=== PATIENT | male | born 1960 | race Hispanic/Latino ===

== ENCOUNTER 2017-05-16 13:14 | Inpatient (IN) | payer MEDICARE ==
[2017-05-16 14:54] LABS: BASO # 0.1 K/uL (0.0-0.2); BASO % 0.6 % (0.0-2.0); EOS % 0.5 % (0.0-4.0); HEMOGLOBIN 13.9 g/dL (12.0-18.0); LYMPH # 1.2 K/uL (1.0-4.3); LYMPH % 15.7 % (20.0-40.0); MEAN CORPUSCULAR HEMOGLOBIN 34.4 pg (27.0-31.0); MEAN CORPUSCULAR HGB CONC 34.7 g/dL (33.0-37.0); MEAN PLATELET VOLUME 6.6 fL (7.2-11.7); MONO % 12.5 % (0.0-10.0); NEUT # 5.6 K/uL (1.8-7.0); NEUT % 70.7 % (50.0-75.0); RBC 4.05 Mil/uL (4.40-5.90); WHITE BLOOD COUNT 7.9 K/uL (4.8-10.8)
[2017-05-16 14:58] LABS: URINE BILIRUBIN NEGATIVE (NEGATIVE); URINE BLOOD NEGATIVE (NEGATIVE); URINE CLARITY Clear (Clear); URINE COLOR Straw (YELLOW); URINE GLUCOSE (UA) NORMAL (Normal); URINE LEUKOCYTE ESTERASE NEG Leu/uL (Negative); URINE PROTEIN NEGATIVE (NEGATIVE); URINE UROBILINOGEN NORMAL mg/dL (0.2-1.0)
[2017-05-16 15:06] LABS: ALB/GLOB RATIO 1.2 (1.0-2.1); ALBUMIN 4.1 g/dL (3.5-5.0); ALT/SGPT 67 U/L (21-72); AST/SGOT 69 U/L (17-59); BLOOD UREA NITROGEN 6 mg/dL (9-20); CALCIUM 8.8 mg/dl (8.6-10.4); GFR AFRICAN-AMERICAN > 60; GFR NON-AFRICAN AMERICAN > 60
[2017-05-16 15:22] LABS: BARBITURATES, UR NEGATIVE (NEGATIVE); BENZODIAZEPINES, UR NEGATIVE (NEGATIVE); OPIATES, UR NEGATIVE (NEGATIVE); PHENCYCLIDINE, UR NEGATIVE (NEGATIVE)
--- NOTE | 2017-05-16 15:47 | C.PDOC ---
History Of Present Illness Pt is here requesting detox from alcohol. Time Seen by Provider: 05/16/17 14:02 Chief Complaint (Nursing): Substance Abuse History Per: Patient Onset/Duration Of Symptoms: Days Current Symptoms Are (Timing): Still Present Suicide/Self Injury Attempted (Context): None Modifying Factor(s): Alcohol Severity: Moderate Associated Symptoms: denies: Suicidal Thoughts, Suicidal Plan Additional History Per: Prior Records Past Medical History Reviewed: Historical Data, Nursing Documentation, Vital Signs Vital Signs: Last Vital Signs Temp 99.0 F 05/16/17 13:55 Pulse 70 05/16/17 15:20 Resp 20 05/16/17 15:20 BP 177/87 H 05/16/17 15:20 Pulse Ox 98 05/16/17 15:20 - Medical History PMH: HIV (As per patient "AIDS") Surgical History: No Surg Hx Family History: States: Unknown Family Hx - Social History Hx Tobacco Use: Yes Hx Alcohol Use: Yes Hx Substance Use: No - Immunization History Hx Tetanus Toxoid Vaccination: No Hx Influenza Vaccination: No Hx Pneumococcal Vaccination: No Review Of Systems Except As Marked, All Systems Reviewed And Found Negative. Constitutional: Negative for: Fever Cardiovascular: Negative for: Chest Pain Respiratory: Negative for: Shortness of Breath Gastrointestinal: Positive for: Nausea, Diarrhea. Negative for: Vomiting, Abdominal Pain, Melena, Hematochezia, Hematemesis Genitourinary: Negative for: Dysuria Musculoskeletal: Negative for: Neck Pain Skin: Negative for: Rash Neurological: Negative for: Weakness, Numbness, Seizures, Altered Mental Status Physical Exam - Physical Exam Appears: Non-toxic, No Acute Distress Skin: Normal Color, Warm, Dry Head: Atraumatic, Normacephalic Eye(s): bilateral: PERRL, EOMI Neck: Normal ROM, Supple Cardiovascular: Rhythm Regular Respiratory: Normal Breath Sounds, No Accessory Muscle Use Gastrointestinal/Abdominal: Soft, No Tenderness, No Distention Back: No CVA Tenderness Extremity: Normal ROM Neurological/Psych: Oriented x3, Normal Motor, Normal Sensation ED Course And Treatment - Laboratory Results Result Diagrams: 05/16/17 14:47 05/16/17 14:47 O2 Sat by Pulse Oximetry: 98 Pulse Ox Interpretation: Normal Progress Note: Pt is medically stable for detox admission. Reassessment Condition: Improved Disposition Counseled Patient/Family Regarding: Studies Performed, Diagnosis, Smoking Cessation - Disposition Disposition: HOSPITALIZED Disposition Time: 15:47 Condition: STABLE - Clinical Impression Clinical Impression: Alcohol dependence Decision To Admit - Pt Status Changed To: Hospital Disposition Of: Inpatient - Admit Certification Admit to Inpatient:: After my assessment, the patient will require hospitalization for at least two midnights. This is because of the severity of symptoms shown, intensity of services needed, and/or the medical risk in this patient being treated as an outpatient. - InPatient: Physician Admission Certification: I certify that this patient requires 2 or more midnights of care for the following reason:: Detox. - . Bed Request Type: Detox Admitting Physician: Rafael Nava Patient Diagnosis: Alcohol dependence
--- NOTE | 2017-05-16 16:35 | PCM.BM ---
<Nabila Rodríguez - Last Filed: 05/16/17 16:33> Treatment Plan Problems - Problems identified on initial assessmt potiential for autonomic instability related to alcohol withdrawal Date Initiated: 05/16/17 Time Initiated: 16:34 Assessment reference: NA Status: Active Treatment assets and liabiliti Patient Assests: ADL independent Patient Liabilities: substance abuse, medical problems - Milieu Protocol Maintain good personal hygiene: daily Encourage regular showers, daily Remind patient to perform daily oral care, daily Assist patient to perform ADL's Maintain personal safety: every shift Educate patient to report safety concerns to staff, every shift Monitor environment for contraband/sharps Medication safety: Monitor for expected outcome, potential side effects: every shift, Assess barriers to learning: every shift, Assess readiness for medication education: every shift <Rafael Nava - Last Filed: 05/21/17 01:20> - Diagnosis (1) Alcohol use disorder, severe, dependence Status: Acute Interventions: 05/21/17 01:20 * Assess 7x/week regarding severity of withdrawal * Educate regarding risks, benefits, side effects and alternatives of medications * Use Motivational Interviewing for abstinence * Use CBT for relapse prevention * Medication management for withdrawal symptoms * Encourage medication assisted treatment
[2017-05-16] MEDS: Multiple Vitamins Tab PO SCH (18:53)
[2017-05-17] MEDS: Multiple Vitamins Tab PO SCH (09:54)
[2017-05-17] MEDS ORDERED: Vitamins A & D Oint UD Foilpak TOP PRN (15:44)
[2017-05-17] MEDS: Tmp-Smz 800 mg-160 mg DS Tab PO SCH (21:32)
[2017-05-17] MEDS: GENVOYA PO SCH (21:32)
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
[2017-05-18] MEDS: GENVOYA PO SCH (11:12)
[2017-05-18] MEDS: Tmp-Smz 800 mg-160 mg DS Tab PO SCH (11:15)
[2017-05-18] MEDS: Multiple Vitamins Tab PO SCH (11:15)
--- NOTE | 2017-05-19 00:45 | PCM.PYCHPN ---
Psychiatric Progress Note - Psychiatric Progress Note Patient seen today, length of contact: 15 Minute Patient Chief Complaint: I am feeling little better. Problems Identified/Issues Discussed: Patient seen, chart reviewed, case discussed with the staff. Issues related to illness and treatment were discussed with the patient. Reported compliant with treatment with no adverse effects. Patient reported feeling little better. Mood reported as okay. Affect appropriate. At the time of evaluation, patient was awake alert oriented 3, had no delusions , no auditory or visual hallucination, no suicidal ideations or homicidal ideations. Medical Problems: HIV Kaposi's sarcoma Diagnostic Results: Reviewed DSM 5 Symptoms Update: Improving with treatment Medication Change: No Medical Record Reviewed: Yes Mental Status Examination - Cognitive Function Orientation: Person, Place, Situation, Time Memory: Intact Attention: WNL Concentration: WNL Association: WNL Fund of Knowledge: WNL - Mood Mood: Anxious (Less than before) - Affect Affect: Other (Appropriate) - Speech Speech: Appropriate - Formal Thought Process Formal Thought Process: No Impairment Psychotic Thoughts and Behaviors: None - Suicidal Ideation Suicidal Ideation: No - Homicidal Ideation Homicidal Ideation: No Goal/Treatment Plan - Goal/Treatment Plan Need for Continued Stay: Remain at risks for inpatient hospitalization, Discharge may exacerbated symptoms, Severe functional impairment Progress Toward Problem(s) and Goals/Treatment Plan: Patient education Supportive therapy CBT for relapse prevention [place] for abstinence Continue treatment as before. Patient wants to go to [facility] after discharge from the hospital for follow-up care. Estimated Date of D/C: 05/20/17 - Smoking Cessation Smoking Cessation Initiated: Yes
[2017-05-19] MEDS: GENVOYA PO SCH (09:49)
[2017-05-19] MEDS: Multiple Vitamins Tab PO SCH (09:49)
--- NOTE | 2017-05-19 11:28 | PCM.PYCHPN ---
Psychiatric Progress Note - Psychiatric Progress Note Patient seen today, length of contact: 15 Minute Patient Chief Complaint: I am feeling much better. Problems Identified/Issues Discussed: Patient seen, chart reviewed, case discussed with the staff. Issues related to illness and treatment were discussed with the patient. Reported compliant with treatment with no adverse effects. Patient reported feeling much better. Mood reported as okay. Affect appropriate. At the time of evaluation, patient was awake alert oriented 3, had no delusions , no auditory or visual hallucination, no suicidal ideations or homicidal ideations. Aftercare discussed with the patient. Patient wants to attend AA meetings. We will decide about [facility]. Medical Problems: HIV Kaposi's sarcoma Diagnostic Results: Reviewed DSM 5 Symptoms Update: Improving with treatment Medication Change: No Medical Record Reviewed: Yes Mental Status Examination - Cognitive Function Orientation: Person, Place, Situation, Time Memory: Intact Attention: WNL Concentration: WNL Association: WN Fund of Knowledge: [facility] Decription of patient's judgement and insights: Fair - Mood Mood: Anxious (Much less than before) - Affect Affect: Other (Appropriate) - Speech Speech: Appropriate - Formal Thought Process Formal Thought Process: No Impairment Psychotic Thoughts and Behaviors: None - Suicidal Ideation Suicidal Ideation: No - Homicidal Ideation Homicidal Ideation: No Goal/Treatment Plan - Goal/Treatment Plan Need for Continued Stay: Remain at risks for inpatient hospitalization, Discharge may exacerbated symptoms, Severe functional impairment Progress Toward Problem(s) and Goals/Treatment Plan: Patient education Supportive therapy CBT for relapse prevention [place] for abstinence Continue treatment as before. Patient wants to go to [facility] after discharge from the hospital for follow-up care. Estimated Date of D/C: 05/20/17 - Smoking Cessation Smoking Cessation Initiated: Yes
--- NOTE | 2017-05-20 07:28 | PCM.PYCHPN ---
Psychiatric Progress Note - Psychiatric Progress Note Patient seen today, length of contact: 15 Minute Patient Chief Complaint: i am feeling little better.' Problems Identified/Issues Discussed: Patient seen and evaluated, chart reviewed and discussed with the nurse. Patient reports some improvement in his mood and withdrawal symptoms. He denies any SI/HI/AVH. He is taking medication and denies any side effects. He needs more time for stabilization. Supportive therapy and psychoeducation were given. Medication Change: No Medical Record Reviewed: Yes Mental Status Examination - Cognitive Function Orientation: Person, Place, Situation, Time Memory: Intact Attention: WNL Concentration: WNL Association: WNL Fund of Knowledge: WN - Mood Mood: Anxious (Much less than before) - Affect Affect: Other (Appropriate) - Speech Speech: Appropriate - Formal Thought Process Formal Thought Process: No Impairment - Suicidal Ideation Suicidal Ideation: No - Homicidal Ideation Homicidal Ideation: No Goal/Treatment Plan - Goal/Treatment Plan Need for Continued Stay: Remain at risks for inpatient hospitalization, Discharge may exacerbated symptoms, Severe functional impairment Progress Toward Problem(s) and Goals/Treatment Plan: Alcohol use disorder severe Patient education Supportive therapy CBT for relapse prevention [place] for abstinence We will start Librium detox protocol for alcohol withdrawal Other as needed medications Estimated Date of D/C: 05/20/17 - Smoking Cessation Smoking Cessation Initiated: No
[2017-05-20] MEDS: Multiple Vitamins Tab PO SCH (10:05)
[2017-05-20] MEDS: GENVOYA PO SCH (10:05)
[2017-05-21 05:36] VITALS: PULSE 88
[2017-05-21] MEDS: Multiple Vitamins Tab PO SCH (09:54)
[2017-05-21] MEDS: GENVOYA PO SCH (09:57)
[2017-05-21 10:11] VITALS: BP 125/76; RESP 20; TEMP 98.4; O2SAT 96
--- NOTE | 2017-05-21 12:41 | PCM.PYCHDC ---
Discharge Summary - Discharge Note Consultations:: List each consultation separately and include: 1. Reason for request. 2. Findings. 3. Follow-up Summary of Hospital Course include:: 1. Description of specific treatment plan utilized for patients during their course of treatmen. 2. Summarize the time- course for resolution of acute symptoms and/or regressed behaviors. 3. Describe issues identified and worked on during hospitalization. 4. Describe medication utilized. 5. Describe medical problems identified and treated. 6. Reassessment of suicide risk Summary of Hospital Course: AA and IOP in [facility] - Final Diagnosis (DSM 5) Condition upon Discharge: STABLE Disposition: HOME/ ROUTINE Prescriptions/Medication Reconciliation: Folic Acid 1 mg PO DAILY #30 tab Gabapentin [Neurontin] 300 mg PO BID #60 cap Thiamine [Vitamin B1 Tab] 100 mg PO DAILY #30 tab traZODone [Desyrel] 50 mg PO HS PRN #30 tab PRN Reason: Insomnia
== END 2017-05-21 12:30 | disposition home or self-care (01) | DRG 895 ==
LOC: C.ER 13:14 → C.7D 15:48
PROC: HZ2ZZZZ Detoxification Services for Substance Abuse Treatment (ICD-10-PCS; principal; 2017-05-16)
PROC: HZ56ZZZ Individual Psychotherapy for Substance Abuse Treatment, Psychoeducation (ICD-10-PCS; 2017-05-16)
PROC: HZ90ZZZ Pharmacotherapy for Substance Abuse Treatment, Nicotine Replacement (ICD-10-PCS; 2017-05-16)
DX: F10.230 Alcohol dependence with withdrawal, uncomplicated (principal); B20 Human immunodeficiency virus [HIV] disease; C46.9 Kaposi's sarcoma, unspecified; F17.210 Nicotine dependence, cigarettes, uncomplicated

== ENCOUNTER 2017-07-31 14:50 | Emergency (ER) | payer MEDICARE ==
[2017-07-31 15:05] VITALS: BP 144/96; PULSE 101; TEMP 98; O2SAT 96
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
[2017-07-31 16:29] VITALS: RESP 18
== END 2017-07-31 16:29 | disposition home or self-care (01) ==
LOC: C.ER 14:50
DX: F10.20 Alcohol dependence, uncomplicated (principal); Y90.9 Presence of alcohol in blood, level not specified

== ENCOUNTER 2017-11-03 16:23 | Emergency (ER) | payer MEDICARE ==
[2017-11-03 16:36] VITALS: BMI 23.0
[2017-11-03] MEDS ORDERED: Permethrin 1% Kit 59 ML BOTTLE TOP ONE ×2 (16:37→17:00)
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
[2017-11-04 00:39] VITALS: BP 125/73
[2017-11-04 06:31] VITALS: PULSE 76; RESP 20; TEMP 97.9; O2SAT 96
== END 2017-11-04 06:29 | disposition home or self-care (01) ==
LOC: C.ER 16:23
DX: F10.129 Alcohol abuse with intoxication, unspecified (principal); Z72.0 Tobacco use; Z21 Asymptomatic human immunodeficiency virus [HIV] infection status

== ENCOUNTER 2017-11-24 01:17 | Emergency (ER) | payer MEDICARE ==
[2017-11-24 01:17] VITALS: BMI 23.0
[2017-11-24 01:38] VITALS: BP 153/97; PULSE 78; RESP 18; O2SAT 100
[2017-11-24 01:48] VITALS: TEMP 96.9
[2017-11-24] MEDS ORDERED: Tetanus/Diphtheria Toxoids 0.5 ml Syringe IM ONE ×2 (02:00→03:01)
--- NOTE | 2017-11-24 02:10 | C.PDOC ---
History Of Present Illness 57 year old male is brought to the ED by EMS for alcohol intoxication. Patient was found sleeping in the street. Patient admits to drinking alcohol tonight, patient is unsure if he had any fall or injury. History is limited due to patient sobriety. Patient denies SI/HI, hallucinations, CP, SOB, other complaints. Time Seen by Provider: 11/24/17 01:32 Chief Complaint (Nursing): Substance Abuse History Per: Patient, EMS History/Exam Limitations: intoxication Onset/Duration Of Symptoms: Hrs Current Symptoms Are (Timing): Still Present Suicide/Self Injury Attempted (Context): None Modifying Factor(s): Alcohol Associated Symptoms: denies: Depression, Suicidal Thoughts, Suicidal Plan Recent travel outside of the [place]: No Additional History Per: Patient, EMS Past Medical History Reviewed: Historical Data, Nursing Documentation, Vital Signs Vital Signs: Last Vital Signs Temp 96.9 F L 11/24/17 01:42 Pulse 78 11/24/17 01:42 Resp 18 11/24/17 01:42 BP 153/97 H 11/24/17 01:42 Pulse Ox 100 11/24/17 01:42 - Medical History PMH: HIV (As per patient "AIDS") Denies: Diabetes, Hepatitis, HTN, Seizures, Sexually Transmitted Disease Surgical History: No Surg Hx - [facility] Procedures DETOXIFICATION SERVICES FOR SUBSTANCE ABUSE TREATMENT (05/16/17) INDIV PSYCHOTHERAPY FOR SUBSTANCE ABUSE, PSYCHOEDUCATION (05/16/17) PHARMACOTHERAPY FOR SUBSTANCE ABUSE, NICOTINE REPLACE (05/16/17) Family History: States: Unknown Family Hx - Social History Hx Tobacco Use: Yes Hx Alcohol Use: Yes Hx Substance Use: Yes - Immunization History Hx Tetanus Toxoid Vaccination: No Hx Influenza Vaccination: No Hx Pneumococcal Vaccination: No Review Of Systems Constitutional: Negative for: Fever, Chills Eyes: Negative for: Vision Change Cardiovascular: Negative for: Chest Pain Respiratory: Negative for: Shortness of Breath Gastrointestinal: Negative for: Nausea, Vomiting Neurological: Negative for: Weakness, Numbness Psych: Negative for: Depression, Suicidal ideation Physical Exam - Physical Exam Appears: Non-toxic, No Acute Distress, Unkempt, Other (malodorous, covered in urine) Skin: Normal Color, Warm, Dry, Other (scattered abrasions to upper and lower extremities) Head: Atraumatic, Normacephalic Eye(s): bilateral: Normal Inspection Neck: Normal ROM, Supple Chest: Symmetrical Cardiovascular: Rhythm Regular Respiratory: Normal Breath Sounds, No Rales, No Rhonchi, No Wheezing Gastrointestinal/Abdominal: Soft, No Tenderness, No Guarding, No Rebound Extremity: Normal ROM, No Tenderness, No Swelling Neurological/Psych: Oriented x3, Normal Speech Gait: Steady ED Course And Treatment O2 Sat by Pulse Oximetry: 100 (ON RA) Pulse Ox Interpretation: Normal - CT Scan/US CT head Other Rad Studies (CT/US): Read By Radiologist, Radiology Report Reviewed CT/US Interpretation: EXAM: CT Head Without IV contrast. CLINICAL HISTORY: Drunk. injury ,r/o bleed. TECHNIQUE: Axial computed tomography images of the head/brain without intravenous contrast. 1241.80 mGy-cm. COMPARISON: None provided. FINDINGS: BRAIN. Chronic periventricular and subcortical microvascular disease is seen. Small hyperdense foci are noted in the region of right internal capsule likely represent small calcifications. 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 Within this area there are several irregular hyperdense foci noted measuring up to 100 HU and may represent calcifications. Nevertheless comparison with any prior studies is recommended. If not available, clinical correlation and short term serial follow up is recommended to exclude a possibility of bleed in 6-12 and 24 hours. VENTRICLES: There is generalized parenchymal atrophy noted as demonstrated by symmetrical dilatation of ventricles and sulci. ORBITS: The orbits are unremarkable. SINUSES AND MASTOIDS: The paranasal sinuses and mastoid air cells are clear. BONES: No fracture. MISCELLANEOUS: Small hyperdense foci are noted in the region of right internal capsule likely represent small calcifications. IMPRESSION: 1. There is generalized parenchymal atrophy noted as demonstrated by symmetrical dilatation of ventricles and sulci. 2. Chronic periventricular and subcortical microvascular disease is seen. 3. Small hyperdense foci are noted in the region of right internal capsule likely represent small calcifications. 4. 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 Within this area there are several irregular hyperdense foci noted measuring up to 100 HU and may represent calcifications. Nevertheless comparison with any prior studies is recommended. If not available, clinical correlation and short term serial follow up is recommended to exclude a possibility of bleed in 6-12 and 24 hours. . Electronically signed on Nov 24, 2017 4:06:20 AM EDT by: Ke Cadena M.D., CHELY Certified By ABR & CBC[facility]. Fellowship Trained MRI and CT Specialist. Progress Note: Plan: - CT head. - tetanus. - Observe until clinically sober Disposition - Disposition Disposition: ELOPEMENT - ER ONLY Disposition Time: 05:35 Forms: [employer] (South African) - Clinical Impression Clinical Impression: Alcohol intoxication - Scribe Statement The provider has reviewed the documentation as recorded by the Scribe Jonel Cuevas All medical record entries made by the Scribe were at my direction and personally dictated by me. I have reviewed the chart and agree that the record accurately reflects my personal performance of the history, physical exam, medical decision making, and the department course for this patient. I have also personally directed, reviewed, and agree with the discharge instructions and disposition.
--- NOTE | 2017-11-24 11:33 | CT ---
Date of service: 11/24/2017 PROCEDURE: CT HEAD WITHOUT CONTRAST. HISTORY: DRUNK, INJURIES, R/O BLEED COMPARISON: None available. TECHNIQUE: Axial computed tomography images were obtained through the head/brain without intravenous contrast. Radiation dose: Total exam DLP = 1241.80 mGy-cm. This CT exam was performed using one or more of the following dose reduction techniques: Automated exposure control, adjustment of the mA and/or kV according to patient size, and/or use of iterative reconstruction technique. FINDINGS: HEMORRHAGE: There is a small elliptical shaped hyperdense focus along the inferior margin of the left basal ganglia which is surrounded by a peripheral of wide margin of low-attenuation that also extends anteriorly along the left inferior frontal pole.. This focus could represent subacute infarct with hemorrhagic conversion. Clinical correlation recommended. In addition, there is a somewhat bilobed appearing more discrete hyperdense focus on slightly more superior and anterior and medial in location just to the left of midline which could represent some microcalcification from prior infarct or hemorrhage. Aneurysm would be less likely.. . There is another somewhat serpiginous hyperdense focus along the posterolateral inferior border of the right basal ganglia within a small adjacent focus of lower attenuation abutting medial margin of. The possibility of the venous angioma should be considered as well. The Follow-up MRI-MRA of the brain may be of some benefit for further evaluation of these findings BRAIN: Mild moderate diffuse/confluent chronic periventricular white matter ischemic changes seen extending peripherally into the deep and subcortical white matter both cerebral hemispheres. There also appear to be a few more discrete chronic bilateral basal nuclei lacunar type infarcts not withstanding the aforementioned findings. No extra-axial masses or collections seen on this noncontrast exam. Moderate to significant generalized volume loss. VENTRICLES: No evidence of obstructive hydrocephalus however note is made of a asymmetry of the lateral ventricles right-sided which is larger than the left felt to represent a normal variant.. CALVARIUM: No acute calvarial fractures PARANASAL SINUSES: Unremarkable as visualized. No significant inflammatory changes. MASTOID AIR CELLS: Unremarkable as visualized. No inflammatory changes. OTHER FINDINGS: None. IMPRESSION: small elliptical shaped hyperdense focus along the inferior margin of the left basal ganglia which is surrounded by a peripheral of wide margin of low-attenuation that also extends anteriorly along the left inferior frontal pole.. This focus could represent subacute infarct with hemorrhagic conversion. Clinical correlation recommended. In addition, there is a somewhat bilobed appearing more discrete hyperdense focus on slightly more superior and anterior and medial in location just to the left of midline which could represent some microcalcification from prior infarct or hemorrhage. Aneurysm would be less likely.. . There is another somewhat serpiginous hyperdense focus along the posterolateral inferior border of the right basal ganglia within a small adjacent focus of lower attenuation abutting medial margin of. The possibility of the venous angioma should be considered as well. The Follow-up MRI-MRA of the brain may be of some benefit for further evaluation of these findings Chronic white matter ischemic changes. Moderate to fairly significant volume loss.
== END 2017-11-24 01:42 | disposition left against medical advice (07) ==
LOC: C.ER 01:17
DX: F10.129 Alcohol abuse with intoxication, unspecified (principal); Y90.9 Presence of alcohol in blood, level not specified; S40.819A Abrasion of unspecified upper arm, initial encounter; S80.819A Abrasion, unspecified lower leg, initial encounter; X58.XXXA Exposure to other specified factors, initial encounter

== ENCOUNTER 2017-11-27 14:59 | Inpatient (IN) | payer MEDICARE ==
[2017-11-27 14:59] VITALS: BMI 23.0
--- NOTE | 2017-11-27 15:49 | C.PDOC ---
- HPI Time Seen by Provider: 11/27/17 15:29 Chief Complaint (Nursing): Trauma Past Medical History Vital Signs: Last Vital Signs Temp 98.4 F 11/27/17 15:02 Pulse 98 H 11/27/17 15:02 Resp 18 11/27/17 15:02 BP 143/78 11/27/17 15:02 Pulse Ox 99 11/27/17 15:02 - Medical History PMH: HIV (As per patient "AIDS") Denies: Diabetes, Hepatitis, HTN, Seizures, Sexually Transmitted Disease - [facility] Procedures DETOXIFICATION SERVICES FOR SUBSTANCE ABUSE TREATMENT (05/16/17) INDIV PSYCHOTHERAPY FOR SUBSTANCE ABUSE, PSYCHOEDUCATION (05/16/17) PHARMACOTHERAPY FOR SUBSTANCE ABUSE, NICOTINE REPLACE (05/16/17) Family History: States: Unknown Family Hx - Social History Hx Tobacco Use: Yes Hx Alcohol Use: Yes Hx Substance Use: Yes - Immunization History Hx Tetanus Toxoid Vaccination: No Hx Influenza Vaccination: No Hx Pneumococcal Vaccination: No ED Course And Treatment O2 Sat by Pulse Oximetry: 99 Disposition - Disposition
--- NOTE | 2017-11-27 15:53 | C.PDOC ---
History Of Present Illness 57 y/o male presents to the ED with complaints of epigastric pain that began today. Also reports difficulty walking for a while and states I think I fell either today or yesterday. Admits to ETOH use today. Patient is a poor hist orian. States he has a history of full blown AIDS, unknown if prior history of AIDS illness. Also (+) history of cancer, I think in the colon? and is s/p chemotherapy a while ago but cannot remember where. Records reviewed, patient seen here on 11/24 for intoxication, s/p elopement. Multiple prior ER visits for intoxication. No documentation of facial trauma. <Amparo Escalona - Last Filed: 11/27/17 18:46> History Per: Patient History/Exam Limitations: intoxication Onset/Duration Of Symptoms: Days Current Symptoms Are (Timing): Still Present Reports Recently: Seen In ED Additional History Per: Prior Records <Amparo Escalona - Last Filed: 11/27/17 18:46> <Norma Ty - Last Filed: 11/27/17 20:45> Time Seen by Provider: 11/27/17 15:29 Chief Complaint (Nursing): Trauma Past Medical History Reviewed: Historical Data, Nursing Documentation, Vital Signs Vital Signs: Last Vital Signs Temp 98.4 F 11/27/17 15:02 Pulse 98 H 11/27/17 15:02 Resp 18 11/27/17 15:02 BP 143/78 11/27/17 15:02 Pulse Ox 99 11/27/17 15:02 - Medical History PMH: HIV (As per patient "AIDS") Denies: Diabetes, Hepatitis, HTN, Seizures, Sexually Transmitted Disease Surgical History: No Surg Hx - [facility] Procedures DETOXIFICATION SERVICES FOR SUBSTANCE ABUSE TREATMENT (05/16/17) INDIV PSYCHOTHERAPY FOR SUBSTANCE ABUSE, PSYCHOEDUCATION (05/16/17) PHARMACOTHERAPY FOR SUBSTANCE ABUSE, NICOTINE REPLACE (05/16/17) Family History: States: Unknown Family Hx - Social History Hx Tobacco Use: Yes Hx Alcohol Use: Yes Hx Substance Use: Yes - Immunization History Hx Tetanus Toxoid Vaccination: No Hx Influenza Vaccination: No Hx Pneumococcal Vaccination: No <Amparo Escalona - Last Filed: 11/27/17 18:46> Vital Signs: Last Vital Signs Temp 98.4 F 11/27/17 15:02 Pulse 80 11/27/17 19:12 Resp 12 11/27/17 19:12 BP 116/80 11/27/17 19:12 Pulse Ox 100 11/27/17 19:12 - [facility] Procedures DETOXIFICATION SERVICES FOR SUBSTANCE ABUSE TREATMENT (05/16/17) INDIV PSYCHOTHERAPY FOR SUBSTANCE ABUSE, PSYCHOEDUCATION (05/16/17) PHARMACOTHERAPY FOR SUBSTANCE ABUSE, NICOTINE REPLACE (05/16/17) <Norma Ty - Last Filed: 11/27/17 20:45> Review Of Systems Review Of Systems: ROS cannot be obtained secondary to pt's inabilty to answer questions. <PolaAmparo - Last Filed: 11/27/17 18:46> Physical Exam - Physical Exam Appears: Non-toxic, In Acute Distress (mild distress) Skin: Normal Color, Warm, Dry Head: Normacephalic, No Tenderness, No Laceration Eye(s): bilateral: PERRL, EOMI, Other (Bilateral periorbital hematoma; Old right subconjunctival hematoma) Nose: Normal, No Deformity, No Septal Hematoma Oral Mucosa: Moist Neck: Supple Chest: Symmetrical, No Deformity, Other (Atraumatic) Cardiovascular: Rhythm Regular Respiratory: No Rales, No Rhonchi, No Wheezing, Other (Clear to auscultation bilaterally) Gastrointestinal/Abdominal: Soft, No Tenderness, No Distention, No Guarding, No Rebound Back: Normal Inspection (Atraumatic), No Vertebral Tenderness, No Paraspinal Tenderness Extremity: Bilateral: Atraumatic, Normal Color And Temperature, Normal ROM (FROM without difficulty) Pulses: Left Dorsalis Pedis: Normal, Right Dorsalis Pedis: Normal Neurological/Psych: Other (AOx2, no focal deficits; Calm, cooperative, no severe intoxication) <Amparo Escalona - Last Filed: 11/27/17 18:46> ED Course And Treatment - Laboratory Results Result Diagrams: 11/27/17 16:04 11/27/17 16:04 ECG: Interpreted By Ak ECG Rhythm: Sinus Rhythm ECG Interpretation: Abnormal Interpretation Of ECG: ST DEPRESSION V2-V4 NO STEMI; NO PRIOR Rate From EC O2 Sat by Pulse Oximetry: 99 (RA) Pulse Ox Interpretation: Normal <Amparo Escalona - Last Filed: 11/27/17 18:46> - Laboratory Results Result Diagrams: 11/27/17 16:04 11/27/17 16:04 Lab Interpretation: Abnormal (K+ 2.3, lactate 2.4, Bili 1.7,) - CT Scan/US CT Head Other Rad Studies (CT/US): Read By Radiologist CT/US Interpretation: Name:JAIME CUMMINS Exam Date:Nov 27, 2017 5:50:52 PM EDT. Modality Type:CT. Description:CT - BRAIN. Gender:M Laterality:Not applicable. :58 Referring Physician:Amparo Escalona MD. EXAM: CT Head Without IV contrast. CLINICAL HISTORY: S/P HEAD INJURY. TECHNIQUE: Axial computed tomography images of the head/brain without intravenous contrast. COMPARISON: None provided. FINDINGS: BRAIN. No acute intraparenchymal hemorrhage. No mass lesion. No CT evidence for acute territorial infarct. No midline shift or extra-axial collections. There is mild brain atrophy and ventricular dilatation. VENTRICLES: No hydrocephalus. ORBITS: The orbits are unremarkable. SINUSES AND MASTOIDS: The paranasal sinuses and mastoid air cells are clear. BONES: No fracture. IMPRESSION: No acute intracranial abnormality. Mild brain atrophy and ventricular dilatation. CT Maxillofacial Other Rad Studies (CT/US): Read By Radiologist CT/US Interpretation: Name:JAIME CUMMINS Exam Date:Nov 27, 2017 5:53:47 PM EDT. Modality Type:CT. Description:CT - FACIAL BONES. Gender:M Laterality:Not applicable. :58 Referring Physician:Amparo Escalona MD. EXAM: CT Maxillofacial Without IV contrast. CLINICAL HISTORY: RT FACIAL AND ORBIT INJURY. S/P FALL. SA. TECHNIQUE: Axial computed tomography images of the face without intravenous contrast. Sagittal and coronal reformatted images were generated. CONTRAST: Without. COMPARISON: None provided. FINDINGS: BONES: No acute fracture or aggressive appearing osseous lesion. The mandible is intact. SOFT TISSUES: Mild soft tissue swelling right frontal region. SINUSES: The sinuses are clear. ORBITS: The orbits are normal. No retrobulbar hematoma or mass. IMPRESSION: No acute osseous had Lady demonstrated. Subcutaneous soft tissue swelling right frontal region. CT Abd/Pelvis Other Rad Studies (CT/US): Read By Radiologist CT/US Interpretation: Accession No. : [id number]. Patient Name / ID : MARIA G Acuna / [id number]. Exam Date : 11/27/2017 17:58:28 ( Approved ). Study Comment : Sex / Age : M / 57Y. Creator : Aiyana Pantoja MD. Dictator : Aiyana Pantoja MD. Patrol Man : Chemical Mixer : Aiyana Pantoja MD. Approver2 : Report Date : 11/27/2017 18:44:30. My Comment : . Date of service: 11/27/2017. PROCEDURE: CT Abdomen and Pelvis with contrast. HISTORY: abd pain HO COLON CA, HIV. COMPARISON: None available. TECHNIQUE: Contrast dose: 100 cc Visipaque 320. Radiation dose: Total exam DLP = 674.63 mGy-cm. This CT exam was performed using one or more of the following dose reduction techniques: Automated exposure control, adjustment of the mA and/or kV according to patient size, and/or use of iterative reconstruction technique. FINDINGS: LOWER THORAX: No visible consolidation, pleural effusion, or pneumothorax. LIVER: Hepatomegaly. Severe diffuse hypoattenuation of the liver consistent with hepatic steatosis. GALLBLADDER AND BILE DUCTS: Unremarkable. PANCREAS: Unremarkable. SPLEEN: Unremarkable. ADRENALS: Unremarkable. KIDNEYS AND URETERS: The kidneys enhance symmetrically. No hydronephrosis or obstructing calculus identified. Too small to characterize renal hypodensities; statistically likely cysts. 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 No aortic aneurysm. BOWEL: Stomach is nondistended. Lack of oral contrast limits evaluation for bowel pathology. Bowel loops appear within normal limits of caliber without evidence of obstruction. APPENDIX: The appendix appears within normal limits of caliber. No secondary signs of acute appendicitis. PERITONEUM: No significant free fluid. No definite free air. LYMPH NODES: No bulky adenopathy identified. BLADDER: Under distention of the urinary bladder limits evaluation. REPRODUCTIVE: Unremarkable. BONES: Multilevel degenerative changes. OTHER FINDINGS: None. IMPRESSION: Hepatomegaly. Severe diffuse hypoattenuation of the liver consistent with hepatic steatosis. Too small to characterize renal hypodensities; statistically likely cysts. 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 - Physician Consult Information Time Consulting Physician Contacted: 20:43 Physician Contacted: Frank Rivera Outcome Of Conversation: He will accept patient on his service for admission for head injury with disorientation. <Norma Ty - Last Filed: 11/27/17 20:45> Progress - Re-Evaluation Re-evaluation Note: 11/27/17 16:30 REPEAT EKG UNCH PRIOR. ASYMPT VSS. 11/27/17 17:46 PERSIST ABD PAIN. VSS CT PENDING - Data Reviewed Data Reviewed: Lab, Diagnostic imaging, EKG, Old records - Critical Care Citical Care: Excluding Proc Time Critical Care Time: 120 minutes <Amparo Escalona - Last Filed: 11/27/17 18:46> Medical Decision Making Medical Decision Making: Initial Impression: 57 y/o M with ETOH intoxication, possible trauma/fall Initial Plan: --EKG --CT Head --CT Maxillofacial --CT Abd/Pelvis --Labs --Chest x-ray --IV fluids --Zofran 4 mg IVP --Pepcid 20 mg IVP --Protonix 40 mg IV --Aspirin 324 mg PO --NTG 0.4 mg SL Blood and urine cultures sent. <Amparo Escalona - Last Filed: 11/27/17 18:46> Disposition Counseled Patient/Family Regarding: Studies Performed - Disposition Disposition Time: 19:00 <Amparo Escalona - Last Filed: 11/27/17 18:46> <Norma Ty - Last Filed: 11/27/17 20:45> - Disposition Condition: STABLE Forms: [employer] (E[place]ian) - Clinical Impression Clinical Impression: Alcohol use disorder, severe, dependence, Periorbital contusion, Subconjunctival hemorrhage, Altered mental status, Abnormal electrocardiogram, Abdominal pain - Scribe Statement The provider has reviewed the documentation as recorded by the Scribe Sade Keshav Provider Attestation: All medical record entries made by the Rick were at my direction and per sonally dictated by me. I have reviewed the chart and agree that the record accurately reflects my personal performance of the history, physical exam, medical decision making, and the department course for this patient. I have also personally directed, reviewed, and agree with the discharge instructions and disposition. <Amparo Escalona - Last Filed: 11/27/17 18:46> Physician Patient Turnover Patient Signed Over To: Norma Ty Handoff Comments: FU CT, DISPO <Amparo Escalona - Last Filed: 11/27/17 18:46> Addendum Addendum: 11/27/17 1900 Patient endorsed to me at this time, pending imaging and final disposition Awaiting CT scan reading from radiology. 11/27/17 20:01 CT head and maxillofacial negative. <Norma Ty - Last Filed: 11/27/17 20:45>
[2017-11-27] MEDS ORDERED: Sodium Chloride 0.9% 1,000 ML IV ONE (15:54)
[2017-11-27 16:08] LABS: LYMPH # 0.4 K/uL (1.0-4.3); LYMPH % 10.3 % (20.0-40.0); MONO # 0.4 K/uL (0.0-0.8); NEUT # 3.3 K/uL (1.8-7.0)
[2017-11-27] MEDS ORDERED: Sodium Chloride 0.9% 1,000 ML ONE (16:11)
[2017-11-27 16:12] LABS: BASO % 0.3 % (0.0-2.0); EOS % 0.1 % (0.0-4.0); HEMOGLOBIN 12.3 g/dL (12.0-18.0); MEAN CELL VOLUME 97.8 fL (80.0-94.0); MEAN CORPUSCULAR HEMOGLOBIN 34.1 pg (27.0-31.0); MEAN CORPUSCULAR HGB CONC 34.9 g/dL (33.0-37.0); MEAN PLATELET VOLUME 7.9 fL (7.2-11.7); MONO % 9.7 % (0.0-10.0); NEUT % 79.6 % (50.0-75.0); NRBC % 0.2 % (0.0-2.0); RBC 3.61 Mil/uL (4.40-5.90); RED CELL DISTRIBUTION WIDTH 16.7 % (11.5-14.5); WHITE BLOOD COUNT 4.1 K/uL (4.8-10.8)
[2017-11-27 16:16] LABS: INR 1.1; PROTHROMBIN TIME 11.8 SECONDS (9.7-12.2)
--- NOTE | 2017-11-27 16:19 | RAD ---
HISTORY: EPIG PAIN COMPARISON: No prior. TECHNIQUE: Chest, one view. FINDINGS: LUNGS: No focal consolidation. Please note that chest x-ray has limited sensitivity for the detection of pulmonary masses. PLEURA: No significant pleural effusion identified. No definite pneumothorax . CARDIOVASCULAR: The cardiomediastinal silhouette appears within normal limits of size. OSSEOUS STRUCTURES: No acute osseous abnormality identified. VISUALIZED UPPER ABDOMEN: Mild elevation of the right hemidiaphragm. OTHER FINDINGS: None. IMPRESSION: No focal consolidation, significant pleural effusion, or definite pneumothorax identified.
[2017-11-27 16:26] LABS: ALB/GLOB RATIO 1.3 (1.0-2.1); ALBUMIN 3.5 g/dL (3.5-5.0); ALT/SGPT 44 U/L (21-72); AST/SGOT 67 U/L (17-59); BLOOD UREA NITROGEN 8 mg/dL (9-20); CALCIUM 9.1 mg/dl (8.6-10.4); GFR NON-AFRICAN AMERICAN > 60; LIPASE 225 U/L (23-300)
[2017-11-27 16:27] LABS: VENOUS BLOOD GAS BASE EXCESS 11.4 mmol/L (0.0-2.0); VENOUS BLOOD GAS PCO2 41 mmHg (40-60); VENOUS BLOOD GAS PO2 22 mm/Hg (30-55); VENOUS BLOOD PH 7.54 (7.32-7.43)
[2017-11-27] MEDS ORDERED: Potassium Chloride 20 mEq/15 ml LIQ UD PO STA (16:42)
[2017-11-27] MEDS ORDERED: Potassium Chloride 20 mEq 100 ML ONE (16:58)
[2017-11-27] MEDS ORDERED: Potassium Chloride 20 mEq/15 ml LIQ UD ONE (16:58)
[2017-11-27 17:25] LABS: SQUAMOUS EPITHIAL < 1 /hpf (0-5); URINE BILIRUBIN 1+ (NEGATIVE); URINE BLOOD 1+ (NEGATIVE); URINE CLARITY Clear (Clear); URINE COLOR Amber (YELLOW); URINE GLUCOSE (UA) NORMAL (Normal); URINE LEUKOCYTE ESTERASE NEG Leu/uL (Negative); URINE PROTEIN 2+ mg/dL (NEGATIVE)
[2017-11-27] MEDS ORDERED: Iodixanol 320 MG/ML 100 ML BOTTLE IV ONE (17:35)
[2017-11-27 17:40] LABS: BARBITURATES, UR NEGATIVE (NEGATIVE); BENZODIAZEPINES, UR NEGATIVE (NEGATIVE); OPIATES, UR NEGATIVE (NEGATIVE); PHENCYCLIDINE, UR NEGATIVE (NEGATIVE)
--- NOTE | 2017-11-27 18:48 | CT ---
Date of service: 11/27/2017 PROCEDURE: CT Abdomen and Pelvis with contrast HISTORY: abd pain HO COLON CA, HIV COMPARISON: None available. TECHNIQUE: Contrast dose: 100 cc Visipaque 320 Radiation dose: Total exam DLP = 674.63 mGy-cm. This CT exam was performed using one or more of the following dose reduction techniques: Automated exposure control, adjustment of the mA and/or kV according to patient size, and/or use of iterative reconstruction technique. FINDINGS: LOWER THORAX: No visible consolidation, pleural effusion, or pneumothorax. LIVER: Hepatomegaly. Severe diffuse hypoattenuation of the liver consistent with hepatic steatosis. GALLBLADDER AND BILE DUCTS: Unremarkable. PANCREAS: Unremarkable. SPLEEN: Unremarkable. ADRENALS: Unremarkable. KIDNEYS AND URETERS: The kidneys enhance symmetrically. No hydronephrosis or obstructing calculus identified. Too small to characterize renal hypodensities; statistically likely cysts. 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 No aortic aneurysm. BOWEL: Stomach is nondistended. Lack of oral contrast limits evaluation for bowel pathology. Bowel loops appear within normal limits of caliber without evidence of obstruction. APPENDIX: The appendix appears within normal limits of caliber. No secondary signs of acute appendicitis. PERITONEUM: No significant free fluid. No definite free air. LYMPH NODES: No bulky adenopathy identified. BLADDER: Under distention of the urinary bladder limits evaluation. REPRODUCTIVE: Unremarkable. BONES: Multilevel degenerative changes. OTHER FINDINGS: None. IMPRESSION: Hepatomegaly. Severe diffuse hypoattenuation of the liver consistent with hepatic steatosis. Too small to characterize renal hypodensities; statistically likely cysts. 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
[2017-11-27] MEDS: Dextrose 5%/0.45% NS 1,000 ML IV SCH (22:36)
[2017-11-27] MEDS ORDERED: Dextrose 5%/0.45% NS 1,000 ML IV ONE (22:37)
[2017-11-28 00:20] VITALS: RESP 20
[2017-11-28] MEDS ORDERED: Potassium Chloride 20 mEq ER Tab PO ONE ×3 (07:39→18:02)
--- NOTE | 2017-11-28 08:47 | CT ---
Date of service: 11/27/2017 PROCEDURE: CT HEAD WITHOUT CONTRAST. HISTORY: TRAUMA COMPARISON: 11/24/2017 TECHNIQUE: Axial computed tomography images were obtained through the head/brain without intravenous contrast. Radiation dose: Total exam DLP = 1183.33 mGy-cm. This CT exam was performed using one or more of the following dose reduction techniques: Automated exposure control, adjustment of the mA and/or kV according to patient size, and/or use of iterative reconstruction technique. FINDINGS: HEMORRHAGE: Questionable small amount of hemorrhage within a region of low density inferior to the left basal ganglia, grossly unchanged in appearance from the prior examination. Possible hemorrhage within a subacute infarct. No significant interval change in appearance compared to 11/24/2017. There is mass effect upon the left lateral aspect of the 3rd ventricle with mild displacement of the 3rd ventricle towards the right. In comparison to the prior examination, the extent of mass-effect is unchanged. BRAIN: No intracranial mass identified. Mild diffuse atrophy. Mild chronic periventricular white matter ischemic change unchanged from prior. VENTRICLES: Unremarkable. No hydrocephalus. CALVARIUM: Unremarkable. PARANASAL SINUSES: Unremarkable as visualized. No significant inflammatory changes. MASTOID AIR CELLS: Unremarkable as visualized. No inflammatory changes. OTHER FINDINGS: None. IMPRESSION: Possible subacute infarct inferior to left basal ganglia with small amount of high attenuation intermixed suspicious for blood products. No significant change in appearance from examination of 11/24/2017. Mild mass effect upon the left lateral aspect of the 3rd ventricle. Consider further evaluation with magnetic resonance imaging of brain.
[2017-11-28] MEDS ORDERED: Enoxaparin 40 mg Syringe SC SCH (10:00)
--- NOTE | 2017-11-28 10:03 | CP.PCM.CON ---
History of Present Illness - History of Present Illness History of Present Illness: PGY1 Neurology Consult Note for Dr. Phelan: This is a 57-year-old Male referred to us by Dr. Rivera, and with a reported PMH of "AIDS" and gastric cancer (chemotherapy [id number]), who presents to [facility] (Former[facility]) for epigastric pain and was found to have also sustained a fall. Patient states that he fell backwards at a store and hit his head. Patient admits to alcohol use recently, about 1 liter of vodka per day. Of note, patient was previously seen at [facility] for confusion and alcohol intoxication about 1 month ago, and has a history of elopement. Furthermore, patient has multiple other previous visits to the emergency department for intoxication. Patient admits to lightheadedness, and intermittent lower extremity weakness bilaterally that causes him to fall. Patient otherwise denies chest pain, shortness of breath, fatigue, tremors, blurred vision, and/or visual field deficits. Of note, patient is a poor historian. 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 Medications: Folic 1mg PO daily, thiamine 100mg PO daily, Genvoya 1 tab po daily, Bactrim ds 1 tab po daily Imaging: HEAD CT: Possible subacute infarct inferior to left basal ganglia with small amount of high attenuation intermixed suspicious for blood products. No significant change in appearance from examination of 11/24/2017. Mild mass effect upon the left lateral aspect of the 3rd ventricle. Consider further evaluation with magnetic resonance imaging of brain. MRI W/O contrast: Findings highly suspicious for lymphoma or glioblastoma mu ltiforme at the left frontal and temporal lobes as well as basal ganglia and left thalamus. 2. MR examination does not demonstrate signal to suggest intraparenchymal hemorrhage though this still likely based on CT findings. Please see discussion above. 3. Age-related neuro degenerative changes com prised of diffuse cerebral atrophy chronic microangiopathy are identified which appears somewhat advanced for the patient's age may be related to substance abuse. Status: Acute Review of Systems - Review of Systems All systems: reviewed and no additional remarkable complaints except - Constitutional Constitutional: As Per HPI - EENT Eyes: As Per HPI Ears: As Per HPI Nose/Mouth/Throat: As Per HPI - Cardiovascular Cardiovascular: As Per HPI - Respiratory Respiratory: As Per HPI - Gastrointestinal Gastrointestinal: As Per HPI - Musculoskeletal Musculoskeletal: As Per HPI, Muscle Weakness (intermittent bilateral lower extremity weakness ). absent: Joint Swelling, Limited Range of Motion, Myalgias - Integumentary Integumentary: As Per HPI - Neurological Neurological: As Per HPI, Dizziness (admits to feeling lightheaded). absent: N umbness, Headaches - Endocrine Endocrine: As Per HPI - Hematologic/Lymphatic Hematologic: As Per HPI Past Patient History - Infectious Disease Hx of Infectious Diseases: None - Past Medical History & Family History Past Medical History?: Yes - Past Social History Smoking Status: Heavy Smoker > 10 Cigarettes Daily - CARDIAC Hx Hypertension: No - PULMONARY Hx Tuberculosis: No - NEUROLOGICAL Hx Seizures: No - HEMATOLOGICAL/ONCOLOGICAL Hx AIDS: Yes Hx Human Immunodeficiency Virus (HIV): Yes (As per patient "AIDS") - MUSCULOSKELETAL/RHEUMATOLOGICAL Hx Falls: Yes - GENITOURINARY/GYNECOLOGICAL Hx Sexually Transmitted Disorders: No - PSYCHIATRIC Hx Substance Use: No - SURGICAL HISTORY Hx Surgeries: No - ANESTHESIA Hx Anesthesia: Yes Hx Anesthesia Reactions: No Hx Malignant Hyperthermia: No Has any member of the family had a problem w/ anesthesia?: No Meds Allergies/Adverse Reactions: Allergies Allergy/AdvReac Type Severity Reaction Status Date / Time No Known Allergies Allergy Verified 11/27/17 15:09 - Medications Medications: Current Medications Enoxaparin Sodium (Lovenox) 40 mg SC DAILY [facility] Dextrose/Sodium Chloride (Dextrose 5%/0.45% Ns 1000 Ml) 1,000 mls @ 100 mls/hr IV .Q10H [facility] Last Admin: 11/27/17 22:36 Dose: 100 mls/hr Influenza Virus Vaccine (Fluzone Quad [id number]) 60 mcg IM .ONCE ONE Stop: 11/30/17 10:01 Lactulose (Enulose) 20 gm PO TID [facility] Nitroglycerin (Nitrostat Sl Tab) 0.4 mg SL Q5M PRN PRN Reason: CHEST PAIN Pneumococcal Polyvalent Vaccine (Pneumovax 23 Vaccine) 0.5 ml IM .ONCE ONE Stop: 11/30/17 10:01 Physical Exam - Constitutional Appears: No Acute Distress, Unkempt, Chronically Ill - Head Exam Head Exam: ATRAUMATIC, NORMOCEPHALIC - Eye Exam Eye Exam: Conjunctival injection (Racoon eyes; ecchymosis bilaterally, yellow discharge from inner corner of eye. Bloody right eye), EOMI, PERRL. absent: Normal appearance (black brusin appreciated around eyes bilaterally that extend up to eyebrows bilaterally. ), Periorbital swelling, Periorbital tenderness, Scleral icterus Pupil Exam: NORMAL ACCOMODATION - Neck Exam Neck exam: Positive for: Normal Inspection - Neurological Exam Neurological exam: Alert, CN II-XII Intact, Oriented x3 Additional comments: muscle strength 5/5 in upper and lower extremities bilaterally No pronator drift appreciated DTRS in tact bilaterally Gross sensation intact - Expanded Neurological Exam Expanded Patient oriented to: person, place, time Speech: Fluid Speech Cranial nerves: EOM's Intact: Normal, Facial Palsey w/Forehead Movement: Normal, Facial Palsey w/o Forehead Movement: Normal, Facial Sensation: Normal, Gag Reflex: Normal, Nystagmus: Normal, Tongue Deviation: Normal Cerebellar Function: Finger to Nose: Abnormal Right, Heel to Capellan: Normal, Romberg: Normal Upper motor neuron: Babinski Sign: Normal, [place]air Neglect: Normal, Pronator Drift: Normal, Sensory Extinction: Normal Sensory exam: Lower Extremity 2 Point Discrimination: Normal, Lower Extremity Light Touch: Normal, Lower Extremity Pin Prick: Normal, Lower Extremity Temperature: Normal, Upper Extremity 2 Point Discrimination: Normal, Upper Extremity Light Touch: Normal, Upper Extremity Pin Prick: Normal, Upper Extremity Temperature: Normal Neuro motor strength exam: Left Upper Extremity: 5, Right Upper Extremity: 5, Left Lower Extremity: 5, Right Lower Extremity: 5 DTR: Brachioradialis Left: 0, Brachioradialis Right: 0, Patellar Left: 0, Patellar Right: 0 - Psychiatric Exam Psychiatric exam: Normal Affect, Normal Mood - Skin Skin Exam: Warm Results - Vital Signs Recent Vital Signs: Last Vital Signs Temp 98.1 F 11/28/17 08:41 Pulse 74 11/28/17 08:41 Resp 20 11/28/17 08:41 BP 131/77 11/28/17 08:41 Pulse Ox 99 11/28/17 08:41 - Labs Result Diagrams: 11/28/17 11:15 11/28/17 11:15 Labs: Laboratory Results - last 24 hr 11/27/17 11/27/17 11/27/17 15:44 16:04 16:04 WBC 4.1 L RBC 3.61 L Hgb 12.3 Hct 35.3 MCV 97.8 H MCH 34.1 H MCHC 34.9 RDW 16.7 H Plt Count 111 L D MPV 7.9 Neut % (Auto) 79.6 H Lymph % (Auto) 10.3 L [place] % (Auto) 9.7 Eos % (Auto) 0.1 Baso % (Auto) 0.3 Neut # (Auto) 3.3 Lymph # (Auto) 0.4 L [place] # (Auto) 0.4 Eos # (Auto) 0.0 Baso # (Auto) 0.0 Differential Comment PT 11.8 INR 1.1 APTT 32 pO2 VBG pH VBG pCO2 VBG HCO3 VBG Total CO2 VBG O2 Sat (Calc) VBG Base Excess VBG Potassium Glucose Lactate Crit Value Called To Crit Value Called By Crit Value Read Back Blood Gas Notified Time Sodium Potassium Chloride Carbon Dioxide Anion Gap BUN Creatinine Est GFR ( Amer) Est GFR (Non-Af Amer) POC Glucose (mg/dL) 160 H Random Glucose Lactic Acid Calcium Total Bilirubin AST ALT Alkaline Phosphatase Ammonia Troponin I Total Protein Albumin Globulin Albumin/Globulin Ratio Lipase Venous Blood Potassium Urine Color Urine Clarity Urine pH Ur Specific Gate Urine Protein Urine Glucose (UA) Urine Ketones Urine Blood Urine Nitrate Urine Bilirubin Urine Urobilinogen Ur Leukocyte Esterase Urine WBC (Auto) Urine RBC (Auto) Ur Squamous Epith Cells Hyaline Casts Urine Opiates Screen Urine Methadone Screen Ur Barbiturates Screen Ur Phencyclidine Scrn Ur Amphetamines Screen U Benzodiazepines Scrn U Oth Cocaine Metabols U Cannabinoids Screen Alcohol, Quantitative 11/27/17 11/27/17 11/27/17 16:04 16:04 16:23 WBC RBC Hgb Hct MCV MCH MCHC RDW Plt Count MPV Neut % (Auto) Lymph % (Auto) Highlands % (Auto) Eos % (Auto) Baso % (Auto) Neut # (Auto) Lymph # (Auto) [place] # (Auto) Eos # (Auto) Baso # (Auto) Differential Comment PT INR APTT pO2 22 L VBG pH 7.54 H VBG pCO2 41 VBG HCO3 32.5 VBG Total CO2 36.4 H VBG O2 Sat (Calc) 41.2 VBG Base Excess 11.4 H VBG Potassium 1.9 L* Glucose 156 H Lactate 2.4 H Crit Value Called To Dr layne Crit Value Called By Trae sanders Crit Value Read Back Y Blood Gas Notified Time 1627 Sodium 132 133.0 Potassium 2.3 L* D Chloride 85 L 92.0 L Carbon Dioxide 30 Anion Gap 19 BUN 8 L Creatinine 0.6 L Est GFR ( Amer) > 60 Est GFR (Non-Af Amer) > 60 POC Glucose (mg/dL) Random Glucose 164 H Lactic Acid Calcium 9.1 Total Bilirubin 1.7 H AST 67 H ALT 44 Alkaline Phosphatase 125 Ammonia Troponin I 0.0130 Total Protein 6.3 Albumin 3.5 Globulin 2.7 Albumin/Globulin Ratio 1.3 Lipase 225 Venous Blood Potassium 1.9 L* Urine Color Urine Clarity Urine pH Ur Specific Gate Urine Protein Urine Glucose (UA) Urine Ketones Urine Blood Urine Nitrate Urine Bilirubin Urine Urobilinogen Ur Leukocyte Esterase Urine WBC (Auto) Urine RBC (Auto) Ur Squamous Epith Cells Hyaline Casts Urine Opiates Screen Urine Methadone Screen Ur Barbiturates Screen Ur Phencyclidine Scrn Ur Amphetamines Screen U Benzodiazepines Scrn U Oth Cocaine Metabols U Cannabinoids Screen Alcohol, Quantitative < 10 11/27/17 11/27/17 11/27/17 17:13 17:13 19:22 WBC RBC Hgb Hct MCV MCH MCHC RDW Plt Count MPV Neut % (Auto) Lymph % (Auto) High[place] % (Auto) Eos % (Auto) Baso % (Auto) Neut # (Auto) Lymph # (Auto) [place] # (Auto) Eos # (Auto) Baso # (Auto) Differential Comment PT INR APTT pO2 VBG pH VBG pCO2 VBG HCO3 VBG Total CO2 VBG O2 Sat (Calc) VBG Base Excess VBG Potassium Glucose Lactate Crit Value Called To Crit Value Called By Crit Value Read Back Blood Gas Notified Time Sodium Potassium Chloride Carbon Dioxide Anion Gap BUN Creatinine Est GFR ( Amer) Est GFR (Non-Af Amer) POC Glucose (mg/dL) Random Glucose Lactic Acid 1.3 Calcium Total Bilirubin AST ALT Alkaline Phosphatase Ammonia Troponin I Total Protein Albumin Globulin Albumin/Globulin Ratio Lipase Venous Blood Potassium Urine Color Francesca Urine Clarity Clear Urine pH 6.0 Ur Specific Gate 1.019 Urine Protein 2+ H Urine Glucose (UA) Normal Urine Ketones 2+ H Urine Blood 1+ H Urine Nitrate Negative Urine Bilirubin 1+ H Urine Urobilinogen 4.0 Ur Leukocyte Esterase Neg Urine WBC (Auto) 2 Urine RBC (Auto) 17 H Ur Squamous Epith Cells < 1 Hyaline Casts 11-20 H Urine Opiates Screen Negative Urine Methadone Screen Negative Ur Barbiturates Screen Negative Ur Phencyclidine Scrn Negative Ur Amphetamines Screen Negative U Benzodiazepines Scrn Negative U Oth Cocaine Metabols Negative U Cannabinoids Screen Negative Alcohol, Quantitative 11/27/17 20:47 WBC RBC Hgb Hct MCV MCH MCHC RDW Plt Count MPV Neut % (Auto) Lymph % (Auto) [place]lands % (Auto) Eos % (Auto) Baso % (Auto) Neut # (Auto) Lymph # (Auto) [place] # (Auto) Eos # (Auto) Baso # (Auto) Differential Comment PT INR APTT pO2 VBG pH VBG pCO2 VBG HCO3 VBG Total CO2 VBG O2 Sat (Calc) VBG Base Excess VBG Potassium Glucose Lactate Crit Value Called To Crit Value Called By Crit Value Read Back Blood Gas Notified Time Sodium Potassium Chloride Carbon Dioxide Anion Gap BUN Creatinine Est GFR ( Amer) Est GFR (Non-Af Amer) POC Glucose (mg/dL) Random Glucose Lactic Acid Calcium Total Bilirubin AST ALT Alkaline Phosphatase Ammonia 53 H Troponin I Total Protein Albumin Globulin Albumin/Globulin Ratio Lipase Venous Blood Potassium Urine Color Urine Clarity Urine pH Ur Specific Gate Urine Protein Urine Glucose (UA) Urine Ketones Urine Blood Urine Nitrate Urine Bilirubin Urine Urobilinogen Ur Leukocyte Esterase Urine WBC (Auto) Urine RBC (Auto) Ur Squamous Epith Cells Hyaline Casts Urine Opiates Screen Urine Methadone Screen Ur Barbiturates Screen Ur Phencyclidine Scrn Ur Amphetamines Screen U Benzodiazepines Scrn U Oth Cocaine Metabols U Cannabinoids Screen Alcohol, Quantitative Assessment & Plan - Assessment and Plan (Free Text) Assessment: 57 year old with PMH of HIV/aids and gastric cancer (chemotherapy [id number]) Status post fall with findings suspicious for lymphoma or glioblastoma multiforme - Neurosurgery, Judy Contreras, will follow up on recommendations - Elevation of head at 30 degree - Follow-up with repeat MRI in 1 week - EEG ordered, will follow-up on results Imaging: HEAD CT: Possible subacute infarct inferior to left basal ganglia with small amount of high attenuation intermixed suspicious for blood products. No significant change in appearance from examination of 11/24/2017. Mild mass effect upon the left lateral aspect of the 3rd ventricle. Consider further evaluation with magnetic resonance imaging of brain. MRI W/O contrast: Findings highly suspicious for lymphoma or glioblastoma multiforme at the left frontal and temporal lobes as well as basal ganglia and left thalamus. 2. MR examination does not demonstrate signal to suggest intraparenchymal hemorrhage though this still likely based on CT findings. Please see discussion above. 3. Age-related neuro degenerative changes comprised of diffuse cerebral atrophy chronic microangiopathy are identified which appears somewhat advanced for the patient's age may be related to substance abuse. Periorbital contusion - CT MAXILLOFACIAL BONES WITHOUT CONTRAST: No fracture apparent throughout the facial bones including the maxilla bilaterally. Prominent preorbital soft tissue cellulitis is seen presumably on a posttraumatic basis with limited hematoma associated extending into the right frontal scalp and pre maxilla soft tissues as well. No retained radiodense foreign body evident or emphysema soft tissue change. No postseptal changes right orbit. Advanced dental disease as discussed above in various maxillary and mandibular teeth. Dental follow-up recommended. - Infectious disease consult, Dr. olea - Augmentin (875-125MG) 1tab PO Q12H History of HIV or AIDS - F/u CD4/CD8 count and HIV RNA, HIV 1/2 antibodies, - Bactrim DS 1 tab PO daily - Genvoya 1 tab PO daily; patient's partner will pickle maker medication and inpatient verification - ID consulted Alcohol use disorder, severe, dependence - Psychiatry, Dr. Mcintyre - Management as per recommendation - Thiamine 100mg PO daily - Folic acid 1 tab po daily Patient seen and case discussed in detail with Dr. Zhane Schmidt PGY1
[2017-11-28 11:24] LABS: BASO % 0.6 % (0.0-2.0); EOS % 0.4 % (0.0-4.0); HEMOGLOBIN 10.6 g/dL (12.0-18.0); LYMPH % 26.6 % (20.0-40.0); MEAN CELL VOLUME 98.3 fL (80.0-94.0); MEAN CORPUSCULAR HEMOGLOBIN 34.2 pg (27.0-31.0); MEAN CORPUSCULAR HGB CONC 34.7 g/dL (33.0-37.0); MONO # 0.4 K/uL (0.0-0.8); MONO % 12.1 % (0.0-10.0); NEUT # 2.2 K/uL (1.8-7.0); NEUT % 60.3 % (50.0-75.0); NRBC % 0.6 % (0.0-2.0); RBC 3.1 Mil/uL (4.40-5.90); RED CELL DISTRIBUTION WIDTH 17.2 % (11.5-14.5); WHITE BLOOD COUNT 3.6 K/uL (4.8-10.8)
--- NOTE | 2017-11-28 11:26 | MRI ---
Date of service: 11/28/2017 PROCEDURE: MRI BRAIN WITHOUT CONTRAST HISTORY: HEAD INJURY COMPARISON: None available. TECHNIQUE: Multiplanar, multisequence MR images of the brain were obtained without intravenous contrast enhancement. FINDINGS: HEMORRHAGE: None DWI: No evidence of an acute or early subacute infarction. BRAIN PARENCHYMA: Of note is that there is no signal dephasing on the gradient echo axial series or the diffusion-weighted sequence at the area of questioned intracranial hemorrhage at the left basal ganglia/thalamus, left frontal lobe or anywhere else throughout the brain. Further, differences in the density of the left sided presumed intraparenchymal hemorrhage have not significantly changed between 11/24/2017 and 11/27/[address]. Prior right basal ganglia hyperdensity has disappeared though. This is the only interval finding that supports possible hemorrhage. Further, edema with limited local mass effect is identified at the left frontal and temporal lobes with thin cortex and subcortical white matter extending inferiorly from an epicenter at the base of the left frontal lobe posteriorly as well as the anterior left thalamus and inferomedial basal ganglia. This edema crosses through the anterior commissure minimally but extends also into the anterior corpus callosum. Differential diagnosis is lymphoma, high-grade primary brain tumor including glioblastoma and demyelination. Given the advanced age of the patient, demyelination is highly unlikely in this particularly true given the CT appearance with hyperdensity included. Glioblastoma by definition has hemorrhage and this is a possibility though it is still unusual to not see signal gradient echo axial series days after hemorrhage is occurred in the brain parenchyma. Posttraumatic inflammation related to intraparenchymal hemorrhage is last and neuro surgical consultation is recommended. Some hemorrhage may have occurred on a posttraumatic fashion however tumor remains a high suspicion. Expanded ventricular sulcal sternal spaces are identified compatible diffuse cerebral atrophy and periventricular and additional white matter signal abnormalities are reflective of chronic microangiopathy in a somewhat advanced pattern compared to the patient's age. VENTRICLES: Unremarkable. No hydrocephalus. CRANIUM: Unremarkable. ORBITS: Grossly unremarkable. PARANASAL SINUSES/MASTOIDS: Limited right mastoid effusions identified. VASCULAR SYSTEM: Skull base flow voids intact. OTHER FINDINGS: None. IMPRESSION: 1. Findings highly suspicious for lymphoma or glioblastoma multiforme at the left frontal and temporal lobes as well as basal ganglia and left thalamus. 2. MR examination does not demonstrate signal to suggest intraparenchymal hemorrhage though this still likely based on CT findings. Please see discussion above. 3. Age-related neuro degenerative changes comprised of diffuse cerebral atrophy chronic microangiopathy are identified which appears somewhat advanced for the patient's age may be related to substance abuse. Findings discussed with Dr. Rivera with written down and read back verification 11/28/2017, 7:10 a.m..
[2017-11-28 11:41] LABS: ALB/GLOB RATIO 1.1 (1.0-2.1); ALBUMIN 2.9 g/dL (3.5-5.0); ALT/SGPT 34 U/L (21-72); AST/SGOT 37 U/L (17-59); BLOOD UREA NITROGEN 7 mg/dL (9-20); CALCIUM 9.1 mg/dl (8.6-10.4); GFR NON-AFRICAN AMERICAN > 60
--- NOTE | 2017-11-28 11:50 | CP.PCM.PN ---
Subjective - Date & Time of Evaluation Date of Evaluation: 11/28/17 Time of Evaluation: 08:35 - Subjective Subjective: CC: S/p fall HPI: Patient is a poor historian, some of the HPI obtained from long-time partner Patient is a 57 year old with past medical history of HIV/aids and gastric cancer (chemotherapy [id number]), who presents to the ED with complaint of epigastric pain that started yesterday, however, during the encounter, patient states that he came to the hospital because he had a witnessed fall. Patient states that he fell backwards at a store and hit his head on a stone and people around him called for ambulance. Patient states that he was not trying to come to the hospital but was forced to by witnesses. As per partner, patient his heavily depressed and drinks and uses tobacco heavily with use of methamphetamine upon till last year. Approximately, patient was seen in the ED on Sunday after he was found on the street intoxicated, however, patient eloped. Upon review of system, patient denies chest pain, nausea, vomiting, bl urry vision, headache but admits to dizziness and unsteady gait. Infectious disease: Dr. Cyndy Carrasquillo PMHx: HIV/aids and gastric cancer (chemotherapy [id number]) PSHx: Denies FHx: Denies Medications: [facility] (Folic 1mg PO daily, thiamine 100mg PO daily, Genvoya 1 tab po daily, Bactrim ds 1 tab po daily) Allergies: NKDA Social Hx: Lives alone, admits to cigarettes use>32 years (1PPD), heavy daily drinking (as per partner), methamphetamine (for almost 30 years, Last use as per partner last year) and denies cocaine and heroin Objective - Vital Signs/Intake and Output Vital Signs (last 24 hours): Temp Pulse Resp BP Pulse Ox 98.1 F 74 20 131/77 99 11/28/17 08:41 11/28/17 08:41 11/28/17 08:41 11/28/17 08:41 11/28/17 08:41 Intake and Output: 11/28/17 11/28/17 06:59 18:59 Intake Total 940 Balance 940 - Medications Medications: Current Medications Enoxaparin Sodium (Lovenox) 40 mg SC DAILY [facility] Last Admin: 11/28/17 11:31 Dose: 40 mg Dextrose/Sodium Chloride (Dextrose 5%/0.45% Ns 1000 Ml) 1,000 mls @ 100 mls/hr IV .Q10H [facility] Last Admin: 11/27/17 22:36 Dose: 100 mls/hr Influenza Virus Vaccine (Fluzone Quad [id number]) 60 mcg IM .ONCE ONE Stop: 11/30/17 10:01 Lactulose (Enulose) 20 gm PO TID [facility] Last Admin: 11/28/17 11:31 Dose: 20 gm Nitroglycerin (Nitrostat Sl Tab) 0.4 mg SL Q5M PRN PRN Reason: CHEST PAIN Pneumococcal Polyvalent Vaccine (Pneumovax 23 Vaccine) 0.5 ml IM .ONCE ONE Stop: 11/30/17 10:01 - Labs Labs: 11/28/17 11:15 11/28/17 11:15 PT 11.8 SECONDS (9.7-12.2) 11/27/17 16:04 INR 1.1 11/27/17 16:04 APTT 32 SECONDS (21-34) 11/27/17 16:04 - Constitutional Appears: Well, No Acute Distress - Eye Exam Eye Exam: EOMI. absent: Periorbital tenderness Pupil Exam: PERRL Additional comments: [place] eyes; ecchymosis bilaterally, Yellowish-greenish discharge in the inner corner of the right eye Bloody left eye - ENT Exam ENT Exam: Mucous Membranes Dry - Respiratory Exam Respiratory Exam: Clear to Ausculation Bilateral, NORMAL BREATHING PATTERN. absent: Rhonchi, Wheezes - Cardiovascular Exam Cardiovascular Exam: REGULAR RHYTHM, +S1, +S2 - GI/Abdominal Exam GI & Abdominal Exam: Soft, Normal Bowel Sounds - Extremities Exam Extremities Exam: Normal Inspection. absent: Calf Tenderness, Pedal Edema - Neurological Exam Neurological Exam: Alert, Awake, Oriented x3 - Psychiatric Exam Psychiatric exam: Normal Affect - Skin Skin Exam: Normal Color Assessment and Plan (1) Status post fall Assessment & Plan: Neurosurgery, Judy Contreras, * Management as per neurosurgery Neurology, Dr. Phelan * Management as per neurology Elevation of head at 30 degree Imaging: HEAD CT: Possible subacute infarct inferior to left basal ganglia with small amount of high attenuation intermixed suspicious for blood products. No significant change in appearance from examination of 11/24/2017. Mild mass effect upon the left lateral aspect of the 3rd ventricle. Consider further evaluation with magnetic resonance imaging of brain. MRI W/O contrast: Findings highly suspicious for lymphoma or glioblastoma multiforme at the left frontal and temporal lobes as well as basal ganglia and left thalamus. 2. MR examination does not demonstrate signal to suggest intraparenchymal hemorrhage though this still likely based on CT findings. Please see discussion above. 3. Age-related neuro degenerative changes comprised of diffuse cerebral atrophy chronic microangiopathy are identified which appears somewhat advanced for the patient's age may be related to substance abuse. Status: Acute (2) Periorbital contusion Assessment & Plan: CT MAXILLOFACIAL BONES WITHOUT CONTRAST: No fracture apparent throughout the facial bones including the maxilla bilaterally. Prominent preorbital soft tissue cellulitis is seen presumably on a posttraumatic basis with limited hematoma associated extending into the right frontal scalp and pre maxilla soft tissues as well. No retained radiodense foreign body evident or emphysema soft tissue change. No postseptal changes right orbit. Advanced dental disease as discussed above in various maxillary and mandibular teeth. Dental follow-up recommended. Infectious disease consult, Dr. schultz * Augmentin (875-125MG) 1tab PO Q12H Status: Acute (3) History of HIV or AIDS Assessment & Plan: F/u CD4 count and HIV RNA - ID consult, Dr. Schultz - Bactrim DS 1 tab PO daily - Genvoya 1 tab PO daily; patient's partner will picking tech medication and inpatient verification Status: Acute (4) Alcohol use disorder, severe, dependence Assessment & Plan: Psychiatry, Dr. Mcintyre * Management as per recommendation * Thiamine 100mg PO daily * Folic acid 1 tab po daily Status: Acute (5) Depression Assessment & Plan: Psychiatry, Dr. Mcintyre * Management as per recommendation Status: Acute (6) Hyperammonemia Assessment & Plan: Ammonia: 53 * Lactulose 20mg PO TID Status: Acute (7) Prophylactic measure Assessment & Plan: GI: Protonix 40mg PO daily DVT: anticoagulation contraindicated due to intracranial hemorrhage All plans and manageemnt discussed with Dr. Rivera Status: Acute
--- NOTE | 2017-11-28 13:44 | CT ---
Date of service: 11/27/2017 PROCEDURE: CT MAXILLOFACIAL BONES WITHOUT CONTRAST HISTORY: TRAUMA COMPARISON: None available. TECHNIQUE: Contiguous axial CT images of the maxillofacial bones were obtained. Coronal and sagittal reformats were generated. Radiation dose: Total exam DLP = 831.34 831.34 mGy-cm. This CT exam was performed using one or more of the following dose reduction techniques: Automated exposure control, adjustment of the mA and/or kV according to patient size, and/or use of iterative reconstruction technique. FINDINGS: NASAL BONES: No fracture or destructive bony lesion appreciated. ORBITS: No fracture or destructive bony lesion appreciated. Relatively prominent preseptal right periorbital soft tissue edema is appreciated without extending through the septal space and into the colon or extraconal fat. Edema extends into the right cheek and forehead scalp soft tissues limited hematoma associated. PARANASAL SINUSES/ MASTOIDS: Clear. MAXILLA: No fracture or destructive bony lesion appreciated other than multifocal apical root abscesses. Advanced caries is seen scattered throughout multiple teeth of the maxilla. MANDIBLE/ TEMPOROMANDIBULAR JOINTS: No fracture or destructive bony lesion appreciated other than multifocal apical root abscesses. Advanced caries is seen scattered throughout multiple teeth of the mandible. SKULL BASE: No fracture or destructive bony lesion evident. TEMPORAL BONES: Middle ears and mastoid grossly unremarkable. OTHER FINDINGS: None. IMPRESSION: No fracture apparent throughout the facial bones including the maxilla bilaterally. Prominent preorbital soft tissue cellulitis is seen presumably on a posttraumatic basis with limited hematoma associated extending into the right frontal scalp and pre maxilla soft tissues as well. No retained radiodense foreign body evident or emphysema soft tissue change. No postseptal changes right orbit. Advanced dental disease as discussed above in various maxillary and mandibular teeth. Dental follow-up recommended. Concordant preliminary report from [facility], 11/27/2017.
--- NOTE | 2017-11-28 15:04 | CP.PCM.CON ---
History of Present Illness - History of Present Illness History of Present Illness: Dictated needs GadolidiuM enhanced MRI Past Patient History - Infectious Disease Hx of Infectious Diseases: None - Past Medical History & Family History Past Medical History?: Yes - Past Social History Smoking Status: Heavy Smoker > 10 Cigarettes Daily - CARDIAC Hx Hypertension: No - PULMONARY Hx Tuberculosis: No - NEUROLOGICAL Hx Seizures: No - HEMATOLOGICAL/ONCOLOGICAL Hx AIDS: Yes Hx Human Immunodeficiency Virus (HIV): Yes (As per patient "AIDS") - MUSCULOSKELETAL/RHEUMATOLOGICAL Hx Falls: Yes - GENITOURINARY/GYNECOLOGICAL Hx Sexually Transmitted Disorders: No - PSYCHIATRIC Hx Substance Use: No - SURGICAL HISTORY Hx Surgeries: No - ANESTHESIA Hx Anesthesia: Yes Hx Anesthesia Reactions: No Hx Malignant Hyperthermia: No Has any member of the family had a problem w/ anesthesia?: No Meds Allergies/Adverse Reactions: Allergies Allergy/AdvReac Type Severity Reaction Status Date / Time No Known Allergies Allergy Verified 11/27/17 15:09 - Medications Medications: Current Medications Enoxaparin Sodium (Lovenox) 40 mg SC DAILY [facility] Last Admin: 11/28/17 11:31 Dose: 40 mg Dextrose/Sodium Chloride (Dextrose 5%/0.45% Ns 1000 Ml) 1,000 mls @ 100 mls/hr IV .Q10H [facility] Last Admin: 11/27/17 22:36 Dose: 100 mls/hr Influenza Virus Vaccine (Fluzone Quad [id number]) 60 mcg IM .ONCE ONE Stop: 11/30/17 10:01 Lactulose (Enulose) 20 gm PO TID [facility] Last Admin: 11/28/17 14:03 Dose: 20 gm Nitroglycerin (Nitrostat Sl Tab) 0.4 mg SL Q5M PRN PRN Reason: CHEST PAIN Pneumococcal Polyvalent Vaccine (Pneumovax 23 Vaccine) 0.5 ml IM .ONCE ONE Stop: 11/30/17 10:01 Results - Vital Signs Recent Vital Signs: Last Vital Signs Temp 98.1 F 11/28/17 08:41 Pulse 74 11/28/17 08:41 Resp 20 11/28/17 08:41 BP 131/77 11/28/17 08:41 Pulse Ox 99 11/28/17 08:41 - Labs Result Diagrams: 11/28/17 11:15 11/28/17 11:15 Labs: Laboratory Results - last 24 hr 10/11/0611/27/17 11/27/17 15:44 16:04 16:04 WBC 4.1 L RBC 3.61 L Hgb 12.3 Hct 35.3 MCV 97.8 H MCH 34.1 H MCHC 34.9 RDW 16.7 H Plt Count 111 L D MPV 7.9 Neut % (Auto) 79.6 H Lymph % (Auto) 10.3 L [place] % (Auto) 9.7 Eos % (Auto) 0.1 Baso % (Auto) 0.3 Neut # (Auto) 3.3 Lymph # (Auto) 0.4 L [place] # (Auto) 0.4 Eos # (Auto) 0.0 Baso # (Auto) 0.0 Differential Comment PT 11.8 INR 1.1 APTT 32 pO2 VBG pH VBG pCO2 VBG HCO3 VBG Total CO2 VBG O2 Sat (Calc) VBG Base Excess VBG Potassium Glucose Lactate Crit Value Called To Crit Value Called By Crit Value Read Back Blood Gas Notified Time Sodium Potassium Chloride Carbon Dioxide Anion Gap BUN Creatinine Est GFR ( Amer) Est GFR (Non-Af Amer) POC Glucose (mg/dL) 160 H Random Glucose Lactic Acid Calcium Total Bilirubin AST ALT Alkaline Phosphatase Ammonia Troponin I Total Protein Albumin Globulin Albumin/Globulin Ratio Lipase Venous Blood Potassium Urine Color Urine Clarity Urine pH Ur Specific [place] Urine Protein Urine Glucose (UA) Urine Ketones Urine Blood Urine Nitrate Urine Bilirubin Urine Urobilinogen Ur Leukocyte Esterase Urine WBC (Auto) Urine RBC (Auto) Ur Squamous Epith Cells Hyaline Casts Urine Opiates Screen Urine Methadone Screen Ur Barbiturates Screen Ur Phencyclidine Scrn Ur Amphetamines Screen U Benzodiazepines Scrn U Oth Cocaine Metabols U Cannabinoids Screen Alcohol, Quantitative 11/27/17 11/27/17 11/27/17 16:04 16:04 16:23 WBC RBC Hgb Hct MCV MCH MCHC RDW Plt Count MPV Neut % (Auto) Lymph % (Auto) [place] % (Auto) Eos % (Auto) Baso % (Auto) Neut # (Auto) Lymph # (Auto) [place] # (Auto) Eos # (Auto) Baso # (Auto) Differential Comment PT INR APTT pO2 22 L VBG pH 7.54 H VBG pCO2 41 VBG HCO3 32.5 VBG Total CO2 36.4 H VBG O2 Sat (Calc) 41.2 VBG Base Excess 11.4 H VBG Potassium 1.9 L* Glucose 156 H Lactate 2.4 H Crit Value Called To Dr layne Crit Value Called By Trae sanders Crit Value Read Back Y Blood Gas Notified Time 1627 Sodium 132 133.0 Potassium 2.3 L* D Chloride 85 L 92.0 L Carbon Dioxide 30 Anion Gap 19 BUN 8 L Creatinine 0.6 L Est GFR ( Amer) > 60 Est GFR (Non-Af Amer) > 60 POC Glucose (mg/dL) Random Glucose 164 H Lactic Acid Calcium 9.1 Total Bilirubin 1.7 H AST 67 H ALT 44 Alkaline Phosphatase 125 Ammonia Troponin I 0.0130 Total Protein 6.3 Albumin 3.5 Globulin 2.7 Albumin/Globulin Ratio 1.3 Lipase 225 Venous Blood Potassium 1.9 L* Urine Color Urine Clarity Urine pH Ur Specific [place] Urine Protein Urine Glucose (UA) Urine Ketones Urine Blood Urine Nitrate Urine Bilirubin Urine Urobilinogen Ur Leukocyte Esterase Urine WBC (Auto) Urine RBC (Auto) Ur Squamous Epith Cells Hyaline Casts Urine Opiates Screen Urine Methadone Screen Ur Barbiturates Screen Ur Phencyclidine Scrn Ur Amphetamines Screen U Benzodiazepines Scrn U Oth Cocaine Metabols U Cannabinoids Screen Alcohol, Quantitative < 10 11/27/17 11/27/17 11/27/17 17:13 17:13 19:22 WBC RBC Hgb Hct MCV MCH MCHC RDW Plt Count MPV Neut % (Auto) Lymph % (Auto) [place] % (Auto) Eos % (Auto) Baso % (Auto) Neut # (Auto) Lymph # (Auto) [place] # (Auto) Eos # (Auto) Baso # (Auto) Differential Comment PT INR APTT pO2 VBG pH VBG pCO2 VBG HCO3 VBG Total CO2 VBG O2 Sat (Calc) VBG Base Excess VBG Potassium Glucose Lactate Crit Value Called To Crit Value Called By Crit Value Read Back Blood Gas Notified Time Sodium Potassium Chloride Carbon Dioxide Anion Gap BUN Creatinine Est GFR ( Amer) Est GFR (Non-Af Amer) POC Glucose (mg/dL) Random Glucose Lactic Acid 1.3 Calcium Total Bilirubin AST ALT Alkaline Phosphatase Ammonia Troponin I Total Protein Albumin Globulin Albumin/Globulin Ratio Lipase Venous Blood Potassium Urine Color Francesca Urine Clarity Clear Urine pH 6.0 Ur Specific [place] 1.019 Urine Protein 2+ H Urine Glucose (UA) Normal Urine Ketones 2+ H Urine Blood 1+ H Urine Nitrate Negative Urine Bilirubin 1+ H Urine Urobilinogen 4.0 Ur Leukocyte Esterase Neg Urine WBC (Auto) 2 Urine RBC (Auto) 17 H Ur Squamous Epith Cells < 1 Hyaline Casts 11-20 H Urine Opiates Screen Negative Urine Methadone Screen Negative Ur Barbiturates Screen Negative Ur Phencyclidine Scrn Negative Ur Amphetamines Screen Negative U Benzodiazepines Scrn Negative U Oth Cocaine Metabols Negative U Cannabinoids Screen Negative Alcohol, Quantitative 11/27/17 11/28/17 11/28/17 20:47 11:15 11:15 WBC 3.6 L RBC 3.10 L Hgb 10.6 L Hct 30.4 L MCV 98.3 H MCH 34.2 H MCHC 34.7 RDW 17.2 H Plt Count 107 L MPV 8.0 Neut % (Auto) 60.3 Lymph % (Auto) 26.6 [place] % (Auto) 12.1 H Eos % (Auto) 0.4 Baso % (Auto) 0.6 Neut # (Auto) 2.2 Lymph # (Auto) 1.0 [place] # (Auto) 0.4 Eos # (Auto) 0.0 Baso # (Auto) 0.0 Differential Comment PT INR APTT pO2 VBG pH VBG pCO2 VBG HCO3 VBG Total CO2 VBG O2 Sat (Calc) VBG Base Excess VBG Potassium Glucose Lactate Crit Value Called To Crit Value Called By Crit Value Read Back Blood Gas Notified Time Sodium 133 Potassium 3.0 L Chloride 92 L Carbon Dioxide 32 H Anion Gap 11 BUN 7 L Creatinine 0.7 L Est GFR ( Amer) > 60 Est GFR (Non-Af Amer) > 60 POC Glucose (mg/dL) Random Glucose 124 H Lactic Acid Calcium 9.1 Total Bilirubin 1.0 AST 37 ALT 34 Alkaline Phosphatase 103 Ammonia 53 H Troponin I Total Protein 5.4 L Albumin 2.9 L Globulin 2.5 Albumin/Globulin Ratio 1.1 Lipase Venous Blood Potassium Urine Color Urine Clarity Urine pH Ur Specific [place] Urine Protein Urine Glucose (UA) Urine Ketones Urine Blood Urine Nitrate Urine Bilirubin Urine Urobilinogen Ur Leukocyte Esterase Urine WBC (Auto) Urine RBC (Auto) Ur Squamous Epith Cells Hyaline Casts Urine Opiates Screen Urine Methadone Screen Ur Barbiturates Screen Ur Phencyclidine Scrn Ur Amphetamines Screen U Benzodiazepines Scrn U Oth Cocaine Metabols U Cannabinoids Screen Alcohol, Quantitative
[2017-11-28] MEDS: Amoxicillin-Clav 875-125 mg Tab PO SCH (15:57)
[2017-11-28] MEDS: Pantoprazole 40 mg EC Tab PO SCH (16:56)
--- NOTE | 2017-11-28 16:58 | CARD ---
APPROVED REPORT Date of service: 11/27/2017 EKG Measurement Heart [id number] <Conclusion> Normal sinus rhythm Nonspecific ST and T wave abnormality - Please repeat Prolonged QT Abnormal ECG
--- NOTE | 2017-11-28 17:01 | CARD ---
APPROVED REPORT Date of service: 11/27/2017 EKG Measurement Heart [id number] <Conclusion> Normal sinus rhythm - PAC with abberrancy Anteroseptal ST/T abnormality suggestive of ischemia - PLEASE REPEAT Abnormal ECG
[2017-11-28 18:04] LABS: HEPATITIS B SURFACE AG Negative (NEGATIVE)
[2017-11-28 18:10] LABS: HEPATITIS A IGM NEGATIVE (NEGATIVE); HEPATITIS B CORE AB NEGATIVE (NEGATIVE)
[2017-11-28 18:24] LABS: HEPATITIS C ANTIBODY NEGATIVE (NEGATIVE)
--- NOTE | 2017-11-28 18:38 | CP.PCM.CON ---
History of Present Illness - History of Present Illness History of Present Illness: 57-year-old Male PMH of "AIDS" and gastric cancer (chemotherapy [id number]), who presents to [facility] for epigastric pain and was found to have also sustained a fall. Patient states that he fell backwards at a store and hit his head. Patient admits to alcohol use recently, about 1 liter of vodka per day. Patient admits to lightheadedness, and intermittent lower extremity weakness bilaterally that causes him to fall. Patient otherwise denies chest pain, shortness of breath, fatigue, tremors, blurred vision, and/or visual field deficits. Medications: Folic 1mg PO daily, thiamine 100mg PO daily, Genvoya 1 tab po daily, Bactrim ds 1 tab po daily PMH of "AIDS" and gastric cancer (chemotherapy [id number]), methamphetamine user x 30 yrs Imaging: HEAD CT: Possible subacute infarct inferior to left basal ganglia with small amount of high attenuation intermixed suspicious for blood products. No significant change in appearance from examination of 11/24/2017. Mild mass effect upon the left lateral aspect of the 3rd ventricle. Consider further evaluation with magnetic resonance imaging of brain. MRI W/O contrast: Findings highly suspicious for lymphoma or glioblastoma multiforme at the left frontal and temporal lobes as well as basal ganglia and left thalamus. 2. MR examination does not demonstrate signal to suggest intraparenchymal hemorrhage though this still likely based on CT findings. Please see discussion above. 3. Age-related neuro degenerative changes comprised of diffuse cerebral atrophy chronic microangiopathy are identified which appears somewhat advanced for the patient's age may be related to substance abuse. Review of Systems - Review of Systems All systems: reviewed and no additional remarkable complaints except - Constitutional Constitutional: As Per HPI - EENT Eyes: As Per HPI Ears: absent: As Per HPI, Decreased Hearing, Ear Discharge, Ear Pain, Tinnitus, Abnormal Hearing, Disequilibrium, Dizziness, Other Nose/Mouth/Throat: absent: As Per HPI, Epistaxis, Nasal Congestion, Nasal Disch arge, Nasal Obstruction, Nasal Trauma, Nose Pain, Post Nasal Drip, Sinus Pain, Sinus Pressure, Bleeding Gums, Change in Voice, Dental Pain, Dry Mouth, Dysphagia, Halitosis, Hoarsness, Lip Swelling, Mouth Lesions, Mouth Pain, Odynophagia, Sore Throat, Throat Swelling, Tongue Swelling, Facial Pain, Neck Pain, Neck Mass, Other - Cardiovascular Cardiovascular: absent: As Per HPI, Acrocyanosis, Chest Pain, Chest Pain at Rest, Chest Pain with Activity, Claudication, Diaphoresis, Dyspnea, Dyspnea on Exertion, Edema, Irregular Heart Rhythm, Pain Radiating to Arm/Neck/Jaw, Leg Edema, Leg Ulcers, Lightheadedness, Orthopnea, Palpitations, Paroxysmal Nocturnal Dyspnea, Pedal Edema, Radiating Pain, Rapid Heart Rate, Slow Heart Rate, Syncope, Other - Respiratory Respiratory: absent: As Per HPI, Cough, Dyspnea, Hemoptysis, Dyspnea on Exertion, Wheezing, Snoring, Stridor, Pain on Inspiration, Chest Congestion, Excessive Mucous Production, Change in Mucous Color, Pain with Coughing, Other - Gastrointestinal Gastrointestinal: absent: As Per HPI, Abdominal Pain, Belching, Bloating, Change in Bowel Habits, Change in Stool Character, Coffee Ground Emesis, Constipation, Cramping, Diarrhea, Dyspepsia, Dysphagia, Early Satiety, Excessive Flatus, Fecal Incontinence, Heartburn, Hematemesis, Hematochezia, Loose Stools, Melena, Nausea, Odynophagia, Temesmus, Vomiting, Other - Genitourinary Genitourinary: absent: As Per HPI, Change in Urinary Stream, Difficulty Urinating, Dysuria, Flank Pain, Hematuria, Pyuria, Nocturia, Urinary Incontinence, Urinary Frequency, Urinary Hesitance, Urinary Urgency, Voiding Freq/Small Amts, Freq UTI, Hx Renal/Bladder Calculi, Hx /Renal Surgery, Bladder Distension, Other - Musculoskeletal Musculoskeletal: absent: As Per HPI, Abnormal Gait, Arthralgias, Atrophy, Back Pain, Deformity, Joint Swelling, Limited Range of Motion, Loss of Height, Muscle Cramps, Muscle Weakness, Myalgias, Neck Pain, Numbness, Radiating Pain into Limb, Stiffness, Tingling, Other - Integumentary Integumentary: absent: As Per HPI, Acne, Alopecia, Bleeding Lesions, Change in Hair, Change in Nails, Change in Pigmentation, Changing Lesions, Dry Skin, Erythema, Furuncle, Hirsutism, Lesions, New Lesions, Non-Healing Lesions, Photosensitivity, Pruritus, Rash, Skin Pain, Skin Ulcer, Sores, Striae, Swelling, Unusual Bruising, Wounds, Jaundice, Other - Neurological Neurological: As Per HPI - Psychiatric Psychiatric: As Per HPI - Endocrine Endocrine: absent: As Per HPI, Change in Body Appearance, Change in Libido, Cold Intolorance, Deepening of Voice, Excessive Sweating, Fatigue, Flushing, Heat Intolorance, Increase in Ring/Shoe/Hat Size, Palpitations, Polydipsia, Polyphagia, Polyuria, Other - Hematologic/Lymphatic Hematologic: As Per HPI Past Patient History - Infectious Disease Hx of Infectious Diseases: None - Past Medical History & Family History Past Medical History?: Yes - Past Social History Smoking Status: Heavy Smoker > 10 Cigarettes Daily - CARDIAC Hx Hypertension: No - PULMONARY Hx Tuberculosis: No - NEUROLOGICAL Hx Seizures: No - HEMATOLOGICAL/ONCOLOGICAL Hx AIDS: Yes Hx Human Immunodeficiency Virus (HIV): Yes (As per patient "AIDS") - MUSCULOSKELETAL/RHEUMATOLOGICAL Hx Falls: Yes - GENITOURINARY/GYNECOLOGICAL Hx Sexually Transmitted Disorders: No - PSYCHIATRIC Hx Substance Use: No - SURGICAL HISTORY Hx Surgeries: No - ANESTHESIA Hx Anesthesia: Yes Hx Anesthesia Reactions: No Hx Malignant Hyperthermia: No Has any member of the family had a problem w/ anesthesia?: No Meds Allergies/Adverse Reactions: Allergies Allergy/AdvReac Type Severity Reaction Status Date / Time No Known Allergies Allergy Verified 11/27/17 15:09 - Medications Medications: Current Medications Amoxicillin/Clavulanate Potassium (Augmentin 875 Mg-125 Mg Tab) 1 tab PO Q12H [facility]; Protocol Folic Acid (Folic Acid) 1 mg PO DAILY [facility] Dextrose/Sodium Chloride (Dextrose 5%/0.45% Ns 1000 Ml) 1,000 mls @ 100 mls/hr IV .Q10H [facility] Last Admin: 11/27/17 22:36 Dose: 100 mls/hr Influenza Virus Vaccine (Fluzone Quad [id number]) 60 mcg IM .ONCE ONE Stop: 11/30/17 10:01 Lactulose (Enulose) 20 gm PO TID [facility] Last Admin: 11/28/17 14:03 Dose: 20 gm Nitroglycerin (Nitrostat Sl Tab) 0.4 mg SL Q5M PRN PRN Reason: CHEST PAIN Pantoprazole Sodium (Protonix Ec Tab) 40 mg PO DAILY [facility] Pneumococcal Polyvalent Vaccine (Pneumovax 23 Vaccine) 0.5 ml IM .ONCE ONE Stop: 11/30/17 10:01 Thiamine HCl (Vitamin B1 Tab) 100 mg PO DAILY [facility] Trimethoprim/Sulfamethoxazole (Bactrim Ds Tab) 1 tab PO DAILY [facility]; Protocol Physical Exam - Constitutional Appears: No Acute Distress, Chronically Ill - Head Exam Additional comments: racoon eyes ecchymoses bilat - Eye Exam Pupil Exam: NORMAL ACCOMODATION - ENT Exam ENT Exam: absent: Mucous Membranes Dry - Neck Exam Neck exam: Negative for: Lymphadenopathy - Respiratory Exam Respiratory Exam: Decreased Breath Sounds - Cardiovascular Exam Cardiovascular Exam: REGULAR RHYTHM - GI/Abdominal Exam GI & Abdominal Exam: Diminished Bowel Sounds - Rectal Exam Rectal Exam: Deferred - Exam Exam: NORMAL INSPECTION - Extremities Exam Extremities exam: Negative for: pedal edema - Back Exam Back exam: absent: CVA tenderness (L), CVA tenderness (R) - Neurological Exam Neurological exam: Alert, Reflexes Normal - Psychiatric Exam Psychiatric exam: Depressed - Skin Skin Exam: Dry Results - Vital Signs Recent Vital Signs: Last Vital Signs Temp 97.9 F 11/28/17 16:32 Pulse 79 11/28/17 16:32 Resp 20 11/28/17 16:32 BP 119/74 11/28/17 16:32 Pulse Ox 97 11/28/17 16:32 - Labs Result Diagrams: 11/28/17 11:15 11/28/17 11:15 Labs: Laboratory Results - last 24 hr 11/27/17 11/27/17 11/28/17 19:22 20:47 11:15 WBC RBC Hgb Hct MCV MCH MCHC RDW Plt Count MPV Neut % (Auto) Lymph % (Auto) [place] % (Auto) Eos % (Auto) Baso % (Auto) Neut # (Auto) Lymph # (Auto) [place] # (Auto) Eos # (Auto) Baso # (Auto) Sodium 133 Potassium 3.0 L Chloride 92 L Carbon Dioxide 32 H Anion Gap 11 BUN 7 L Creatinine 0.7 L Est GFR ( Amer) > 60 Est GFR (Non-Af Amer) > 60 Random Glucose 124 H Lactic Acid 1.3 Calcium 9.1 Total Bilirubin 1.0 AST 37 ALT 34 Alkaline Phosphatase 103 Ammonia 53 H Total Protein 5.4 L Albumin 2.9 L Globulin 2.5 Albumin/Globulin Ratio 1.1 Hepatitis A IgM Ab Hep Bs Antigen Hep B Core IgM Ab Hepatitis C Antibody 11/28/17 11/28/17 11:15 16:59 WBC 3.6 L RBC 3.10 L Hgb 10.6 L Hct 30.4 L MCV 98.3 H MCH 34.2 H MCHC 34.7 RDW 17.2 H Plt Count 107 L MPV 8.0 Neut % (Auto) 60.3 Lymph % (Auto) 26.6 [place] % (Auto) 12.1 H Eos % (Auto) 0.4 Baso % (Auto) 0.6 Neut # (Auto) 2.2 Lymph # (Auto) 1.0 [place] # (Auto) 0.4 Eos # (Auto) 0.0 Baso # (Auto) 0.0 Sodium Potassium Chloride Carbon Dioxide Anion Gap BUN Creatinine Est GFR ( Amer) Est GFR (Non-Af Amer) Random Glucose Lactic Acid Calcium Total Bilirubin AST ALT Alkaline Phosphatase Ammonia Total Protein Albumin Globulin Albumin/Globulin Ratio Hepatitis A IgM Ab Negative Hep Bs Antigen Negative Hep B Core IgM Ab Negative Hepatitis C Antibody Negative Assessment & Plan (1) Altered mental status Status: Acute (2) Depression Status: Acute (3) History of HIV or AIDS Status: Acute (4) Periorbital contusion Status: Acute (5) Status post fall Status: Acute (6) Subconjunctival hemorrhage Status: Acute (7) Alcohol dependence Status: Acute - Assessment and Plan (Free Text) Assessment: neuro on board- r/o basilar skull fx r/o OI close observation check t cells and viral load psych eval PO Bactrim poor prognosis
[2017-11-28] MEDS: Dextrose 5%/0.45% NS 1,000 ML IV SCH (19:12)
[2017-11-29] MEDS: Amoxicillin-Clav 875-125 mg Tab PO SCH ×2 (03:41→17:53)
--- NOTE | 2017-11-29 06:29 | CON ---
DATE: 11/28/2017 HISTORY OF PRESENT ILLNESS: This is a 57-year-old individual with known alcoholic, question of AIDS, question of previous colon cancer, fell, possibly had a seizure where he struck his head, was admitted through the [facility] ER, was found to have bilateral orbital ecchymosis. Subsequently, he had an MRI of the brain today which showed a rather unusual pattern of flare intensity along the inferior left frontal and temporal lobes, crossing the midline to the anterior commissure. There was not really not much in the way of edema. For some reason, he did not receive any gadolinium. PAST MEDICAL HISTORY: Reviewed in the EMR. PHYSICAL EXAMINATION: He actually is bright, awake, and alert. He is oriented x3. He is a little cloudy. He is poor historian, poor attention span. He does follow commands. He has fair amount of erythema in the right eye. EOMs are full. Face is symmetric. He does have a right pronator drift and very very mild weakness on the right side. Moving all extremities. Slight hyperreflexia. The MRI of the brain is as described above. Unequivocally at this point, I would advocate the patient obtain an MRI with gadolinium. Additionally, if there is any question, and he has a history of HIV, then it certainly should be looked into. We will follow up with the MRI. Reuben Cazares MD
[2017-11-29 08:09] LABS: BASO # 0.1 K/uL (0.0-0.2); EOS % 1.5 % (0.0-4.0); HEMOGLOBIN 10.4 g/dL (12.0-18.0); LYMPH # 1.1 K/uL (1.0-4.3); LYMPH % 36.5 % (20.0-40.0); MEAN CELL VOLUME 99.1 fL (80.0-94.0); MEAN CORPUSCULAR HEMOGLOBIN 33.6 pg (27.0-31.0); MEAN CORPUSCULAR HGB CONC 33.9 g/dL (33.0-37.0); MEAN PLATELET VOLUME 7.5 fL (7.2-11.7); MONO # 0.4 K/uL (0.0-0.8); MONO % 12.4 % (0.0-10.0); NEUT # 1.4 K/uL (1.8-7.0); NEUT % 47.6 % (50.0-75.0); NRBC % 0.5 % (0.0-2.0); RBC 3.08 Mil/uL (4.40-5.90); RED CELL DISTRIBUTION WIDTH 16.8 % (11.5-14.5); WHITE BLOOD COUNT 2.9 K/uL (4.8-10.8)
[2017-11-29 08:37] LABS: BLOOD UREA NITROGEN 7 mg/dL (9-20); GFR NON-AFRICAN AMERICAN > 60
[2017-11-29 08:38] LABS: ALB/GLOB RATIO 1.1 (1.0-2.1); ALBUMIN 2.8 g/dL (3.5-5.0); ALT/SGPT 31 U/L (21-72); AST/SGOT 35 U/L (17-59); CALCIUM 9.2 mg/dl (8.6-10.4)
[2017-11-29] MEDS ORDERED: Magnesium Sulfate 1 gm in D5W 1 GM/100 ML BAG IVPB ONE (10:37)
[2017-11-29] MEDS: Pantoprazole 40 mg EC Tab PO SCH (10:53)
[2017-11-29] MEDS: Tmp-Smz 800 mg-160 mg DS Tab PO SCH (10:53)
[2017-11-29] MEDS ORDERED: Gadodiamide 287 MG/ML VIAL (15ML) IV ONE (12:14)
--- NOTE | 2017-11-29 15:43 | MRI ---
Date of service: 11/29/2017 PROCEDURE: MRI BRAIN WITH AND WITHOUT CONTRAST HISTORY: POSSIBLE LYMPHOMA COMPARISON: MRI brain without contrast from 11/28/[address] from 11/27/2017. TECHNIQUE: Multiplanar, multisequence MR images of the brain were obtained with and without intravenous contrast enhancement. 15 mL Omniscan was injected intravenously FINDINGS: HEMORRHAGE: No acute intracranial hemorrhage. DWI: No evidence of an acute or early subacute infarction. BRAIN PARENCHYMA: There is redemonstration of focal T2/FLAIR hyperintense lesion in the left inferior frontal lobe, also involving the anterior sub insular subcortical white matter very frontal white matter as well as anterior thalamus and basal ganglia. There is redemonstration of 2 discrete areas of intrinsic T1 hyperintense signal in the central part of the paramedian inferior frontal lobe. There is no territorial infarction or abnormal extra-axial fluid collection. There are mild chronic microangiopathic changes ENHANCEMENT: No abnormal intracranial enhancement. VENTRICLES: There is mild age-related global parenchymal volume loss and proportionate enlargement of the ventricles and cortical sulci. CRANIUM: There is normal bone marrow signal pattern. ORBITS: Grossly unremarkable. PARANASAL SINUSES/MASTOIDS: Mild mucosal thickening in the frontal and ethmoid air cells. The remaining included paranasal sinuses are clear. There is a small right mastoid effusion. The left mastoid air cells are clear. VASCULAR SYSTEM: Skull base flow voids intact. OTHER FINDINGS: None . IMPRESSION: Redemonstration of nonenhancing lesion in the left paramedian inferior frontal lobe, anterior insular subcortical white matter also involving the very frontal white matter, anterior basal ganglia and anterior thalamus. Redemonstration of intrinsic T1 hyperintense areas in the inferior frontal lobe which may represent hemorrhage or mineralization. The differential considerations include primary glial neoplasm and lymphoma. Demyelination and sarcoidosis are less likely consideration.
--- NOTE | 2017-11-29 19:07 | CP.PCM.PN ---
Subjective - Date & Time of Evaluation Date of Evaluation: 11/29/17 Time of Evaluation: 08:00 - Subjective Subjective: MRI NOTED ? CNSLYMPHOMA VS GLIOBLASTOMA Objective - Vital Signs/Intake and Output Vital Signs (last 24 hours): Temp Pulse Resp BP Pulse Ox 98.1 F 82 20 114/70 98 11/29/17 15:38 11/29/17 15:38 11/29/17 15:38 11/29/17 15:38 11/29/17 15:38 - Medications Medications: Current Medications Amoxicillin/Clavulanate Potassium (Augmentin 875 Mg-125 Mg Tab) 1 tab PO Q12H [facility]; Protocol Last Admin: 11/29/17 17:53 Dose: 1 tab Folic Acid (Folic Acid) 1 mg PO DAILY [facility] Last Admin: 11/29/17 10:54 Dose: 1 mg Dextrose/Sodium Chloride (Dextrose 5%/0.45% Ns 1000 Ml) 1,000 mls @ 100 mls/hr IV .Q10H [facility] Last Admin: 11/28/17 19:12 Dose: 100 mls/hr Influenza Virus Vaccine (Fluzone Quad [id number]) 60 mcg IM .ONCE ONE Stop: 11/30/17 10:01 Lactulose (Enulose) 20 gm PO TID [facility] Last Admin: 11/29/17 17:56 Dose: 20 gm Lorazepam (Ativan) 1 mg IVP Q6H PRN PRN Reason: Anxiety Nitroglycerin (Nitrostat Sl Tab) 0.4 mg SL Q5M PRN PRN Reason: CHEST PAIN Pantoprazole Sodium (Protonix Ec Tab) 40 mg PO DAILY [facility] Last Admin: 11/29/17 10:53 Dose: 40 mg Pneumococcal Polyvalent Vaccine (Pneumovax 23 Vaccine) 0.5 ml IM .ONCE ONE Stop: 11/30/17 10:01 Thiamine HCl (Vitamin B1 Tab) 100 mg PO DAILY [facility] Last Admin: 11/29/17 10:53 Dose: 100 mg Trimethoprim/Sulfamethoxazole (Bactrim Ds Tab) 1 tab PO DAILY [facility]; Protocol Last Admin: 11/29/17 10:53 Dose: 1 tab - Labs Labs: 11/29/17 08:00 11/29/17 08:00 PT 11.8 SECONDS (9.7-12.2) 11/27/17 16:04 INR 1.1 11/27/17 16:04 APTT 32 SECONDS (21-34) 11/27/17 16:04 - Constitutional Appears: Non-toxic, Chronically Ill - Head Exam Additional comments: RACOONS EYES - Eye Exam Eye Exam: PERRL - ENT Exam ENT Exam: Mucous Membranes Dry - Neck Exam Neck Exam: absent: Lymphadenopathy - Respiratory Exam Respiratory Exam: Decreased Breath Sounds - Cardiovascular Exam Cardiovascular Exam: REGULAR RHYTHM - GI/Abdominal Exam GI & Abdominal Exam: Distended, Soft Assessment and Plan (1) Altered mental status Status: Acute (2) Depression Status: Acute (3) History of HIV or AIDS Status: Acute (4) Periorbital contusion Status: Acute (5) Status post fall Status: Acute (6) Subconjunctival hemorrhage Status: Acute (7) Alcohol dependence Status: Acute - Assessment and Plan (Free Text) Assessment: R/O PAINT AND TABLE EDGER LYMPHOMA CONT RX RESTART HAART
[2017-11-30] MEDS: Amoxicillin-Clav 875-125 mg Tab PO SCH ×2 (03:40→16:59)
--- NOTE | 2017-11-30 09:19 | HP ---
HISTORY OF PRESENT ILLNESS: A 57-year-old male who has HIV, admitted to the hospital with a chief complaint of altered mental status and fall. The patient came to the ER, advised admission. PHYSICAL EXAMINATION: GENERAL: The patient is awake and oriented. Has ecchymosis under both eyes. VITAL SIGNS: Temperature 98, pulse 90. HEENT: Within normal limits. CHEST: Symmetrical. HEART: Regular. ABDOMEN: Soft. EXTREMITIES: No edema. ASSESSMENT: The patient suffers from . Patient on bed rest, . Frank Rivera MD
[2017-11-30] MEDS ORDERED: Emtricitabine-Tenofovir 200 mg-300 mg Tab PO SCH (10:00)
[2017-11-30] MEDS ORDERED: Pneumococcal 23-Valent Vaccine IM ONE (10:00)
[2017-11-30] MEDS ORDERED: Influenza Vaccine 60 MCG/0.5 ML SYR (3 yr & up) IM ONE (10:00)
[2017-11-30] MEDS: Tmp-Smz 800 mg-160 mg DS Tab PO SCH (10:24)
[2017-11-30] MEDS: Pantoprazole 40 mg EC Tab PO SCH (10:24)
--- NOTE | 2017-11-30 11:03 | CP.PCM.PN ---
Subjective - Date & Time of Evaluation Date of Evaluation: 11/30/17 Time of Evaluation: 11:00 - Subjective Subjective: MRI with ángel confirmed unusual process in R ant frontal/temp region discussed rec for stereotaxic Bx w PT risks/potential benefits delineated Is interested will arrange for trans to facility with neuronavigational capability Objective - Vital Signs/Intake and Output Vital Signs (last 24 hours): Temp Pulse Resp BP Pulse Ox 98.5 F 90 20 123/77 98 11/29/17 23:27 11/29/17 23:27 11/29/17 23:27 11/29/17 23:27 11/29/17 23:27 Intake and Output: 11/30/17 11/30/17 06:59 18:59 Intake Total 0 Balance 0 - Medications Medications: Current Medications Amoxicillin/Clavulanate Potassium (Augmentin 875 Mg-125 Mg Tab) 1 tab PO Q12H [facility]; Protocol Last Admin: 11/30/17 03:40 Dose: Not Given Dolutegravir Sodium (Tivicay) 50 mg PO DAILY [facility]; Protocol Last Admin: 11/30/17 10:25 Dose: 50 mg Emtricitabine/Tenofovir (Truvada 200 Mg-300 Mg) 1 tab PO DAILY [facility]; Protocol Last Admin: 11/30/17 10:24 Dose: 1 tab Folic Acid (Folic Acid) 1 mg PO DAILY [facility] Last Admin: 11/30/17 10:24 Dose: 1 mg Dextrose/Sodium Chloride (Dextrose 5%/0.45% Ns 1000 Ml) 1,000 mls @ 100 mls/hr IV .Q10H [facility] Last Admin: 11/28/17 19:12 Dose: 100 mls/hr Lactulose (Enulose) 20 gm PO TID [facility] Last Admin: 11/30/17 10:24 Dose: 20 gm Lorazepam (Ativan) 1 mg IVP Q6H PRN PRN Reason: Anxiety Nitroglycerin (Nitrostat Sl Tab) 0.4 mg SL Q5M PRN PRN Reason: CHEST PAIN Pantoprazole Sodium (Protonix Ec Tab) 40 mg PO DAILY [facility] Last Admin: 11/30/17 10:24 Dose: 40 mg Thiamine HCl (Vitamin B1 Tab) 100 mg PO DAILY [facility] Last Admin: 11/30/17 10:24 Dose: 100 mg Trimethoprim/Sulfamethoxazole (Bactrim Ds Tab) 1 tab PO DAILY [facility]; Protocol Last Admin: 11/30/17 10:24 Dose: 1 tab - Labs Labs: 11/29/17 08:00 11/29/17 08:00 PT 11.8 SECONDS (9.7-12.2) 11/27/17 16:04 INR 1.1 11/27/17 16:04 APTT 32 SECONDS (21-34) 11/27/17 16:04
[2017-11-30 11:48] LABS: BASO # 0.1 K/uL (0.0-0.2); BASO % 2.2 % (0.0-2.0); EOS # 0.1 K/uL (0.0-0.7); EOS % 1.2 % (0.0-4.0); HEMOGLOBIN 9.8 g/dL (12.0-18.0); LYMPH # 1.2 K/uL (1.0-4.3); LYMPH % 27.5 % (20.0-40.0); MEAN CORPUSCULAR HEMOGLOBIN 35.1 pg (27.0-31.0); MEAN CORPUSCULAR HGB CONC 34.6 g/dL (33.0-37.0); MEAN PLATELET VOLUME 7.5 fL (7.2-11.7); MONO # 0.6 K/uL (0.0-0.8); MONO % 12.9 % (0.0-10.0); NEUT # 2.4 K/uL (1.8-7.0); NEUT % 56.2 % (50.0-75.0); NRBC % 0.6 % (0.0-2.0); RBC 2.78 Mil/uL (4.40-5.90); RED CELL DISTRIBUTION WIDTH 17.6 % (11.5-14.5); WHITE BLOOD COUNT 4.3 K/uL (4.8-10.8)
[2017-11-30 11:56] LABS: MEAN CELL VOLUME 101.6 fL (80.0-94.0)
[2017-11-30 12:29] LABS: ALB/GLOB RATIO 1.2 (1.0-2.1); ALBUMIN 2.9 g/dL (3.5-5.0); ALT/SGPT 32 U/L (21-72); AST/SGOT 39 U/L (17-59); BLOOD UREA NITROGEN 8 mg/dL (9-20); CALCIUM 9.3 mg/dl (8.6-10.4); GFR NON-AFRICAN AMERICAN > 60
[2017-11-30] MEDS ORDERED: Potassium Chloride 20 mEq ER Tab PO ONE (12:48)
[2017-11-30 13:15] LABS: % CD4 (T HELPER CELL) 22 Percent (30-61); % CD8 (SUPPRESSOR T CELL) 65 Percent (12-42); ABSOLUTE CD4 CELLS 222 Cells/mcL (490-1740); ABSOLUTE CD8 CELLS 665 Cells/mcL (180-1170); ABSOLUTE LYMPHOCYTES 1031 Cells/mcL (850-3900); HELPER/SUPPRESSOR RATIO 0.33 Ratio (0.86-5.00)
--- NOTE | 2017-11-30 13:32 | CP.PCM.PN ---
Subjective - Date & Time of Evaluation Date of Evaluation: 11/30/17 Time of Evaluation: 07:45 - Subjective Subjective: Medicine progress note ( Dr. Rueda's covering for Dr. Rivera) Patient was seen and examined at bedside. Patient was resting in bed comf ortably. Patient is more awake, alert today. Patient is well aware of what is going on and aware of further management as per Dr. Cazares. Patient denies any acute symptoms at the moment. Patient is eating without difficulties and communicating appropriately. Patient denies any symptoms of headache, blurry vision, dizziness. Patient is able to sit up in bed with any difficulties. Objective - Vital Signs/Intake and Output Vital Signs (last 24 hours): Temp Pulse Resp BP Pulse Ox 98 F 90 20 145/80 100 11/30/17 08:00 11/30/17 08:00 11/30/17 08:00 11/30/17 08:00 11/30/17 08:00 Intake and Output: 11/30/17 11/30/17 06:59 18:59 Intake Total 0 Balance 0 - Medications Medications: Current Medications Amoxicillin/Clavulanate Potassium (Augmentin 875 Mg-125 Mg Tab) 1 tab PO Q12H ASHLEY; Protocol Last Admin: 11/30/17 03:40 Dose: Not Given Dolutegravir Sodium (Tivicay) 50 mg PO DAILY [facility]SHLEY; Protocol Last Admin: 11/30/17 10:25 Dose: 50 mg Emtricitabine/Tenofovir (Truvada 200 Mg-300 Mg) 1 tab PO DAILY [facility]LEY; Protocol Last Admin: 11/30/17 10:24 Dose: 1 tab Folic Acid (Folic Acid) 1 mg PO DAILY [facility] Last Admin: 11/30/17 10:24 Dose: 1 mg Dextrose/Sodium Chloride (Dextrose 5%/0.45% Ns 1000 Ml) 1,000 mls @ 100 mls/hr IV .Q10H ASHLEY Last Admin: 11/28/17 19:12 Dose: 100 mls/hr Potassium Chloride (Potassium Chloride 20 Meq/100 Ml) 20 meq in 100 mls @ 50 mls/hr IVPB ONCE ONE Stop: 11/30/17 14:48 Lactulose (Enulose) 20 gm PO TID ASHLEY Last Admin: 11/30/17 10:24 Dose: 20 gm Lorazepam (Ativan) 1 mg IVP Q6H PRN PRN Reason: Anxiety Nitroglycerin (Nitrostat Sl Tab) 0.4 mg SL Q5M PRN PRN Reason: CHEST PAIN Pantoprazole Sodium (Protonix Ec Tab) 40 mg PO DAILY [facility] Last Admin: 11/30/17 10:24 Dose: 40 mg Thiamine HCl (Vitamin B1 Tab) 100 mg PO DAILY [facility] Last Admin: 11/30/17 10:24 Dose: 100 mg Trimethoprim/Sulfamethoxazole (Bactrim Ds Tab) 1 tab PO DAILY [facility]; Protocol Last Admin: 11/30/17 10:24 Dose: 1 tab - Labs Labs: 11/30/17 11:31 11/30/17 11:31 PT 11.8 SECONDS (9.7-12.2) 11/27/17 16:04 INR 1.1 11/27/17 16:04 APTT 32 SECONDS (21-34) 11/27/17 16:04 - Constitutional Appears: No Acute Distress - Head Exam Head Exam: ATRAUMATIC - Eye Exam Additional comments: [place] eyes; ecchymosis bilaterally ( Improving) Yellowish-greenish discharge in the inner corner of the right eye ( cleared) Bloody left eye ( Improving) - Respiratory Exam Respiratory Exam: NORMAL BREATHING PATTERN. absent: Rhonchi, Wheezes - Cardiovascular Exam Cardiovascular Exam: REGULAR RHYTHM, +S1, +S2 - GI/Abdominal Exam GI & Abdominal Exam: Soft, Normal Bowel Sounds. absent: Distended, Firm, Guarding, Rigid, Tenderness - Extremities Exam Extremities Exam: Normal Inspection. absent: Calf Tenderness, Pedal Edema - Neurological Exam Neurological Exam: Alert, Awake, CN II-XII Intact, Oriented x3 Neuro motor strength exam: Left Upper Extremity: 5, Right Upper Extremity: 5, Left Lower Extremity: 4, Right Lower Extremity: 4 - Psychiatric Exam Psychiatric exam: Depressed, Flat Affect - Skin Skin Exam: Normal Color Assessment and Plan (1) Status post fall Assessment & Plan: Neurosurgery, Judy Contreras, * Management as per neurosurgery * Plans for transfer to [facility] for possible brain biopsy today, 11/30/17 Neurology, Dr. Phelan * Management as per neurology Elevation of head at 30 degree Imaging: HEAD CT: Possible subacute infarct inferior to left basal ganglia with small amount of high attenuation intermixed suspicious for blood products. No significant change in appearance from examination of 11/24/2017. Mild mass effect upon the left lateral aspect of the 3rd ventricle. Consider further evaluation with magnetic resonance imaging of brain. MRI W/O contrast: Findings highly suspicious for lymphoma or glioblastoma multiforme at the left frontal and temporal lobes as well as basal ganglia and left thalamus. 2. MR examination does not demonstrate signal to suggest intraparenchymal hemorrhage though this still likely based on CT findings. Please see discussion above. 3. Age-related neuro degenerative changes comprised of diffuse cerebral atrophy chronic microangiopathy are identified which appears somewhat advanced for the patient's age may be related to substance abuse. MRI BRAIN WITH AND WITHOUT CONTRAST (11/29/17): Redemonstration of nonenhancing lesion in the left paramedian inferior frontal lobe, anterior insular subcortical white matter also involving the very frontal white matter, anterior basal ganglia and anterior thalamus. Redemonstration of intrinsic T1 hyperintense areas in the inferior frontal lobe which may represent hemorrhage or mineralization. The differential considerations include primary glial neoplasm and lymphoma. Demyelination and sarcoidosis are less likely con sideration. Status: Acute (2) Periorbital contusion Assessment & Plan: CT MAXILLOFACIAL BONES WITHOUT CONTRAST: No fracture apparent throughout the facial bones including the maxilla bilaterally. Prominent preorbital soft tissue cellulitis is seen presumably on a posttraumatic basis with limited hematoma associated extending into the right frontal scalp and pre maxilla soft tissues as well. No retained radiodense foreign body evident or emphysema soft tissue change. No postseptal changes right orbit. Advanced dental disease as discussed above in various maxillary and mandibular teeth. Dental follow-up recommended. Infectious disease consult, Dr. schultz * Augmentin (875-125MG) 1tab PO Q12H Status: Acute (3) History of HIV or AIDS Assessment & Plan: F/u CD4 count and HIV RNA - ID consult, Dr. Schultz - Bactrim DS 1 tab PO daily - Genvoya 1 tab PO daily; patient's partner will clam picker medication and inpatient verification Status: Acute (4) Alcohol use disorder, severe, dependence Assessment & Plan: Psychiatry, Dr. Mcintyre * Management as per recommendation * Thiamine 100mg PO daily * Folic acid 1 tab po daily Status: Acute (5) Depression Assessment & Plan: Psychiatry, Dr. Mcintyre * Management as per recommendation Status: Acute (6) Hyperammonemia Assessment & Plan: Ammonia: 53 * Lactulose 20mg PO TID Status: Acute (7) Prophylactic measure Assessment & Plan: GI: Protonix 40mg PO daily DVT: anticoagulation contraindicated due to intracranial hemorrhage Disposition: Plans for transfer to [facility] for possible brain biopsy. Patient and patient's partner made aware All plans and manageemnt discussed with Dr. Rueda covering to Dr. Rivera Status: Acute
[2017-11-30] MEDS: Magnesium Sulfate 1 gm in D5W 1 GM/100 ML BAG IVPB SCH ×2 (15:56→16:39)
--- NOTE | 2017-11-30 17:08 | CP.PCM.PN ---
Subjective - Date & Time of Evaluation Date of Evaluation: 11/30/17 Time of Evaluation: 08:00 - Subjective Subjective: alert nad MRI with ángel confirmed unusual process in R ant frontal/temp region r/o lymphoma pml other HAART Rx restarted ( Genvoya not available here) T cells and viral load pending CRISELDA virus and crypt ag pending Objective - Vital Signs/Intake and Output Vital Signs (last 24 hours): Temp Pulse Resp BP Pulse Ox 98 F 90 20 145/80 100 11/30/17 08:00 11/30/17 08:00 11/30/17 08:00 11/30/17 08:00 11/30/17 08:00 Intake and Output: 11/30/17 11/30/17 06:59 18:59 Intake Total 0 460 Balance 0 460 - Medications Medications: Current Medications Amoxicillin/Clavulanate Potassium (Augmentin 875 Mg-125 Mg Tab) 1 tab PO Q12H ASHLEY; Protocol Last Admin: 11/30/17 16:59 Dose: 1 tab Dolutegravir Sodium (Tivicay) 50 mg PO DAILY [facility]; Protocol Last Admin: 11/30/17 10:25 Dose: 50 mg Emtricitabine/Tenofovir (Truvada 200 Mg-300 Mg) 1 tab PO DAILY [facility]; Protocol Last Admin: 11/30/17 10:24 Dose: 1 tab Folic Acid (Folic Acid) 1 mg PO DAILY [facility] Last Admin: 11/30/17 10:24 Dose: 1 mg Dextrose/Sodium Chloride (Dextrose 5%/0.45% Ns 1000 Ml) 1,000 mls @ 100 mls/hr IV .Q10H [facility] Last Admin: 11/28/17 19:12 Dose: 100 mls/hr Lactulose (Enulose) 20 gm PO TID [facility] Last Admin: 11/30/17 17:00 Dose: 20 gm Lorazepam (Ativan) 1 mg IVP Q6H PRN PRN Reason: Anxiety Nitroglycerin (Nitrostat Sl Tab) 0.4 mg SL Q5M PRN PRN Reason: CHEST PAIN Pantoprazole Sodium (Protonix Ec Tab) 40 mg PO DAILY [facility] Last Admin: 11/30/17 10:24 Dose: 40 mg Thiamine HCl (Vitamin B1 Tab) 100 mg PO DAILY [facility] Last Admin: 11/30/17 10:24 Dose: 100 mg Trimethoprim/Sulfamethoxazole (Bactrim Ds Tab) 1 tab PO DAILY [facility]; Protocol Last Admin: 11/30/17 10:24 Dose: 1 tab - Labs Labs: 11/30/17 11:31 11/30/17 11:31 PT 11.8 SECONDS (9.7-12.2) 11/27/17 16:04 INR 1.1 11/27/17 16:04 APTT 32 SECONDS (21-34) 11/27/17 16:04 - Constitutional Appears: Non-toxic - Head Exam Head Exam: absent: ATRAUMATIC - Eye Exam Eye Exam: absent: Scleral icterus - ENT Exam ENT Exam: Mucous Membranes Dry - Neck Exam Neck Exam: absent: Lymphadenopathy - Respiratory Exam Respiratory Exam: Decreased Breath Sounds - Cardiovascular Exam Cardiovascular Exam: REGULAR RHYTHM - GI/Abdominal Exam GI & Abdominal Exam: Distended, Soft - Rectal Exam Rectal Exam: Deferred - Exam Exam: NORMAL INSPECTION - Back Exam Back Exam: absent: CVA tenderness (L), CVA tenderness (R) - Neurological Exam Neurological Exam: Alert, Awake Assessment and Plan (1) Altered mental status Status: Acute (2) Depression Status: Acute (3) History of HIV or AIDS Status: Acute (4) Periorbital contusion Status: Acute (5) Status post fall Status: Acute (6) Subconjunctival hemorrhage Status: Acute (7) Alcohol dependence Status: Acute - Assessment and Plan (Free Text) Assessment: alert nad MRI with ángel confirmed unusual process in R ant frontal/temp region r/o lymphoma pml other HAART Rx restarted ( Genvoya not available here) T cells and viral load pending CRISELDA virus and crypt ag pending Plan: for transfer to a facility for stereotactic brain Bx
[2017-11-30 17:18] VITALS: BP 110/69; PULSE 83; TEMP 98.3; O2SAT 98
[2017-11-30 18:32] LABS: BLOOD UREA NITROGEN 8 mg/dL (9-20); CALCIUM 8.9 mg/dl (8.6-10.4); GFR NON-AFRICAN AMERICAN > 60
--- NOTE | 2017-12-03 10:34 | PCM.EEG ---
Electroencephalogram Report - Electroencephalogram Report Procedure Date: 11/30/17 Condition of Recording: Awake, Drowsy Medication: Folic acid 1mg PO daily, thiamine 100mg PO daily, Genvoya 1 tab po daily, Bactrim ds 1 tab po daily Interpretation: Technical Information: This was a 21 -channel EEG, 1-channel EKG routine EEG performed using an [employer] machine. Electrodes were applied using the 10/20 international placement system. Clinical Information: 57 y/o with history of AIDs, ETOH abuse and falls. . Results During active states, the EEG contained symmetric 10-20 Hz,20-30 uV activity seen bi-frontally. . During resting wakefulness there was a symmetric posterior dominant rhythm at 8.5-9.5 Hz, 30-50 uV, which was reactive to eye opening and closing. . Drowsiness was associated with fragmentation of the posterior dominan t rhythm and with slow roving eye movements. Sleep not seen. Hyperventilation was not performed. Photic stimulation was performed and there were no changes on the record. Focal abnormality; none ECG was associated with a normal sinus rhythm. Impression: This is a normal awake and drowsy electroencephalogram.
--- NOTE | 2017-12-05 06:59 | DS ---
The patient chief complaint mental status, bruises of the face. The patient denies head trauma. The patient has HIV bleed. CT scan shows , MRI showed bleed possible ganglia. The patient bed rest, neuro check with Neurology, Neurosurgical consult, ID consult. The patient is discharged to follow up with Neurologist and Neurosurgery. The patient need to see specialist possible emphysema, full ____ AIDS. Frank Rivera MD
== END 2017-11-30 20:14 | disposition short-term general hospital (02) | DRG 975 ==
LOC: C.ER 14:59 → C.9E 21:08 → C.5S 22:01
PROVIDERS: ADMIT Internal Medicine Pulmonary Disease; ATTEND Internal Medicine Pulmonary Disease
DX: B20 Human immunodeficiency virus [HIV] disease (principal); E72.20 Disorder of urea cycle metabolism, unspecified; C85.91 Non-Hodgkin lymphoma, unspecified, lymph nodes of head, face, and neck; I62.9 Nontraumatic intracranial hemorrhage, unspecified; L03.213 Periorbital cellulitis; F10.229 Alcohol dependence with intoxication, unspecified; H11.30 Conjunctival hemorrhage, unspecified eye; S00.10XA Contusion of unspecified eyelid and periocular area, initial encounter; Z85.028 Personal history of other malignant neoplasm of stomach; Z85.038 Personal history of other malignant neoplasm of large intestine; R10.13 Epigastric pain; F32.9 Major depressive disorder, single episode, unspecified; W19.XXXA Unspecified fall, initial encounter; J43.9 Emphysema, unspecified

== ENCOUNTER 2018-02-28 11:23 | Inpatient (IN) | payer MEDICARE ==
--- NOTE | 2018-02-28 11:39 | C.PDOC ---
History Of Present Illness 57 year old male presents to the ED for evaluation of new onset seizure prior to arrival. Patient states onset was while he was at clinic. Patient reports last WTOH use was 2-4 days ago, but witness states that patient usually drinks daily. Patient was discharged on 02/01 for hypothermia and chronic diarrhea. 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 Patient has been noncompliant with HIV medications since discharge. Patient is also complaining of recurrent diarrhea since discharge. Patietn denies fever. 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 PER WITNESS, ONSET WHILE @ CLINIC. LAST ETOH 2-4 DAYS AGO BUT WITNESS STATES PT USUALLY DRINKS DAILY. D/C 02/01 FOR HYPOTHERMIA, CHRONIC DIARRHEA. PMHx of ?colon/stomach cancer treated w/ chemotherapy, AIDs (non complaint w/ medication), brain mass, progressive multifocal leukoencephalopat hy. NON COMPLIANT W HIV MEDS SINCE DC. ALSO CO RECUR DIARRHEA SINCE DC. NO FEVER. 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 EXAM NAD HEENT ATRAUM NEURO NO FOCAL DEF INTACT PSYCH CALM COOPERATIVE NO ACUTE INTOX/WITHDRAWAL EXT ATRAUM AROM WO DIFF REMAINDER NEG <Amparo Escalona - Last Filed: 02/28/18 12:53> History Per: EMS, Other (witness ) History/Exam Limitations: no limitations Recent Seizure Activity Began: Just Before Arrival Precipitating Factor(s): Recent Alcohol Ingestion Additional History Per: Patient <Amparo Escalona - Last Filed: 02/28/18 12:53> <Aisha Ugarte - Last Filed: 02/28/18 16:34> Time Seen by Provider: 02/28/18 11:36 Chief Complaint (Nursing): Seizure Past Medical History Reviewed: Historical Data, Nursing Documentation, Vital Signs Vital Signs: Last Vital Signs Temp 98.3 F 02/28/18 11:32 Pulse 106 H 02/28/18 11:32 Resp 15 02/28/18 11:32 BP 127/87 02/28/18 11:32 Pulse Ox 100 02/28/18 11:32 - Medical History PMH: Depression, HIV (As per patient "AIDS") Denies: Diabetes, Hepatitis, HTN, Chronic Kidney Disease, Seizures, Sexually Transmitted Disease Surgical History: No Surg Hx - [facility] Procedures DETOXIFICATION SERVICES FOR SUBSTANCE ABUSE TREATMENT (05/16/17) INDIV PSYCHOTHERAPY FOR SUBSTANCE ABUSE, PSYCHOEDUCATION (05/16/17) PHARMACOTHERAPY FOR SUBSTANCE ABUSE, NICOTINE REPLACE (05/16/17) Family History: States: Unknown Family Hx - Social History Hx Tobacco Use: Yes Hx Alcohol Use: Yes Hx Substance Use: No - Immunization History Hx Tetanus Toxoid Vaccination: No Hx Influenza Vaccination: No Hx Pneumococcal Vaccination: No <Amparo Escalona - Last Filed: 02/28/18 12:53> Vital Signs: Last Vital Signs Temp 98.3 F 02/28/18 11:32 Pulse 106 H 02/28/18 11:32 Resp 15 02/28/18 11:32 BP 127/87 02/28/18 11:32 Pulse Ox 100 02/28/18 12:54 - [facility] Procedures DETOXIFICATION SERVICES FOR SUBSTANCE ABUSE TREATMENT (05/16/17) INDIV PSYCHOTHERAPY FOR SUBSTANCE ABUSE, PSYCHOEDUCATION (05/16/17) PHARMACOTHERAPY FOR SUBSTANCE ABUSE, NICOTINE REPLACE (05/16/17) <Aisha Ugarte - Last Filed: 02/28/18 16:34> Review Of Systems Constitutional: Negative for: Fever, Chills Gastrointestinal: Positive for: Diarrhea Neurological: Positive for: Seizures <Amparo Escalona - Last Filed: 02/28/18 12:53> Physical Exam - Physical Exam Appears: Non-toxic, No Acute Distress Skin: Normal Color, Warm, Dry Head: Atraumatic Eye(s): bilateral: Normal Inspection Oral Mucosa: Moist Neck: Supple Chest: Symmetrical, No Deformity, No Tenderness Cardiovascular: Rhythm Regular, No Murmur Respiratory: Normal Breath Sounds, No Rales, No Rhonchi, No Wheezing Extremity: Normal ROM, Capillary Refill (less than 2 seconds ) Neurological/Psych: Oriented x3, Normal Speech, Normal Cognition, Other (calm, cooperative. no acute intoxication/withdrwawal ) <Amparo Escalona - Last Filed: 02/28/18 12:53> ED Course And Treatment O2 Sat by Pulse Oximetry: 100 (on RA ) Pulse Ox Interpretation: Normal Progress Note: Bloodwork and CT Head ordered and reviewed. Librium PO given. 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 REQUESTS CONSIDERATION FOR DETOX OR SOCIAL ADMISSION - Data Reviewed Data Reviewed: Lab, Diagnostic imaging, EKG, Old records <PolaAmparo - Last Filed: 02/28/18 12:53> Medical Decision Making Medical Decision Makin:00 Results of w/u d/w pt and family at bedside. Plan to admit for further evaluation and management. 15:15 Case d/w Dr. Recio who accepts pt to her service. She requests sfdc solution architect ID and neuro consults. <Aisha Ugarte - Last Filed: 02/28/18 16:34> Disposition Counseled Patient/Family Regarding: Diagnosis - Disposition Disposition Time: 13:00 - POA Present On Arrival: None <PolaAmparo - Last Filed: 02/28/18 12:53> Counseled Patient/Family Regarding: Studies Performed, Diagnosis - Disposition Disposition Time: 15:15 <Aisha Ugarte - Last Filed: 02/28/18 16:34> - Disposition Disposition: HOSPITALIZED Condition: STABLE - Clinical Impression Clinical Impression: New onset seizure, History of HIV or AIDS, Non-compliance, Alcohol use disorder, severe, dependence, Hypomagnesemia, Hypokalemia - Scribe Statement The provider has reviewed the documentation as recorded by the Scribe (Jazz Thorne) Provider Attestation: All medical record entries made by the Scribe were at my direction and personally dictated by me. I have reviewed the chart and agree that the record accurately reflects my personal performance of the history, physical exam, medical decision making, and the department course for this patient. I have also personally directed, reviewed, and agree with the discharge instructions and disposition. <Amparo Escalona - Last Filed: 02/28/18 12:53> Physician Patient Turnover Patient Signed Over To: Aisha Ugarte Handoff Comments: FU LABS, CT, CXR, EKG, DISPO <Amparo Escalona - Last Filed: 02/28/18 12:53>
[2018-02-28 11:43] VITALS: BMI 22.3
--- NOTE | 2018-02-28 13:21 | CT ---
Date of service: 02/28/2018 PROCEDURE: CT HEAD WITHOUT CONTRAST. HISTORY: seizure HO HIV, BRAIN MASS COMPARISON: Noncontrast head CT performed 01/27/18, MRI brain with contrast performed 11/29/17 TECHNIQUE: Axial computed tomography images were obtained through the head/brain without intravenous contrast. Radiation dose: Total exam DLP = 1143.07 mGy-cm. This CT exam was performed using one or more of the following dose reduction techniques: Automated exposure control, adjustment of the mA and/or kV according to patient size, and/or use of iterative reconstruction technique. FINDINGS: HEMORRHAGE: No intracranial hemorrhage. BRAIN: Diffuse atrophy with prominence of the ventricles and sulci noted. No mass effect or edema. Intracranial atherosclerosis. 2.1 x 2.5 cm low-density lesion with eccentric coarse calcification involving the posterior inferior left frontal lobe presumed to represent reported mass with associated encephalomalacia or edema. Scattered white matter hypodensities, which are nonspecific, but often seen with chronic microvascular ischemic disease. VENTRICLES: No hydrocephalus. CALVARIUM: Left frontal calvarial ruddy hole. PARANASAL SINUSES: Unremarkable as visualized. No significant inflammatory changes. MASTOID AIR CELLS: Small fluid within the right mastoid air cells. The left mastoid air cells appear clear. OTHER FINDINGS: None. IMPRESSION: 2.1 x 2.5 cm low-density lesion with eccentric coarse calcification involving the posterior inferior left frontal lobe consistent with reported mass with associated edema or encephalomalacia noted. Further characterization may be considered with MRI brain without and with IV contrast. Small fluid, right mastoid air cells. Left frontal calvarial ruddy-hole.
[2018-02-28 13:30] LABS: LYMPH # 1.1 K/uL (1.0-4.3); MONO # 0.3 K/uL (0.0-0.8)
[2018-02-28 13:35] LABS: BASO % 0.6 % (0.0-2.0); LYMPH % 19.4 % (20.0-40.0); MEAN CORPUSCULAR HEMOGLOBIN 34.6 pg (27.0-31.0); MEAN CORPUSCULAR HGB CONC 34.2 g/dL (33.0-37.0); MEAN PLATELET VOLUME 8.2 fL (7.2-11.7); MONO % 5.4 % (0.0-10.0); NEUT # 4.4 K/uL (1.8-7.0); NEUT % 74.6 % (50.0-75.0); RBC 4.07 Mil/uL (4.40-5.90); RED CELL DISTRIBUTION WIDTH 15.8 % (11.5-14.5)
[2018-02-28 13:39] LABS: HEMOGLOBIN 14.1 g/dL (12.0-18.0); MEAN CELL VOLUME 101.2 fL (80.0-94.0); WHITE BLOOD COUNT 5.9 K/uL (4.8-10.8)
--- NOTE | 2018-02-28 13:47 | RAD ---
HISTORY: MED CLEAR COMPARISON: Chest x-ray performed 01/27/18 TECHNIQUE: Chest PA and lateral FINDINGS: LUNGS: No focal consolidation. Please note that chest x-ray has limited sensitivity for the detection of pulmonary masses. PLEURA: No significant pleural effusion identified. No definite pneumothorax . CARDIOVASCULAR: The heart size appears within normal limits. No significant atherosclerotic calcification present. OSSEOUS STRUCTURES: No acute osseous abnormality identified. VISUALIZED UPPER ABDOMEN: Mild elevation of the right hemidiaphragm. OTHER FINDINGS: None. IMPRESSION: No focal consolidation.
[2018-02-28 13:50] LABS: ALB/GLOB RATIO 1.1 (1.0-2.1); ALBUMIN 3.2 g/dL (3.5-5.0); ALT/SGPT 40 U/L (21-72); AST/SGOT 92 U/L (17-59); BLOOD UREA NITROGEN 4 mg/dL (9-20); CALCIUM 8.2 mg/dl (8.6-10.4); GFR NON-AFRICAN AMERICAN > 60
[2018-02-28] MEDS ORDERED: Potassium Chloride 20 mEq ER Tab PO STA (14:14)
[2018-02-28] MEDS ORDERED: Magnesium Sulfate 1 gm in D5W 1 GM/100 ML BAG IVPB ONE ×2 (15:54→17:10)
[2018-02-28] MEDS ORDERED: Potassium Chloride 20 mEq ER Tab PO ONE (15:54)
[2018-02-28] MEDS: Magnesium Sulfate 1 gm in D5W 1 GM/100 ML BAG IVPB SCH ×2 (15:57→17:16)
--- NOTE | 2018-02-28 17:02 | CP.PCM.CON ---
<Edith Whitmore - Last Filed: 02/28/18 18:37> History of Present Illness - History of Present Illness History of Present Illness: patient states we may contact his partner Tu Elias #[phone] and share his full medical history. Neurology Consult for Dr. Phelan: 57 year old male with past medical history of AIDS, Progressive multifocal leukoencephalopathy and alcohol use disorder presents to the ER s/p witnessed seizure. Patient was at a social worker health services's office when the seizure occurred. Spoke with patient's friend Tu who was with the patient at the time who stated the seizure looked like his whole left side was trembling and falling to the side. He states the patient looked completely out of it. The seizure lasted for less than a minute. Per patient's friend he denies hitting his head, loss of bowel or urine function. Patient states he feels okay just some lower back pain. Patient states his last drink was about 3-4 days ago. PMD: denies Infections Disease: denies Past Medical History: AIDS, Progressive multifocal leukoencephalopathy, pancytopenia, Brain Mass (per patient's friend Tu, the patient was seen by a neurosurgeon and a biopsy was done which confirmed the tumor is begnin and no surgical intervention at this time), gastric CA (s/p chemotherapy 4 years ago), alcohol use disorder, depression Past Surgical History: Denies Medications: Denies; has not been on HIV medications for the past 6 months Social History: Lives alone, admits to cigarettes use>32 years (1PPD), heavy daily drinking (2 bottles of vodka every 1 to 2 days) last drink was 3-4 days ago, methamphetamine (for almost 30 years) and denies cocaine and heroin Review of Systems - Constitutional Constitutional: Headache. absent: Chills, Fever - Cardiovascular Cardiovascular: absent: Chest Pain, Dyspnea - Respiratory Respiratory: absent: Dyspnea - Gastrointestinal Gastrointestinal: absent: Constipation, Diarrhea, Nausea, Vomiting - Genitourinary Genitourinary: absent: Dysuria - Musculoskeletal Musculoskeletal: Back Pain - Neurological Neurological: absent: Dizziness, Headaches, Tingling, Tremor - Psychiatric Psychiatric: Depression. absent: Anxiety Past Patient History - Infectious Disease Hx of Infectious Diseases: None - Past Medical History & Family History Past Medical History?: Yes - Past Social History Smoking Status: Heavy Smoker > 10 Cigarettes Daily - CARDIAC Hx Hypertension: No - PULMONARY Hx Respiratory Disorders: No - NEUROLOGICAL Hx Seizures: No - HEENT Hx HEENT Problems: No - RENAL Hx Chronic Kidney Disease: No - ENDOCRINE/METABOLIC Hx Endocrine Disorders: No - HEMATOLOGICAL/ONCOLOGICAL Hx Human Immunodeficiency Virus (HIV): Yes (As per patient "AIDS") - INTEGUMENTARY Hx Dermatological Problems: No - MUSCULOSKELETAL/RHEUMATOLOGICAL Hx Musculoskeletal Disorders: Yes Hx Falls: Yes - GASTROINTESTINAL Hx Gastrointestinal Disorders: Yes Hx Diarrhea: Yes Other/Comment: stomach/colon CA - GENITOURINARY/GYNECOLOGICAL Hx Sexually Transmitted Disorders: No - PSYCHIATRIC Hx Depression: Yes Hx Substance Use: No - SURGICAL HISTORY Hx Surgeries: Yes Other/Comment: brain biopsy ? - ANESTHESIA Hx Anesthesia: Yes Meds Allergies/Adverse Reactions: Allergies Allergy/AdvReac Type Severity Reaction Status Date / Time No Known Allergies Allergy Verified 02/28/18 11:36 - Medications Medications: Current Medications Folic Acid (Folic Acid) 1 mg PO DAILY [facility] Thiamine HCl (Vitamin B1 Tab) 100 mg PO DAILY [facility] Physical Exam - Constitutional Appears: No Acute Distress, Chronically Ill - Head Exam Head Exam: ATRAUMATIC, NORMAL INSPECTION - Eye Exam Eye Exam: EOMI, Normal appearance - ENT Exam ENT Exam: Mucous Membranes Dry - Respiratory Exam Respiratory Exam: Clear to Auscultation Bilateral, NORMAL BREATHING PATTERN - Cardiovascular Exam Cardiovascular Exam: REGULAR RHYTHM, +S1, +S2 - GI/Abdominal Exam GI & Abdominal Exam: Normal Bowel Sounds, Soft. absent: Tenderness - Extremities Exam Extremities exam: Positive for: normal inspection - Neurological Exam Neurological exam: Alert, CN II-XII Intact, Oriented x3 - Expanded Neurological Exam Expanded Patient oriented to: person, place, time Cranial nerves: EOM's Intact: Normal, Tongue Deviation: Normal Cerebellar Function: Finger to Nose: Normal, Heel to [place]: Normal Neuro motor strength exam: Left Upper Extremity: 5, Right Upper Extremity: 5, Left Lower Extremity: 5, Right Lower Extremity: 5 Coma Scale Eye Opening: SPONTANEOUS Coma Scale Motor Response: OBEYS COMMANDS Coma Scale Verbal: Oriented Coma Scale Total: 15 - Psychiatric Exam Psychiatric exam: Depressed - Skin Skin Exam: Normal Color Results - Vital Signs Recent Vital Signs: Last Vital Signs Temp 98.1 F 02/28/18 16:27 Pulse 104 H 02/28/18 16:27 Resp 22 02/28/18 16:27 BP 105/75 02/28/18 16:27 Pulse Ox 98 02/28/18 16:27 - Labs Result Diagrams: 02/28/18 13:21 02/28/18 13:21 Labs: Laboratory Results - last 24 hr 02/28/18 02/28/18 02/28/18 11:29 13:21 13:21 WBC 5.9 D RBC 4.07 L Hgb 14.1 D Hct 41.2 MCV 101.2 H D MCH 34.6 H MCHC 34.2 RDW 15.8 H Plt Count 105 L D MPV 8.2 Neut % (Auto) 74.6 Lymph % (Auto) 19.4 L [place] % (Auto) 5.4 Eos % (Auto) 0.0 Baso % (Auto) 0.6 Neut # (Auto) 4.4 Lymph # (Auto) 1.1 [place] # (Auto) 0.3 Eos # (Auto) 0.0 Baso # (Auto) 0.0 Differential Comment Sodium 134 Potassium 2.8 L Chloride 93 L Carbon Dioxide 35 H Anion Gap 8 L BUN 4 L Creatinine 0.7 L Est GFR ( Amer) > 60 Est GFR (Non-Af Amer) > 60 POC Glucose (mg/dL) 113 H Random Glucose 120 H D Calcium 8.2 L Phosphorus 2.5 Magnesium 1.0 L* D Total Bilirubin 1.4 H AST 92 H D ALT 40 Alkaline Phosphatase 126 Total Protein 6.2 L Albumin 3.2 L D Globulin 3.0 Albumin/Globulin Ratio 1.1 Alcohol, Quantitative < 10 Assessment & Plan - Assessment and Plan (Free Text) Assessment: 57 year old male with past medical history of AIDS, Progressive multifocal leukoencephalopathy and alcohol use disorder presents to the ER s/p witnessed s [facility]. New onset seizure secondary to alcohol withdrawal vs. PML vs. Brain lesion Imaging: - Brain MRI (11/29/17): Redemonstration of nonenhancing lesion in the left paramedian inferior frontal lobe, anterior insular subcortical white matter also involving the very frontal white matter, anterior basal ganglia and anterior thalamus. Redemonstration of intrinsic T1 hyperintense areas in the inferior frontal lobe which may represent hemorrhage or mineralization. The differential considerations include primary glial neoplasm and lymphoma. Demyelination and sarcoidosis are less likely consideration. - Head CT (02/28/18): 2.1 x 2.5 cm low-density lesion with eccentric coarse calcification involving the posterior inferior left frontal lobe consistent with reported mass with associated edema or encephalomalacia noted. Further characterization may be considered with MRI brain without and with IV contrast. Small fluid, right mastoid air cells. Left frontal calvarial ruddy-hole. - Patient was given a dose of Keppra 100mg once - Keppra 500mg bid - Thiamine 100mg po daily - Folic Acid 1mg po daily Case discussed with Dr. Zhane Whitmore PGY-2 <Didier Phelan - Last Filed: 03/03/18 13:56> Meds - Medications Medications: Current Medications Calcium/Vitamin D (Oscal-D 250 Mg-125 Units Tab) 1 tab PO DAILY [facility] Last Admin: 03/03/18 10:33 Dose: 1 tab Dolutegravir Sodium (Tivicay) 50 mg PO DAILY [facility]; Protocol Last Admin: 03/03/18 10:34 Dose: 50 mg Emtricitabine/Tenofovir (Truvada 200 Mg-300 Mg) 1 tab PO DAILY [facility]; Protocol Last Admin: 03/03/18 10:34 Dose: 1 tab Enoxaparin Sodium (Lovenox) 40 mg SC DAILY [facility] Last Admin: 03/03/18 10:33 Dose: 40 mg Escitalopram Oxalate (Lexapro) 10 mg PO DAILY [facility] Last Admin: 03/03/18 10:33 Dose: 10 mg Folic Acid (Folic Acid) 1 mg PO DAILY [facility] Last Admin: 03/03/18 10:32 Dose: 1 mg Gabapentin (Neurontin) 300 mg PO TID [facility] Last Admin: 03/03/18 13:55 Dose: 300 mg Levetiracetam (Keppra) 500 mg PO BID [facility] Last Admin: 03/03/18 10:32 Dose: 500 mg Multivitamins (Hexavitamin) 1 tab PO DAILY [facility] Last Admin: 03/03/18 10:32 Dose: 1 tab Potassium Chloride (Potassium Chloride Oral Soln) 40 meq PO DAILY [facility] Stop: 03/03/18 22:01 Last Admin: 03/03/18 10:34 Dose: 40 meq Thiamine HCl (Vitamin B1 Tab) 100 mg PO DAILY [facility] Last Admin: 03/03/18 10:34 Dose: 100 mg Results - Vital Signs Recent Vital Signs: Last Vital Signs Temp 97.9 F 03/03/18 08:59 Pulse 80 03/03/18 08:59 Resp 20 03/03/18 08:59 BP 113/75 03/03/18 08:59 Pulse Ox 98 03/03/18 08:59 - Labs Result Diagrams: 03/02/18 05:00 03/02/18 07:17 Labs: Laboratory Results - last 24 hr 03/02/18 00:32 Hemoglobin A1c 4.7 Attending/Attestation - Attestation I have personally seen and examined this patient.: Yes I have fully participated in the care of the patient.: Yes I have reviewed all pertinent clinical information: Yes Notes (Text): I agree with the assessment and plan: new onset seizure: - Keppra 500mg bid - Thiamine 100mg po daily - Folic Acid 1mg po daily
[2018-02-28 20:03] VITALS: RESP 20
[2018-03-01] MEDS: Multiple Vitamins Tab PO SCH (09:28)
[2018-03-01] MEDS: Emtricitabine-Tenofovir 200 mg-300 mg Tab PO SCH (09:29)
[2018-03-01] MEDS: Enoxaparin 40 mg Syringe SC SCH (10:55)
[2018-03-01 11:57] LABS: BLOOD UREA NITROGEN 7 mg/dL (9-20); CALCIUM 8.3 mg/dl (8.6-10.4); GFR NON-AFRICAN AMERICAN > 60
[2018-03-01] MEDS ORDERED: Potassium Chloride 20 mEq ER Tab PO ONE (14:00)
--- NOTE | 2018-03-01 16:29 | CP.PCM.CON ---
History of Present Illness - History of Present Illness History of Present Illness: dictated Past Patient History - Infectious Disease Hx of Infectious Diseases: None - Past Medical History & Family History Past Medical History?: Yes - Past Social History Smoking Status: Heavy Smoker > 10 Cigarettes Daily - CARDIAC Hx Hypertension: No - PULMONARY Hx Respiratory Disorders: No - NEUROLOGICAL Hx Seizures: No - HEENT Hx HEENT Problems: No - RENAL Hx Chronic Kidney Disease: No - ENDOCRINE/METABOLIC Hx Endocrine Disorders: No - HEMATOLOGICAL/ONCOLOGICAL Hx Human Immunodeficiency Virus (HIV): Yes (As per patient "AIDS") - INTEGUMENTARY Hx Dermatological Problems: No - MUSCULOSKELETAL/RHEUMATOLOGICAL Hx Musculoskeletal Disorders: Yes Hx Falls: Yes - GASTROINTESTINAL Hx Gastrointestinal Disorders: Yes Hx Diarrhea: Yes Other/Comment: stomach/colon CA - GENITOURINARY/GYNECOLOGICAL Hx Sexually Transmitted Disorders: No - PSYCHIATRIC Hx Depression: Yes Hx Substance Use: Yes - SURGICAL HISTORY Hx Surgeries: Yes Other/Comment: brain biopsy ? - ANESTHESIA Hx Anesthesia: Yes Meds Allergies/Adverse Reactions: Allergies Allergy/AdvReac Type Severity Reaction Status Date / Time No Known Allergies Allergy Verified 02/28/18 11:36 - Medications Medications: Current Medications Dolutegravir Sodium (Tivicay) 50 mg PO DAILY [facility]; Protocol Last Admin: 03/01/18 09:28 Dose: 50 mg Emtricitabine/Tenofovir (Truvada 200 Mg-300 Mg) 1 tab PO DAILY [facility]; Protocol Last Admin: 03/01/18 09:29 Dose: 1 tab Enoxaparin Sodium (Lovenox) 40 mg SC DAILY [facility] Last Admin: 03/01/18 10:55 Dose: 40 mg Escitalopram Oxalate (Lexapro) 10 mg PO DAILY [facility] Last Admin: 03/01/18 09:28 Dose: 10 mg Folic Acid (Folic Acid) 1 mg PO DAILY [facility] Last Admin: 03/01/18 09:28 Dose: 1 mg Levetiracetam (Keppra) 500 mg PO BID [facility] Last Admin: 03/01/18 09:28 Dose: 500 mg Multivitamins (Hexavitamin) 1 tab PO DAILY [facility] Last Admin: 03/01/18 09:28 Dose: 1 tab Potassium Chloride (Potassium Chloride Oral Soln) 20 meq PO DAILY [facility] Stop: 03/03/18 22:01 Thiamine HCl (Vitamin B1 Tab) 100 mg PO DAILY [facility] Last Admin: 03/01/18 09:28 Dose: 100 mg Results - Vital Signs Recent Vital Signs: Last Vital Signs Temp 97.9 F 03/01/18 01:27 Pulse 80 03/01/18 07:45 Resp 20 03/01/18 01:27 BP 102/66 03/01/18 01:27 Pulse Ox 97 03/01/18 01:27 - Labs Result Diagrams: 02/28/18 13:21 03/01/18 11:07 Labs: Laboratory Results - last 24 hr 03/01/18 11:07 Sodium 134 Potassium 3.0 L Chloride 94 L Carbon Dioxide 37 H Anion Gap 6 L BUN 7 L Creatinine 0.7 L Est GFR ( Amer) > 60 Est GFR (Non-Af Amer) > 60 Random Glucose 107 Calcium 8.3 L Magnesium 1.7
--- NOTE | 2018-03-01 17:03 | CP.PCM.PN ---
Subjective - Date & Time of Evaluation Date of Evaluation: 03/01/18 Time of Evaluation: 17:02 - Subjective Subjective: Neurology Follow-Up Note: Mr. Allen was evaluated this afternoon at bedside. He states that he feels fine, aside from "a little weakness." He is eager to be d/c. He denies any specific complaints. Denies h/a, dizziness, visual changes, chest pain, sob, cough, abd pain, n/v/d. No seizure activity. Objective - Vital Signs/Intake and Output Vital Signs (last 24 hours): Temp Pulse Resp BP Pulse Ox 97.9 F 80 20 102/66 97 03/01/18 01:27 03/01/18 07:45 03/01/18 01:27 03/01/18 01:27 03/01/18 01:27 - Medications Medications: Current Medications Dolutegravir Sodium (Tivicay) 50 mg PO DAILY [facility]; Protocol Last Admin: 03/01/18 09:28 Dose: 50 mg Emtricitabine/Tenofovir (Truvada 200 Mg-300 Mg) 1 tab PO DAILY [facility]; Protocol Last Admin: 03/01/18 09:29 Dose: 1 tab Enoxaparin Sodium (Lovenox) 40 mg SC DAILY [facility] Last Admin: 03/01/18 10:55 Dose: 40 mg Escitalopram Oxalate (Lexapro) 10 mg PO DAILY [facility] Last Admin: 03/01/18 09:28 Dose: 10 mg Folic Acid (Folic Acid) 1 mg PO DAILY [facility] Last Admin: 03/01/18 09:28 Dose: 1 mg Levetiracetam (Keppra) 500 mg PO BID [facility] Last Admin: 03/01/18 09:28 Dose: 500 mg Multivitamins (Hexavitamin) 1 tab PO DAILY [facility] Last Admin: 03/01/18 09:28 Dose: 1 tab Potassium Chloride (Potassium Chloride Oral Soln) 20 meq PO DAILY [facility] Stop: 03/03/18 22:01 Thiamine HCl (Vitamin B1 Tab) 100 mg PO DAILY [facility] Last Admin: 03/01/18 09:28 Dose: 100 mg - Labs Labs: 02/28/18 13:21 03/01/18 11:07 - Constitutional Appears: Well, Non-toxic, No Acute Distress - Head Exam Head Exam: ATRAUMATIC, NORMAL INSPECTION, NORMOCEPHALIC - Eye Exam Eye Exam: EOMI, Normal appearance, PERRL Pupil Exam: NORMAL ACCOMODATION - ENT Exam ENT Exam: Mucous Membranes Moist - Neck Exam Neck Exam: Full ROM, Normal Inspection - Respiratory Exam Respiratory Exam: NORMAL BREATHING PATTERN - Extremities Exam Extremities Exam: Full ROM. absent: Calf Tenderness, Pedal Edema - Back Exam Back Exam: Full ROM - Neurological Exam Neurological Exam: CN II-XII Intact, Reflexes Normal Neuro motor strength exam: Left Upper Extremity: 5, Right Upper Extremity: 5, Left Lower Extremity: 5, Right Lower Extremity: 5 Additional comments: Speech clear, fluid Follows all commands No facial asymmetry Strength equal b/l. Fine motor and sensation intact No tremors or clonux - Psychiatric Exam Psychiatric exam: Normal Affect, Normal Mood - Skin Skin Exam: Normal Color Assessment and Plan (1) New onset seizure Assessment & Plan: Imaging reviewed: - Brain MRI (11/29/17): Redemonstration of nonenhancing lesion in the left para median inferior frontal lobe, anterior insular subcortical white matter also involving the very frontal white matter, anterior basal ganglia and anterior thalamus. Redemonstration of intrinsic T1 hyperintense areas in the inferior frontal lobe which may represent hemorrhage or mineralization. The differential considerations include primary glial neoplasm and lymphoma. Demyelination and sarcoidosis are less likely consideration. - Head CT (02/28/18): 2.1 x 2.5 cm low-density lesion with eccentric coarse calcification involving the posterior inferior left frontal lobe consistent with reported mass with associated edema or encephalomalacia noted. Further characterization may be considered with MRI brain without and with IV contrast. Small fluid, right mastoid air cells. Left frontal calvarial ruddy-hole. -Continue Keppra 500 mg PO BID -Continue Thiamine and Folic Acid. -Seizure precautions -Monitor and replace electrolytes per primary. -Continue current management. Case discussed with Dr. Phelan Status: Acute
--- NOTE | 2018-03-01 17:32 | CARD ---
APPROVED REPORT Date of service: 02/28/2018 EKG Measurement Heart [id number] <Conclusion> Normal sinus rhythm Nonspecific ST and T wave abnormality Abnormal ECG
[2018-03-01] MEDS: Potassium Chloride 20 mEq/15 ml LIQ UD PO SCH (22:28)
[2018-03-02 00:41] LABS: HEMOGLOBIN 11.4 g/dL (12.0-18.0); MEAN CELL VOLUME 102.6 fL (80.0-94.0); MEAN CORPUSCULAR HEMOGLOBIN 34.9 pg (27.0-31.0); MEAN PLATELET VOLUME 8.6 fL (7.2-11.7); RBC 3.27 Mil/uL (4.40-5.90); RED CELL DISTRIBUTION WIDTH 15.9 % (11.5-14.5); WHITE BLOOD COUNT 3.8 K/uL (4.8-10.8)
[2018-03-02 00:55] LABS: IRON 38 ug/dL (49-181)
[2018-03-02 01:05] LABS: % IRON SATURATION 25 (20-55); TOTAL IRON BINDING CAPACITY 155 ug/dL (250-450)
[2018-03-02 02:01] LABS: FOLATE 10.3 ng/mL
--- NOTE | 2018-03-02 07:35 | CON ---
DATE: 03/01/2018 INFECTIOUS DISEASE CONSULT REQUESTED BY: Yumiko Recio MD HISTORY OF PRESENT ILLNESS: This patient is a 57-year-old male, and he had a new onset of seizure. He said he was in the clinic on the opposite side with a hospital social worker to find out for his medications as he has not been taking HIV medications. He says they are too costly, and he has been noncompliant. He says he was drinking till 1 week ago. He denies any fever. He did have tonic-clonic seizure witnessed, and he drinks daily. He was discharged on 02/01/2018 with chronic diarrhea, and he has a history of colon cancer. 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 He denies any IV drug abuse. He came in with a seizure acute onset, and he was found to have hypomagnesemia. He wants to know his magnesium level which I do not know at this point when I was examining him except for yesterday which was 1, and he says he wants to start HIV medications again as he is off 6 months, but he says he does not have the money to buy them. He wanted to find out if he could obtain that, and there was one hospital social worker from [place]. I saw the card in the chart, came to see him, and I am not sure what transpired between them but it is in the works. Otherwise, I told him that [place] does provide medications to people who do not have money, and can be worked out with hospital social worker. He denies any headache. Denies fevers. He says he never had any pneumonia because of HIV disease. He may have HIV disease for 10 to 12 years. He said at one point his viral load was undetectable. He does have a brain mass, and he said he has a cyst removed from his head and the brain mass was benign. REVIEW OF SYSTEM: He denies most of the complaints. PAST MEDICAL HISTORY: He does have past medical history of depression, HIV disease, diabetes, hepatitis, hypertension, chronic kidney disease, seizure, and sexually transmitted diseases. He denies any previous surgeries. I am not sure if that is true, if he had a brain biopsy. SOCIAL HISTORY: He does smoke. He does drink. Denies substance abuse. When he came in, his temperature was 98.3, pulse 106, blood pressure 127/87, pulse oximetry was 100%, respirations are 15. Today, his temperature is 97.8, pulse 89, blood pressure 116/80, respirations are 20. He is awake and alert. Able to give history. He denies any headache. Denies ear, nose, throat problems today. No chest pain. No shortness of breath. No abdominal pain. No nausea, no vomiting, no diarrhea. Just feels weakness. PHYSICAL EXAMINATION: GENERAL: He is alert and oriented x3. HEENT: Head is atraumatic. Tongue is moist. No thrush noted. NECK: Supple. JVP is flat. Trachea is central. No lymphadenopathy present. HEART: S1, S2 regular. Chest wall is symmetrical. LUNGS: Clear. No crackles or rales present. ABDOMEN: Soft, nontender. No guarding, no rigidity present. EXTREMITIES: Have no edema, clubbing, or cyanosis. Labs are noted. White count is 5.9, hemoglobin 14.1, hematocrit 41.2, platelet count is 105. Sodium is 134, potassium 3, chlorides are 94, CO2 is 37, creatinine is 0.7, and magnesium was 1 today, it was 1.7, and the random glucose is 107, potassium is still low and alcohol level was less than 10, and so at this time, I would order a CD4, CD8 count. He was started on Tivicay and Truvada which probably he was not taking, and he is supposed on, so continue those. We will see if I can find out the labs from the previous. Otherwise, at least we should do CD4, CD8 count, and HIV viral load tomorrow. IMPRESSION: The impression is he came in with seizure as it could be related to his brain mass or it could be related to the electrolyte imbalance that happened. I told him that the alcoholism can cause that, and he said he stopped it one week ago, and he is aware of it that it can cause the problem, and he is told to take his medications regularly. Otherwise, there is no use of taking it, and right now, I will order RNA quantitative by PCR, and if he is still here, and if he is discharged, he probably can follow in the clinic where he is to follow for his human immunodeficiency virus, and he has polymorphonuclear leukocytes. He has sugar issues, and he was started on Keppra by the neurologist. We will follow. Jeana Canales MD
[2018-03-02 07:43] LABS: BLOOD UREA NITROGEN 9 mg/dL (9-20); CALCIUM 8.2 mg/dl (8.6-10.4); GFR NON-AFRICAN AMERICAN > 60
--- NOTE | 2018-03-02 08:39 | HP ---
CHIEF COMPLAINT: Seizure. HISTORY OF PRESENT ILLNESS: Mr. Joaquin Allen is a 57-year-old male, came to the emergency room for evaluation of new onset seizures prior to arrival. The patient states that onset was while he was at clinic. The patient reports that alcohol was 2 to 4 days but witnessed the seizure drinks daily. The patient was discharged on 02/01/2019 for hypokalemia and chronic diarrhea. The patient has questionable colonic/stomach cancer and was treated with chemotherapy. The patient has AIDS, noncompliant with medications, brain mass, and progressive multifocal leukoencephalopathy. The patient has been noncompliant with the HIV medications. The patient is also complaining of frequent diarrhea since discharge, denies fever. Length of time discussion was done with patient and the questions asked from the patient's partner who was sitting on the bedside also. PAST MEDICAL HISTORY: As above. Questionable colon or stomach cancer, was treated with chemotherapy. The patient has AIDS, noncompliant, brain mass, status post surgery, progressive multifocal leukoencephalopathy. The patient is noncompliant with HIV medication, history of depression. No surgical history. FAMILY HISTORY: Noncontributory. HABITS: Smoking, yes. Alcohol, yes. Substance abuse, no. REVIEW OF SYSTEMS: The patient was seen and examined at the bedside. Partner was sitting at the bedside also. No new complaints. No fever. No chills. No hematuria. No hematochezia. No swelling of the leg. No chest pain. No headache or dizziness. PHYSICAL EXAMINATION: VITAL SIGNS: Temperature 98.3, pulse 106, respiratory rate 15, blood pressure 127/87. HEENT: Head is normocephalic, atraumatic. Eyes, PERRLA. Extraocular muscles intact. Conjunctivae clear. Nose patent. Mucous membranes moist. NECK: Supple. No carotid bruit. No JVD or thyromegaly. CHEST: Bilaterally symmetrical. HEART: S1 and S2 positive. LUNGS: Clear to auscultation. ABDOMEN: Soft. Bowel sounds positive. No organomegaly. EXTREMITIES: No edema. No cyanosis. NEUROLOGIC: The patient is awake and alert. Moving all four extremities. No focal deficits. LABORATORY DATA: White blood cells 5.9, hemoglobin 14.1, hematocrit 41.2, platelets 105. Sodium 134, potassium 2.8, BUN 4, creatinine 0.7, glucose 120. ASSESSMENT AND PLAN: Mr. Joaquin Allen is a 57-year-old male with thrombocytopenia, hypokalemia, hypochloremia, hyperglycemia, had human immunodeficiency virus positive, actually acquired immune deficiency syndrome, noncompliant with the treatment, history of ethanol abuse. Infectious Disease is on the case. Neurology is on the case. The patient has new onset seizures, alcohol abuse and dependency, hypomagnesemia, hypokalemia. Repeat labs. Gastrointestinal and deep venous thrombosis prophylaxis. We will follow up. Yumkio Recio MD [email or web address]
[2018-03-02] MEDS: Multiple Vitamins Tab PO SCH (09:26)
[2018-03-02] MEDS: Enoxaparin 40 mg Syringe SC SCH (09:26)
[2018-03-02] MEDS: Potassium Chloride 20 mEq/15 ml LIQ UD PO SCH (09:27)
[2018-03-02] MEDS: Emtricitabine-Tenofovir 200 mg-300 mg Tab PO SCH (09:27)
[2018-03-02 10:04] LABS: BARBITURATES, UR NEGATIVE (NEGATIVE); OPIATES, UR NEGATIVE (NEGATIVE); PHENCYCLIDINE, UR NEGATIVE (NEGATIVE)
[2018-03-02 11:58] LABS: BENZODIAZEPINES, UR POSITIVE (NEGATIVE)
--- NOTE | 2018-03-02 12:06 | PCM.PSYCH ---
Initial Psychiatric Evaluation - Initial Psychiatric Evaluation Type of Admission: Voluntary Legal Status: Capacity History of Present Illness and Precipitating Events: He is also known from a detox admission earlier this year and consult in January. 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 He blames his sister for his downfall, as she was reportedly very controlling and envious and reported his drug use to [employer] work and got him fired. 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 He is currently drinking but "not much" and denies using drugs. He had wdw seizures in the past. He reports depressive sxs but denies SI, randolph or psychosis No current treatment but he was getting meds from a PCP in the past. And he claims he did not get a rx last time Past psych hx: No admissions Medical hx: HIV (non-comp with meds x3 montsh), stomach ca s/p treated Family psych hx: Positive for depression. Sister likely borderline PD per pt's description. Current Medications: Active Medications Generic Name Dose Route Start Last Admin Trade Name Freq PRN Reason Stop Dose Admin Dolutegravir Sodium 50 mg 03/01/18 10:00 03/02/18 09:27 Tivicay PO 50 mg DAILY [facility] Administration Protocol Emtricitabine/Tenofovir 1 tab 03/01/18 10:00 03/02/18 09:27 Truvada 200 Mg-300 Mg PO 1 tab DAILY [facility] Administration Protocol Enoxaparin Sodium 40 mg 03/01/18 10:00 03/02/18 09:26 Lovenox SC 40 mg DAILY [facility] Administration Escitalopram Oxalate 10 mg 02/28/18 17:15 03/02/18 09:26 Lexapro PO 10 mg DAILY [facility] Administration Folic Acid 1 mg 03/01/18 10:00 03/02/18 09:26 Folic Acid PO 1 mg DAILY [facility] Administration Levetiracetam 500 mg 03/01/18 10:00 03/02/18 09:26 Keppra PO 500 mg BID [facility] Administration Multivitamins 1 tab 03/01/18 10:00 03/02/18 09:26 Hexavitamin PO 1 tab DAILY [facility] Administration Potassium Chloride 20 meq 03/01/18 22:00 03/02/18 09:27 Potassium Chloride Oral Soln PO 03/03/18 22:01 20 meq DAILY [facility] Administration Thiamine HCl 100 mg 03/01/18 10:00 03/02/18 09:27 Vitamin B1 Tab PO 100 mg DAILY [facility] Administration Past Psychiatric History - Past Psychiatric History Previous Treatment History: Intensive Outpatient Pertinent Medical Hx (Current Medical&Sleep Prob, Allergies): Allergies Allergy/AdvReac Type Severity Reaction Status Date / Time No Known Allergies Allergy Verified 02/28/18 11:36 Dolutegravir Sodium [Tivicay] 50 mg PO DAILY #30 tab 02/01/18 Emtricitabine/Tenofovir Diso [Truvada 200 MG-300 MG] 1 tab PO DAILY #30 tab 02/01/18 Escitalopram [Lexapro] 10 mg PO DAILY 30 Days #30 tab 02/01/18 Mirtazapine [Remeron] 15 mg PO HS 30 Days #30 tab 02/01/18 Review of Systems - Psychiatric Psychiatric: Abnormal Sleep Pattern, Anhedonia, Anxiety, Change in Appetite, Depression, Difficulty Concentrating. absent: Hallucinations, Homicidal Ideati on, Suicidal Ideation Mental Status Examination - Personal Presentation Personal Presentation: Looks stated age - Affect Affect: Broad - Motor Activity Motor Activity: Calm - Reliability in Providing Information Reliability in Providing Information: Good - Speech Speech: Organized - Mood Mood: Depressed, Anxious - Formal Thought Process Formal Thought Process: No Impairment - Cognitive Functions Orientation: Person, Place, Situation, Time Sensorium: Alert Attention/Concentration: Attentive Estimate of Intelligence: Average Judgement: Intact, as evidence by: Insight regarding need for hospitalization Memory: Recent intact, as evidence by: Ability to recall events of the day, Remote intact, as evidenced by: Abilit to recall sig. life events - Risk Risk: Diminished functioning - Strength & Assets Inventory Strength & Assets Inventory: Cooperative - Limitations Limitations: Living alone, Other DSM 5 DX - DSM 5 DSM 5 Diagnosis: Major depression, recurrent, moderate Alcohol use d/o - severe Methamphetamine use d/o - in remission - Recommended/Plan of Treatment Treatment Recommendations and Plan of Treatment: Lexapro for depression Atarax prn Ativan prn Support and psychoed Refer to [facility] for social help Refer to [facility] Psych will sign off as he seems to be at his baseline and treatment started He also wants to be discharged today, which is OK (psychiatrically) 33 min
[2018-03-02] MEDS ORDERED: Potassium Chloride 20 mEq/15 ml LIQ UD PO SCH (20:46)
--- NOTE | 2018-03-02 21:01 | CP.PCM.PN ---
Subjective - Date & Time of Evaluation Date of Evaluation: 03/02/18 Time of Evaluation: 18:00 - Subjective Subjective: Dictated Objective - Vital Signs/Intake and Output Vital Signs (last 24 hours): Temp Pulse Resp BP Pulse Ox 98.3 F 78 20 115/75 99 03/02/18 15:15 03/02/18 15:15 03/02/18 15:15 03/02/18 15:15 03/02/18 15:15 - Medications Medications: Current Medications Calcium/Vitamin D (Oscal-D 250 Mg-125 Units Tab) 1 tab PO DAILY [facility] Dolutegravir Sodium (Tivicay) 50 mg PO DAILY [facility]; Protocol Last Admin: 03/02/18 09:27 Dose: 50 mg Emtricitabine/Tenofovir (Truvada 200 Mg-300 Mg) 1 tab PO DAILY [facility]; Protocol Last Admin: 03/02/18 09:27 Dose: 1 tab Enoxaparin Sodium (Lovenox) 40 mg SC DAILY [facility] Last Admin: 03/02/18 09:26 Dose: 40 mg Escitalopram Oxalate (Lexapro) 10 mg PO DAILY [facility] Last Admin: 03/02/18 09:26 Dose: 10 mg Folic Acid (Folic Acid) 1 mg PO DAILY [facility] Last Admin: 03/02/18 09:26 Dose: 1 mg Gabapentin (Neurontin) 300 mg PO TID [facility] Last Admin: 03/02/18 19:13 Dose: 300 mg Levetiracetam (Keppra) 500 mg PO BID [facility] Last Admin: 03/02/18 19:13 Dose: 500 mg Multivitamins (Hexavitamin) 1 tab PO DAILY [facility] Last Admin: 03/02/18 09:26 Dose: 1 tab Potassium Chloride (Potassium Chloride Oral Soln) 40 meq PO DAILY [facility] Stop: 03/03/18 22:01 Thiamine HCl (Vitamin B1 Tab) 100 mg PO DAILY [facility] Last Admin: 03/02/18 09:27 Dose: 100 mg - Labs Labs: 03/02/18 05:00 03/02/18 07:17
--- NOTE | 2018-03-03 02:33 | PN ---
DATE: 03/02/2018 SUBJECTIVE: The patient was seen and examined at the bedside on 03/02/2018. Appears comfortable. No fever. No chills. No hematuria or hematochezia. No swelling of the leg. No chest pain. No palpitation. No headache or dizziness. PHYSICAL EXAMINATION: VITAL SIGNS: Temperature 98.3, pulse 78, blood pressure 115/75, respiratory rate 20. HEENT: Head normocephalic and atraumatic. Eyes PERRLA. Extraocular muscles intact. Conjunctivae clear. Nose patent. Mucous membranes are moist. NECK: Supple. No carotid bruit. No thyromegaly. CHEST: Bilaterally symmetrical. HEART: S1 and S2 positive. LUNGS: Clear to auscultation. ABDOMEN: Soft. Bowel sounds present. No organomegaly. EXTREMITIES: No edema, no cyanosis. NEUROLOGIC: The patient is awake, alert. Moving all four extremities. No focal deficits. MEDICATIONS: Folic acid, multivitamin, Keppra, Lexapro, Lovenox, Neurontin, potassium, HIV medications, and thiamine. LABORATORY DATA: White blood cells 3.8, hemoglobin 11.4, hematocrit 33.6, platelets 95. Sodium 135, potassium 3.4, BUN 9, creatinine 0.7, calcium 8.2. ASSESSMENT AND PLAN: Mr. Allen is a 57-year-old male with leukopenia, anemia, pancytopenia, hypokalemia, will replace, hypochloremia, hypocalcemia, iron deficiency, abnormal liver function test. Has anxiety and depression. Seen by the psychiatrist and seen by the ID doctor Dr. Jeana Canales. The patient has history of human immunodeficiency virus positive, diabetes, hepatitis, hypertension, chronic kidney disease, seizures, history of brain tumor and surgery, came with new onset seizures. Discussion done with partner. Seizure could be related to his brain mass or could be related to his electrolyte imbalance. The patient has history of alcoholism, also urged to quit drinking alcohol, The patient is not able to take care of himself. He is not able do his ADLs. Spoke to the patient's partner, looking for rehab. Repeat labs. We will follow up. Yumiko Recio MD [facility] # [id number]
--- NOTE | 2018-03-03 02:55 | PN ---
DATE: 03/02/2018 INFECTIOUS DISEASE FOLLOWUP SUBJECTIVE: The patient remains afebrile. He was drowsy. I did not try to wake him up as he looked in no acute respiratory distress. PHYSICAL EXAMINATION: VITAL SIGNS: Vitals have been stable. T-max is 98.3, pulse 78, blood pressure 115/75, respirations are 20. HEENT: Head is atraumatic. NECK: Supple. LABORATORY DATA: Show white count of 3.8, hemoglobin 11.4, platelets are 97. Yesterday's magnesium level was 1.7, which is getting better. ASSESSMENT AND PLAN: I am sitting waiting for the human immunodeficiency virus report. His drug screen came out negative. Alcohol was less than 10. He is continued on his human immunodeficiency virus medications. He did have a psychiatric evaluation today. We will follow. Jeana Canales MD
[2018-03-03] MEDS: Multiple Vitamins Tab PO SCH (10:32)
[2018-03-03] MEDS: Enoxaparin 40 mg Syringe SC SCH (10:33)
[2018-03-03] MEDS: Calcium-Vit D 250 mg-125 Units Tab UD PO SCH (10:33)
[2018-03-03] MEDS: Emtricitabine-Tenofovir 200 mg-300 mg Tab PO SCH (10:34)
--- NOTE | 2018-03-03 14:00 | CP.PCM.PN ---
Subjective - Date & Time of Evaluation Date of Evaluation: 03/03/18 Time of Evaluation: 14:00 - Subjective Subjective: dictated Objective - Vital Signs/Intake and Output Vital Signs (last 24 hours): Temp Pulse Resp BP Pulse Ox 97.9 F 80 20 113/75 98 03/03/18 08:59 03/03/18 08:59 03/03/18 08:59 03/03/18 08:59 03/03/18 08:59 - Medications Medications: Current Medications Calcium/Vitamin D (Oscal-D 250 Mg-125 Units Tab) 1 tab PO DAILY [facility] Last Admin: 03/03/18 10:33 Dose: 1 tab Dolutegravir Sodium (Tivicay) 50 mg PO DAILY [facility]; Protocol Last Admin: 03/03/18 10:34 Dose: 50 mg Emtricitabine/Tenofovir (Truvada 200 Mg-300 Mg) 1 tab PO DAILY [facility]; Protocol Last Admin: 03/03/18 10:34 Dose: 1 tab Enoxaparin Sodium (Lovenox) 40 mg SC DAILY [facility] Last Admin: 03/03/18 10:33 Dose: 40 mg Escitalopram Oxalate (Lexapro) 10 mg PO DAILY [facility] Last Admin: 03/03/18 10:33 Dose: 10 mg Folic Acid (Folic Acid) 1 mg PO DAILY [facility] Last Admin: 03/03/18 10:32 Dose: 1 mg Gabapentin (Neurontin) 300 mg PO TID [facility] Last Admin: 03/03/18 13:55 Dose: 300 mg Levetiracetam (Keppra) 500 mg PO BID [facility] Last Admin: 03/03/18 10:32 Dose: 500 mg Multivitamins (Hexavitamin) 1 tab PO DAILY [facility] Last Admin: 03/03/18 10:32 Dose: 1 tab Potassium Chloride (Potassium Chloride Oral Soln) 40 meq PO DAILY [facility] Stop: 03/03/18 22:01 Last Admin: 03/03/18 10:34 Dose: 40 meq Thiamine HCl (Vitamin B1 Tab) 100 mg PO DAILY [facility] Last Admin: 03/03/18 10:34 Dose: 100 mg - Labs Labs: 03/02/18 05:00 03/02/18 07:17
--- NOTE | 2018-03-03 23:48 | PN ---
DATE: 03/03/2018 SUBJECTIVE: The patient gives no new complaints. He had no more seizures. He is aware of that his magnesium was low and he needs to not drink, and I stressed on him but I am not sure if he will follow the advice. PHYSICAL EXAMINATION: VITAL SIGNS: T-max is 98.6, pulse 71, blood pressure is 113/75, respirations are 20. HEENT: Head is atraumatic, normocephalic. NECK: Supple. LUNGS: Clear. HEART: S1 and S2 are regular. ABDOMEN: Soft, nontender. No guarding, no rigidity present. EXTREMITIES: Have no edema. LABORATORY DATA: White count is 3.8, hemoglobin is 11.4, hematocrit is 33.6, platelet count is 95. His hemoglobin was 14.1 and it dropped to 11.1 yesterday, unclear if this is due to hydration. BUN is 9, creatinine 0.7. He did have magnesium level of 1, last was 1.7 which was done on 03/01/2018. So, I suggest to repeat the levels again and to follow up. ASSESSMENT AND PLAN: He did come with a new-onset seizure with severe hypomagnesemia. We will follow. He needs to continue his human immunodeficiency virus medications, and he needs to follow up with so that he could be qualified for the medications. Jeana Canales MD
[2018-03-04] MEDS: Calcium-Vit D 250 mg-125 Units Tab UD PO SCH (09:46)
[2018-03-04] MEDS: Emtricitabine-Tenofovir 200 mg-300 mg Tab PO SCH (09:46)
[2018-03-04] MEDS: Multiple Vitamins Tab PO SCH (09:46)
[2018-03-04] MEDS: Enoxaparin 40 mg Syringe SC SCH (09:46)
--- NOTE | 2018-03-04 12:52 | PN ---
DATE: 03/03/2018 SUBJECTIVE: The patient was seen and examined at bedside, 03/03/2018, and looking comfortable, improving. No fever, no chills. No hematuria or hematochezia. No headache or dizziness. No chest pain or palpitations. No more seizures. PHYSICAL EXAMINATION: VITAL SIGNS: Temperature 98.5, pulse 70, blood pressure 120/70, and respiratory rate 18. HEENT: Head normocephalic and atraumatic. Eyes: PERRLA. Extraocular muscles are intact. Conjunctivae clear. Nose patent. Mucous membranes moist. NECK: Supple. No carotid bruits. No JVD. No thyromegaly. CHEST: Bilaterally symmetrical. HEART: S1 and S2 positive. LUNGS: Clear to auscultation. ABDOMEN: Soft. Bowel sounds present. No organomegaly. EXTREMITIES: No edema. No cyanosis. NEUROLOGIC: The patient is awake and alert. Moving all four extremities. No focal deficits. MEDICATIONS: Folic acid, multivitamins, Keppra, Lexapro, Lovenox, Neurontin, Os-Mamadou, HIV medications, vitamin B1. LABORATORY DATA: White blood cell 3.8, hemoglobin 11.4, hematocrit 33.6, and platelets 95. ASSESSMENT AND PLAN: Mr. Joaquin Allen is a 57-year-old with leukopenia, anemia, thrombocytopenia, actually pancytopenia, hypokalemia, hypochloremia, hypocalcemia, iron deficiency, history of hypomagnesemia, drug screen positive for benzodiazepine, came with new-onset seizures, electrolyte imbalance, history of human immunodeficiency virus positive, very noncompliant with medications, now Dr. Jeana Canales is Infectious Disease on the case, history of ethanol abuse. Psychiatrist is on the case. Discussion done with the family. Need to be compliant. Education is done. The patient is not able to do his activities of daily living and has multiple hospitalizations. The patient's partner is looking for subacute rehab for the patient. Continue human immunodeficiency virus medications. Appreciated Infectious Disease input and Psychiatry input. We will follow up. Yumiko Recio MD [facility] # [id number]
--- NOTE | 2018-03-04 15:06 | CP.PCM.PN ---
Subjective - Date & Time of Evaluation Date of Evaluation: 03/04/18 Time of Evaluation: 15:06 - Subjective Subjective: Neurology Follow-Up Note: Mr. Allen was evaluated this afternoon at bedside. He states that he feels good. He is eager to be d/c; was told that he can be d/c today. He denies any specific complaints. Denies h/a, dizziness, visual changes, chest pain, sob, cough, abd pain, n/v/d. No seizure activity. Objective - Vital Signs/Intake and Output Vital Signs (last 24 hours): Temp Pulse Resp BP Pulse Ox 98.1 F 65 20 100/61 96 03/04/18 07:10 03/04/18 07:10 03/04/18 07:10 03/04/18 07:10 03/04/18 07:10 Intake and Output: 03/04/18 03/04/18 06:59 18:59 Intake Total 792 Output Total 1 Balance 791 - Medications Medications: Current Medications Calcium/Vitamin D (Oscal-D 250 Mg-125 Units Tab) 1 tab PO DAILY [facility] Last Admin: 03/04/18 09:46 Dose: 1 tab Dolutegravir Sodium (Tivicay) 50 mg PO DAILY [facility]; Protocol Last Admin: 03/04/18 09:46 Dose: 50 mg Emtricitabine/Tenofovir (Truvada 200 Mg-300 Mg) 1 tab PO DAILY [facility]; Protocol Last Admin: 03/04/18 09:46 Dose: 1 tab Enoxaparin Sodium (Lovenox) 40 mg SC DAILY [facility] Last Admin: 03/04/18 09:46 Dose: 40 mg Escitalopram Oxalate (Lexapro) 10 mg PO DAILY [facility] Last Admin: 03/04/18 09:45 Dose: 10 mg Folic Acid (Folic Acid) 1 mg PO DAILY [facility] Last Admin: 03/04/18 09:46 Dose: 1 mg Gabapentin (Neurontin) 300 mg PO TID [facility] Last Admin: 03/04/18 13:34 Dose: 300 mg Levetiracetam (Keppra) 500 mg PO BID [facility] Last Admin: 03/04/18 09:45 Dose: 500 mg Multivitamins (Hexavitamin) 1 tab PO DAILY [facility] Last Admin: 03/04/18 09:46 Dose: 1 tab Thiamine HCl (Vitamin B1 Tab) 100 mg PO DAILY [facility] Last Admin: 03/04/18 09:45 Dose: 100 mg - Labs Labs: 03/02/18 05:00 03/02/18 07:17 - Constitutional Appears: Well, Non-toxic, No Acute Distress - Head Exam Head Exam: ATRAUMATIC, NORMAL INSPECTION, NORMOCEPHALIC - Eye Exam Eye Exam: EOMI, Normal appearance, PERRL Pupil Exam: NORMAL ACCOMODATION, PERRL - ENT Exam ENT Exam: Mucous Membranes Moist - Neck Exam Neck Exam: Full ROM, Normal Inspection - Respiratory Exam Respiratory Exam: NORMAL BREATHING PATTERN - Extremities Exam Extremities Exam: Full ROM. absent: Calf Tenderness, Pedal Edema - Back Exam Back Exam: Full ROM - Neurological Exam Neurological Exam: Alert, Awake, CN II-XII Intact, Oriented x3, Reflexes Normal Neuro motor strength exam: Left Upper Extremity: 5, Right Upper Extremity: 5, Left Lower Extremity: 5, Right Lower Extremity: 5 Additional comments: Speech clear, fluid Follows all commands No facial asymmetry Strength equal b/l. Fine motor and sensation intact No tremors or clonus - Psychiatric Exam Psychiatric exam: Normal Affect, Normal Mood - Skin Skin Exam: Normal Color Assessment and Plan (1) New onset seizure Assessment & Plan: Imaging reviewed: - Brain MRI (11/29/17): Redemonstration of nonenhancing lesion in the left paramedian inferior frontal lobe, anterior insular subcortical white matter also involving the very frontal white matter, anterior basal ganglia and anterior thalamus. Redemonstration of intrinsic T1 hyperintense areas in the inferior frontal lobe which may represent hemorrhage or mineralization. The differential considerations include primary glial neoplasm and lymphoma. Demyelination and sarcoidosis are less likely consideration. - Head CT (02/28/18): 2.1 x 2.5 cm low-density lesion with eccentric coarse calcification involving the posterior inferior left frontal lobe consistent with reported mass with associated edema or encephalomalacia noted. Further characterization may be considered with MRI brain without and with IV contrast. Small fluid, right mastoid air cells. Left frontal calvarial ruddy-hole. -Continue Keppra 500 mg PO BID upon d/c ( I have placed the RX in pt's chart). Pt to f/u with Dr. Weber in the office within 1 month. Upon f/u it will be determined the length of time he will need to continue Keppra. -Continue Thiamine and Folic Acid as ordered. -Continue seizure precautions -Monitor and replace electrolytes per primary. -Continue current management for AIDS per ID. -I have discussed with the pt at length taking kirkra as outpatient and compliance. He verbalized understanding. Thank you for allowing us to participate in this pt's care. Reconsult prn. Case discussed with Dr. Weber Status: Acute
--- NOTE | 2018-03-04 15:21 | CP.PCM.PN ---
Subjective - Date & Time of Evaluation Date of Evaluation: 03/04/18 Time of Evaluation: 15:00 - Subjective Subjective: dictated Objective - Vital Signs/Intake and Output Vital Signs (last 24 hours): Temp Pulse Resp BP Pulse Ox 98.1 F 65 20 100/61 96 03/04/18 07:10 03/04/18 07:10 03/04/18 07:10 03/04/18 07:10 03/04/18 07:10 Intake and Output: 03/04/18 03/04/18 06:59 18:59 Intake Total 792 Output Total 1 Balance 791 - Medications Medications: Current Medications Calcium/Vitamin D (Oscal-D 250 Mg-125 Units Tab) 1 tab PO DAILY [facility] Last Admin: 03/04/18 09:46 Dose: 1 tab Dolutegravir Sodium (Tivicay) 50 mg PO DAILY [facility]; Protocol Last Admin: 03/04/18 09:46 Dose: 50 mg Emtricitabine/Tenofovir (Truvada 200 Mg-300 Mg) 1 tab PO DAILY [facility]; Protocol Last Admin: 03/04/18 09:46 Dose: 1 tab Enoxaparin Sodium (Lovenox) 40 mg SC DAILY [facility] Last Admin: 03/04/18 09:46 Dose: 40 mg Escitalopram Oxalate (Lexapro) 10 mg PO DAILY [facility] Last Admin: 03/04/18 09:45 Dose: 10 mg Folic Acid (Folic Acid) 1 mg PO DAILY [facility] Last Admin: 03/04/18 09:46 Dose: 1 mg Gabapentin (Neurontin) 300 mg PO TID [facility] Last Admin: 03/04/18 13:34 Dose: 300 mg Levetiracetam (Keppra) 500 mg PO BID [facility] Last Admin: 03/04/18 09:45 Dose: 500 mg Multivitamins (Hexavitamin) 1 tab PO DAILY [facility] Last Admin: 03/04/18 09:46 Dose: 1 tab Thiamine HCl (Vitamin B1 Tab) 100 mg PO DAILY [facility] Last Admin: 03/04/18 09:45 Dose: 100 mg - Labs Labs: 03/02/18 05:00 03/02/18 07:17
--- NOTE | 2018-03-05 00:18 | PN ---
DATE: 03/04/2018 INFECTIOUS DISEASE FOLLOWUP SUBJECTIVE: The patient is afebrile. He has no more seizures. He wants to go home. I am told he will be referred to [facility]. His last CD-4 count was 174, so I have added Bactrim at this time. He also says that he is not going to drink, but I am not too sure I did try to convince him. PHYSICAL EXAMINATION VITAL SIGNS: T-max is 98.2, pulse 75, blood pressure 112/71, respirations 20. HEENT: Head is atraumatic and normocephalic. NECK: Supple. LUNGS: Clear. HEART: S1 and S2 regular. ABDOMEN: Soft, nontender. No guarding, no rigidity present. EXTREMITIES: No edema. LABORATORY DATA: His white count remains 3.8, hemoglobin 11.4, hematocrit 33.6, platelet count is 95. Potassium is 3.4; repeat has been ordered. These labs are from 03/02/2018. He will be getting new lab tomorrow. His urine came out positive for benzodiazepines. Alcohol level was less than 10, but he said he did drink two bottles of Scotch when all this happened. IMPRESSION: He is human immunodeficiency virus positive. He has been drinking and has been noncompliant with his medicines. He was told to abstain from alcohol and to continue his human immunodeficiency virus medicines. I have added Bactrim also to cover for PCP as his CD-4 count is 174 at this time, which was recently done on his last admission in January. We will follow. Jeana Canales MD
[2018-03-05 07:53] LABS: HEMOGLOBIN 10.9 g/dL (12.0-18.0); MEAN CORPUSCULAR HEMOGLOBIN 34.9 pg (27.0-31.0); MEAN PLATELET VOLUME 7.7 fL (7.2-11.7); RBC 3.13 Mil/uL (4.40-5.90); RED CELL DISTRIBUTION WIDTH 16.3 % (11.5-14.5)
[2018-03-05 08:05] LABS: MEAN CELL VOLUME 105.6 fL (80.0-94.0); WHITE BLOOD COUNT 6.6 K/uL (4.8-10.8)
[2018-03-05 08:18] LABS: BLOOD UREA NITROGEN 12 mg/dL (9-20); CALCIUM 8.3 mg/dl (8.6-10.4); GFR NON-AFRICAN AMERICAN > 60
[2018-03-05] MEDS: Multiple Vitamins Tab PO SCH (09:51)
[2018-03-05] MEDS: Enoxaparin 40 mg Syringe SC SCH (09:51)
[2018-03-05] MEDS ORDERED: Tmp-Smz 800 mg-160 mg DS Tab PO SCH (10:00)
[2018-03-05] MEDS: Emtricitabine-Tenofovir 200 mg-300 mg Tab PO SCH (10:31)
[2018-03-05] MEDS: Calcium-Vit D 250 mg-125 Units Tab UD PO SCH (10:31)
[2018-03-05 19:09] LABS: % CD4 (T HELPER CELL) 19 Percent (30-61); % CD8 (SUPPRESSOR T CELL) 68 Percent (12-42); ABSOLUTE CD4 CELLS 239 Cells/mcL (490-1740); ABSOLUTE CD8 CELLS 868 Cells/mcL (180-1170); ABSOLUTE LYMPHOCYTES 1285 Cells/mcL (850-3900); HELPER/SUPPRESSOR RATIO 0.27 Ratio (0.86-5.00)
--- NOTE | 2018-03-06 03:07 | PN ---
DATE: 03/05/2018 SUBJECTIVE: The patient does not have any complaints. He is waiting to be transferred to [facility]. PHYSICAL EXAMINATION: VITAL SIGNS: T-max is 98.2, pulse 67, blood pressure 102/61, and respirations 20. HEENT: Head is atraumatic. NECK: Supple. LUNGS: Clear. HEART: S1 and S2 regular. ABDOMEN: Soft, nontender. EXTREMITIES: No edema. LABORATORY DATA: His labs came back with white count of 6.6, hemoglobin 10.9, hematocrit 33.1, and platelet count is 230, is better than before. Sodium 135, potassium is 3.8, now better. Magnesium level was not here. His CD4 count absolute came out 239 at this time. HIV viral load is also 4.72. ASSESSMENT AND PLAN: Since his white count is 239, now CD4, I do not think he will need a PCP treatment. We will discontinue the Bactrim. He should continue, however, his human immunodeficiency virus medicine. He is on Tivicay and Emtriva, and will renew them, but take away the Bactrim. Because on the last admission, his CD4 count was 175, so at this time I do not think we need to give him Bactrim. Will renew his human immunodeficiency virus medications and he should apply to the [facility] or in [facility], they will certainly work it up. Jeana Canales MD
--- NOTE | 2018-03-06 05:03 | PN ---
DATE: 03/05/2018 SUBJECTIVE: The patient is a 57-year-old male. The patient was seen and examined at the bedside on 03/05/2018. Looking comfortable. No fever. No chills. No nausea, vomiting, or diarrhea. No hematuria or hematochezia. No headache or dizziness. No chest pain or palpitation. No more seizure in the hospital. The patient has history of ethanol abuse. PHYSICAL EXAMINATION: VITAL SIGNS: Temperature 98.2, pulse 75, blood pressure 112/71, and respiratory rate 20. HEENT: Head: Normocephalic and atraumatic. Eyes: PERRLA. Extraocular muscles intact. Conjunctivae clear. Nose patent. Mucous membrane moist. NECK: Supple. No carotid bruit. No JVD. No thyromegaly. CHEST: Bilaterally symmetrical. HEART: S1 and S2 positive. LUNGS: Clear to auscultation. ABDOMEN: Soft. Bowel sounds present. No organomegaly. EXTREMITIES: No edema. No cyanosis. NEUROLOGIC: The patient is awake and alert. Moving all four extremities. No focal deficits. LABORATORY DATA: White blood cell 3.8, hemoglobin 11.4, hematocrit 33.6, platelets 95. Potassium 3.4. Actually, we do not have recent labs today, but I reviewed old labs. MEDICATIONS: Medications are reviewed by me. ASSESSMENT: Mr. Joaquin Allen is a 57-year-old male with human immunodeficiency virus positive. His CD4 count is 174, so Infectious Disease added the Bactrim, history of ethanol abuser. He promised he did not drink alcohol again and he is noncompliant for his medications also. Actually, Bactrim is added to cover primary care physician as his CD4 count is 174 at this time, which was recently done on his last admission in January and needed to be compliant. The patient was seen by nurse practitioner, Elizabeth Rolle. PLAN: Continue Keppra 500 mg p.o. twice a day. Continue thiamine, folic acid, seizure precautions. Replete electrolytes. Continue proper management of AIDS as per ID. We will try to do rehab because length of time, I have discussion done with the patients partner. According to him, the patient had multiple hospitalizations, and he is living in home in really a bad situation. He cannot leave him alone there. He cannot do his ADLs. We will try to do rehab. We will follow up. Yumiko Recio MD
[2018-03-06 07:46] LABS: HEMOGLOBIN 11.1 g/dL (12.0-18.0); MEAN CORPUSCULAR HEMOGLOBIN 35.5 pg (27.0-31.0); MEAN CORPUSCULAR HGB CONC 33.2 g/dL (33.0-37.0); MEAN PLATELET VOLUME 7.6 fL (7.2-11.7); RBC 3.11 Mil/uL (4.40-5.90); RED CELL DISTRIBUTION WIDTH 16.1 % (11.5-14.5); WHITE BLOOD COUNT 5.9 K/uL (4.8-10.8)
[2018-03-06 08:05] LABS: BLOOD UREA NITROGEN 12 mg/dL (9-20); CALCIUM 8.5 mg/dl (8.6-10.4); GFR NON-AFRICAN AMERICAN > 60
[2018-03-06] MEDS: Enoxaparin 40 mg Syringe SC SCH (10:56)
[2018-03-06] MEDS: Calcium-Vit D 250 mg-125 Units Tab UD PO SCH (10:57)
[2018-03-06] MEDS: Emtricitabine-Tenofovir 200 mg-300 mg Tab PO SCH (10:58)
[2018-03-06] MEDS: Multiple Vitamins Tab PO SCH (11:00)
[2018-03-07 08:25] VITALS: BP 166/69; PULSE 55; TEMP 98.3; O2SAT 98
[2018-03-07] MEDS: Multiple Vitamins Tab PO SCH (10:04)
[2018-03-07] MEDS: Enoxaparin 40 mg Syringe SC SCH (10:04)
[2018-03-07] MEDS: Emtricitabine-Tenofovir 200 mg-300 mg Tab PO SCH (10:05)
[2018-03-07] MEDS: Calcium-Vit D 250 mg-125 Units Tab UD PO SCH (10:05)
--- NOTE | 2018-03-07 17:29 | PN ---
DATE: 03/06/2018 SUBJECTIVE: The patient was seen and examined at the bedside on 03/06/2018. Looking comfortable. No fever. No chills. No hematuria or hematochezia. No swelling of the legs. No chest pain or palpitation. No headache or dizziness. PHYSICAL EXAMINATION: VITAL SIGNS: Temperature 99.7, pulse 62, blood pressure , and respiratory rate 20. HEENT: Head: Normocephalic and atraumatic. Eyes: PERRLA. Extraocular muscles intact. Conjunctivae clear. Nose patent. Mucous membrane moist. NECK: Supple. No carotid bruit. No JVD. No thyromegaly. CHEST: Bilaterally symmetrical. HEART: S1 and S2 positive. LUNGS: Clear to auscultation. ABDOMEN: Soft. Bowel sounds present. No organomegaly. EXTREMITIES: No edema. No cyanosis. NEUROLOGIC: The patient is awake and alert. Moving all four extremities. No focal deficits. MEDICATIONS: Folic acid, multivitamins, Keppra, Lexapro, Lovenox, Neurontin, Os-Mamadou, HIV medications. LABORATORY DATA: White blood cell 5.9, hemoglobin 11.1, hematocrit 33.3, platelets 275. Sodium 138, potassium 4.4. BUN 12, creatinine 1.2, calcium 8.5. ASSESSMENT AND PLAN: Mr. Joaquin Allen is a 57-year-old male with anemia; history of hypokalemia, replaced; history of hypochloremia, replaced; hypocalcemia; iron deficiency; human immunodeficiency virus positive; history of ethanol abuse. Infectious Disease is on the case. According to Infectious Disease, because the white blood cell is 239, now CD4 is high. She thinks the patient does not need PCP treatment. She discontinued Bactrim. He should continue human immunodeficiency virus medication. He is on Tivicay and Emtriva. The patient is not able to do his ADLs, trying to get subacute rehab. Discussion done with the patient. According to him, he cannot take care of himself at home. We will follow. Yumiko Recio MD
--- NOTE | 2018-03-08 12:45 | CP.PCM.PCO ---
Physician Communication Note - Physician Communication Note Physician Communication Note: Pt is seen briefly, cleared for discharge
== END 2018-03-07 18:26 | disposition home or self-care (01) | DRG 101 ==
LOC: C.ER 11:23 → C.9E 15:21 → C.6T 18:19
PROVIDERS: ADMIT Internal Medicine; ATTEND Internal Medicine
DX: G40.89 Other seizures (principal); B20 Human immunodeficiency virus [HIV] disease; D61.818 Other pancytopenia; A81.2 Progressive multifocal leukoencephalopathy; F33.1 Major depressive disorder, recurrent, moderate; Z68.1 Body mass index [BMI] 19.9 or less, adult; D50.9 Iron deficiency anemia, unspecified; D86.9 Sarcoidosis, unspecified; E11.22 Type 2 diabetes mellitus with diabetic chronic kidney disease; N18.9 Chronic kidney disease, unspecified; E83.42 Hypomagnesemia; E87.6 Hypokalemia; F10.21 Alcohol dependence, in remission; F17.200 Nicotine dependence, unspecified, uncomplicated; F19.10 Other psychoactive substance abuse, uncomplicated; F41.9 Anxiety disorder, unspecified; Z85.028 Personal history of other malignant neoplasm of stomach; Z91.14 Patient's other noncompliance with medication regimen; Z92.21 Personal history of antineoplastic chemotherapy; I12.9 Hypertensive chronic kidney disease with stage 1 through stage 4 chronic kidney disease, or unspecified chronic kidney disease

== ENCOUNTER 2018-03-14 17:31 | Emergency (ER) | payer MEDICARE ==
[2018-03-14 17:32] VITALS: BMI 23.0
--- NOTE | 2018-03-14 19:40 | C.PDOC ---
History Of Present Illness 57yo male, history of HIV, brought to ER for evaluation after patient was noted to be publicly intoxicated. Patient has a history of alcohol abuse and admits to alcohol use today. He denies any fall or head injury and offers no medical complaints. Time Seen by Provider: 03/14/18 19:40 Chief Complaint (Nursing): Substance Abuse History Per: Patient History/Exam Limitations: no limitations Modifying Factor(s): Alcohol Past Medical History Reviewed: Historical Data, Nursing Documentation, Vital Signs Vital Signs: Last Vital Signs Temp 98.1 F 03/14/18 17:51 Pulse 74 03/14/18 17:51 Resp 18 03/14/18 17:51 BP 128/78 03/14/18 17:51 Pulse Ox 97 03/14/18 17:51 - Medical History PMH: Depression, HIV (As per patient "AIDS") Denies: Diabetes, Hepatitis, HTN, Chronic Kidney Disease, Seizures, Sexually Transmitted Disease - [facility] Procedures DETOXIFICATION SERVICES FOR SUBSTANCE ABUSE TREATMENT (05/16/17) INDIV PSYCHOTHERAPY FOR SUBSTANCE ABUSE, PSYCHOEDUCATION (05/16/17) PHARMACOTHERAPY FOR SUBSTANCE ABUSE, NICOTINE REPLACE (05/16/17) Family History: States: Unknown Family Hx - Social History Hx Tobacco Use: Yes Hx Alcohol Use: Yes Hx Substance Use: No - Immunization History Hx Tetanus Toxoid Vaccination: No Hx Influenza Vaccination: No Hx Pneumococcal Vaccination: No Review Of Systems Except As Marked, All Systems Reviewed And Found Negative. Constitutional: Negative for: Fever, Chills Cardiovascular: Negative for: Chest Pain Respiratory: Negative for: Shortness of Breath Gastrointestinal: Negative for: Vomiting, Abdominal Pain Genitourinary: Negative for: Dysuria Musculoskeletal: Negative for: Back Pain Neurological: Negative for: Seizures Psych: Positive for: Other (alcohol use) Physical Exam - Physical Exam Appears: No Acute Distress Skin: Normal Color Head: Atraumatic, Normacephalic, No Abrasion, No Laceration Eye(s): bilateral: Normal Inspection, PERRL, EOMI Nose: Normal Oral Mucosa: Moist Tongue: Normal Appearing Lips: Normal Appearing Gingiva: Normal Appearing Neck: Normal, Normal ROM, Supple, Other (no meningeal signs) Chest: Symmetrical Cardiovascular: Rhythm Regular Respiratory: Normal Breath Sounds Gastrointestinal/Abdominal: Normal Exam, Soft Back: Normal Inspection Extremity: Normal ROM Neurological/Psych: Oriented x3, Normal Speech ED Course And Treatment - Laboratory Results Result Diagrams: 03/14/18 20:44 03/14/18 20:44 O2 Sat by Pulse Oximetry: 97 (RA) Pulse Ox Interpretation: Normal - CT Scan/US CT C-Spine Other Rad Studies (CT/US): Radiology Report Reviewed CT/US Interpretation: FINDINGS: ALIGNMENT: There is reversal of the normal cervical lordosis. DEGENERATIVE CHANGES: There are mild to moderate multilevel degenerative spine changes. SOFT TISSUES: There is no focal prevertebral soft tissue swelling. BONES: No acute fracture or aggressive appearing osseous lesion. MISCELLANEOUS: There is mucosal thickening of the paranasal sinuses. IMPRESSION: 1. No evidence for acute fracture or subluxation. 2. There is reversal of the normal cervical lordosis. 3. There are mild to moderate multilevel degenerative spine changes. CT Head Other Rad Studies (CT/US): Radiology Report Reviewed CT/US Interpretation: FINDINGS: BRAIN. Chronic periventricular and subcortical microvascular disease is seen. 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 Within this area there are several irregular hyperdense foci noted measuring up to 100 HU and may represent calcifications. VENTRICLES: There is generalized parenchymal atrophy noted as demonstrated by symmetrical dilatation of ventricles and sulci. ORBITS: The orbits are unremarkable. SINUSES AND MASTOIDS: The paranasal sinuses and mastoid air cells are clear. BONES: No acute fracture. Left frontal skull defect is again seen. MISCELLANEOUS: Small hyperdense foci are noted in the region of right internal capsule likely represent small calcifications. IMPRESSION: 1. There is generalized parenchymal atrophy noted as demonstrated by symmetrical dilatation of ventricles and sulci. 2. Chronic periventricular and subcortical microvascular disease is seen. 3. 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 Within this area there are several irregular calcifications noted. 4. Grossly stable. Medical Decision Making Medical Decision Makinyo male, well known to ER for visits due to alcohol intoxication Patient with no signs of head trauma Plan: -- CT Head w/o contrast -- CT C-Spine w/o contrast -- Labs 2137 Labs reviewed, patient noted to be hypokalemic; PO potassium ordered. 2200 CT c-spine reviewed, no signs of fracture CT head reviewed, no acute findings. 2327 Pt ambulating well, no cerebellar signs, no meningeal signs. Normal neuro exam, walking well in NAD. Clinically sober. No signs of withdrawal. Given return indications and followup. as well as recc to decrease intake. Disposition - Disposition Referrals: [facility] [Outside] [facility] [Outside] [facility] [Outside] [facility] [Outside] Disposition: HOME/ ROUTINE Disposition Time: 23:24 Condition: GOOD Additional Instructions: DECREASE THE AMOUNT THAT YOU DRINK. IT IS BAD FOR YOU TO DRINK SO MUCH. JAIME CUMMINS, thank you for letting us take care of you today. Your provider was Bhupendra Gallardo and you were treated for MEDICAL CLEARENCE. The emergency medical care you received today was directed at your acute symptoms. If you were prescribed any medication, please fill it and take as directed. It may take several days for your symptoms to resolve. Return to the Emergency Department if your symptoms worsen, do not improve, or if you have any other problems. Please contact your doctor or call one of the physicians/clinics you have been referred to that are listed on the Patient Visit Information form that is included in your discharge packet. Bring any paperwork you were given at discharge with you along with any medications you are taking to your follow up visit. Our treatment cannot replace ongoing medical care by a primary care provider outside of the emergency department. Thank you for allowing the [facility] team to be part of your care today. If you had an X-Ray or CT scan: A Radiologist will review the ED reading if any change in treatment is needed we will contact you. If you had a blood, urine, or wound culture: It will take several days for the results, if any change in treatment is needed we will contact you. If you had an STI test: It will take 48 hours for the results. Please call after 1 week if you have not heard back. Instructions: Alcohol Abuse and Alcoholism (DC), Alcohol Use - When Is Drinking a Problem? Forms: [facility] ([place]) - Clinical Impression Clinical Impression: Alcohol intoxication - Scribe Statement The provider has reviewed the documentation as recorded by the Rick Robertson Provider Attestation: All medical record entries made by the Karonibroxy were at my direction and personally dictated by me. I have reviewed the chart and agree that the record accurately reflects my personal performance of the history, physical exam, medical decision making, and the department course for this patient. I have also personally directed, reviewed, and agree with the discharge instructions and disposition.
[2018-03-14 20:51] LABS: BASO # 0.1 K/uL (0.0-0.2); BASO % 1.4 % (0.0-2.0); LYMPH # 1.7 K/uL (1.0-4.3); LYMPH % 41.5 % (20.0-40.0); MEAN CORPUSCULAR HEMOGLOBIN 34.2 pg (27.0-31.0); MEAN CORPUSCULAR HGB CONC 33.9 g/dL (33.0-37.0); MEAN PLATELET VOLUME 7.4 fL (7.2-11.7); MONO # 0.3 K/uL (0.0-0.8); MONO % 6.6 % (0.0-10.0); NEUT # 2.1 K/uL (1.8-7.0); NEUT % 50.5 % (50.0-75.0); NRBC % 0.1 % (0.0-2.0); RBC 4.06 Mil/uL (4.40-5.90); RED CELL DISTRIBUTION WIDTH 15.2 % (11.5-14.5); WHITE BLOOD COUNT 4.1 K/uL (4.8-10.8)
[2018-03-14 20:56] LABS: HEMOGLOBIN 13.9 g/dL (12.0-18.0)
[2018-03-14 21:10] LABS: ALB/GLOB RATIO 1.2 (1.0-2.1); ALBUMIN 3.6 g/dL (3.5-5.0); ALT/SGPT 41 U/L (21-72); AST/SGOT 57 U/L (17-59); BLOOD UREA NITROGEN 6 mg/dL (9-20); CALCIUM 8.4 mg/dl (8.6-10.4); GFR NON-AFRICAN AMERICAN > 60
[2018-03-14] MEDS ORDERED: Potassium Chloride 20 mEq ER Tab PO STA (21:37)
[2018-03-14] MEDS ORDERED: Potassium Chloride 20 mEq ER Tab PO ONE (21:46)
[2018-03-15 00:10] VITALS: BP 122/82; PULSE 82; RESP 16; TEMP 98.2; O2SAT 99
--- NOTE | 2018-03-15 07:55 | CT ---
CT cervical spine HISTORY: Injury. Fall. Neck pain. Comparison: None available. Technique: Multiple contiguous axial images were performed through the cervical spine without the use of intravenous contrast. Subsequently, sagittal and coronal reformatted images were obtained. This CT exam was performed using one or more of the following dose reduction techniques: Automated exposure control, adjustment of the mA and/or kV according to patient size, and/or use of iterative reconstruction technique. Findings: Limited study as the patient is in suboptimal positioning. Patient is rotated. Reversal of the normal cervical lordosis. Loss of height of the inferior endplates of the C3, C4, and C5 vertebral body. Loss of height of the superior endplate with Schmorl's node formation at the C7 vertebral body. Anterior osteophytosis at the C3 through C7 levels. Rounded lucency/lucent lesion seen within the posterior superior aspect of the C6 vertebral body measuring 7 millimeters of uncertain clinical etiology. Clinical correlation. Multilevel posterior disc osteophyte complexes noted at the C3-4, C4-5, C5-6, and C6-7 levels. Multilevel uncovertebral joint and facet hypertrophy noted most prominent at the C2-3 level on the left as well as at the right aspect of T1-2 vertebral body. Narrowing at the atlantodental interval with sclerosis and bony hypertrophy. Multiple dental caries are noted. Mucosal thickening of the bilateral maxillary sinuses, sphenoid sinus, and ethmoid air cells. Mild mucosal opacification of the right mastoid air cells. 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 Heterogeneity of the thyroid gland. Soft tissue swelling overlying the right frontal cranium and right periorbital region. Impression: Degenerative changes. If pain persists, consider correlation with MRI. Additional findings as above. A preliminary report was generated at 9:10 p.m. on 03/14/[address] Ke Cadena from [employer].
--- NOTE | 2018-03-15 09:21 | CT ---
Date of service: 03/14/2018 PROCEDURE: CT HEAD WITHOUT CONTRAST. HISTORY: drunk COMPARISON: Noncontrast head CT 02/28/2018. TECHNIQUE: Axial computed tomography images were obtained through the head/brain without intravenous contrast. Radiation dose: Total exam DLP = 1038.84 mGy-cm. This CT exam was performed using one or more of the following dose reduction techniques: Automated exposure control, adjustment of the mA and/or kV according to patient size, and/or use of iterative reconstruction technique. FINDINGS: HEMORRHAGE: No intracranial hemorrhage. BRAIN: Reiterated expansion of the ventricular sulcal and cisternal spaces appreciated as well as trace periventricular white matter lucency compatible with diffuse cerebral atrophy chronic microangiopathy once again. Further, inferior left frontal cystic encephalomalacia is reiterated with inferomedial calcification as well. Left frontal ruddy hole reiterated. No positive mass effect appreciated throughout. Posterior fossa contents appear unremarkable including the brainstem. No suspicious extra-axial collection is identified in the midline brain anatomy appears unremarkable throughout. Midline brain anatomy remains unremarkable. VENTRICLES: Unremarkable. No hydrocephalus. CALVARIUM: Left frontal ruddy hole as discussed above. PARANASAL SINUSES: Unremarkable as visualized. No significant inflammatory changes. MASTOID AIR CELLS: Unremarkable as visualized. No inflammatory changes. OTHER FINDINGS: None. IMPRESSION: Prior left frontal ruddy hole reiterated with stable appearing medial basilar frontal calcification and cystic encephalomalacia again noted at the inferior left frontal lobe once again. Two cerebral atrophy chronic microangiopathy are reiterated, with atrophy potentially a function of known HIV status. No significant change from prior CT dated 02/28/2018.
== END 2018-03-15 00:10 | disposition home or self-care (01) ==
LOC: C.ER 17:31
DX: F10.129 Alcohol abuse with intoxication, unspecified (principal); Y90.9 Presence of alcohol in blood, level not specified; E87.6 Hypokalemia

== ENCOUNTER 2018-04-04 21:47 | Emergency (ER) | payer MEDICARE ==
[2018-04-04 21:48] VITALS: BMI 23.0
--- NOTE | 2018-04-04 22:18 | C.PDOC ---
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 Denies any complaints at this time. Time Seen by Provider: 04/04/18 22:08 History Per: Patient History/Exam Limitations: no limitations Onset/Duration Of Symptoms: Hrs Current Symptoms Are (Timing): Still Present Recent travel outside of the [place]: No Past Medical History Reviewed: Historical Data, Nursing Documentation, Vital Signs - Medical History PMH: Depression, HIV (As per patient "AIDS") Denies: Diabetes, Hepatitis, HTN, Chronic Kidney Disease, Seizures, Sexually Transmitted Disease - [facility] Procedures DETOXIFICATION SERVICES FOR SUBSTANCE ABUSE TREATMENT (05/16/17) INDIV PSYCHOTHERAPY FOR SUBSTANCE ABUSE, PSYCHOEDUCATION (05/16/17) PHARMACOTHERAPY FOR SUBSTANCE ABUSE, NICOTINE REPLACE (05/16/17) Family History: States: Unknown Family Hx - Social History Hx Tobacco Use: Yes Hx Alcohol Use: Yes Hx Substance Use: No - Immunization History Hx Tetanus Toxoid Vaccination: No Hx Influenza Vaccination: No Hx Pneumococcal Vaccination: No Review Of Systems Except As Marked, All Systems Reviewed And Found Negative. Gastrointestinal: Negative for: Nausea, Vomiting Neurological: Negative for: Headache Physical Exam - Physical Exam Additional Physical Exam Comments: Constitutional: No acute distress. Head: Abrasion to right mandaen and right maxillary arch. No laceration. Eyes: PERRL. EOMI. ENT: Moist mucous membranes. Neck: No midline tenderness. Cardiovascular: Regular rate. Radial pulses 2+ bilaterally. Chest: No tenderness. Respiratory: Clear to auscultation bilaterally. GI: Soft. Nontender. Nondistended. Back: No midline tenderness. Musculoskeletal: FROMx4 Skin: No rash. Neurologic: Alert, no focal deficit. Medical Decision Making Medical Decision Making: CT maxillofacial FINDINGS: BONES: There is an area of lucency involving both the inner and outer table of the left frontal calvarium measuring 1.4 cm on series 3, image 123. Unclear if this represents a destructive osseous lesion vs. prior [place] hole formation. Please correlate with clinical and procedural history. No evidence for acute facial or orbital fractures. SOFT TISSUES: The soft tissues are unremarkable. SINUSES: There is a small mucus retention cyst or polyp versus focal mucosal thickening of the anterior right maxillary sinus. ORBITS: The orbits are normal. No retrobulbar hematoma or mass. IMPRESSION: 1. There is a small mucus retention cyst or polyp versus focal mucosal thickening of the anterior right maxillary sinus. 2. There is an area of lucency involving both the inner and outer table of the left frontal calvarium measuring 1.4 cm on series 3, image 123. Unclear if this represents a destructive osseous lesion vs. prior Arnaud hole formation. Please correlate with clinical and procedural history. 3. No evidence for acute facial or orbital fractures. CT head FINDINGS: BRAIN Focal 2.5 cm hypodense area is noted in the left frontal lobe, most compatible with an old infarct vs post surgical. Within this area there are several irregular hyperdense foci noted measuring up to 100 HU and may represent calcifications. No significant change. VENTRICLES: Mild prominence of ventricles and sulci compatible with mild atrophy. ORBITS: The orbits are unremarkable. SINUSES AND MASTOIDS: The paranasal sinuses and mastoid air cells are clear. BONES: No displaced calvarial fracture. SOFT TISSUES: Unremarkable. MISCELLANEOUS: No convincing evidence for acute hemorrhagic change. No evidence for acute territorial infarction. IMPRESSION: 1. Focal 2.5 cm hypodense area is noted in the left frontal lobe, most compatible with an old infarct vs post surgical. Within this area there are several irregular hyperdense foci noted measuring up to 100 HU and may represent calcifications. No significant change. 2. No evidence for acute hemorrhagic change. 3. No evidence for acute territorial infarction. 4. No displaced calvarial fracture. 5. Mild prominence of ventricles and sulci compatible with mild atrophy. Observed until sober with steady gait, discharged home. Disposition - Disposition Referrals: [facility] [Outside] Disposition: HOME/ ROUTINE Disposition Time: 00:06 Condition: STABLE Instructions: Skin Abrasions, Alcohol Abuse and Alcoholism (DC) - Clinical Impression Clinical Impression: Alcohol intoxication, Abrasion - Scribe Statement The provider has reviewed the documentation as recorded by the Scribroxy Ballard All medical record entries made by the Scribe were at my direction and personally dictated by me. I have reviewed the chart and agree that the record accurately reflects my personal performance of the history, physical exam, medical decision making, and the department course for this patient. I have also personally directed, reviewed, and agree with the discharge instructions and disposition.
[2018-04-04] MEDS ORDERED: Bacitracin 500 Units/gm Oint Foilpak UD ONE (23:09)
[2018-04-05 03:04] VITALS: RESP 18
[2018-04-05 05:55] VITALS: TEMP 98.5; O2SAT 99
[2018-04-05 06:47] VITALS: BP 93/56; PULSE 100
--- NOTE | 2018-04-05 08:48 | CT ---
Date of service: 04/04/2018 PROCEDURE: CT HEAD WITHOUT CONTRAST. HISTORY: Fall, head trauma COMPARISON: 03/14/2018. TECHNIQUE: Axial computed tomography images were obtained through the head/brain without intravenous contrast. Radiation dose: Total exam DLP = 1238.6 mGy-cm. This CT exam was performed using one or more of the following dose reduction techniques: Automated exposure control, adjustment of the mA and/or kV according to patient size, and/or use of iterative reconstruction technique. FINDINGS: HEMORRHAGE: No intracranial hemorrhage. BRAIN: There is redemonstration of cystic encephalomalacia with eccentric coarse calcification in the left paramedian inferior frontal lobe. There are mild chronic microangiopathic changes. There is no mass, mass effect or abnormal extra-axial fluid collection. VENTRICLES: There is mild age-related global parenchymal volume loss and proportionate enlargement of the ventricles and cortical sulci. CALVARIUM: There is no calvarial fracture or extracranial soft tissue swelling. Status post left frontal ruddy hole. PARANASAL SINUSES: Predominantly clear. MASTOID AIR CELLS: Predominantly clear. OTHER FINDINGS: None. IMPRESSION: No acute intracranial abnormality. No significant interval change. Redemonstration of cystic encephalomalacia with eccentric coarse calcifications in the left paramedian inferior frontal lobe a sequela of remote insult. Mild chronic microangiopathic changes and mild age-related global parenchymal volume loss.
--- NOTE | 2018-04-05 09:35 | CT ---
Date of service: 04/04/2018 PROCEDURE: CT MAXILLOFACIAL BONES WITHOUT CONTRAST HISTORY: Fall, facial trauma COMPARISON: None available. TECHNIQUE: Contiguous axial CT images of the maxillofacial bones were obtained. Coronal and sagittal reformats were generated. Radiation dose: Total exam DLP = 822.87 mGy-cm. This CT exam was performed using one or more of the following dose reduction techniques: Automated exposure control, adjustment of the mA and/or kV according to patient size, and/or use of iterative reconstruction technique. FINDINGS: NASAL BONES: No acute fracture. ORBITS: The globes are symmetric. No acute orbital fracture injury. PARANASAL SINUSES/ MASTOIDS: There is mild mucosal thickening in the maxillary sinuses. The remaining included paranasal sinuses are predominantly clear. MAXILLA: No acute maxillofacial fracture. MANDIBLE/ TEMPOROMANDIBULAR JOINTS: No acute fracture or dislocation. SKULL BASE: Unremarkable. TEMPORAL BONES: Middle ears and mastoid grossly unremarkable. OTHER FINDINGS: There is a left frontal ruddy hole. IMPRESSION: No acute fracture. A preliminary report was provided by [employer].
== END 2018-04-05 06:47 | disposition home or self-care (01) ==
LOC: C.ER 21:47
DX: F10.129 Alcohol abuse with intoxication, unspecified (principal); S00.81XA Abrasion of other part of head, initial encounter; W19.XXXA Unspecified fall, initial encounter; Z72.0 Tobacco use

== ENCOUNTER 2018-05-12 15:11 | Inpatient (IN) | payer MEDICARE ==
[2018-05-12 15:12] VITALS: BMI 23.0
[2018-05-12] MEDS ORDERED: Sodium Chloride 0.9% 1,000 ML IV STA (15:49)
--- NOTE | 2018-05-12 16:07 | C.PDOC ---
History Of Present Illness 58 y/o male presents to the ED complaining of 1 week of generalized weakness, subjective fever, vomiting and diarrhea. Denies abdominal pain. States he has hx of alcohol abuse, but for the last 2-3 days he has been unable to drink due to feeling sick. This morning he had witnessed seizure. Patient also reports poor appetite but has been able to tolerate some PO fluids. Otherwise he denies any SOB, chest pain, dizziness, or other complaints. Patient sts he has h/o HIV, but not compliant with treatment. Time Seen by Provider: 05/12/18 15:16 Chief Complaint (Nursing): Weakness/Neurological Deficit History Per: Patient History/Exam Limitations: no limitations Onset/Duration Of Symptoms: Days Current Symptoms Are (Timing): Still Present Associated Symptoms: Vomiting, Diarrhea, Loss Of Appetite Past Medical History Reviewed: Historical Data, Nursing Documentation, Vital Signs Vital Signs: Last Vital Signs Temp 98.4 F 05/12/18 15:17 Pulse 100 H 05/12/18 15:17 Resp 18 05/12/18 15:17 BP 137/86 05/12/18 15:17 Pulse Ox 100 05/12/18 15:17 - Medical History PMH: Depression, HIV (As per patient "AIDS") Denies: Diabetes, Hepatitis, HTN, Chronic Kidney Disease, Seizures, Sexually Transmitted Disease - [facility] Procedures DETOXIFICATION SERVICES FOR SUBSTANCE ABUSE TREATMENT (05/16/17) INDIV PSYCHOTHERAPY FOR SUBSTANCE ABUSE, PSYCHOEDUCATION (05/16/17) PHARMACOTHERAPY FOR SUBSTANCE ABUSE, NICOTINE REPLACE (05/16/17) Family History: States: Unknown Family Hx - Social History Hx Tobacco Use: Yes Hx Alcohol Use: Yes Hx Substance Use: No (HX OF METH USE "NOT IN MANY YEARS") - Immunization History Hx Tetanus Toxoid Vaccination: No Hx Influenza Vaccination: No Hx Pneumococcal Vaccination: No Review Of Systems Constitutional: Positive for: Fever, Weakness (generalized) Cardiovascular: Negative for: Chest Pain Respiratory: Negative for: Shortness of Breath Gastrointestinal: Positive for: Vomiting, Diarrhea, Other (Loss of appetite). Negative for: Abdominal Pain, Hematochezia Genitourinary: Negative for: Dysuria, Hematuria Musculoskeletal: Negative for: Back Pain Neurological: Negative for: Weakness, Numbness, Headache Physical Exam - Physical Exam Appears: Non-toxic, No Acute Distress Skin: Warm, Dry, Pale Head: Atraumatic, Normacephalic Eye(s): bilateral: Normal Inspection, PERRL, EOMI Oral Mucosa: Dry Neck: Normal ROM Chest: Symmetrical Cardiovascular: Rhythm Regular, No Murmur Respiratory: Normal Breath Sounds, No Rales, No Rhonchi, No Wheezing Gastrointestinal/Abdominal: Soft, No Tenderness, No Distention, No Guarding, No Rebound Back: No CVA Tenderness Extremity: Bilateral: Atraumatic, Normal Color And Temperature Neurological/Psych: Oriented x3, Normal Speech ED Course And Treatment - Laboratory Results Result Diagrams: 05/12/18 16:19 05/12/18 16:19 O2 Sat by Pulse Oximetry: 100 (RA) Pulse Ox Interpretation: Normal Progress Note: Blood work and urine sent to the lab for analysis. Ordered VBG and flu swab. Patient given 1L IV fluids, 4 mg IV Zofran, and 40 mg IV Protonix. - Physician Consult Information Physician Contacted: Angela Rueda Outcome Of Conversation: Requested CT head, ABG, accepted to tele for observation Disposition - Disposition Disposition: HOSPITALIZED Disposition Time: 18:12 Condition: SERIOUS - Clinical Impression Clinical Impression: History of HIV or AIDS, Hypomagnesemia, Hypokalemia, Vomiting and diarrhea, Seizure - PA / FINANCIAL SERVICES ASSISTANT / Resident Statement MD/DO has reviewed & agrees with the documentation as recorded. - Scribe Statement The provider has reviewed the documentation as recorded by the Karonibroxy Parr All medical record entries made by the Scribe were at my direction and personally dictated by me. I have reviewed the chart and agree that the record accurately reflects my personal performance of the history, physical exam, medical decision making, and the department course for this patient. I have also personally directed, reviewed, and agree with the discharge instructions and disposition. Decision To Admit - Pt Status Changed To: Hospital Disposition Of: Observation - . Bed Request Type: Telemetry Admitting Physician: Sherman Banuelos Patient Diagnosis: History of HIV or AIDS, Hypomagnesemia, Hypokalemia, Vomiting and diarrhea, Seizure
[2018-05-12 16:25] LABS: MEAN CORPUSCULAR HEMOGLOBIN 34.2 pg (27.0-31.0); MONO # 0.5 K/uL (0.0-0.8); NRBC % 0.6 % (0.0-2.0)
[2018-05-12 16:30] LABS: BASO # 0.1 K/uL (0.0-0.2); BASO % 1.3 % (0.0-2.0); HEMOGLOBIN 12.1 g/dL (12.0-18.0); MEAN CELL VOLUME 100.5 fL (80.0-94.0); MEAN CORPUSCULAR HGB CONC 34.1 g/dL (33.0-37.0); MEAN PLATELET VOLUME 7.8 fL (7.2-11.7); MONO % 11.4 % (0.0-10.0); NEUT % 65.3 % (50.0-75.0); RBC 3.52 Mil/uL (4.40-5.90); RED CELL DISTRIBUTION WIDTH 17.3 % (11.5-14.5); WHITE BLOOD COUNT 4.6 K/uL (4.8-10.8)
[2018-05-12] MEDS ORDERED: Sodium Chloride 0.9% 1,000 ML ONE (16:32)
[2018-05-12 16:38] LABS: ALBUMIN 2.9 g/dL (3.5-5.0); ALT/SGPT 12 U/L (21-72); AST/SGOT 53 U/L (17-59); BLOOD UREA NITROGEN 14 mg/dL (9-20); CALCIUM 8.2 mg/dl (8.6-10.4); GFR NON-AFRICAN AMERICAN > 60; LIPASE 38 U/L (23-300)
[2018-05-12] MEDS ORDERED: Potassium Chloride 20 mEq/15 ml LIQ UD PO STA (16:43)
[2018-05-12 17:07] LABS: VENOUS BLOOD GAS BASE EXCESS 12.7 mmol/L (0.0-2.0); VENOUS BLOOD GAS PCO2 27 mmHg (40-60); VENOUS BLOOD GAS PO2 15 mm/Hg (30-55); VENOUS BLOOD PH 7.69 (7.32-7.43)
[2018-05-12] MEDS ORDERED: Potassium Chloride 20 mEq ER Tab PO ONE (17:08)
[2018-05-12] MEDS ORDERED: Magnesium Sulfate 1 gm in D5W 1 GM/100 ML BAG IV STA (17:42)
--- NOTE | 2018-05-12 17:45 | RAD ---
Date of service: 05/12/2018 HISTORY: Sepsis Patient COMPARISON: 02/28/2018 TECHNIQUE: 1 view obtained. FINDINGS: LUNGS: No active pulmonary disease. PLEURA: No significant pleural effusion identified, no pneumothorax apparent. CARDIOVASCULAR: No aortic atherosclerotic calcification present. Normal cardiac size. No pulmonary vascular congestion. OSSEOUS STRUCTURES: No significant abnormalities. VISUALIZED UPPER ABDOMEN: Normal. OTHER FINDINGS: None. IMPRESSION: No active disease.
[2018-05-12] MEDS ORDERED: Lactated Ringer's 2,000 ML ONE (17:47)
--- NOTE | 2018-05-12 17:52 | CP.PCM.HP ---
<Avril Guerra - Last Filed: 05/12/18 19:23> History of Present Illness - History of Present Illness History of Present Illness: PGY-1 Avril Guerra D.O. H&P for Dr. Banuelos's service: Patient is a 58 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 Patient says that he started feeling weak about 7 days ago. He started vomiting 3 days ago. He also admits to subjective fevers and chills. He says that he is continuing to drink daily. He has not eaten in 9 days. He has not had a drink in 2 days. He says even bringing food to his mouth makes him vomit. He says he vomited 150 times. He is unsure if there was blood in his stool. He says he has had diarrhea for awhile. He denies blood in his stool. Patient states that he has not been taking any of his medications. He cannot really provide a reason as to why not but admits to still being depressed. He failed to follow-up with any physicians after being discharged in January or February. He says that he thinks an inpatient rehab for alcohol would help him the most. 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, drinks 1 quart of vodka/day, smokes 1ppd >30 yrs, denies illicit drug use but used to use meth PMD: none Medical proxy: Alexandra Elias (partner) [phone] Present on Admission - Present on Admission Any Indicators Present on Admission: No History of DVT/PE: No History of Uncontrolled Diabetes: No Urinary Catheter: No Decubitus Ulcer Present: No History Surgical Site Infection Following: None Review of Systems - Constitutional Constitutional: Chills, Fever, Weakness - EENT Eyes: absent: Change in Vision Nose/Mouth/Throat: absent: Nasal Congestion, Sore Throat - Cardiovascular Cardiovascular: absent: Chest Pain, Edema, Palpitations - Respiratory Respiratory: absent: Cough, Hemoptysis, Dyspnea on Exertion - Gastrointestinal Gastrointestinal: Diarrhea, Nausea, Vomiting. absent: Abdominal Pain, Constipation, Hematochezia - Genitourinary Genitourinary: absent: Dysuria, Hematuria - Musculoskeletal Musculoskeletal: absent: Numbness, Tingling - Integumentary Integumentary: absent: Lesions, Pruritus - Neurological Neurological: Confusion, Tremor, Weakness. absent: Dizziness, Headaches, Sensory Deficit - Psychiatric Psychiatric: Anhedonia, Anxiety, Change in Appetite, Confusion, Depression, Difficulty Concentrating, Hopelessness. absent: Hallucinations, Suicidal Ideation - Endocrine Endocrine: absent: Palpitations, Polyuria - Hematologic/Lymphatic Hematologic: absent: Easy Bleeding, Easy Bruising, Lymphadenopathy Past Patient History - Infectious Disease Hx of Infectious Diseases: None - Tetanus Immunizations Tetanus Immunization: Unknown - Past Medical History & Family History Past Medical History?: Yes Past Family History: Reviewed and not pertinent - Past Social History Smoking Status: Heavy Smoker > 10 Cigarettes Daily Chewing Tobacco Use: No Cigar Use: No Occupation: disability Alcohol: > 2 Drinks/Day Drugs: Denies Home Situation {Lives}: Alone - CARDIAC Hx Hypertension: No - PULMONARY Hx Respiratory Disorders: No - NEUROLOGICAL Hx Seizures: No - HEENT Hx HEENT Problems: No - RENAL Hx Chronic Kidney Disease: No - ENDOCRINE/METABOLIC Hx Endocrine Disorders: No - HEMATOLOGICAL/ONCOLOGICAL Hx Human Immunodeficiency Virus (HIV): Yes (As per patient "AIDS") - INTEGUMENTARY Hx Dermatological Problems: No - MUSCULOSKELETAL/RHEUMATOLOGICAL Hx Musculoskeletal Disorders: Yes Hx Falls: Yes - GASTROINTESTINAL Hx Gastrointestinal Disorders: Yes Hx Diarrhea: Yes Other/Comment: stomach/colon CA - GENITOURINARY/GYNECOLOGICAL Hx Sexually Transmitted Disorders: No - PSYCHIATRIC Hx Depression: Yes Hx Substance Use: No (HX OF METH USE "NOT IN MANY YEARS") - SURGICAL HISTORY Hx Surgeries: Yes Other/Comment: brain biopsy ? - ANESTHESIA Hx Anesthesia: Yes Meds Allergies/Adverse Reactions: Allergies Allergy/AdvReac Type Severity Reaction Status Date / Time No Known Allergies Allergy Verified 03/14/18 18:00 Physical Exam - Constitutional Appears: No Acute Distress, Unkempt, Older Than Stated Age - Head Exam Head Exam: ATRAUMATIC, NORMAL INSPECTION - Eye Exam Eye Exam: EOMI, Normal appearance, PERRL - ENT Exam ENT Exam: Mucous Membranes Dry - Neck Exam Neck exam: Positive for: Normal Inspection. Negative for: Lymphadenopathy Additional comments: thrush on tongue - Respiratory Exam Respiratory Exam: Clear to Auscultation Bilateral, NORMAL BREATHING PATTERN. absent: Respiratory Distress - Cardiovascular Exam Cardiovascular Exam: RRR, +S1, +S2. absent: Systolic Murmur - GI/Abdominal Exam GI & Abdominal Exam: Soft. absent: Distended, Tenderness - Extremities Exam Extremities exam: Positive for: normal inspection, pedal pulses present. Negative for: calf tenderness, pedal edema - Back Exam Back exam: NORMAL INSPECTION - Neurological Exam Neurological exam: Alert, CN II-XII Intact, Oriented x3 Additional comments: slow to respond, poor memory - Psychiatric Exam Psychiatric exam: Depressed, Flat Affect Additional comments: thought blocking - Skin Skin Exam: Dry, Normal Color, Warm Results - Vital Signs Recent Vital Signs: Last Vital Signs Temp 99.4 F 05/12/18 17:18 Pulse 103 H 05/12/18 17:18 Resp 22 05/12/18 17:18 BP 106/70 05/12/18 17:18 Pulse Ox 100 05/12/18 17:18 - Labs Result Diagrams: 05/12/18 16:19 05/12/18 16:19 Labs: Laboratory Results - last 24 hr 05/12/18 05/12/18 05/12/18 16:19 16:19 16:39 WBC 4.6 L RBC 3.52 L Hgb 12.1 Hct 35.4 MCV 100.5 H MCH 34.2 H MCHC 34.1 RDW 17.3 H Plt Count 160 MPV 7.8 Neut % (Auto) 65.3 Lymph % (Auto) 22.0 [place] % (Auto) 11.4 H Eos % (Auto) 0.0 Baso % (Auto) 1.3 Neut # (Auto) 3.0 Lymph # (Auto) 1.0 [place] # (Auto) 0.5 Eos # (Auto) 0.0 Baso # (Auto) 0.1 pO2 15 L VBG pH 7.69 H* VBG pCO2 27 L VBG HCO3 33.2 VBG Total CO2 33.4 H VBG O2 Sat (Calc) 27.5 L VBG Base Excess 12.7 H VBG Potassium 2.2 L* Glucose 111 H Lactate 6.6 H* Crit Value Called To Er nurse Crit Value Called By Caitlin rt Crit Value Read Back Y Blood Gas Notified Time 1706 Sodium 131 L 137.0 Potassium 2.5 L* Chloride 90 L 92.0 L Carbon Dioxide 31 H Anion Gap 12 BUN 14 Creatinine 0.6 L Est GFR ( Amer) > 60 Est GFR (Non-Af Amer) > 60 Random Glucose 123 H D Calcium 8.2 L Phosphorus 2.6 Magnesium 1.2 L Total Bilirubin 2.5 H AST 53 ALT 12 L D Alkaline Phosphatase 149 H Total Protein 5.8 L Albumin 2.9 L Globulin 2.9 Albumin/Globulin Ratio 1.0 Lipase 38 Venous Blood Potassium 2.2 L* Alcohol, Quantitative < 10 Influenza Typ A,B (EIA) 05/12/18 16:41 WBC RBC Hgb Hct MCV MCH MCHC RDW Plt Count MPV Neut % (Auto) Lymph % (Auto) [place] % (Auto) Eos % (Auto) Baso % (Auto) Neut # (Auto) Lymph # (Auto) [place] # (Auto) Eos # (Auto) Baso # (Auto) pO2 VBG pH VBG pCO2 VBG HCO3 VBG Total CO2 VBG O2 Sat (Calc) VBG Base Excess VBG Potassium Glucose Lactate Crit Value Called To Crit Value Called By Crit Value Read Back Blood Gas Notified Time Sodium Potassium Chloride Carbon Dioxide Anion Gap BUN Creatinine Est GFR ( Amer) Est GFR (Non-Af Amer) Random Glucose Calcium Phosphorus Magnesium Total Bilirubin AST ALT Alkaline Phosphatase Total Protein Albumin Globulin Albumin/Globulin Ratio Lipase Venous Blood Potassium Alcohol, Quantitative Influenza Typ A,B (EIA) Negative for flu a/b - EKG Data EKG Interpreted by: Myself EKG shows normal: Sinus rhythm Rate: Normal - EKG Data EKG comments: ST prolonged, flattened T waves Assessment & Plan - Assessment and Plan (Free Text) Assessment: Patient is a 58 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 Patient has not been compliant with any of his medications and he continues to drink alcohol daily. Plan: Sepsis - Code sepsis - Afebrile - Lactate 6.6 - Repeat ABG pending - Procal 0.16 - CXR: no active disease - Flu negative - UA pending - f/u Blood, urine, stool Cx - NS + 20 mEq KCL @ 100 cc/hr - Cefepime 1 g IV x1 - Vancomycin 1 g IV daily- started 05/12 - Bactrim 160 mg IV Q12H- started 05/12 AIDS - From 01/2018 admission Hepatitis panel negative HIV reactive HIV-1 PCR quantitative 5.48 CD4 count 174 (17%) CD8 count 796 (67%) Toxoplasma Ab positive - Repeat viral load and CD4/CD8 pending - Restart Dolutegravir 50 mg PO daily - Restart Truvada 200-300 mg PO daily - ID consulted (Antoine) Electrolyte abnormalities - K 2.5 on admission - Mg 1.2 on admission - EKG: prolonged ST segments, flattened T waves - Monitor on telemetry - Repeat EKG in AM - Replete PRN Alcohol use disorder with withdrawal, chronic - BAL<10 - UDS pending - LFTs wnl - Seizure precautions - Aspiration precautions - Fall precautions - CIWA - Consider Gabapentin when more stable - Ativan 1 mg IV Q3H PRN - Folate 1 mg PO daily - Thiamine 50 mg PO daily - Multivitamin daily - Cessation counseling - AA referral Vomiting, acute - Clear liquid diet - Zofran 4 mg IV Q6H PRN Diarrhea, acute - Stool leukocytes pending - Stool O&P pending, Cx pending - Stool studies- Cryptosporidum, Giardia pending Oral thrush - Nystatin 5 mL PO QID Seizure disorder- 2/2 alcohol use - Seizure precautions - Fall precautions - Aspiration precautions - Neuro checks - Neurology consulted (Gus) Depression, chronic - Restart Lexapro 10 mg PO daily - Restart Remeron 15 mg PO QHS - Consider psychiatry consult Progressive multifocal leukoencephalopathy, chronic - Obtained records from [facility] during 01/2018 admission- Brain mass on MRI biopsied- PML - CT head pending - ID consulted (Antoine) - Palliative consulted- very poor prognosis Dementia- 2/2 AIDS, alcohol use - CT head pending - Neurology consulted (Gus) Tobacco use disorder, chronic - Nicoderm - Cessation counseling H/o gastric cancer - s/p chemotherapy 5 years ago - f/u outpatient Ppx: VTE: SCDs, chemical anticoagulation contraindicated due to fall risk GI: not indicated Diet: clear liquids Code status: full code Case was discussed with attending, Dr. Banuelos. <Sherman Banuelos - Last Filed: 05/20/18 07:06> Results - Vital Signs Recent Vital Signs: Last Vital Signs Temp 98.1 F 05/17/18 15:00 Pulse 75 05/17/18 15:00 Resp 20 05/17/18 15:00 BP 96/61 L 05/17/18 15:00 Pulse Ox 97 05/17/18 15:00 - Labs Result Diagrams: 05/17/18 07:40 05/17/18 07:40 Attending/Attestation - Attestation I have personally seen and examined this patient.: Yes I have fully participated in the care of the patient.: Yes I have reviewed all pertinent clinical information: Yes Notes (Text): Medical attending: Please note this is a later signing, however I was present with the medical parasitologist the night the patient was admitted and reviewed the above note and agree with the above note. This is a gentleman who has PML, AIDS, non compliance with medication as well as alcohol abuse. He had an elevated lactic acid level noted as well. We started him on IV abx as well as retested the CD4.CD8 counts. He is a very poor historian and it appears has been loosing weight. His memmory of short term events is also very minimal as well. He was seen by my colleagues before and arranged to go to [facility] for the brain biopsy that showed he had PML - the patient did not remember this. Overall prognosis is not good given the high mortality with PML and the patient's non compliance with medication Sherman Banuelos
[2018-05-12 17:58] LABS: INR 1.1; PROTHROMBIN TIME 11.9 SECONDS (9.7-12.2)
[2018-05-12] MEDS ORDERED: Magnesium Sulfate 1 gm in D5W 2 GM/200 ML BAG IVPB ONE (18:00)
[2018-05-12] MEDS ORDERED: Cefepime 1 GM in Sodium Chloride 0.9% 100 ML IVPB ONE (18:13)
[2018-05-12] MEDS ORDERED: Vancomycin 1 GM 1 GM/250 ML BAG IVPB ONE (18:30)
[2018-05-12] MEDS: Magnesium Sulfate 1 gm in D5W 1 GM/100 ML BAG IVPB SCH ×2 (18:36→19:22)
[2018-05-12] MEDS: Vancomycin 1 gm/NS 200 ml 1 GM/200 ML BAG IVPB SCH (19:04)
[2018-05-12 19:18] LABS: ABG ALLEN TEST YES; ARTERIAL BLOOD GAS HCO3 30.1 mmol/L (21-28); ARTERIAL BLOOD GAS O2 SAT 98.3 % (95-98); ARTERIAL BLOOD GAS PCO2 30 mm/Hg (35-45); ARTERIAL BLOOD GAS PH 7.58 (7.35-7.45); ARTERIAL BLOOD GAS PO2 76 mm/Hg (80-100)
[2018-05-12] MEDS ORDERED: Magnesium Sulfate 1 gm in D5W 1 GM/100 ML BAG IVPB ONE (19:23)
[2018-05-12] MEDS: Sulfamethoxazole/Trimethoprim 160 MG in Dextrose 5% In Water 250 ML IVPB SCH (20:50)
[2018-05-12 22:22] LABS: SQUAMOUS EPITHIAL < 1 /hpf (0-5); URINE BILIRUBIN NEGATIVE (NEGATIVE); URINE BLOOD NEGATIVE (NEGATIVE); URINE CLARITY Hazy (Clear); URINE COLOR Amber (YELLOW); URINE GLUCOSE (UA) NORMAL (Normal); URINE LEUKOCYTE ESTERASE NEG Leu/uL (Negative); URINE PROTEIN NEGATIVE (NEGATIVE)
[2018-05-12 22:35] LABS: BARBITURATES, UR NEGATIVE (NEGATIVE); BENZODIAZEPINES, UR NEGATIVE (NEGATIVE); OPIATES, UR NEGATIVE (NEGATIVE); PHENCYCLIDINE, UR NEGATIVE (NEGATIVE)
[2018-05-13] MEDS: Nystatin 100,000 Units/ml Oral Susp 5 ml UD PO SCH ×4 (01:25→22:38)
[2018-05-13 06:18] LABS: ALB/GLOB RATIO 0.9 (1.0-2.1); ALBUMIN 2.4 g/dL (3.5-5.0); ALT/SGPT 10 U/L (21-72); AST/SGOT 33 U/L (17-59); BLOOD UREA NITROGEN 12 mg/dL (9-20); CALCIUM 7.2 mg/dl (8.6-10.4); GFR NON-AFRICAN AMERICAN > 60
[2018-05-13 07:05] LABS: BASO % 0.2 % (0.0-2.0); EOS % 1.6 % (0.0-4.0); LYMPH # 1.2 K/uL (1.0-4.3); LYMPH % 39.4 % (20.0-40.0); MEAN CELL VOLUME 100.8 fL (80.0-94.0); MEAN CORPUSCULAR HGB CONC 33.8 g/dL (33.0-37.0); MEAN PLATELET VOLUME 8.1 fL (7.2-11.7); MONO # 0.3 K/uL (0.0-0.8); MONO % 9.7 % (0.0-10.0); NEUT # 1.5 K/uL (1.8-7.0); NEUT % 49.1 % (50.0-75.0); NRBC % 0.1 % (0.0-2.0); RBC 2.91 Mil/uL (4.40-5.90); RED CELL DISTRIBUTION WIDTH 17.4 % (11.5-14.5); WHITE BLOOD COUNT 3.1 K/uL (4.8-10.8)
[2018-05-13 07:10] LABS: HEMOGLOBIN 9.9 g/dL (12.0-18.0)
--- NOTE | 2018-05-13 08:27 | CP.PCM.PN ---
<Avril Guerra - Last Filed: 05/13/18 14:39> Subjective - Date & Time of Evaluation Date of Evaluation: 05/13/18 Time of Evaluation: 08:25 - Subjective Subjective: PGY-1 Avril Guerra D.O. Medicine progress note for Dr. Valdez's service: Patient was seen and examined this morning. Patient is complaining of being ti red and weak. He denies any PO intake. He is still complaining of nausea but denies vomiting. He does state that he still has diarrhea, but he does not think he had any BM over night. Objective - Vital Signs/Intake and Output Vital Signs (last 24 hours): Temp Pulse Resp BP Pulse Ox 98.5 F 89 18 100/73 99 05/13/18 07:41 05/13/18 07:41 05/13/18 07:41 05/13/18 07:41 05/13/18 07:41 - Medications Medications: Current Medications Dolutegravir Sodium (Tivicay) 50 mg PO DAILY [facility]SHLEY; Protocol Emtricitabine/Tenofovir (Truvada 200 Mg-300 Mg) 1 tab PO DAILY [facility]LEY; Protocol Escitalopram Oxalate (Lexapro) 10 mg PO DAILY [facility] Folic Acid (Folic Acid) 1 mg PO DAILY [facility] Potassium Chloride 20 meq/ (Sodium Chloride) 1,010 mls @ 100 mls/hr IV .Q10H6M [facility] Last Admin: 05/13/18 05:46 Dose: 100 mls/hr Vancomycin/Sodium Chloride (Vancomycin 1 Gm/Ns 200 Ml) 1 gm in 200 mls @ 166.7 mls/hr IVPB Q24H [facility]; Protocol Stop: 05/17/18 18:16 Last Admin: 05/12/18 19:04 Dose: 166.7 mls/hr Trimethoprim/Sulfamethoxazole (160 mg/ Dextrose) 250 mls @ 250 mls/hr IVPB Q12H [facility]; Protocol Last Admin: 05/12/18 20:50 Dose: 250 mls/hr Lorazepam (Ativan) 1 mg IVP Q3H PRN PRN Reason: Symptoms of alcohol withdrawl Mirtazapine (Remeron) 45 mg PO HS [facility] Last Admin: 05/13/18 01:25 Dose: 45 mg Multivitamins (Hexavitamin) 1 tab PO DAILY [facility] Nicotine (Nicoderm Cq) 1 patch TD DAILY [facility] Nystatin (Nystatin Oral Susp) 5 ml PO QID [facility] Last Admin: 05/13/18 01:25 Dose: 5 ml Ondansetron HCl (Zofran Inj) 4 mg IVP Q6H PRN PRN Reason: Nausea/Vomiting Potassium Chloride (K-Dur 20 Meq Er Tab) 40 meq PO Q4H [facility] Stop: 05/13/18 12:01 Thiamine HCl (Vitamin B1 Tab) 100 mg PO DAILY [facility] - Labs Labs: 05/13/18 06:54 05/13/18 05:17 PT 11.9 SECONDS (9.7-12.2) 05/12/18 17:45 INR 1.1 05/12/18 17:45 APTT 31 SECONDS (21-34) 05/12/18 17:45 - Constitutional Appears: No Acute Distress, Unkempt, Confused - Head Exam Head Exam: ATRAUMATIC, NORMAL INSPECTION - Eye Exam Eye Exam: EOMI, Normal appearance - ENT Exam ENT Exam: Mucous Membranes Moist - Respiratory Exam Respiratory Exam: Clear to Ausculation Bilateral, NORMAL BREATHING PATTERN. absent: Respiratory Distress - Cardiovascular Exam Cardiovascular Exam: RRR, +S1, +S2 - GI/Abdominal Exam GI & Abdominal Exam: Soft. absent: Distended, Tenderness - Extremities Exam Extremities Exam: Normal Inspection. 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 Patient has not been compliant with any of his medications, and he continues to drink alcohol daily. Plan: Sepsis- unknown infection source, possibly GI - Code sepsis - Afebrile - Lactate 6.6--> 1.4 - Procal 0.16 - CXR: no active disease - Flu negative - UA negative - f/u Blood, urine, stool Cx - NS + 20 mEq KCL @ 100 cc/hr - Cefepime 1 g IV IV Q12H- started 05/12 - Vancomycin 1 g IV daily- started 05/12 - Bactrim 160 mg IV Q12H- started 05/12 AIDS - From 01/2018 admission Hepatitis panel negative HIV reactive HIV-1 PCR quantitative 5.48 CD4 count 174 (17%) CD8 count 796 (67%) Toxoplasma Ab positive - Repeat viral load and CD4/CD8 pending - Dolutegravir 50 mg PO daily - Truvada 200-300 mg PO daily - ID consulted (Antoine) Electrolyte abnormalities - K 2.5 on admission--> 2.6 - Repeat pending - Mg 1.2 on admission--> 2.1 - EKG: prolonged ST segments, flattened T waves - Monitor on telemetry - Replete PRN Alcohol use disorder with withdrawal, chronic - BAL<10 - UDS negative - LFTs wnl - Seizure precautions - Aspiration precautions - Fall precautions - CIWA- 2 - Consider Gabapentin when more stable - Ativan 1 mg IV Q4H PRN - Folate 1 mg PO daily - Thiamine 50 mg PO daily - Multivitamin daily - Cessation counseling - AA referral Vomiting, acute - Clear liquid diet - Zofran 4 mg IV Q6H PRN - GI consulted (Jorge Alberto) Diarrhea, chronic - Stool leukocytes pending - Stool O&P pending, Cx pending - Stool studies- Cryptosporidum, Giardia pending - CT A/P pending - GI consulted (Jorge Alberto) Oral thrush - Nystatin 5 mL PO QID Seizure disorder- 2/2 alcohol use - Seizure precautions - Fall precautions - Aspiration precautions - Neuro checks - Neurology consulted (Gus) Depression, chronic - Lexapro 10 mg PO daily - Remeron 15 mg PO QHS - Psychiatry consulted (Miguelina) Progressive multifocal leukoencephalopathy, chronic - Obtained records from [facility] during 01/2018 admission- 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 Rounded area of increased attenuation along the posteromedial margin of the area of encephalomalacia left inferior basal ganglia- residual hemorrhage or early dystrophic microcalcification-mineralization. - ID consulted (Antoine) - Palliative consulted- very poor prognosis Dementia- 2/2 AIDS, alcohol use - CT head: Redemonstrated localized area encephalomalacia left inferior frontal lobe within adjacent C-shaped calcification along the anterior inferior and medial border- dystrophic due to ischemia or underlying vasular lesion. Rounded area of increased attenuation along the posteromedial margin of the area of encephalomalacia left inferior basal ganglia- residual hemorrhage or early dystrophic microcalcification-mineralization. - MOCA when patient amenable - Neurology consulted (Weber) Tobacco use disorder, chronic - Nicoderm - Cessation counseling H/o gastric cancer - s/p chemotherapy 10 years ago- patient does not remember details/where he was treated - CT A/P pending Ppx: VTE: SCDs, chemical anticoagulation contraindicated due to fall risk, anemia, and thrombocytopenia GI: Protonix 40 mg PO daily Diet: clear liquids Code status: full code- Palliative consulted Case was discussed with attending, Dr. Valdez. <Suzette Valdez - Last Filed: 05/14/18 12:56> Objective - Vital Signs/Intake and Output Vital Signs (last 24 hours): Temp Pulse Resp BP Pulse Ox 98.1 F 89 18 119/80 79 L 05/13/18 15:00 05/13/18 14:50 05/13/18 14:50 05/13/18 13:22 05/13/18 14:50 Intake and Output: 05/13/18 05/13/18 06:59 18:59 Intake Total 100 Output Total 300 Balance -200 - Medications Medications: Current Medications Dolutegravir Sodium (Tivicay) 50 mg PO DAILY ASHLEY; Protocol Last Admin: 05/13/18 12:58 Dose: 50 mg Emtricitabine/Tenofovir (Truvada 200 Mg-300 Mg) 1 tab PO DAILY ASHLEY; Protocol Last Admin: 05/13/18 12:57 Dose: 1 tab Escitalopram Oxalate (Lexapro) 10 mg PO DAILY [facility] Last Admin: 05/13/18 09:38 Dose: 10 mg Folic Acid (Folic Acid) 1 mg PO DAILY [facility] Last Admin: 05/13/18 09:39 Dose: 1 mg Potassium Chloride 20 meq/ (Sodium Chloride) 1,010 mls @ 100 mls/hr IV .Q10H6M [facility] Last Admin: 05/13/18 05:46 Dose: 100 mls/hr Vancomycin/Sodium Chloride (Vancomycin 1 Gm/Ns 200 Ml) 1 gm in 200 mls @ 166.7 mls/hr IVPB Q24H [facility]; Protocol Stop: 05/17/18 18:16 Last Admin: 05/12/18 19:04 Dose: 166.7 mls/hr Trimethoprim/Sulfamethoxazole (160 mg/ Dextrose) 250 mls @ 250 mls/hr IVPB Q12H [facility]; Protocol Last Admin: 05/13/18 08:45 Dose: 250 mls/hr Cefepime HCl (Maxipime Iv 1 Gm Premix) 1 gm in 50 mls @ 100 mls/hr IVPB Q12H [facility]; Protocol Last Admin: 05/13/18 13:59 Dose: 100 mls/hr Levetiracetam (Keppra) 500 mg PO BID [facility] Lorazepam (Ativan) 1 mg IVP Q4H PRN PRN Reason: Symptoms of alcohol withdrawl Mirtazapine (Remeron) 45 mg PO HS [facility] Last Admin: 05/13/18 01:25 Dose: 45 mg Multivitamins (Hexavitamin) 1 tab PO DAILY [facility] Last Admin: 05/13/18 09:38 Dose: 1 tab Nicotine (Nicoderm Cq) 1 patch TD DAILY [facility] Last Admin: 05/13/18 12:57 Dose: 1 patch Nystatin (Nystatin Oral Susp) 5 ml PO QID [facility] Last Admin: 05/13/18 12:58 Dose: 5 ml Ondansetron HCl (Zofran Inj) 4 mg IVP Q6H PRN PRN Reason: Nausea/Vomiting Pantoprazole Sodium (Protonix Ec Tab) 40 mg PO DAILY [facility] Thiamine HCl (Vitamin B1 Tab) 100 mg PO DAILY [facility] Last Admin: 05/13/18 09:38 Dose: 100 mg - Labs Labs: 05/13/18 08:39 05/13/18 14:25 PT 11.9 SECONDS (9.7-12.2) 05/12/18 17:45 INR 1.1 05/12/18 17:45 APTT 31 SECONDS (21-34) 05/12/18 17:45 Attending/Attestation - Attestation I have personally seen and examined this patient.: Yes I have fully participated in the care of the patient.: Yes I have reviewed all pertinent clinical information, including history, physical exam and plan: Yes Notes (Text): seen and examined with the resident. c/o nausea,denies abdominal pain This is a 58years old male with history of AIDS, PML, alcohol use disorder, seizures and h/o gastric ca treated in 2006 presents with weakness, vomiting, and diarrhea. 1.Electrolytes imbalance due to vomting 2.AIDS 3.PML 4.High lactate and AIDS r/o sepsis 5. Diarrhea 6.Depression 7.gastric ulcer continue antibiotics.Discussed about medication compliance. patient is alert ,oriented to place,person and time. He has a friend Quan help him. He like us to discuss about his medical problem. we will follow with Dr Schultz.follow k level
[2018-05-13 08:43] LABS: BASO % 0.3 % (0.0-2.0); EOS # 0.1 K/uL (0.0-0.7); EOS % 1.8 % (0.0-4.0); HEMOGLOBIN 9.8 g/dL (12.0-18.0); LYMPH # 1.2 K/uL (1.0-4.3); LYMPH % 37.3 % (20.0-40.0); MEAN CELL VOLUME 100.9 fL (80.0-94.0); MEAN CORPUSCULAR HEMOGLOBIN 34.8 pg (27.0-31.0); MEAN CORPUSCULAR HGB CONC 34.5 g/dL (33.0-37.0); MEAN PLATELET VOLUME 8.2 fL (7.2-11.7); MONO # 0.3 K/uL (0.0-0.8); MONO % 8.7 % (0.0-10.0); NEUT # 1.7 K/uL (1.8-7.0); NEUT % 51.9 % (50.0-75.0); NRBC % 0.1 % (0.0-2.0); RBC 2.83 Mil/uL (4.40-5.90); RED CELL DISTRIBUTION WIDTH 17.1 % (11.5-14.5); WHITE BLOOD COUNT 3.3 K/uL (4.8-10.8)
[2018-05-13] MEDS: Sulfamethoxazole/Trimethoprim 160 MG in Dextrose 5% In Water 250 ML IVPB SCH ×2 (08:45→19:30)
[2018-05-13] MEDS: Multiple Vitamins Tab PO SCH (09:38)
[2018-05-13] MEDS: Potassium Chloride 20 mEq ER Tab PO SCH ×2 (09:38→14:40)
[2018-05-13] MEDS ORDERED: Potassium Chloride 20 mEq/15 ml LIQ UD PO SCH (10:00)
--- NOTE | 2018-05-13 10:25 | CT ---
Date of service: 05/12/2018 PROCEDURE: CT HEAD WITHOUT CONTRAST. HISTORY: Vomiting COMPARISON: None available. TECHNIQUE: Axial computed tomography images were obtained through the head/brain without intravenous contrast. Radiation dose: Total exam DLP = 1365.64 mGy-cm. This CT exam was performed using one or more of the following dose reduction techniques: Automated exposure control, adjustment of the mA and/or kV according to patient size, and/or use of iterative reconstruction technique. FINDINGS: HEMORRHAGE: No definitive acute the parenchymal, subarachnoid nor extra-axial hemorrhage. BRAIN: Redemonstrated is localized area encephalomalacia left inferior frontal lobe which within adjacent C-shaped calcification along the anterior inferior and medial border. This could be dystrophic in nature due to ischemia however underlying vascular lesion such cavernoma not excluded.. There is also a rounded area of increased attenuation along the posteromedial margin of the area encephalomalacia left inferior basal ganglia of uncertain etiology although could represent residual hemorrhage or early dystrophic microcalcification-mineralization in this patient who is apparently post biopsy with a small ruddy hole left frontal calvarium. Note that other underlying etiologies include postinfectious lesions such as toxoplasmosis or CMV or lymphoma in this patient with a history of HIV positive status. Several additional chronic appearing low-attenuation foci also seen left basal ganglia appear to have undergone interval evolution decreasing in size compared with the prior exam Moderate diffuse and confluent chronic periventricular white matter ischemic changes Moderate to fairly significant generalized volume loss. VENTRICLES: No obstructive hydrocephalus CALVARIUM: Left frontal ruddy hole again noted PARANASAL SINUSES: Unremarkable as visualized. No significant inflammatory changes. MASTOID AIR CELLS: Unremarkable as visualized. No inflammatory changes. OTHER FINDINGS: Post infectious is sequela IMPRESSION: Redemonstrated is localized area encephalomalacia left inferior frontal lobe which within adjacent C-shaped calcification along the anterior inferior and medial border. This could be dystrophic in nature due to ischemia however underlying vascular lesion such cavernoma not excluded. There is also a rounded area of increased attenuation along the posteromedial margin of the area encephalomalacia left inferior basal ganglia of uncertain etiology although could represent residual hemorrhage or early dystrophic microcalcification-mineralization in this patient who is apparently post biopsy with a small ruddy hole left frontal calvarium. Note that other underlying etiologies include postinfectious lesions such as toxoplasmosis or CMV or lymphoma in this patient with a history of HIV positive status. Several additional chronic appearing low-attenuation foci also seen left basal ganglia appear to have undergone interval evolution decreasing in size compared with the prior exam
--- NOTE | 2018-05-13 10:42 | CP.PCM.CON ---
<Sara Melton - Last Filed: 05/13/18 15:08> History of Present Illness - History of Present Illness History of Present Illness: PGY-1 Neuro Consult note for Dr. Phelan Patient is a 58 year old male with a PMH of AIDS, PML, alcohol use disorder, seizures, gastric CA s/p chemotherapy admitted for sepsis. Neuro was consulted for his history of seizures. He is a poor historian and slow to respond, but believes his last seizure was in 2016. Chart review shows he had a seizure 2 months ago in February. He does not remember the specifics but notes that he did not lose consciousness. He remembers 3-5 seizures in the past and was never placed on medication. Per chart review, he is non-compliant with Keppra and gabapentin. Patient admits he hasn't taken any medications in at least 3 months since discharge and has not followed up with neurology in that time. Admits fever, chills, muscle aches, fatigue. Denies aura, headache, dizziness, tinnitus, numbness, tingling, muscle weakness. PMH: AIDS, PML, alcohol use disorder, seizures, gastric CA s/p chemotherapy Med: non-compliant with all medications All: NKDA PSxHx: denies FamHx: mother - breast CA SocHx: smokes 1ppd >30years, drinks half a gallon of vodka daily, denies illicit drug use. lives alone on disability. PMD: none Review of Systems - Constitutional Constitutional: Chills, Fatigue, Fever, Lethargy. absent: Headache, Weakness - Neurological Neurological: Abnormal Gait, Confusion, Convulsions, Disequilibrium, Tremor. absent: Abnormal Hearing, Abnormal Movements, Abnormal Speech, Behavioral Changes, Dizziness, Numbness, Focal Weakness, Frequent Falls, Headaches, Lack of Coordination, Loss of Vision, Memory Loss, Paresthesias, Radicular Pain, Restless Legs, Sensory Deficit, Syncope, Tingling, Weakness Past Patient History - Infectious Disease Hx of Infectious Diseases: None - Tetanus Immunizations Tetanus Immunization: Unknown - Past Medical History & Family History Past Medical History?: Yes Past Family History: Reviewed and not pertinent - Past Social History Smoking Status: Heavy Smoker > 10 Cigarettes Daily Chewing Tobacco Use: No Cigar Use: No Occupation: disability Alcohol: > 2 Drinks/Day Drugs: Denies Home Situation {Lives}: Alone - CARDIAC Hx Hypertension: No - PULMONARY Hx Respiratory Disorders: No - NEUROLOGICAL Hx Seizures: No - HEENT Hx HEENT Problems: No - RENAL Hx Chronic Kidney Disease: No - ENDOCRINE/METABOLIC Hx Endocrine Disorders: No - HEMATOLOGICAL/ONCOLOGICAL Hx Human Immunodeficiency Virus (HIV): Yes (As per patient "AIDS") - INTEGUMENTARY Hx Dermatological Problems: No - MUSCULOSKELETAL/RHEUMATOLOGICAL Hx Musculoskeletal Disorders: Yes Hx Falls: Yes - GASTROINTESTINAL Hx Gastrointestinal Disorders: Yes Hx Diarrhea: Yes Other/Comment: stomach/colon CA - GENITOURINARY/GYNECOLOGICAL Hx Sexually Transmitted Disorders: No - PSYCHIATRIC Hx Depression: Yes Hx Substance Use: No (HX OF METH USE "NOT IN MANY YEARS") - SURGICAL HISTORY Hx Surgeries: Yes Other/Comment: brain biopsy ? - ANESTHESIA Hx Anesthesia: Yes Meds Allergies/Adverse Reactions: Allergies Allergy/AdvReac Type Severity Reaction Status Date / Time No Known Allergies Allergy Verified 03/14/18 18:00 - Medications Medications: Current Medications Dolutegravir Sodium (Tivicay) 50 mg PO DAILY [facility]; Protocol Emtricitabine/Tenofovir (Truvada 200 Mg-300 Mg) 1 tab PO DAILY [facility]; Protocol Escitalopram Oxalate (Lexapro) 10 mg PO DAILY [facility] Last Admin: 05/13/18 09:38 Dose: 10 mg Folic Acid (Folic Acid) 1 mg PO DAILY [facility] Last Admin: 05/13/18 09:39 Dose: 1 mg Potassium Chloride 20 meq/ (Sodium Chloride) 1,010 mls @ 100 mls/hr IV .Q10H6M [facility] Last Admin: 05/13/18 05:46 Dose: 100 mls/hr Vancomycin/Sodium Chloride (Vancomycin 1 Gm/Ns 200 Ml) 1 gm in 200 mls @ 166.7 mls/hr IVPB Q24H [facility]; Protocol Stop: 05/17/18 18:16 Last Admin: 05/12/18 19:04 Dose: 166.7 mls/hr Trimethoprim/Sulfamethoxazole (160 mg/ Dextrose) 250 mls @ 250 mls/hr IVPB Q12H [facility]; Protocol Last Admin: 05/13/18 08:45 Dose: 250 mls/hr Lorazepam (Ativan) 1 mg IVP Q3H PRN PRN Reason: Symptoms of alcohol withdrawl Mirtazapine (Remeron) 45 mg PO HS [facility] Last Admin: 05/13/18 01:25 Dose: 45 mg Multivitamins (Hexavitamin) 1 tab PO DAILY [facility] Last Admin: 05/13/18 09:38 Dose: 1 tab Nicotine (Nicoderm Cq) 1 patch TD DAILY [facility] Nystatin (Nystatin Oral Susp) 5 ml PO QID [facility] Last Admin: 05/13/18 01:25 Dose: 5 ml Ondansetron HCl (Zofran Inj) 4 mg IVP Q6H PRN PRN Reason: Nausea/Vomiting Potassium Chloride (K-Dur 20 Meq Er Tab) 40 meq PO Q4H [facility] Stop: 05/13/18 12:01 Last Admin: 05/13/18 09:38 Dose: 40 meq Thiamine HCl (Vitamin B1 Tab) 100 mg PO DAILY [facility] Last Admin: 05/13/18 09:38 Dose: 100 mg Physical Exam - Constitutional Appears: No Acute Distress, Confused, Chronically Ill - Head Exam Head Exam: ATRAUMATIC, NORMOCEPHALIC - Eye Exam Eye Exam: EOMI, Normal appearance Pupil Exam: Miosis - ENT Exam ENT Exam: Mucous Membranes Dry - Respiratory Exam Respiratory Exam: Clear to Auscultation Bilateral - Cardiovascular Exam Cardiovascular Exam: REGULAR RHYTHM, +S1, +S2. absent: Systolic Murmur - GI/Abdominal Exam GI & Abdominal Exam: Normal Bowel Sounds, Soft. absent: Distended, Tenderness - Extremities Exam Extremities exam: Positive for: full ROM, pedal pulses present. Negative for: calf tenderness, pedal edema - Neurological Exam Neurological exam: Abnormal Gait, Alert, CN II-XII Intact, Oriented x3, Reflexes Normal - Expanded Neurological Exam Expanded Patient oriented to: person, place, time Speech: Slurred Speech Cranial nerves: EOM's Intact: Normal, Facial Palsey w/Forehead Movement: Normal, Facial Palsey w/o Forehead Movement: Normal, Facial Sensation: Normal, Tongue Deviation: Normal Cerebellar Function: Finger to Nose: Normal, Heel to [place]: Normal Upper motor neuron: Pronator Drift: Normal Neuro motor strength exam: Left Upper Extremity: 4, Right Upper Extremity: 4, Le ft Lower Extremity: 5, Right Lower Extremity: 5 DTR: Bicep Left: 2+, Bicep Right: 2+, Brachioradialis Left: 2+, Brachioradialis Right: 2+, Patellar Left: 2+, Patellar Right: 2+ Coma Scale Eye Opening: SPONTANEOUS Coma Scale Motor Response: OBEYS COMMANDS Coma Scale Verbal: Oriented Coma Scale Total: 15 - Psychiatric Exam Psychiatric exam: Depressed, Flat Affect - Skin Skin Exam: Dry, Intact, Normal Color, Warm Results - Vital Signs Recent Vital Signs: Last Vital Signs Temp 98.2 F 05/13/18 08:30 Pulse 95 H 05/13/18 08:30 Resp 13 05/13/18 08:30 BP 130/80 05/13/18 08:22 Pulse Ox 96 05/13/18 08:30 - Labs Result Diagrams: 05/13/18 08:39 05/13/18 05:17 Labs: Laboratory Results - last 24 hr 05/12/18 05/12/18 05/12/18 16:19 16:19 16:39 WBC 4.6 L RBC 3.52 L Hgb 12.1 Hct 35.4 MCV 100.5 H MCH 34.2 H MCHC 34.1 RDW 17.3 H Plt Count 160 MPV 7.8 Neut % (Auto) 65.3 Lymph % (Auto) 22.0 [place] % (Auto) 11.4 H Eos % (Auto) 0.0 Baso % (Auto) 1.3 Neut # (Auto) 3.0 Lymph # (Auto) 1.0 [place] # (Auto) 0.5 Eos # (Auto) 0.0 Baso # (Auto) 0.1 PT INR APTT Puncture Site pCO2 pO2 15 L HCO3 ABG pH ABG Total CO2 ABG O2 Saturation ABG Base Excess Moiz Test ABG Potassium VBG pH 7.69 H* VBG pCO2 27 L VBG HCO3 33.2 VBG Total CO2 33.4 H VBG O2 Sat (Calc) 27.5 L VBG Base Excess 12.7 H VBG Potassium 2.2 L* A-a O2 Difference Respiratory Index Glucose 111 H Lactate 6.6 H* FiO2 Crit Value Called To Er nurse Crit Value Called By Caitlin rt Crit Value Read Back Y Blood Gas Notified Time 1706 Sodium 131 L 137.0 Potassium 2.5 L* Chloride 90 L 92.0 L Carbon Dioxide 31 H Anion Gap 12 BUN 14 Creatinine 0.6 L Est GFR ( Amer) > 60 Est GFR (Non-Af Amer) > 60 Random Glucose 123 H D Lactic Acid Calcium 8.2 L Phosphorus 2.6 Magnesium 1.2 L Total Bilirubin 2.5 H AST 53 ALT 12 L D Alkaline Phosphatase 149 H Total Protein 5.8 L Albumin 2.9 L Globulin 2.9 Albumin/Globulin Ratio 1.0 Lipase 38 Procalcitonin Arterial Blood Potassium Venous Blood Potassium 2.2 L* Urine Color Urine Clarity Urine pH Ur Specific [place] Urine Protein Urine Glucose (UA) Urine Ketones Urine Blood Urine Nitrate Urine Bilirubin Urine Urobilinogen Ur Leukocyte Esterase Urine WBC (Auto) Urine RBC (Auto) Ur Squamous Epith Cells Hyaline Casts Urine Opiates Screen Urine Methadone Screen Ur Barbiturates Screen Ur Phencyclidine Scrn Ur Amphetamines Screen U Benzodiazepines Scrn U Oth Cocaine Metabols U Cannabinoids Screen Alcohol, Quantitative < 10 Influenza Typ A,B (EIA) 05/12/18 05/12/18 05/12/18 16:41 17:45 18:11 WBC RBC Hgb Hct MCV MCH MCHC RDW Plt Count MPV Neut % (Auto) Lymph % (Auto) [place] % (Auto) Eos % (Auto) Baso % (Auto) Neut # (Auto) Lymph # (Auto) [place] # (Auto) Eos # (Auto) Baso # (Auto) PT 11.9 INR 1.1 APTT 31 Puncture Site pCO2 pO2 HCO3 ABG pH ABG Total CO2 ABG O2 Saturation ABG Base Excess Moiz Test ABG Potassium VBG pH VBG pCO2 VBG HCO3 VBG Total CO2 VBG O2 Sat (Calc) VBG Base Excess VBG Potassium A-a O2 Difference Respiratory Index Glucose Lactate FiO2 Crit Value Called To Crit Value Called By Crit Value Read Back Blood Gas Notified Time Sodium Potassium Chloride Carbon Dioxide Anion Gap BUN Creatinine Est GFR ( Amer) Est GFR (Non-Af Amer) Random Glucose Lactic Acid Calcium Phosphorus Magnesium Total Bilirubin AST ALT Alkaline Phosphatase Total Protein Albumin Globulin Albumin/Globulin Ratio Lipase Procalcitonin 0.16 L Arterial Blood Potassium Venous Blood Potassium Urine Color Urine Clarity Urine pH Ur Specific [place] Urine Protein Urine Glucose (UA) Urine Ketones Urine Blood Urine Nitrate Urine Bilirubin Urine Urobilinogen Ur Leukocyte Esterase Urine WBC (Auto) Urine RBC (Auto) Ur Squamous Epith Cells Hyaline Casts Urine Opiates Screen Urine Methadone Screen Ur Barbiturates Screen Ur Phencyclidine Scrn Ur Amphetamines Screen U Benzodiazepines Scrn U Oth Cocaine Metabols U Cannabinoids Screen Alcohol, Quantitative Influenza Typ A,B (EIA) Negative for flu a/b 05/12/18 05/12/18 05/12/18 19:14 22:16 22:16 WBC RBC Hgb Hct MCV MCH MCHC RDW Plt Count MPV Neut % (Auto) Lymph % (Auto) [place] % (Auto) Eos % (Auto) Baso % (Auto) Neut # (Auto) Lymph # (Auto) [place] # (Auto) Eos # (Auto) Baso # (Auto) PT INR APTT Puncture Site Rra pCO2 30 L pO2 76 L HCO3 30.1 H ABG pH 7.58 H ABG Total CO2 29.0 H ABG O2 Saturation 98.3 H ABG Base Excess 6.6 H Moiz Test Yes ABG Potassium 1.9 L* VBG pH VBG pCO2 VBG HCO3 VBG Total CO2 VBG O2 Sat (Calc) VBG Base Excess VBG Potassium A-a O2 Difference 36.0 Respiratory Index 0.5 Glucose 113 H Lactate 2.8 H FiO2 21.0 Crit Value Called To Er Crit Value Called By Rt Crit Value Read Back Y Blood Gas Notified Time 1916 Sodium 136.0 Potassium Chloride 103.0 Carbon Dioxide Anion Gap BUN Creatinine Est GFR ( Amer) Est GFR (Non-Af Amer) Random Glucose Lactic Acid Calcium Phosphorus Magnesium Total Bilirubin AST ALT Alkaline Phosphatase Total Protein Albumin Globulin Albumin/Globulin Ratio Lipase Procalcitonin Arterial Blood Potassium 1.9 L* Venous Blood Potassium Urine Color Francesca Urine Clarity Hazy Urine pH 9.0 Ur Specific [place] 1.015 Urine Protein Negative Urine Glucose (UA) Normal Urine Ketones Negative Urine Blood Negative Urine Nitrate Negative Urine Bilirubin Negative Urine Urobilinogen 4.0 Ur Leukocyte Esterase Neg Urine WBC (Auto) 2 Urine RBC (Auto) 1 Ur Squamous Epith Cells < 1 Hyaline Casts 3-5 H Urine Opiates Screen Negative Urine Methadone Screen Negative Ur Barbiturates Screen Negative Ur Phencyclidine Scrn Negative Ur Amphetamines Screen Negative U Benzodiazepines Scrn Negative U Oth Cocaine Metabols Negative U Cannabinoids Screen Negative Alcohol, Quantitative Influenza Typ A,B (EIA) 05/13/18 05/13/18 05/13/18 05:17 06:54 08:39 WBC 3.1 L RBC 2.91 L Hgb 9.9 L D Hct 29.3 L MCV 100.8 H MCH 34.0 H MCHC 33.8 RDW 17.4 H Plt Count 118 L D MPV 8.1 Neut % (Auto) 49.1 L Lymph % (Auto) 39.4 [place] % (Auto) 9.7 Eos % (Auto) 1.6 Baso % (Auto) 0.2 Neut # (Auto) 1.5 L Lymph # (Auto) 1.2 [place] # (Auto) 0.3 Eos # (Auto) 0.0 Baso # (Auto) 0.0 PT INR APTT Puncture Site pCO2 pO2 HCO3 ABG pH ABG Total CO2 ABG O2 Saturation ABG Base Excess Moiz Test ABG Potassium VBG pH VBG pCO2 VBG HCO3 VBG Total CO2 VBG O2 Sat (Calc) VBG Base Excess VBG Potassium A-a O2 Difference Respiratory Index Glucose Lactate FiO2 Crit Value Called To Crit Value Called By Crit Value Read Back Blood Gas Notified Time Sodium 131 L Potassium 2.6 L Chloride 98 Carbon Dioxide 27 Anion Gap 8 L BUN 12 Creatinine 0.5 L Est GFR ( Amer) > 60 Est GFR (Non-Af Amer) > 60 Random Glucose 98 D Lactic Acid 1.4 Calcium 7.2 L Phosphorus 3.5 Magnesium 2.1 Total Bilirubin 1.5 H AST 33 ALT 10 L Alkaline Phosphatase 120 Total Protein 4.9 L Albumin 2.4 L Globulin 2.5 Albumin/Globulin Ratio 0.9 L Lipase Procalcitonin Arterial Blood Potassium Venous Blood Potassium Urine Color Urine Clarity Urine pH Ur Specific [place] Urine Protein Urine Glucose (UA) Urine Ketones Urine Blood Urine Nitrate Urine Bilirubin Urine Urobilinogen Ur Leukocyte Esterase Urine WBC (Auto) Urine RBC (Auto) Ur Squamous Epith Cells Hyaline Casts Urine Opiates Screen Urine Methadone Screen Ur Barbiturates Screen Ur Phencyclidine Scrn Ur Amphetamines Screen U Benzodiazepines Scrn U Oth Cocaine Metabols U Cannabinoids Screen Alcohol, Quantitative Influenza Typ A,B (EIA) 05/13/18 08:39 WBC 3.3 L RBC 2.83 L Hgb 9.8 L Hct 28.6 L MCV 100.9 H MCH 34.8 H MCHC 34.5 RDW 17.1 H Plt Count 128 L MPV 8.2 Neut % (Auto) 51.9 Lymph % (Auto) 37.3 [place] % (Auto) 8.7 Eos % (Auto) 1.8 Baso % (Auto) 0.3 Neut # (Auto) 1.7 L Lymph # (Auto) 1.2 [place] # (Auto) 0.3 Eos # (Auto) 0.1 Baso # (Auto) 0.0 PT INR APTT Puncture Site pCO2 pO2 HCO3 ABG pH ABG Total CO2 ABG O2 Saturation ABG Base Excess Moiz Test ABG Potassium VBG pH VBG pCO2 VBG HCO3 VBG Total CO2 VBG O2 Sat (Calc) VBG Base Excess VBG Potassium A-a O2 Difference Respiratory Index Glucose Lactate FiO2 Crit Value Called To Crit Value Called By Crit Value Read Back Blood Gas Notified Time Sodium Potassium Chloride Carbon Dioxide Anion Gap BUN Creatinine Est GFR ( Amer) Est GFR (Non-Af Amer) Random Glucose Lactic Acid Calcium Phosphorus Magnesium Total Bilirubin AST ALT Alkaline Phosphatase Total Protein Albumin Globulin Albumin/Globulin Ratio Lipase Procalcitonin Arterial Blood Potassium Venous Blood Potassium Urine Color Urine Clarity Urine pH Ur Specific [place] Urine Protein Urine Glucose (UA) Urine Ketones Urine Blood Urine Nitrate Urine Bilirubin Urine Urobilinogen Ur Leukocyte Esterase Urine WBC (Auto) Urine RBC (Auto) Ur Squamous Epith Cells Hyaline Casts Urine Opiates Screen Urine Methadone Screen Ur Barbiturates Screen Ur Phencyclidine Scrn Ur Amphetamines Screen U Benzodiazepines Scrn U Oth Cocaine Metabols U Cannabinoids Screen Alcohol, Quantitative Influenza Typ A,B (EIA) Assessment & Plan - Assessment and Plan (Free Text) Assessment: 58yo M with PMH AIDS, PML, alcohol use disorder, seizures, gastric CA s/p chemotherapy, and medication non-compliance admitted for sepsis. Neuro was consulted for his history of seizures. Plan: Seizures (Alcohol withdrawal vs. PML vs. Brain lesion) CT head without contrast (05/12): Redemonstrated is localized area encephalomalacia left inferior frontal lobe which within adjacent C-shaped calcification along the anterior inferior and medial border. This could be dystrophic in nature due to ischemia however underlying vascular lesion such ca vernoma not excluded. There is also a rounded area of increased attenuation along the posteromedial margin of the area encephalomalacia left inferior basal ganglia of uncertain etiology although could represent residual hemorrhage or early dystrophic microcalcification-mineralization in this patient who is apparently post biopsy with a small ruddy hole left frontal calvarium. Note that other underlying etiologies include postinfectious lesions such as toxoplasmosis or CMV or lymphoma in this patient with a history of HIV positive status. Several additional chronic appearing low-attenuation foci also seen left basal ganglia appear to have undergone interval evolution decreasing in size compared with the prior exam Patient was on Keppra 500mg po BID during last admission. - restart Keppra - cont seizure precautions - monitor and replete electrolytes per medicine - Neuro will sign off at this time. Please re-consult as needed d/w Dr. Zhane Melton PGY-1 - Date & Time Date: 05/13/18 Time: 10:00 <Didier Phelan - Last Filed: 05/13/18 15:59> Meds - Medications Medications: Current Medications Dolutegravir Sodium (Tivicay) 50 mg PO DAILY [facility]; Protocol Last Admin: 05/13/18 12:58 Dose: 50 mg Emtricitabine/Tenofovir (Truvada 200 Mg-300 Mg) 1 tab PO DAILY [facility]; Protocol Last Admin: 05/13/18 12:57 Dose: 1 tab Escitalopram Oxalate (Lexapro) 10 mg PO DAILY [facility] Last Admin: 05/13/18 09:38 Dose: 10 mg Folic Acid (Folic Acid) 1 mg PO DAILY [facility] Last Admin: 05/13/18 09:39 Dose: 1 mg Potassium Chloride 20 meq/ (Sodium Chloride) 1,010 mls @ 100 mls/hr IV .Q10H6M [facility] Last Admin: 05/13/18 05:46 Dose: 100 mls/hr Vancomycin/Sodium Chloride (Vancomycin 1 Gm/Ns 200 Ml) 1 gm in 200 mls @ 166.7 mls/hr IVPB Q24H [facility]; Protocol Stop: 05/17/18 18:16 Last Admin: 05/12/18 19:04 Dose: 166.7 mls/hr Trimethoprim/Sulfamethoxazole (160 mg/ Dextrose) 250 mls @ 250 mls/hr IVPB Q12H [facility]; Protocol Last Admin: 05/13/18 08:45 Dose: 250 mls/hr Cefepime HCl (Maxipime Iv 1 Gm Premix) 1 gm in 50 mls @ 100 mls/hr IVPB Q12H [facility]; Protocol Last Admin: 05/13/18 13:59 Dose: 100 mls/hr Levetiracetam (Keppra) 500 mg PO BID [facility] Lorazepam (Ativan) 1 mg IVP Q4H PRN PRN Reason: Symptoms of alcohol withdrawl Mirtazapine (Remeron) 45 mg PO HS [facility] Last Admin: 05/13/18 01:25 Dose: 45 mg Multivitamins (Hexavitamin) 1 tab PO DAILY [facility] Last Admin: 05/13/18 09:38 Dose: 1 tab Nicotine (Nicoderm Cq) 1 patch TD DAILY [facility] Last Admin: 05/13/18 12:57 Dose: 1 patch Nystatin (Nystatin Oral Susp) 5 ml PO QID [facility] Last Admin: 05/13/18 12:58 Dose: 5 ml Ondansetron HCl (Zofran Inj) 4 mg IVP Q6H PRN PRN Reason: Nausea/Vomiting Pantoprazole Sodium (Protonix Ec Tab) 40 mg PO DAILY [facility] Thiamine HCl (Vitamin B1 Tab) 100 mg PO DAILY [facility] Last Admin: 05/13/18 09:38 Dose: 100 mg Results - Vital Signs Recent Vital Signs: Last Vital Signs Temp 98.1 F 05/13/18 15:00 Pulse 89 05/13/18 14:50 Resp 18 05/13/18 14:50 BP 119/80 05/13/18 13:22 Pulse Ox 79 L 05/13/18 14:50 - Labs Result Diagrams: 05/13/18 08:39 05/13/18 14:25 Labs: Laboratory Results - last 24 hr 05/12/18 05/12/18 05/12/18 16:19 16:19 16:39 WBC 4.6 L RBC 3.52 L Hgb 12.1 Hct 35.4 MCV 100.5 H MCH 34.2 H MCHC 34.1 RDW 17.3 H Plt Count 160 MPV 7.8 Neut % (Auto) 65.3 Lymph % (Auto) 22.0 [place] % (Auto) 11.4 H Eos % (Auto) 0.0 Baso % (Auto) 1.3 Neut # (Auto) 3.0 Lymph # (Auto) 1.0 [place] # (Auto) 0.5 Eos # (Auto) 0.0 Baso # (Auto) 0.1 PT INR APTT Puncture Site pCO2 pO2 15 L HCO3 ABG pH ABG Total CO2 ABG O2 Saturation ABG Base Excess Moiz Test ABG Potassium VBG pH 7.69 H* VBG pCO2 27 L VBG HCO3 33.2 VBG Total CO2 33.4 H VBG O2 Sat (Calc) 27.5 L VBG Base Excess 12.7 H VBG Potassium 2.2 L* A-a O2 Difference Respiratory Index Glucose 111 H Lactate 6.6 H* FiO2 Crit Value Called To Er nurse Crit Value Called By Caitlin rt Crit Value Read Back Y Blood Gas Notified Time 1706 Sodium 131 L 137.0 Potassium 2.5 L* Chloride 90 L 92.0 L Carbon Dioxide 31 H Anion Gap 12 BUN 14 Creatinine 0.6 L Est GFR ( Amer) > 60 Est GFR (Non-Af Amer) > 60 Random Glucose 123 H D Lactic Acid Calcium 8.2 L Phosphorus 2.6 Magnesium 1.2 L Total Bilirubin 2.5 H AST 53 ALT 12 L D Alkaline Phosphatase 149 H Total Protein 5.8 L Albumin 2.9 L Globulin 2.9 Albumin/Globulin Ratio 1.0 Lipase 38 Procalcitonin Arterial Blood Potassium Venous Blood Potassium 2.2 L* Urine Color Urine Clarity Urine pH Ur Specific [place] Urine Protein Urine Glucose (UA) Urine Ketones Urine Blood Urine Nitrate Urine Bilirubin Urine Urobilinogen Ur Leukocyte Esterase Urine WBC (Auto) Urine RBC (Auto) Ur Squamous Epith Cells Hyaline Casts Urine Opiates Screen Urine Methadone Screen Ur Barbiturates Screen Ur Phencyclidine Scrn Ur Amphetamines Screen U Benzodiazepines Scrn U Oth Cocaine Metabols U Cannabinoids Screen Alcohol, Quantitative < 10 Influenza Typ A,B (EIA) 05/12/18 05/12/18 05/12/18 16:41 17:45 18:11 WBC RBC Hgb Hct MCV MCH MCHC RDW Plt Count MPV Neut % (Auto) Lymph % (Auto) [place] % (Auto) Eos % (Auto) Baso % (Auto) Neut # (Auto) Lymph # (Auto) [place] # (Auto) Eos # (Auto) Baso # (Auto) PT 11.9 INR 1.1 APTT 31 Puncture Site pCO2 pO2 HCO3 ABG pH ABG Total CO2 ABG O2 Saturation ABG Base Excess Moiz Test ABG Potassium VBG pH VBG pCO2 VBG HCO3 VBG Total CO2 VBG O2 Sat (Calc) VBG Base Excess VBG Potassium A-a O2 Difference Respiratory Index Glucose Lactate FiO2 Crit Value Called To Crit Value Called By Crit Value Read Back Blood Gas Notified Time Sodium Potassium Chloride Carbon Dioxide Anion Gap BUN Creatinine Est GFR ( Amer) Est GFR (Non-Af Amer) Random Glucose Lactic Acid Calcium Phosphorus Magnesium Total Bilirubin AST ALT Alkaline Phosphatase Total Protein Albumin Globulin Albumin/Globulin Ratio Lipase Procalcitonin 0.16 L Arterial Blood Potassium Venous Blood Potassium Urine Color Urine Clarity Urine pH Ur Specific [place] Urine Protein Urine Glucose (UA) Urine Ketones Urine Blood Urine Nitrate Urine Bilirubin Urine Urobilinogen Ur Leukocyte Esterase Urine WBC (Auto) Urine RBC (Auto) Ur Squamous Epith Cells Hyaline Casts Urine Opiates Screen Urine Methadone Screen Ur Barbiturates Screen Ur Phencyclidine Scrn Ur Amphetamines Screen U Benzodiazepines Scrn U Oth Cocaine Metabols U Cannabinoids Screen Alcohol, Quantitative Influenza Typ A,B (EIA) Negative for flu a/b 05/12/18 05/12/18 05/12/18 19:14 22:16 22:16 WBC RBC Hgb Hct MCV MCH MCHC RDW Plt Count MPV Neut % (Auto) Lymph % (Auto) [place] % (Auto) Eos % (Auto) Baso % (Auto) Neut # (Auto) Lymph # (Auto) [place] # (Auto) Eos # (Auto) Baso # (Auto) PT INR APTT Puncture Site Rra pCO2 30 L pO2 76 L HCO3 30.1 H ABG pH 7.58 H ABG Total CO2 29.0 H ABG O2 Saturation 98.3 H ABG Base Excess 6.6 H Moiz Test Yes ABG Potassium 1.9 L* VBG pH VBG pCO2 VBG HCO3 VBG Total CO2 VBG O2 Sat (Calc) VBG Base Excess VBG Potassium A-a O2 Difference 36.0 Respiratory Index 0.5 Glucose 113 H Lactate 2.8 H FiO2 21.0 Crit Value Called To Er Crit Value Called By Rt Crit Value Read Back Y Blood Gas Notified Time 1916 Sodium 136.0 Potassium Chloride 103.0 Carbon Dioxide Anion Gap BUN Creatinine Est GFR ( Amer) Est GFR (Non-Af Amer) Random Glucose Lactic Acid Calcium Phosphorus Magnesium Total Bilirubin AST ALT Alkaline Phosphatase Total Protein Albumin Globulin Albumin/Globulin Ratio Lipase Procalcitonin Arterial Blood Potassium 1.9 L* Venous Blood Potassium Urine Color Francesca Urine Clarity Hazy Urine pH 9.0 Ur Specific [place] 1.015 Urine Protein Negative Urine Glucose (UA) Normal Urine Ketones Negative Urine Blood Negative Urine Nitrate Negative Urine Bilirubin Negative Urine Urobilinogen 4.0 Ur Leukocyte Esterase Neg Urine WBC (Auto) 2 Urine RBC (Auto) 1 Ur Squamous Epith Cells < 1 Hyaline Casts 3-5 H Urine Opiates Screen Negative Urine Methadone Screen Negative Ur Barbiturates Screen Negative Ur Phencyclidine Scrn Negative Ur Amphetamines Screen Negative U Benzodiazepines Scrn Negative U Oth Cocaine Metabols Negative U Cannabinoids Screen Negative Alcohol, Quantitative Influenza Typ A,B (EIA) 05/13/18 05/13/18 05/13/18 01:15 05:17 06:54 WBC 3.1 L RBC 2.91 L Hgb 9.9 L D Hct 29.3 L MCV 100.8 H MCH 34.0 H MCHC 33.8 RDW 17.4 H Plt Count 118 L D MPV 8.1 Neut % (Auto) 49.1 L Lymph % (Auto) 39.4 [place] % (Auto) 9.7 Eos % (Auto) 1.6 Baso % (Auto) 0.2 Neut # (Auto) 1.5 L Lymph # (Auto) 1.2 [place] # (Auto) 0.3 Eos # (Auto) 0.0 Baso # (Auto) 0.0 PT INR APTT Puncture Site pCO2 pO2 29 L HCO3 ABG pH ABG Total CO2 ABG O2 Saturation ABG Base Excess Mozi Test ABG Potassium VBG pH 7.49 H VBG pCO2 39 L VBG HCO3 28.6 VBG Total CO2 30.9 H VBG O2 Sat (Calc) 56.3 VBG Base Excess 5.9 H VBG Potassium 3.2 L A-a O2 Difference Respiratory Index Glucose 97 Lactate 3.2 H FiO2 Crit Value Called To Crit Value Called By Crit Value Read Back Blood Gas Notified Time Sodium 136.0 131 L Potassium 2.6 L Chloride 103.0 98 Carbon Dioxide 27 Anion Gap 8 L BUN 12 Creatinine 0.5 L Est GFR ( Amer) > 60 Est GFR (Non-Af Amer) > 60 Random Glucose 98 D Lactic Acid Calcium 7.2 L Phosphorus 3.5 Magnesium 2.1 Total Bilirubin 1.5 H AST 33 ALT 10 L Alkaline Phosphatase 120 Total Protein 4.9 L Albumin 2.4 L Globulin 2.5 Albumin/Globulin Ratio 0.9 L Lipase Procalcitonin Arterial Blood Potassium Venous Blood Potassium 3.2 L Urine Color Urine Clarity Urine pH Ur Specific [place] Urine Protein Urine Glucose (UA) Urine Ketones Urine Blood Urine Nitrate Urine Bilirubin Urine Urobilinogen Ur Leukocyte Esterase Urine WBC (Auto) Urine RBC (Auto) Ur Squamous Epith Cells Hyaline Casts Urine Opiates Screen Urine Methadone Screen Ur Barbiturates Screen Ur Phencyclidine Scrn Ur Amphetamines Screen U Benzodiazepines Scrn U Oth Cocaine Metabols U Cannabinoids Screen Alcohol, Quantitative Influenza Typ A,B (EIA) 05/13/18 05/13/18 05/13/18 08:39 08:39 14:25 WBC 3.3 L RBC 2.83 L Hgb 9.8 L Hct 28.6 L MCV 100.9 H MCH 34.8 H MCHC 34.5 RDW 17.1 H Plt Count 128 L MPV 8.2 Neut % (Auto) 51.9 Lymph % (Auto) 37.3 [place] % (Auto) 8.7 Eos % (Auto) 1.8 Baso % (Auto) 0.3 Neut # (Auto) 1.7 L Lymph # (Auto) 1.2 [place] # (Auto) 0.3 Eos # (Auto) 0.1 Baso # (Auto) 0.0 PT INR APTT Puncture Site pCO2 pO2 HCO3 ABG pH ABG Total CO2 ABG O2 Saturation ABG Base Excess Moiz Test ABG Potassium VBG pH VBG pCO2 VBG HCO3 VBG Total CO2 VBG O2 Sat (Calc) VBG Base Excess VBG Potassium A-a O2 Difference Respiratory Index Glucose Lactate FiO2 Crit Value Called To Crit Value Called By Crit Value Read Back Blood Gas Notified Time Sodium Potassium 3.8 Chloride Carbon Dioxide Anion Gap BUN Creatinine Est GFR ( Amer) Est GFR (Non-Af Amer) Random Glucose Lactic Acid 1.4 Calcium Phosphorus Magnesium Total Bilirubin AST ALT Alkaline Phosphatase Total Protein Albumin Globulin Albumin/Globulin Ratio Lipase Procalcitonin Arterial Blood Potassium Venous Blood Potassium Urine Color Urine Clarity Urine pH Ur Specific [place] Urine Protein Urine Glucose (UA) Urine Ketones Urine Blood Urine Nitrate Urine Bilirubin Urine Urobilinogen Ur Leukocyte Esterase Urine WBC (Auto) Urine RBC (Auto) Ur Squamous Epith Cells Hyaline Casts Urine Opiates Screen Urine Methadone Screen Ur Barbiturates Screen Ur Phencyclidine Scrn Ur Amphetamines Screen U Benzodiazepines Scrn U Oth Cocaine Metabols U Cannabinoids Screen Alcohol, Quantitative Influenza Typ A,B (EIA) Attending/Attestation - Attestation I have personally seen and examined this patient.: Yes I have fully participated in the care of the patient.: Yes I have reviewed all pertinent clinical information: Yes Notes (Text): I agree with the assessment and plan. Will resume Keppra 500 mg BID.
[2018-05-13 10:45] LABS: VENOUS BLOOD GAS BASE EXCESS 5.9 mmol/L (0.0-2.0); VENOUS BLOOD GAS PCO2 39 mmHg (40-60); VENOUS BLOOD GAS PO2 29 mm/Hg (30-55); VENOUS BLOOD PH 7.49 (7.32-7.43)
--- NOTE | 2018-05-13 12:01 | CP.PCM.CON ---
History of Present Illness - History of Present Illness History of Present Illness: 58 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 Patient says that he started feeling weak about 7 days ago. He started vomiting 3 days ago. He also admits to subjective fevers and chills. He says that he is continuing to drink daily. 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, drinks 1 quart of vodka/day, smokes 1ppd >30 yrs, denies illicit drug use but used to use meth PMD: none Review of Systems - Review of Systems All systems: reviewed and no additional remarkable complaints except - Constitutional Constitutional: As Per HPI - EENT Eyes: As Per HPI Ears: absent: As Per HPI, Decreased Hearing, Ear Discharge, Ear Pain, Tinnitus, Abnormal Hearing, Disequilibrium, Dizziness, Other Nose/Mouth/Throat: absent: As Per HPI, Epistaxis, Nasal Congestion, Nasal Discharge, Nasal Obstruction, Nasal Trauma, Nose Pain, Post Nasal Drip, Sinus Pain, Sinus Pressure, Bleeding Gums, Change in Voice, Dental Pain, Dry Mouth, Dysphagia, Halitosis, Hoarsness, Lip Swelling, Mouth Lesions, Mouth Pain, Odynophagia, Sore Throat, Throat Swelling, Tongue Swelling, Facial Pain, Neck Pain, Neck Mass, Other - Cardiovascular Cardiovascular: absent: As Per HPI, Acrocyanosis, Chest Pain, Chest Pain at Rest, Chest Pain with Activity, Claudication, Diaphoresis, Dyspnea, Dyspnea on Exertion, Edema, Irregular Heart Rhythm, Pain Radiating to Arm/Neck/Jaw, Leg Edema, Leg Ulcers, Lightheadedness, Orthopnea, Palpitations, Paroxysmal Nocturnal Dyspnea, Pedal Edema, Radiating Pain, Rapid Heart Rate, Slow Heart Rate, Syncope, Other - Respiratory Respiratory: absent: As Per HPI, Cough, Dyspnea, Hemoptysis, Dyspnea on Exertion, Wheezing, Snoring, Stridor, Pain on Inspiration, Chest Congestion, Excessive Mucous Production, Change in Mucous Color, Pain with Coughing, Other - Gastrointestinal Gastrointestinal: absent: As Per HPI, Abdominal Pain, Belching, Bloating, Change in Bowel Habits, Change in Stool Character, Coffee Ground Emesis, Constipation, Cramping, Diarrhea, Dyspepsia, Dysphagia, Early Satiety, Excessive Flatus, Fecal Incontinence, Heartburn, Hematemesis, Hematochezia, Loose Stools, Melena, Nausea, Odynophagia, Temesmus, Vomiting, Other - Genitourinary Genitourinary: absent: As Per HPI, Change in Urinary Stream, Difficulty Urinatin g, Dysuria, Flank Pain, Hematuria, Pyuria, Nocturia, Urinary Incontinence, Urinary Frequency, Urinary Hesitance, Urinary Urgency, Voiding Freq/Small Amts, Freq UTI, Hx Renal/Bladder Calculi, Hx /Renal Surgery, Bladder Distension, Other - Musculoskeletal Musculoskeletal: absent: As Per HPI, Abnormal Gait, Arthralgias, Atrophy, Back Pain, Deformity, Joint Swelling, Limited Range of Motion, Loss of Height, Muscle Cramps, Muscle Weakness, Myalgias, Neck Pain, Numbness, Radiating Pain into Limb, Stiffness, Tingling, Other - Integumentary Integumentary: absent: As Per HPI, Acne, Alopecia, Bleeding Lesions, Change in H air, Change in Nails, Change in Pigmentation, Changing Lesions, Dry Skin, Erythema, Furuncle, Hirsutism, Lesions, New Lesions, Non-Healing Lesions, Photosensitivity, Pruritus, Rash, Skin Pain, Skin Ulcer, Sores, Striae, Swelling, Unusual Bruising, Wounds, Jaundice, Other - Neurological Neurological: As Per HPI Review of Systems - Review of Systems All systems: reviewed and no additional remarkable complaints except - Constitutional Constitutional: As Per HPI - EENT Eyes: absent: As Per HPI, Blind Spots, Blurred Vision, Change in Vision, Decreased Night Vision, Diplopia, Discharge, Dry Eye, Exophthalmos, Floaters, Irritation, Itchy Eyes, Loss of Peripheral Vision, Pain, Photophobia, Requires Corrective Lenses, Sees Flashes, Spots in Vision, Tunnel Vision, Other Visual Disturbances, Loss of Vision, Other Ears: absent: As Per HPI, Decreased Hearing, Ear Discharge, Ear Pain, Tinnitus, Abnormal Hearing, Disequilibrium, Dizziness, Other Nose/Mouth/Throat: absent: As Per HPI, Epistaxis, Nasal Congestion, Nasal Discharge, Nasal Obstruction, Nasal Trauma, Nose Pain, Post Nasal Drip, Sinus Pain, Sinus Pressure, Bleeding Gums, Change in Voice, Dental Pain, Dry Mouth, Dysphagia, Halitosis, Hoarsness, Lip Swelling, Mouth Lesions, Mouth Pain, Odynophagia, Sore Throat, Throat Swelling, Tongue Swelling, Facial Pain, Neck Pain, Neck Mass, Other - Cardiovascular Cardiovascular: absent: As Per HPI, Acrocyanosis, Chest Pain, Chest Pain at Rest, Chest Pain with Activity, Claudication, Diaphoresis, Dyspnea, Dyspnea on Exertion, Edema, Irregular Heart Rhythm, Pain Radiating to Arm/Neck/Jaw, Leg Edema, Leg Ulcers, Lightheadedness, Orthopnea, Palpitations, Paroxysmal Nocturnal Dyspnea, Pedal Edema, Radiating Pain, Rapid Heart Rate, Slow Heart Rate, Syncope, Other - Respiratory Respiratory: absent: As Per HPI, Cough, Dyspnea, Hemoptysis, Dyspnea on Exertion, Wheezing, Snoring, Stridor, Pain on Inspiration, Chest Congestion, Excessive Mucous Production, Change in Mucous Color, Pain with Coughing, Other - Gastrointestinal Gastrointestinal: absent: As Per HPI, Abdominal Pain, Belching, Bloating, Change in Bowel Habits, Change in Stool Character, Coffee Ground Emesis, Constipation, Cramping, Diarrhea, Dyspepsia, Dysphagia, Early Satiety, Excessive Flatus, Fecal Incontinence, Heartburn, Hematemesis, Hematochezia, Loose Stools, Melena, Luis sea, Odynophagia, Temesmus, Vomiting, Other - Genitourinary Genitourinary: absent: As Per HPI, Change in Urinary Stream, Difficulty Urinating, Dysuria, Flank Pain, Hematuria, Pyuria, Nocturia, Urinary Incontinence, Urinary Frequency, Urinary Hesitance, Urinary Urgency, Voiding Freq/Small Amts, Freq UTI, Hx Renal/Bladder Calculi, Hx /Renal Surgery, Bladder Distension, Other - Neurological Neurological: As Per HPI - Psychiatric Psychiatric: absent: As Per HPI, Abnormal Sleep Pattern, Anhedonia, Anxiety, Auditory Hallucinations, Behavioral Changes, Change in Appetite, Change in Libido, Confusion, Depression, Difficulty Concentrating, Hallucinations, Homicidal Ideation, Hopelessness, Irritability, Memory Loss, Mood Swings, Panic Attacks, Paranoia, Suicidal Ideation, Visual Hallucinations, Tactile Hallucinations, Other - Endocrine Endocrine: absent: As Per HPI, Change in Body Appearance, Change in Libido, Cold Intolorance, Deepening of Voice, Excessive Sweating, Fatigue, Flushing, Heat Intolorance, Increase in Ring/Shoe/Hat Size, Palpitations, Polydipsia, Polyphagia, Polyuria, Other - Hematologic/Lymphatic Hematologic: absent: As Per HPI, Easy Bleeding, Easy Bruising, Lymphadenopathy, Other Past Patient History - Infectious Disease Hx of Infectious Diseases: None - Tetanus Immunizations Tetanus Immunization: Unknown - Past Medical History & Family History Past Medical History?: Yes Past Family History: Reviewed and not pertinent - Past Social History Smoking Status: Heavy Smoker > 10 Cigarettes Daily Chewing Tobacco Use: No Cigar Use: No Occupation: disability Alcohol: > 2 Drinks/Day Drugs: Denies Home Situation {Lives}: Alone - CARDIAC Hx Hypertension: No - PULMONARY Hx Respiratory Disorders: No - NEUROLOGICAL Hx Seizures: No - HEENT Hx HEENT Problems: No - RENAL Hx Chronic Kidney Disease: No - ENDOCRINE/METABOLIC Hx Endocrine Disorders: No - HEMATOLOGICAL/ONCOLOGICAL Hx Human Immunodeficiency Virus (HIV): Yes (As per patient "AIDS") - INTEGUMENTARY Hx Dermatological Problems: No - MUSCULOSKELETAL/RHEUMATOLOGICAL Hx Musculoskeletal Disorders: Yes Hx Falls: Yes - GASTROINTESTINAL Hx Gastrointestinal Disorders: Yes Hx Diarrhea: Yes Other/Comment: stomach/colon CA - GENITOURINARY/GYNECOLOGICAL Hx Sexually Transmitted Disorders: No - PSYCHIATRIC Hx Depression: Yes Hx Substance Use: No (HX OF METH USE "NOT IN MANY YEARS") - SURGICAL HISTORY Hx Surgeries: Yes Other/Comment: brain biopsy ? - ANESTHESIA Hx Anesthesia: Yes Meds Allergies/Adverse Reactions: Allergies Allergy/AdvReac Type Severity Reaction Status Date / Time No Known Allergies Allergy Verified 03/14/18 18:00 - Medications Medications: Current Medications Dolutegravir Sodium (Tivicay) 50 mg PO DAILY ASHLEY; Protocol Emtricitabine/Tenofovir (Truvada 200 Mg-300 Mg) 1 tab PO DAILY ASHLEY; Protocol Escitalopram Oxalate (Lexapro) 10 mg PO DAILY ASHLEY Last Admin: 05/13/18 09:38 Dose: 10 mg Folic Acid (Folic Acid) 1 mg PO DAILY ASHLEY Last Admin: 05/13/18 09:39 Dose: 1 mg Potassium Chloride 20 meq/ (Sodium Chloride) 1,010 mls @ 100 mls/hr IV .Q10H6M [facility] Last Admin: 05/13/18 05:46 Dose: 100 mls/hr Vancomycin/Sodium Chloride (Vancomycin 1 Gm/Ns 200 Ml) 1 gm in 200 mls @ 166.7 mls/hr IVPB Q24H [facility]; Protocol Stop: 05/17/18 18:16 Last Admin: 05/12/18 19:04 Dose: 166.7 mls/hr Trimethoprim/Sulfamethoxazole (160 mg/ Dextrose) 250 mls @ 250 mls/hr IVPB Q12H [facility]; Protocol Last Admin: 05/13/18 08:45 Dose: 250 mls/hr Lorazepam (Ativan) 1 mg IVP Q3H PRN PRN Reason: Symptoms of alcohol withdrawl Mirtazapine (Remeron) 45 mg PO HS [facility] Last Admin: 05/13/18 01:25 Dose: 45 mg Multivitamins (Hexavitamin) 1 tab PO DAILY [facility] Last Admin: 05/13/18 09:38 Dose: 1 tab Nicotine (Nicoderm Cq) 1 patch TD DAILY [facility] Nystatin (Nystatin Oral Susp) 5 ml PO QID [facility] Last Admin: 05/13/18 01:25 Dose: 5 ml Ondansetron HCl (Zofran Inj) 4 mg IVP Q6H PRN PRN Reason: Nausea/Vomiting Potassium Chloride (K-Dur 20 Meq Er Tab) 40 meq PO Q4H [facility] Stop: 05/13/18 12:01 Last Admin: 05/13/18 09:38 Dose: 40 meq Thiamine HCl (Vitamin B1 Tab) 100 mg PO DAILY [facility] Last Admin: 05/13/18 09:38 Dose: 100 mg Physical Exam - Constitutional Appears: No Acute Distress, Confused, Chronically Ill - Head Exam Head Exam: ATRAUMATIC, NORMAL INSPECTION, NORMOCEPHALIC - Eye Exam Eye Exam: absent: Scleral icterus Pupil Exam: PERRL - ENT Exam ENT Exam: Mucous Membranes Moist, Normal External Ear Exam - Neck Exam Neck exam: Negative for: Lymphadenopathy - Respiratory Exam Respiratory Exam: Decreased Breath Sounds, Prolonged Expiratory Phase - Cardiovascular Exam Cardiovascular Exam: REGULAR RHYTHM, +S1, +S2 - GI/Abdominal Exam GI & Abdominal Exam: Diminished Bowel Sounds, Soft (x). absent: Tenderness - Rectal Exam Rectal Exam: Deferred - Exam Exam: NORMAL INSPECTION - Extremities Exam Extremities exam: Positive for: pedal edema - Back Exam Back exam: absent: CVA tenderness (L), CVA tenderness (R) - Neurological Exam Neurological exam: Alert, CN II-XII Intact, Oriented x3, Reflexes Normal - Psychiatric Exam Psychiatric exam: Depressed - Skin Skin Exam: Dry Results - Vital Signs Recent Vital Signs: Last Vital Signs Temp 98.2 F 05/13/18 08:30 Pulse 81 05/13/18 11:10 Resp 14 05/13/18 11:10 BP 120/82 05/13/18 10:22 Pulse Ox 98 05/13/18 11:10 - Labs Result Diagrams: 05/13/18 08:39 05/13/18 14:25 Labs: Laboratory Results - last 24 hr 05/12/18 05/12/18 05/12/18 16:19 16:19 16:39 WBC 4.6 L RBC 3.52 L Hgb 12.1 Hct 35.4 MCV 100.5 H MCH 34.2 H MCHC 34.1 RDW 17.3 H Plt Count 160 MPV 7.8 Neut % (Auto) 65.3 Lymph % (Auto) 22.0 [place] % (Auto) 11.4 H Eos % (Auto) 0.0 Baso % (Auto) 1.3 Neut # (Auto) 3.0 Lymph # (Auto) 1.0 [place] # (Auto) 0.5 Eos # (Auto) 0.0 Baso # (Auto) 0.1 PT INR APTT Puncture Site pCO2 pO2 15 L HCO3 ABG pH ABG Total CO2 ABG O2 Saturation ABG Base Excess Moiz Test ABG Potassium VBG pH 7.69 H* VBG pCO2 27 L VBG HCO3 33.2 VBG Total CO2 33.4 H VBG O2 Sat (Calc) 27.5 L VBG Base Excess 12.7 H VBG Potassium 2.2 L* A-a O2 Difference Respiratory Index Glucose 111 H Lactate 6.6 H* FiO2 Crit Value Called To Er nurse Crit Value Called By Caitlin rt Crit Value Read Back Y Blood Gas Notified Time 1706 Sodium 131 L 137.0 Potassium 2.5 L* Chloride 90 L 92.0 L Carbon Dioxide 31 H Anion Gap 12 BUN 14 Creatinine 0.6 L Est GFR ( Amer) > 60 Est GFR (Non-Af Amer) > 60 Random Glucose 123 H D Lactic Acid Calcium 8.2 L Phosphorus 2.6 Magnesium 1.2 L Total Bilirubin 2.5 H AST 53 ALT 12 L D Alkaline Phosphatase 149 H Total Protein 5.8 L Albumin 2.9 L Globulin 2.9 Albumin/Globulin Ratio 1.0 Lipase 38 Procalcitonin Arterial Blood Potassium Venous Blood Potassium 2.2 L* Urine Color Urine Clarity Urine pH Ur Specific [place] Urine Protein Urine Glucose (UA) Urine Ketones Urine Blood Urine Nitrate Urine Bilirubin Urine Urobilinogen Ur Leukocyte Esterase Urine WBC (Auto) Urine RBC (Auto) Ur Squamous Epith Cells Hyaline Casts Urine Opiates Screen Urine Methadone Screen Ur Barbiturates Screen Ur Phencyclidine Scrn Ur Amphetamines Screen U Benzodiazepines Scrn U Oth Cocaine Metabols U Cannabinoids Screen Alcohol, Quantitative < 10 Influenza Typ A,B (EIA) 05/12/18 05/12/18 05/12/18 16:41 17:45 18:11 WBC RBC Hgb Hct MCV MCH MCHC RDW Plt Count MPV Neut % (Auto) Lymph % (Auto) [place] % (Auto) Eos % (Auto) Baso % (Auto) Neut # (Auto) Lymph # (Auto) [place] # (Auto) Eos # (Auto) Baso # (Auto) PT 11.9 INR 1.1 APTT 31 Puncture Site pCO2 pO2 HCO3 ABG pH ABG Total CO2 ABG O2 Saturation ABG Base Excess Moiz Test ABG Potassium VBG pH VBG pCO2 VBG HCO3 VBG Total CO2 VBG O2 Sat (Calc) VBG Base Excess VBG Potassium A-a O2 Difference Respiratory Index Glucose Lactate FiO2 Crit Value Called To Crit Value Called By Crit Value Read Back Blood Gas Notified Time Sodium Potassium Chloride Carbon Dioxide Anion Gap BUN Creatinine Est GFR ( Amer) Est GFR (Non-Af Amer) Random Glucose Lactic Acid Calcium Phosphorus Magnesium Total Bilirubin AST ALT Alkaline Phosphatase Total Protein Albumin Globulin Albumin/Globulin Ratio Lipase Procalcitonin 0.16 L Arterial Blood Potassium Venous Blood Potassium Urine Color Urine Clarity Urine pH Ur Specific [place] Urine Protein Urine Glucose (UA) Urine Ketones Urine Blood Urine Nitrate Urine Bilirubin Urine Urobilinogen Ur Leukocyte Esterase Urine WBC (Auto) Urine RBC (Auto) Ur Squamous Epith Cells Hyaline Casts Urine Opiates Screen Urine Methadone Screen Ur Barbiturates Screen Ur Phencyclidine Scrn Ur Amphetamines Screen U Benzodiazepines Scrn U Oth Cocaine Metabols U Cannabinoids Screen Alcohol, Quantitative Influenza Typ A,B (EIA) Negative for flu a/b 05/12/18 05/12/18 05/12/18 19:14 22:16 22:16 WBC RBC Hgb Hct MCV MCH MCHC RDW Plt Count MPV Neut % (Auto) Lymph % (Auto) [place] % (Auto) Eos % (Auto) Baso % (Auto) Neut # (Auto) Lymph # (Auto) [place] # (Auto) Eos # (Auto) Baso # (Auto) PT INR APTT Puncture Site Rra pCO2 30 L pO2 76 L HCO3 30.1 H ABG pH 7.58 H ABG Total CO2 29.0 H ABG O2 Saturation 98.3 H ABG Base Excess 6.6 H Moiz Test Yes ABG Potassium 1.9 L* VBG pH VBG pCO2 VBG HCO3 VBG Total CO2 VBG O2 Sat (Calc) VBG Base Excess VBG Potassium A-a O2 Difference 36.0 Respiratory Index 0.5 Glucose 113 H Lactate 2.8 H FiO2 21.0 Crit Value Called To Er Crit Value Called By Rt Crit Value Read Back Y Blood Gas Notified Time 1916 Sodium 136.0 Potassium Chloride 103.0 Carbon Dioxide Anion Gap BUN Creatinine Est GFR ( Amer) Est GFR (Non-Af Amer) Random Glucose Lactic Acid Calcium Phosphorus Magnesium Total Bilirubin AST ALT Alkaline Phosphatase Total Protein Albumin Globulin Albumin/Globulin Ratio Lipase Procalcitonin Arterial Blood Potassium 1.9 L* Venous Blood Potassium Urine Color [place] Urine Clarity Hazy Urine pH 9.0 Ur Specific [place] 1.015 Urine Protein Negative Urine Glucose (UA) Normal Urine Ketones Negative Urine Blood Negative Urine Nitrate Negative Urine Bilirubin Negative Urine Urobilinogen 4.0 Ur Leukocyte Esterase Neg Urine WBC (Auto) 2 Urine RBC (Auto) 1 Ur Squamous Epith Cells < 1 Hyaline Casts 3-5 H Urine Opiates Screen Negative Urine Methadone Screen Negative Ur Barbiturates Screen Negative Ur Phencyclidine Scrn Negative Ur Amphetamines Screen Negative U Benzodiazepines Scrn Negative U Oth Cocaine Metabols Negative U Cannabinoids Screen Negative Alcohol, Quantitative Influenza Typ A,B (EIA) 05/13/18 05/13/18 05/13/18 01:15 05:17 06:54 WBC 3.1 L RBC 2.91 L Hgb 9.9 L D Hct 29.3 L MCV 100.8 H MCH 34.0 H MCHC 33.8 RDW 17.4 H Plt Count 118 L D MPV 8.1 Neut % (Auto) 49.1 L Lymph % (Auto) 39.4 [place] % (Auto) 9.7 Eos % (Auto) 1.6 Baso % (Auto) 0.2 Neut # (Auto) 1.5 L Lymph # (Auto) 1.2 [place] # (Auto) 0.3 Eos # (Auto) 0.0 Baso # (Auto) 0.0 PT INR APTT Puncture Site pCO2 pO2 29 L HCO3 ABG pH ABG Total CO2 ABG O2 Saturation ABG Base Excess Moiz Test ABG Potassium VBG pH 7.49 H VBG pCO2 39 L VBG HCO3 28.6 VBG Total CO2 30.9 H VBG O2 Sat (Calc) 56.3 VBG Base Excess 5.9 H VBG Potassium 3.2 L A-a O2 Difference Respiratory Index Glucose 97 Lactate 3.2 H FiO2 Crit Value Called To Crit Value Called By Crit Value Read Back Blood Gas Notified Time Sodium 136.0 131 L Potassium 2.6 L Chloride 103.0 98 Carbon Dioxide 27 Anion Gap 8 L BUN 12 Creatinine 0.5 L Est GFR ( Amer) > 60 Est GFR (Non-Af Amer) > 60 Random Glucose 98 D Lactic Acid Calcium 7.2 L Phosphorus 3.5 Magnesium 2.1 Total Bilirubin 1.5 H AST 33 ALT 10 L Alkaline Phosphatase 120 Total Protein 4.9 L Albumin 2.4 L Globulin 2.5 Albumin/Globulin Ratio 0.9 L Lipase Procalcitonin Arterial Blood Potassium Venous Blood Potassium 3.2 L Urine Color Urine Clarity Urine pH Ur Specific [place] Urine Protein Urine Glucose (UA) Urine Ketones Urine Blood Urine Nitrate Urine Bilirubin Urine Urobilinogen Ur Leukocyte Esterase Urine WBC (Auto) Urine RBC (Auto) Ur Squamous Epith Cells Hyaline Casts Urine Opiates Screen Urine Methadone Screen Ur Barbiturates Screen Ur Phencyclidine Scrn Ur Amphetamines Screen U Benzodiazepines Scrn U Oth Cocaine Metabols U Cannabinoids Screen Alcohol, Quantitative Influenza Typ A,B (EIA) 05/13/18 05/13/18 08:39 08:39 WBC 3.3 L RBC 2.83 L Hgb 9.8 L Hct 28.6 L MCV 100.9 H MCH 34.8 H MCHC 34.5 RDW 17.1 H Plt Count 128 L MPV 8.2 Neut % (Auto) 51.9 Lymph % (Auto) 37.3 [place] % (Auto) 8.7 Eos % (Auto) 1.8 Baso % (Auto) 0.3 Neut # (Auto) 1.7 L Lymph # (Auto) 1.2 [place] # (Auto) 0.3 Eos # (Auto) 0.1 Baso # (Auto) 0.0 PT INR APTT Puncture Site pCO2 pO2 HCO3 ABG pH ABG Total CO2 ABG O2 Saturation ABG Base Excess Moiz Test ABG Potassium VBG pH VBG pCO2 VBG HCO3 VBG Total CO2 VBG O2 Sat (Calc) VBG Base Excess VBG Potassium A-a O2 Difference Respiratory Index Glucose Lactate FiO2 Crit Value Called To Crit Value Called By Crit Value Read Back Blood Gas Notified Time Sodium Potassium Chloride Carbon Dioxide Anion Gap BUN Creatinine Est GFR ( Amer) Est GFR (Non-Af Amer) Random Glucose Lactic Acid 1.4 Calcium Phosphorus Magnesium Total Bilirubin AST ALT Alkaline Phosphatase Total Protein Albumin Globulin Albumin/Globulin Ratio Lipase Procalcitonin Arterial Blood Potassium Venous Blood Potassium Urine Color Urine Clarity Urine pH Ur Specific [place] Urine Protein Urine Glucose (UA) Urine Ketones Urine Blood Urine Nitrate Urine Bilirubin Urine Urobilinogen Ur Leukocyte Esterase Urine WBC (Auto) Urine RBC (Auto) Ur Squamous Epith Cells Hyaline Casts Urine Opiates Screen Urine Methadone Screen Ur Barbiturates Screen Ur Phencyclidine Scrn Ur Amphetamines Screen U Benzodiazepines Scrn U Oth Cocaine Metabols U Cannabinoids Screen Alcohol, Quantitative Influenza Typ A,B (EIA) Assessment & Plan (1) History of HIV or AIDS Status: Acute - Assessment and Plan (Free Text) Assessment: 58 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 Cultures have been sent and antibiotics ordered T cells will be checked Psych eval is in progress prognosis guaded from outset
--- NOTE | 2018-05-13 12:56 | CP.PCM.CON ---
History of Present Illness - History of Present Illness History of Present Illness: Palliative consult requested by Doctor Lakisha for goals of care discussion Patient is a 58 yo admitted from home with weakness, fever, chills, vomiting and diarrhea X 1 week. Patient had witnessed seizures on the day of admission. Patie nt reported poor appetite for the last month. Patient admits diagnosis of HIV and stopped taking HIV meds about 8 months ago. Patient diagnosed with Alcohol withdrawal on this admission. Patient admitts ETOH, last drink was 2 days ago. patient could not drink due to GI symptoms. Patient treated with Ativan, Zofran, Remeron, Lexapro and Nicoderm patch. Psych consult called. CT head and CXR were nonsignificant. PMH: HIV, ETOH, gastric cancer, S/P chemo Soc.. Hx: single, denies family, has one close friend, unemployed, lives in apartment, smokes 1ppk/day for 30 years, drink 1/2 gallon of vodka daily Fam Hx: mother , breast cancer Review of Systems - Constitutional Constitutional: Fatigue, Weakness - EENT Eyes: absent: As Per HPI, Blind Spots, Blurred Vision, Change in Vision, Decreased Night Vision, Diplopia, Discharge, Dry Eye, Exophthalmos, Floaters, Irritation, Itchy Eyes, Loss of Peripheral Vision, Pain, Photophobia, Requires Corrective Lenses, Sees Flashes, Spots in Vision, Tunnel Vision, Other Visual Disturbances, Loss of Vision, Other Nose/Mouth/Throat: absent: As Per HPI, Epistaxis, Nasal Congestion, Nasal Discharge, Nasal Obstruction, Nasal Trauma, Nose Pain, Post Nasal Drip, Sinus Pain, Sinus Pressure, Bleeding Gums, Change in Voice, Dental Pain, Dry Mouth, Dysphagia, Halitosis, Hoarsness, Lip Swelling, Mouth Lesions, Mouth Pain, Odynophagia, Sore Throat, Throat Swelling, Tongue Swelling, Facial Pain, Neck Pain, Neck Mass, Other Additional comments: edentulous - Cardiovascular Cardiovascular: Leg Edema - Respiratory Respiratory: absent: As Per HPI, Cough, Dyspnea, Hemoptysis, Dyspnea on Exertion, Wheezing, Snoring, Stridor, Pain on Inspiration, Chest Congestion, Excessive Mucous Production, Change in Mucous Color, Pain with Coughing, Other - Gastrointestinal Gastrointestinal: Nausea - Genitourinary Genitourinary: absent: As Per HPI, Change in Urinary Stream, Difficulty Urinating, Dysuria, Flank Pain, Hematuria, Pyuria, Nocturia, Urinary Incontinence, Urinary Frequency, Urinary Hesitance, Urinary Urgency, Voiding Freq/Small Amts, Freq UTI, Hx Renal/Bladder Calculi, Hx /Renal Surgery, Bladder Distension, Other - Musculoskeletal Musculoskeletal: Muscle Weakness - Integumentary Integumentary: absent: As Per HPI, Acne, Alopecia, Bleeding Lesions, Change in Hair, Change in Nails, Change in Pigmentation, Changing Lesions, Dry Skin, Erythema, Furuncle, Hirsutism, Lesions, New Lesions, Non-Healing Lesions, Photosensitivity, Pruritus, Rash, Skin Pain, Skin Ulcer, Sores, Striae, Swelling, Unusual Bruising, Wounds, Jaundice, Other - Neurological Neurological: Weakness - Psychiatric Psychiatric: Memory Loss - Endocrine Endocrine: Cold Intolorance - Hematologic/Lymphatic Hematologic: absent: As Per HPI, Easy Bleeding, Easy Bruising, Lymphadenopathy, Other Past Patient History - Infectious Disease Hx of Infectious Diseases: None - Tetanus Immunizations Tetanus Immunization: Unknown - Past Medical History & Family History Past Medical History?: Yes Past Family History: Reviewed and not pertinent - Past Social History Smoking Status: Heavy Smoker > 10 Cigarettes Daily Chewing Tobacco Use: No Cigar Use: No Occupation: disability Alcohol: > 2 Drinks/Day Drugs: Denies Home Situation {Lives}: Alone - CARDIAC Hx Hypertension: No - PULMONARY Hx Respiratory Disorders: No - NEUROLOGICAL Hx Seizures: No - HEENT Hx HEENT Problems: No - RENAL Hx Chronic Kidney Disease: No - ENDOCRINE/METABOLIC Hx Endocrine Disorders: No - HEMATOLOGICAL/ONCOLOGICAL Hx Human Immunodeficiency Virus (HIV): Yes (As per patient "AIDS") - INTEGUMENTARY Hx Dermatological Problems: No - MUSCULOSKELETAL/RHEUMATOLOGICAL Hx Musculoskeletal Disorders: Yes Hx Falls: Yes - GASTROINTESTINAL Hx Gastrointestinal Disorders: Yes Hx Diarrhea: Yes Other/Comment: stomach/colon CA - GENITOURINARY/GYNECOLOGICAL Hx Sexually Transmitted Disorders: No - PSYCHIATRIC Hx Depression: Yes Hx Substance Use: No (HX OF METH USE "NOT IN MANY YEARS") - SURGICAL HISTORY Hx Surgeries: Yes Other/Comment: brain biopsy ? - ANESTHESIA Hx Anesthesia: Yes Meds Allergies/Adverse Reactions: Allergies Allergy/AdvReac Type Severity Reaction Status Date / Time No Known Allergies Allergy Verified 03/14/18 18:00 - Medications Medications: Current Medications Dolutegravir Sodium (Tivicay) 50 mg PO DAILY [facility]; Protocol Emtricitabine/Tenofovir (Truvada 200 Mg-300 Mg) 1 tab PO DAILY [facility]; Protocol Escitalopram Oxalate (Lexapro) 10 mg PO DAILY [facility] Last Admin: 05/13/18 09:38 Dose: 10 mg Folic Acid (Folic Acid) 1 mg PO DAILY [facility] Last Admin: 05/13/18 09:39 Dose: 1 mg Potassium Chloride 20 meq/ (Sodium Chloride) 1,010 mls @ 100 mls/hr IV .Q10H6M [facility] Last Admin: 05/13/18 05:46 Dose: 100 mls/hr Vancomycin/Sodium Chloride (Vancomycin 1 Gm/Ns 200 Ml) 1 gm in 200 mls @ 166.7 mls/hr IVPB Q24H [facility]; Protocol Stop: 05/17/18 18:16 Last Admin: 05/12/18 19:04 Dose: 166.7 mls/hr Trimethoprim/Sulfamethoxazole (160 mg/ Dextrose) 250 mls @ 250 mls/hr IVPB Q12H [facility]; Protocol Last Admin: 05/13/18 08:45 Dose: 250 mls/hr Cefepime HCl (Maxipime Iv 1 Gm Premix) 1 gm in 50 mls @ 100 mls/hr IVPB Q12H [facility]; Protocol Iohexol (Omnipaque 240 (50 Ml)) 50 ml PO ONCE ONE Stop: 05/13/18 13:01 Lorazepam (Ativan) 1 mg IVP Q3H PRN PRN Reason: Symptoms of alcohol withdrawl Mirtazapine (Remeron) 45 mg PO HS [facility] Last Admin: 05/13/18 01:25 Dose: 45 mg Multivitamins (Hexavitamin) 1 tab PO DAILY [facility] Last Admin: 05/13/18 09:38 Dose: 1 tab Nicotine (Nicoderm Cq) 1 patch TD DAILY [facility] Nystatin (Nystatin Oral Susp) 5 ml PO QID [facility] Last Admin: 05/13/18 01:25 Dose: 5 ml Ondansetron HCl (Zofran Inj) 4 mg IVP Q6H PRN PRN Reason: Nausea/Vomiting Thiamine HCl (Vitamin B1 Tab) 100 mg PO DAILY [facility] Last Admin: 05/13/18 09:38 Dose: 100 mg Physical Exam - Constitutional Appears: No Acute Distress - Head Exam Head Exam: ATRAUMATIC, NORMAL INSPECTION, NORMOCEPHALIC - Eye Exam Eye Exam: EOMI, Normal appearance, PERRL Pupil Exam: NORMAL ACCOMODATION, PERRL - ENT Exam ENT Exam: Mucous Membranes Moist, Normal Exam - Neck Exam Neck exam: Positive for: Normal Inspection - Respiratory Exam Respiratory Exam: Decreased Breath Sounds, Clear to Auscultation Bilateral, NORMAL BREATHING PATTERN - Cardiovascular Exam Cardiovascular Exam: Tachycardia, Irregular Rhythm - GI/Abdominal Exam GI & Abdominal Exam: Diminished Bowel Sounds, Soft - Rectal Exam Rectal Exam: Deferred - Exam Exam: NORMAL INSPECTION - Extremities Exam Extremities exam: Positive for: pedal edema - Back Exam Back exam: NORMAL INSPECTION - Neurological Exam Neurological exam: Alert, Altered - Psychiatric Exam Psychiatric exam: Flat Affect - Skin Skin Exam: Dry, Mottled, Normal Color Results - Vital Signs Recent Vital Signs: Last Vital Signs Temp 98.2 F 05/13/18 08:30 Pulse 81 05/13/18 11:10 Resp 14 05/13/18 11:10 BP 120/82 05/13/18 10:22 Pulse Ox 98 05/13/18 11:10 - Labs Result Diagrams: 05/13/18 08:39 05/13/18 05:17 Labs: Laboratory Results - last 24 hr 05/12/18 05/12/18 05/12/18 16:19 16:19 16:39 WBC 4.6 L RBC 3.52 L Hgb 12.1 Hct 35.4 MCV 100.5 H MCH 34.2 H MCHC 34.1 RDW 17.3 H Plt Count 160 MPV 7.8 Neut % (Auto) 65.3 Lymph % (Auto) 22.0 [place] % (Auto) 11.4 H Eos % (Auto) 0.0 Baso % (Auto) 1.3 Neut # (Auto) 3.0 Lymph # (Auto) 1.0 [place] # (Auto) 0.5 Eos # (Auto) 0.0 Baso # (Auto) 0.1 PT INR APTT Puncture Site pCO2 pO2 15 L HCO3 ABG pH ABG Total CO2 ABG O2 Saturation ABG Base Excess Moiz Test ABG Potassium VBG pH 7.69 H* VBG pCO2 27 L VBG HCO3 33.2 VBG Total CO2 33.4 H VBG O2 Sat (Calc) 27.5 L VBG Base Excess 12.7 H VBG Potassium 2.2 L* A-a O2 Difference Respiratory Index Glucose 111 H Lactate 6.6 H* FiO2 Crit Value Called To Er nurse Crit Value Called By Caitlin rt Crit Value Read Back Y Blood Gas Notified Time 1706 Sodium 131 L 137.0 Potassium 2.5 L* Chloride 90 L 92.0 L Carbon Dioxide 31 H Anion Gap 12 BUN 14 Creatinine 0.6 L Est GFR ( Amer) > 60 Est GFR (Non-Af Amer) > 60 Random Glucose 123 H D Lactic Acid Calcium 8.2 L Phosphorus 2.6 Magnesium 1.2 L Total Bilirubin 2.5 H AST 53 ALT 12 L D Alkaline Phosphatase 149 H Total Protein 5.8 L Albumin 2.9 L Globulin 2.9 Albumin/Globulin Ratio 1.0 Lipase 38 Procalcitonin Arterial Blood Potassium Venous Blood Potassium 2.2 L* Urine Color Urine Clarity Urine pH Ur Specific [place] Urine Protein Urine Glucose (UA) Urine Ketones Urine Blood Urine Nitrate Urine Bilirubin Urine Urobilinogen Ur Leukocyte Esterase Urine WBC (Auto) Urine RBC (Auto) Ur Squamous Epith Cells Hyaline Casts Urine Opiates Screen Urine Methadone Screen Ur Barbiturates Screen Ur Phencyclidine Scrn Ur Amphetamines Screen U Benzodiazepines Scrn U Oth Cocaine Metabols U Cannabinoids Screen Alcohol, Quantitative < 10 Influenza Typ A,B (EIA) 05/12/18 05/12/18 05/12/18 16:41 17:45 18:11 WBC RBC Hgb Hct MCV MCH MCHC RDW Plt Count MPV Neut % (Auto) Lymph % (Auto) [place] % (Auto) Eos % (Auto) Baso % (Auto) Neut # (Auto) Lymph # (Auto) [place] # (Auto) Eos # (Auto) Baso # (Auto) PT 11.9 INR 1.1 APTT 31 Puncture Site pCO2 pO2 HCO3 ABG pH ABG Total CO2 ABG O2 Saturation ABG Base Excess Moiz Test ABG Potassium VBG pH VBG pCO2 VBG HCO3 VBG Total CO2 VBG O2 Sat (Calc) VBG Base Excess VBG Potassium A-a O2 Difference Respiratory Index Glucose Lactate FiO2 Crit Value Called To Crit Value Called By Crit Value Read Back Blood Gas Notified Time Sodium Potassium Chloride Carbon Dioxide Anion Gap BUN Creatinine Est GFR ( Amer) Est GFR (Non-Af Amer) Random Glucose Lactic Acid Calcium Phosphorus Magnesium Total Bilirubin AST ALT Alkaline Phosphatase Total Protein Albumin Globulin Albumin/Globulin Ratio Lipase Procalcitonin 0.16 L Arterial Blood Potassium Venous Blood Potassium Urine Color Urine Clarity Urine pH Ur Specific [place] Urine Protein Urine Glucose (UA) Urine Ketones Urine Blood Urine Nitrate Urine Bilirubin Urine Urobilinogen Ur Leukocyte Esterase Urine WBC (Auto) Urine RBC (Auto) Ur Squamous Epith Cells Hyaline Casts Urine Opiates Screen Urine Methadone Screen Ur Barbiturates Screen Ur Phencyclidine Scrn Ur Amphetamines Screen U Benzodiazepines Scrn U Oth Cocaine Metabols U Cannabinoids Screen Alcohol, Quantitative Influenza Typ A,B (EIA) Negative for flu a/b 05/12/18 05/12/18 05/12/18 19:14 22:16 22:16 WBC RBC Hgb Hct MCV MCH MCHC RDW Plt Count MPV Neut % (Auto) Lymph % (Auto) [place] % (Auto) Eos % (Auto) Baso % (Auto) Neut # (Auto) Lymph # (Auto) [place] # (Auto) Eos # (Auto) Baso # (Auto) PT INR APTT Puncture Site Rra pCO2 30 L pO2 76 L HCO3 30.1 H ABG pH 7.58 H ABG Total CO2 29.0 H ABG O2 Saturation 98.3 H ABG Base Excess 6.6 H Moiz Test Yes ABG Potassium 1.9 L* VBG pH VBG pCO2 VBG HCO3 VBG Total CO2 VBG O2 Sat (Calc) VBG Base Excess VBG Potassium A-a O2 Difference 36.0 Respiratory Index 0.5 Glucose 113 H Lactate 2.8 H FiO2 21.0 Crit Value Called To Er Crit Value Called By Rt Crit Value Read Back Y Blood Gas Notified Time 1916 Sodium 136.0 Potassium Chloride 103.0 Carbon Dioxide Anion Gap BUN Creatinine Est GFR ( Amer) Est GFR (Non-Af Amer) Random Glucose Lactic Acid Calcium Phosphorus Magnesium Total Bilirubin AST ALT Alkaline Phosphatase Total Protein Albumin Globulin Albumin/Globulin Ratio Lipase Procalcitonin Arterial Blood Potassium 1.9 L* Venous Blood Potassium Urine Color Francesca Urine Clarity Hazy Urine pH 9.0 Ur Specific [place] 1.015 Urine Protein Negative Urine Glucose (UA) Normal Urine Ketones Negative Urine Blood Negative Urine Nitrate Negative Urine Bilirubin Negative Urine Urobilinogen 4.0 Ur Leukocyte Esterase Neg Urine WBC (Auto) 2 Urine RBC (Auto) 1 Ur Squamous Epith Cells < 1 Hyaline Casts 3-5 H Urine Opiates Screen Negative Urine Methadone Screen Negative Ur Barbiturates Screen Negative Ur Phencyclidine Scrn Negative Ur Amphetamines Screen Negative U Benzodiazepines Scrn Negative U Oth Cocaine Metabols Negative U Cannabinoids Screen Negative Alcohol, Quantitative Influenza Typ A,B (EIA) 05/13/18 05/13/18 05/13/18 01:15 05:17 06:54 WBC 3.1 L RBC 2.91 L Hgb 9.9 L D Hct 29.3 L MCV 100.8 H MCH 34.0 H MCHC 33.8 RDW 17.4 H Plt Count 118 L D MPV 8.1 Neut % (Auto) 49.1 L Lymph % (Auto) 39.4 [place] % (Auto) 9.7 Eos % (Auto) 1.6 Baso % (Auto) 0.2 Neut # (Auto) 1.5 L Lymph # (Auto) 1.2 [place] # (Auto) 0.3 Eos # (Auto) 0.0 Baso # (Auto) 0.0 PT INR APTT Puncture Site pCO2 pO2 29 L HCO3 ABG pH ABG Total CO2 ABG O2 Saturation ABG Base Excess Moiz Test ABG Potassium VBG pH 7.49 H VBG pCO2 39 L VBG HCO3 28.6 VBG Total CO2 30.9 H VBG O2 Sat (Calc) 56.3 VBG Base Excess 5.9 H VBG Potassium 3.2 L A-a O2 Difference Respiratory Index Glucose 97 Lactate 3.2 H FiO2 Crit Value Called To Crit Value Called By Crit Value Read Back Blood Gas Notified Time Sodium 136.0 131 L Potassium 2.6 L Chloride 103.0 98 Carbon Dioxide 27 Anion Gap 8 L BUN 12 Creatinine 0.5 L Est GFR ( Amer) > 60 Est GFR (Non-Af Amer) > 60 Random Glucose 98 D Lactic Acid Calcium 7.2 L Phosphorus 3.5 Magnesium 2.1 Total Bilirubin 1.5 H AST 33 ALT 10 L Alkaline Phosphatase 120 Total Protein 4.9 L Albumin 2.4 L Globulin 2.5 Albumin/Globulin Ratio 0.9 L Lipase Procalcitonin Arterial Blood Potassium Venous Blood Potassium 3.2 L Urine Color Urine Clarity Urine pH Ur Specific [place] Urine Protein Urine Glucose (UA) Urine Ketones Urine Blood Urine Nitrate Urine Bilirubin Urine Urobilinogen Ur Leukocyte Esterase Urine WBC (Auto) Urine RBC (Auto) Ur Squamous Epith Cells Hyaline Casts Urine Opiates Screen Urine Methadone Screen Ur Barbiturates Screen Ur Phencyclidine Scrn Ur Amphetamines Screen U Benzodiazepines Scrn U Oth Cocaine Metabols U Cannabinoids Screen Alcohol, Quantitative Influenza Typ A,B (EIA) 05/13/18 05/13/18 08:39 08:39 WBC 3.3 L RBC 2.83 L Hgb 9.8 L Hct 28.6 L MCV 100.9 H MCH 34.8 H MCHC 34.5 RDW 17.1 H Plt Count 128 L MPV 8.2 Neut % (Auto) 51.9 Lymph % (Auto) 37.3 [place] % (Auto) 8.7 Eos % (Auto) 1.8 Baso % (Auto) 0.3 Neut # (Auto) 1.7 L Lymph # (Auto) 1.2 [place] # (Auto) 0.3 Eos # (Auto) 0.1 Baso # (Auto) 0.0 PT INR APTT Puncture Site pCO2 pO2 HCO3 ABG pH ABG Total CO2 ABG O2 Saturation ABG Base Excess Moiz Test ABG Potassium VBG pH VBG pCO2 VBG HCO3 VBG Total CO2 VBG O2 Sat (Calc) VBG Base Excess VBG Potassium A-a O2 Difference Respiratory Index Glucose Lactate FiO2 Crit Value Called To Crit Value Called By Crit Value Read Back Blood Gas Notified Time Sodium Potassium Chloride Carbon Dioxide Anion Gap BUN Creatinine Est GFR ( Amer) Est GFR (Non-Af Amer) Random Glucose Lactic Acid 1.4 Calcium Phosphorus Magnesium Total Bilirubin AST ALT Alkaline Phosphatase Total Protein Albumin Globulin Albumin/Globulin Ratio Lipase Procalcitonin Arterial Blood Potassium Venous Blood Potassium Urine Color Urine Clarity Urine pH Ur Specific [place] Urine Protein Urine Glucose (UA) Urine Ketones Urine Blood Urine Nitrate Urine Bilirubin Urine Urobilinogen Ur Leukocyte Esterase Urine WBC (Auto) Urine RBC (Auto) Ur Squamous Epith Cells Hyaline Casts Urine Opiates Screen Urine Methadone Screen Ur Barbiturates Screen Ur Phencyclidine Scrn Ur Amphetamines Screen U Benzodiazepines Scrn U Oth Cocaine Metabols U Cannabinoids Screen Alcohol, Quantitative Influenza Typ A,B (EIA) Assessment & Plan - Assessment and Plan (Free Text) Assessment: Palliative consult Full Code, there is noAdvance directive on chart, PPS 30% I reviewed all Medical records, diagnostic studies, examined and interviewed patient in the bed. Patient is alert, oriented to time, place and person. lack of short term memory. Skin is dry, pitting edema to LEs, pedal edema to both feet. Patient looks unk ept, poor hygiene, there is a body odor. Complains of feeling cold, there is no fever. Diminished breath sounds, no cough, denies SOB. o2Sat 95 % RA HR irregular rhythm, denies chest pain Abdomen soft, active bowel sounds, no BM since admission, last BM was diarrhea as per patient. Denies nausea/abd pain. Patient is edentulous. Pedal edema, active ROM, ambulatory . WBC 3.3, Hb 9.8, K 2.6, Na 131, Ca 7.2, T Dorian 2.5 Goals of care discussed with patient. I elicited his understanding of his cond ition. patient states " I have AIDS". Patient does not remember when and why he stopped his HIV meds. I discussed importance of it and provided him with info on where to get free HIV meds. Patient complained of being tired and wanting to sleep. Further discussion regarding Code status was postponed at this time. Impression * Generalized weakness 2nd to medical condition * Hypokalemia * Tiredness * Alcohol withdrawal * Lack of short term memory * Lack of family support * Non compliance with medical regimen * Electrolyte imbalance Suggestion * Symptoms management of nausea * K supplement * Diet as tolerated * Refer to [facility] for HIV treatment and meds * Promote safety Ideally this patient would benefit from Rehab. I am not sure if he would accept the program or would he be accepted. I will return to further discuss goals of care and Code status. Advance care discussion 35 min.
[2018-05-13] MEDS: Emtricitabine-Tenofovir 200 mg-300 mg Tab PO SCH (12:57)
[2018-05-13] MEDS ORDERED: Iohexol 240 (50 ml) PO ONE (13:00)
[2018-05-13] MEDS: Cefepime IV 1 gm in Dextrose 1 GM/50 ML BAG IVPB SCH (13:59)
--- NOTE | 2018-05-13 14:23 | PCM.PSYCH ---
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 Pt is a poor historian. Consult was requested for his alcoholism. Pt has been non compliant with his HIV medications and has gotten sick. The patient has been unable to explain why he is not taking his medications. He believes that it may be related to feeling depressed. He states that he would like to be admitted to rehab for alcohol. He currently binge drinks one liter of vodka every 3 days, but has not had a drink since being admitted to the hospital. States that he started drinking one year ago after being laid off from his job. Denies alcoholism in the past but admits to using meth in his 20's. Pt has never been to rehab. Pt denies current illicit drug use. Denies SI , but does state that he feels the world would be better of with out him. He has not made a plan to commit suicide and has never written a suicide note. Pt is currently estranged from his family. He does have a partner that comes to see him. Past psych hx : Denies history or psych issues Medical Hx: AIDS, PML, Gastric Ca s/ chemotherapy 5 years ago , Sz Family psych Hx: Brother with psych history ( does not remember) Social: Pts estranged from family, lives alone in apartment at home, on disability from the gastric cancer Psychiatrist: none Current Medications: Active Medications Generic Name Dose Route Start Last Admin Trade Name [place] PRN Reason Stop Dose Admin Dolutegravir Sodium 50 mg 05/13/18 10:05/13/18 12:58 Tivicay PO 50 mg DAILY [facility] Administration Protocol Emtricitabine/Tenofovir 1 tab 05/13/18 10:05/13/18 12:57 Truvada 200 Mg-300 Mg PO 1 tab DAILY [facility] Administration Protocol Escitalopram Oxalate 10 mg 05/13/18 10:05/13/18 09:38 Lexapro PO 10 mg DAILY [facility] Administration Folic Acid 1 mg 05/13/18 10:05/13/18 09:39 Folic Acid PO 1 mg DAILY [facility] Administration Potassium Chloride 20 meq/ 1,010 mls @ 100 mls/hr 05/12/18 18:15 05/13/18 05:46 Sodium Chloride IV 100 mls/hr .Q10H6M [facility] Administration Vancomycin/Sodium Chloride 1 gm in 200 mls @ 166.7 mls/hr 05/12/18 18:15 05/12/18 19:04 Vancomycin 1 Gm/Ns 200 Ml IVPB 05/17/18 18:16 166.7 mls/hr Q24H [facility] Administration Protocol Trimethoprim/Sulfamethoxazole 250 mls @ 250 mls/hr 05/12/18 18:45 05/13/18 08 :45 160 mg/ Dextrose IVPB 250 mls/hr Q12H [facility] Administration Protocol Cefepime HCl 1 gm in 50 mls @ 100 mls/hr 05/13/18 12:15 05/13/18 13:59 Maxipime Iv 1 Gm Premix IVPB 100 mls/hr Q12H [facility] Administration Protocol Lorazepam 1 mg 05/12/18 18:47 Ativan IVP Q3H PRN Symptoms of alcohol withdrawl Mirtazapine 45 mg 05/12/18 22:00 05/13/18 01:25 Remeron PO 45 mg HS [facility] Administration Multivitamins 1 tab 05/13/18 10:00 05/13/18 09:38 Hexavitamin PO 1 tab DAILY [facility] Administration Nicotine 1 patch 05/13/18 10:00 05/13/18 12:57 Nicoderm Cq TD 1 patch DAILY [facility] Administration Nystatin 5 ml 05/12/18 22:00 05/13/18 12:58 Nystatin Oral Susp PO 5 ml QID [facility] Administration Ondansetron HCl 4 mg 05/12/18 19:00 Zofran Inj IVP Q6H PRN Nausea/Vomiting Thiamine HCl 100 mg 05/13/18 10:00 05/13/18 09:38 Vitamin B1 Tab PO 100 mg DAILY [facility] Administration Past Psychiatric History - Past Psychiatric History Previous Treatment History: Intensive Outpatient Pertinent Medical Hx (Current Medical&Sleep Prob, Allergies): Allergies Allergy/AdvReac Type Severity Reaction Status Date / Time No Known Allergies Allergy Verified 03/14/18 18:00 Dolutegravir Sodium [Tivicay] 50 mg PO DAILY #30 tab 02/01/18 Emtricitabine/Tenofovir Diso [Truvada 200 MG-300 MG] 1 tab PO DAILY #30 tab 02/01/18 Escitalopram [Lexapro] 10 mg PO DAILY 30 Days #30 tab 02/01/18 Mirtazapine [Remeron] 15 mg PO HS 30 Days #30 tab 02/01/18 Folic Acid 1 mg PO DAILY #30 tab 03/04/18 Levetiracetam [Keppra] 500 mg PO BID #60 tablet 03/04/18 Thiamine [Vitamin B1 Tab] 100 mg PO DAILY #30 tab 03/04/18 Review of Systems - Psychiatric Psychiatric: Abnormal Sleep Pattern, Anhedonia, Anxiety, Depression, Difficulty Concentrating, Memory Loss, Mood Swings. absent: Hallucinations, Homicidal Ideation, Paranoia, Suicidal Ideation Mental Status Examination - Personal Presentation Personal Presentation: Looks older than stated age - Affect Affect: Constricted - Motor Activity Motor Activity: Calm - Reliability in Providing Information Reliability in Providing Information: Fair - Speech Speech: Organized - Mood Mood: Depressed, Anxious - Formal Thought Process Formal Thought Process: No Impairment - Cognitive Functions Orientation: Person, Place, Situation, Time Sensorium: Alert Attention/Concentration: Easily distracted Abstract Thinking: [place] Estimate of Intelligence: Average Judgement: Intact, as evidence by: Insight regarding need for hospitalization Memory: Recent intact, as evidence by: Ability to recall events of the day, Remote impaired as evidenced by: Inability to recall sig life events - Risk Risk: Withdrawal, Diminished functioning - Strength & Assets Inventory Strength & Assets Inventory: Cooperative - Limitations Limitations: Other DSM 5 DX - DSM 5 DSM 5 Diagnosis: major depressive d/o - severe Alcohol use d/o - severe - Recommended/Plan of Treatment Treatment Recommendations and Plan of Treatment: Taper with prn Ativan Detox schedule if he shows more signs Lexapro and Remeron are already started. Gabapentin for augmentation if needed As needed medications All risks, benefits and alternatives of the meds discussed, and the pt agreed and understood. Attend groups and activities Supportive therapy and psychoeducation IN for abstinence CBT for relapse prevention Encourage MAT Refer to rehab or IOP, and self-help groups Teach healthy lifestyle methods, i.e. diet, exercise, meditation Smoking cessation with IN Nicotine patch if needed 34 min
[2018-05-13] MEDS ORDERED: Potassium Chloride 20 mEq ER Tab PO SCH (14:30)
[2018-05-13] MEDS ORDERED: Iodixanol 320 MG/ML 100 ML BOTTLE IV ONE (16:20)
[2018-05-13] MEDS: Vancomycin 1 gm/NS 200 ml 1 GM/200 ML BAG IVPB SCH (17:50)
[2018-05-13] MEDS: Pantoprazole 40 mg EC Tab PO SCH (17:53)
[2018-05-14] MEDS: Cefepime IV 1 gm in Dextrose 1 GM/50 ML BAG IVPB SCH ×2 (00:40→12:34)
[2018-05-14 05:57] LABS: BASO # 0.1 K/uL (0.0-0.2); BASO % 2.5 % (0.0-2.0); EOS # 0.1 K/uL (0.0-0.7); LYMPH # 1.3 K/uL (1.0-4.3); LYMPH % 27.2 % (20.0-40.0); MEAN CELL VOLUME 103.5 fL (80.0-94.0); MEAN CORPUSCULAR HEMOGLOBIN 35.4 pg (27.0-31.0); MEAN CORPUSCULAR HGB CONC 34.2 g/dL (33.0-37.0); MEAN PLATELET VOLUME 8.5 fL (7.2-11.7); MONO # 0.4 K/uL (0.0-0.8); MONO % 7.4 % (0.0-10.0); NEUT # 2.9 K/uL (1.8-7.0); NEUT % 59.9 % (50.0-75.0); NRBC % 0.1 % (0.0-2.0); RBC 2.84 Mil/uL (4.40-5.90); RED CELL DISTRIBUTION WIDTH 16.5 % (11.5-14.5); WHITE BLOOD COUNT 4.8 K/uL (4.8-10.8)
[2018-05-14] MEDS: Sulfamethoxazole/Trimethoprim 160 MG in Dextrose 5% In Water 250 ML IVPB SCH ×2 (06:14→18:55)
[2018-05-14 06:58] LABS: ALB/GLOB RATIO 0.8 (1.0-2.1); ALBUMIN 2.2 g/dL (3.5-5.0); ALT/SGPT < 6 U/L (21-72); AST/SGOT 38 U/L (17-59); BLOOD UREA NITROGEN 6 mg/dL (9-20); CALCIUM 7.7 mg/dl (8.6-10.4); GFR NON-AFRICAN AMERICAN > 60
--- NOTE | 2018-05-14 07:05 | CP.PCM.PN ---
<Avril Guerra - Last Filed: 05/14/18 14:30> Subjective - Date & Time of Evaluation Date of Evaluation: 05/14/18 Time of Evaluation: 07:04 - Subjective Subjective: PGY-1 Avril Guerra D.O. Medicine progress note for Dr. Valdez's service: Patient was seen and examined this morning. He says that he is feeling better but still weak. He denies further vomiting and says that he is hungry. He said he had multiple bouts of diarrhea last night. Objective - Vital Signs/Intake and Output Vital Signs (last 24 hours): Temp Pulse Resp BP Pulse Ox 97.9 F 82 17 112/68 95 05/14/18 04:00 05/14/18 04:00 05/14/18 04:00 05/14/18 04:00 05/14/18 04:00 Intake and Output: 05/14/18 05/14/18 06:59 18:59 Intake Total 610 Output Total 500 Balance 110 - Medications Medications: Current Medications Dolutegravir Sodium (Tivicay) 50 mg PO DAILY [facility]; Protocol Last Admin: 05/13/18 12:58 Dose: 50 mg Emtricitabine/Tenofovir (Truvada 200 Mg-300 Mg) 1 tab PO DAILY [facility]; Protocol Last Admin: 05/13/18 12:57 Dose: 1 tab Escitalopram Oxalate (Lexapro) 10 mg PO DAILY [facility] Last Admin: 05/13/18 09:38 Dose: 10 mg Folic Acid (Folic Acid) 1 mg PO DAILY [facility] Last Admin: 05/13/18 09:39 Dose: 1 mg Potassium Chloride 20 meq/ (Sodium Chloride) 1,010 mls @ 100 mls/hr IV .Q10H6M [facility] Last Admin: 05/14/18 00:40 Dose: 100 mls/hr Vancomycin/Sodium Chloride (Vancomycin 1 Gm/Ns 200 Ml) 1 gm in 200 mls @ 166.7 mls/hr IVPB Q24H [facility]; Protocol Stop: 05/17/18 18:16 Last Admin: 05/13/18 17:50 Dose: 166.7 mls/hr Trimethoprim/Sulfamethoxazole (160 mg/ Dextrose) 250 mls @ 250 mls/hr IVPB Q12H [facility]; Protocol Last Admin: 05/14/18 06:14 Dose: 250 mls/hr Cefepime HCl (Maxipime Iv 1 Gm Premix) 1 gm in 50 mls @ 100 mls/hr IVPB Q12H [facility]; Protocol Last Admin: 05/14/18 00:40 Dose: 100 mls/hr Levetiracetam (Keppra) 500 mg PO BID [facility] Last Admin: 05/13/18 17:55 Dose: 500 mg Lorazepam (Ativan) 1 mg IVP Q4H PRN PRN Reason: Symptoms of alcohol withdrawl Mirtazapine (Remeron) 45 mg PO HS [facility] Last Admin: 05/13/18 22:38 Dose: 45 mg Multivitamins (Hexavitamin) 1 tab PO DAILY [facility] Last Admin: 05/13/18 09:38 Dose: 1 tab Nicotine (Nicoderm Cq) 1 patch TD DAILY [facility] Last Admin: 05/13/18 12:57 Dose: 1 patch Nystatin (Nystatin Oral Susp) 5 ml PO QID [facility] Last Admin: 05/13/18 22:38 Dose: 5 ml Ondansetron HCl (Zofran Inj) 4 mg IVP Q6H PRN PRN Reason: Nausea/Vomiting Pantoprazole Sodium (Protonix Ec Tab) 40 mg PO DAILY [facility] Last Admin: 05/13/18 17:53 Dose: 40 mg Thiamine HCl (Vitamin B1 Tab) 100 mg PO DAILY [facility] Last Admin: 05/13/18 09:38 Dose: 100 mg - Labs Labs: 05/14/18 05:51 05/14/18 05:50 PT 11.9 SECONDS (9.7-12.2) 05/12/18 17:45 INR 1.1 05/12/18 17:45 APTT 31 SECONDS (21-34) 05/12/18 17:45 - Additional Findings Additional findings: - Constitutional Appears: No Acute Distress, Unkempt - Head Exam Head Exam: ATRAUMATIC, NORMAL INSPECTION - Eye Exam Eye Exam: EOMI, Normal appearance - ENT Exam ENT Exam: Mucous Membranes Moist - Respiratory Exam Respiratory Exam: Clear to Auscultation Bilateral, NORMAL BREATHING PATTERN. absent: Respiratory Distress - Cardiovascular Exam Cardiovascular Exam: RRR, +S1, +S2 - GI/Abdominal Exam GI & Abdominal Exam: Soft. absent: Distended, Tenderness - Extremities Exam Extremities Exam: Normal Inspection. 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 Patient has not been compliant with any of his medications, and he continues to drink alcohol daily. Patient admitted for sepsis- likely GI source. Plan: Sepsis- 2/2 GI source - Code sepsis - Afebrile - Lactate 6.6--> 1.4 - Procal 0.16 - CXR: no active disease - CT A/P: Findings consistent with enteritis and colitis. - Flu negative - UA negative - Blood Cx no growth >24 hrs - Urine Cx: GNR - Stool Cx pending - NS + 20 mEq KCL @ 100 cc/hr - Cefepime 1 g IV IV Q12H- started 05/12 - Vancomycin 1 g IV daily- started 05/12 - Bactrim 160 mg IV Q12H- started 05/12 - ID consulted (Antoine) AIDS - From 01/2018 admission Hepatitis panel negative HIV reactive HIV-1 PCR quantitative 5.48 CD4 count 174 (17%) CD8 count 796 (67%) Toxoplasma Ab positive - Repeat viral load and CD4/CD8 pending - Dolutegravir 50 mg PO daily - Truvada 200-300 mg PO daily - ID consulted (Antoine) Vomiting, acute, improving - Upper GI with small bowel follow-through pending - Zofran 4 mg IV Q6H PRN - GI consulted (Jorge Alberto) Diarrhea, chronic - CT A/P: Findings consistent with enteritis and colitis. - Stool leukocytes pending - Stool O&P pending, Cx pending - Stool studies- Cryptosporidum, Giardia pending - GI consulted (Jorge Alberto) Electrolyte abnormalities - K 2.5 on admission--> 3.4 - Repeat pending - Mg 1.2 on admission--> 2.1 - EKG: prolonged ST segments, flattened T waves - Monitor on telemetry - Replete PRN Alcohol use disorder with withdrawal, chronic - CT A/P: Borderline/mild hepatomegaly with marked fatty hepatic infiltration. - BAL<10 - UDS negative - LFTs wnl - Seizure precautions - Aspiration precautions - Fall precautions - CIWA- 2 - Consider Gabapentin when more stable - Ativan 1 mg IV Q4H PRN - Folate 1 mg PO daily - Thiamine 50 mg PO daily - Multivitamin daily - Cessation counseling - AA referral - Psychiatry consulted (Miguelina) Oral thrush - Nystatin 5 mL PO QID Seizure disorder- 2/2 alcohol use - Seizure precautions - Fall precautions - Aspiration precautions - Neuro checks - Keppra 500 mg PO BID - Neurology consulted (Gus) Depression, chronic - Lexapro 10 mg PO daily - Remeron 15 mg PO QHS - Psychiatry consulted (Miguelina) Progressive multifocal leukoencephalopathy, chronic - Obtained records from [facility] during 01/2018 admission- 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 Rounded area of increased attenuation along the posteromedial margin of the area of encephalomalacia left inferior basal ganglia- residual hemorrhage or early dyst rophic microcalcification-mineralization. - Palliative consulted- very poor prognosis Dementia- 2/2 AIDS, alcohol use - CT head: Redemonstrated localized area encephalomalacia left inferior frontal lobe within adjacent C-shaped calcification along the anterior inferior and medial border- dystrophic due to ischemia or underlying vasular lesion. Rounded area of increased attenuation along the posteromedial margin of the area of encephalomalacia left inferior basal ganglia- residual hemorrhage or early dystrophic microcalcification-mineralization. - MOCA when patient amenable - Neurology consulted (Gus) Tobacco use disorder, chronic - Nicoderm - Cessation counseling H/o gastric cancer - s/p chemotherapy 10 years ago- patient does not remember details/where he was treated - CT A/P: Wall thickening of the stomach with prominent rugal folds in part due to incomplete distention however residual and/or recurrent gastric carcinoma and gastritis to be considered. - Tumor markers pending - GI consulted (Jorge Alberto) Ppx: VTE: SCDs, chemical anticoagulation contraindicated due to fall risk, anemia, and thrombocytopenia GI: Protonix 40 mg PO daily Diet: Regular diet Code status: full code- Palliative consulted Case was discussed with attending, Dr. Valdez. <Suzette Valdez - Last Filed: 05/18/18 17:29> Objective - Vital Signs/Intake and Output Vital Signs (last 24 hours): Temp Pulse Resp BP Pulse Ox 98.1 F 75 20 96/61 L 97 05/17/18 15:00 05/17/18 15:00 05/17/18 15:00 05/17/18 15:00 05/17/18 15:00 Intake and Output: 05/18/18 05/18/18 06:59 18:59 Intake Total 300 Balance 300 - Labs Labs: 05/17/18 07:40 05/17/18 07:40 PT 11.9 SECONDS (9.7-12.2) 05/12/18 17:45 INR 1.1 05/12/18 17:45 APTT 31 SECONDS (21-34) 05/12/18 17:45 Attending/Attestation - Attestation I have personally seen and examined this patient.: Yes I have fully participated in the care of the patient.: Yes I have reviewed all pertinent clinical information, including history, physical exam and plan: Yes Notes (Text): seen and examined with the resident. denies vomting,c/o diarrhea, continue antibiotics and antivirals,follow cultures,follow stool study follow ID
[2018-05-14] MEDS: Nystatin 100,000 Units/ml Oral Susp 5 ml UD PO SCH ×4 (09:15→22:23)
[2018-05-14] MEDS: Multiple Vitamins Tab PO SCH (09:18)
[2018-05-14] MEDS: Pantoprazole 40 mg EC Tab PO SCH (09:19)
[2018-05-14] MEDS: Emtricitabine-Tenofovir 200 mg-300 mg Tab PO SCH (10:01)
--- NOTE | 2018-05-14 10:28 | CP.PCM.PN ---
Subjective - Date & Time of Evaluation Date of Evaluation: 05/14/18 Time of Evaluation: 07:00 - Subjective Subjective: afeb nad appears depressed restarted on HAART rx cultures neg so far Objective - Vital Signs/Intake and Output Vital Signs (last 24 hours): Temp Pulse Resp BP Pulse Ox 97.9 F 82 17 112/68 95 05/14/18 04:00 05/14/18 04:00 05/14/18 04:00 05/14/18 04:00 05/14/18 04:00 Intake and Output: 05/14/18 05/14/18 06:59 18:59 Intake Total 610 Output Total 500 Balance 110 - Medications Medications: Current Medications Dolutegravir Sodium (Tivicay) 50 mg PO DAILY [facility]; Protocol Last Admin: 05/14/18 09:15 Dose: 50 mg Emtricitabine/Tenofovir (Truvada 200 Mg-300 Mg) 1 tab PO DAILY [facility]; Protocol Last Admin: 05/14/18 10:01 Dose: 1 tab Escitalopram Oxalate (Lexapro) 10 mg PO DAILY [facility] Last Admin: 05/14/18 09:16 Dose: 10 mg Folic Acid (Folic Acid) 1 mg PO DAILY [facility] Last Admin: 05/14/18 09:15 Dose: 1 mg Potassium Chloride 20 meq/ (Sodium Chloride) 1,010 mls @ 100 mls/hr IV .Q10H6M [facility] Last Admin: 05/14/18 00:40 Dose: 100 mls/hr Vancomycin/Sodium Chloride (Vancomycin 1 Gm/Ns 200 Ml) 1 gm in 200 mls @ 166.7 mls/hr IVPB Q24H [facility]; Protocol Stop: 05/17/18 18:16 Last Admin: 05/13/18 17:50 Dose: 166.7 mls/hr Trimethoprim/Sulfamethoxazole (160 mg/ Dextrose) 250 mls @ 250 mls/hr IVPB Q12H [facility]; Protocol Last Admin: 05/14/18 06:14 Dose: 250 mls/hr Cefepime HCl (Maxipime Iv 1 Gm Premix) 1 gm in 50 mls @ 100 mls/hr IVPB Q12H [facility]; Protocol Last Admin: 05/14/18 00:40 Dose: 100 mls/hr Levetiracetam (Keppra) 500 mg PO BID [facility] Last Admin: 05/14/18 09:15 Dose: 500 mg Lorazepam (Ativan) 1 mg IVP Q4H PRN PRN Reason: Symptoms of alcohol withdrawl Last Admin: 05/14/18 09:19 Dose: 1 mg Mirtazapine (Remeron) 45 mg PO HS [facility] Last Admin: 05/13/18 22:38 Dose: 45 mg Multivitamins (Hexavitamin) 1 tab PO DAILY [facility] Last Admin: 05/14/18 09:18 Dose: 1 tab Nicotine (Nicoderm Cq) 1 patch TD DAILY [facility] Last Admin: 05/14/18 09:13 Dose: 1 patch Nystatin (Nystatin Oral Susp) 5 ml PO QID [facility] Last Admin: 05/14/18 09:15 Dose: 5 ml Ondansetron HCl (Zofran Inj) 4 mg IVP Q6H PRN PRN Reason: Nausea/Vomiting Last Admin: 05/14/18 09:20 Dose: 4 mg Pantoprazole Sodium (Protonix Ec Tab) 40 mg PO DAILY [facility] Last Admin: 05/14/18 09:19 Dose: 40 mg Thiamine HCl (Vitamin B1 Tab) 100 mg PO DAILY [facility] Last Admin: 05/14/18 09:18 Dose: 100 mg - Labs Labs: 05/14/18 05:51 05/14/18 05:50 PT 11.9 SECONDS (9.7-12.2) 05/12/18 17:45 INR 1.1 05/12/18 17:45 APTT 31 SECONDS (21-34) 05/12/18 17:45 - Head Exam Head Exam: NORMAL INSPECTION - Eye Exam Eye Exam: absent: Scleral icterus - ENT Exam ENT Exam: Mucous Membranes Dry - Neck Exam Neck Exam: Normal Inspection - Respiratory Exam Respiratory Exam: Decreased Breath Sounds - Cardiovascular Exam Cardiovascular Exam: REGULAR RHYTHM - GI/Abdominal Exam GI & Abdominal Exam: Distended, Soft - Rectal Exam Rectal Exam: Deferred - Exam Exam: NORMAL INSPECTION - Extremities Exam Extremities Exam: absent: Calf Tenderness - Back Exam Back Exam: absent: CVA tenderness (L), CVA tenderness (R) - Neurological Exam Neurological Exam: Awake, CN II-XII Intact - Psychiatric Exam Psychiatric exam: Depressed - Skin Skin Exam: Dry Assessment and Plan (1) History of HIV or AIDS Status: Acute - Assessment and Plan (Free Text) Assessment: Patient is a 58 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 Patient has not been compliant with any of his medications, and he continues to drink alcohol daily. Patient admitted for sepsis- likely GI source. Sepsis- 2/2 GI source - Cefepime 1 g IV IV Q12H- started 05/12 - Vancomycin 1 g IV daily- d/c'd as cultures neg - Bactrim 160 mg IV Q12H- started 05/12 AIDS - From 01/2018 admission Hepatitis panel negative HIV reactive HIV-1 PCR quantitative 5.48 CD4 count 174 (17%) CD8 count 796 (67%) Toxoplasma Ab positive - Repeat viral load and CD4/CD8 pending - Dolutegravir 50 mg PO daily - Truvada 200-300 mg PO daily Vomiting, - GI consulted (Jorge Alberto) Diarrhea, chronic - Stool studies- Cryptosporidum, Giardia pending - GI consulted (Jorge Alberto) Electrolyte abnormalities Alcohol use disorder with withdrawal, chronic Oral thrush - Nystatin 5 mL PO QID Seizure disorder- 2/2 alcohol use Depression, chronic - Lexapro 10 mg PO daily - Remeron 15 mg PO QHS - Psychiatry consulted (Miguelina) Progressive multifocal leukoencephalopathy, chronic on HAART Rx - Obtained records from [facility] during 01/2018 admission- 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 Rounded area of increased attenuation along the posteromedial margin of the area of enc ephalomalacia left inferior basal ganglia- residual hemorrhage or early dystrophic microcalcification-mineralization. Dementia- 2/2 AIDS, alcohol use PML
--- NOTE | 2018-05-14 12:24 | CT ---
Date of service: 05/13/2018 PROCEDURE: The CT scan abdomen pelvis HISTORY: Persistent vomiting, diarrhea, h/o gastric cancer COMPARISON: Comparison made with prior CT scan abdomen pelvis dated 01/12 2018. TECHNIQUE: Contiguous axial images of the abdomen and pelvis performed in standard fashion following oral and intravenous injection of approximately 100 cc Visipaque 320 contrast material. Additional 2D sagittal and coronal reformats generated. Radiation dose: Total exam DLP = 512.26 mGy-cm. This CT exam was performed using one or more of the following dose reduction techniques: Automated exposure control, adjustment of the mA and/or kV according to patient size, and/or use of iterative reconstruction technique. FINDINGS: LOWER THORAX: Heart size normal.. Trace pericardial effusion or mild pericardial thickening. There is a small hiatal hernia. Small bilateral effusions and mild bibasilar atelectasis. LIVER: Liver is upper borderline/mildly enlarged measuring nearly 19 cm in CC dimension. Moderate to significant fatty hepatic infiltration.. Portal and splenic veins are opacified. No obvious hepatic mass collection or calcification. GALLBLADDER AND BILE DUCTS: Unremarkable. PANCREAS: Pancreas appears slightly atrophic and fatty replaced. There are no obvious pancreatic masses or collections. SPLEEN: Spleen exhibits normal size and attenuation pattern without mass collection or calcification. ADRENALS: No adrenal lesions. KIDNEYS AND URETERS: Kidneys demonstrate symmetric nephrograms. No evidence of nephrolithiasis hydronephrosis. There is a small approximately 6 mm rounded low-attenuation partially exophytic lesion posterolateral cortex mid pole left kidney that probably represents a small hyperdense cyst based on Hounsfield units in the low 30s. There is an approximately 8 mm low-attenuation focus lower pole right kidney may also represent hyperdense cyst. Renal ultrasound follow-up could confirm if necessary. BLADDER: Urinary bladder appears physiologically distended. No evidence of intraluminal urinary bladder calculi. REPRODUCTIVE: Prostate gland measures approximately 3.8 cm in transverse dimension. APPENDIX: Normal appendix BOWEL: Evaluation of the bowel slightly limited due to incomplete opacification. The stomach appears incompletely distended which in part accounts for thick-walled appearance however residual and/or recurrent gastric carcinoma cannot be excluded on this study... The rugal fold pattern also prominent which could represent a concomitant gastritis. There are several loops of distal small bowel that exhibit thick-walled appearance which could be secondary to an enteritis. There is wall thickening of the ascending and proximal transverse colon and portions of the distal descending/sigmoid colon consistent with a colitis. PERITONEUM: Unremarkable. No fluid collection. No free air. Small fat containing umbilical hernia. Small fat containing bilateral inguinal hernias. LYMPH NODES: Unremarkable. No enlarged lymph nodes. VASCULATURE: Unremarkable. No aortic aneurysm. Minor aortic atherosclerotic calcification or mural plaque present. BONES: Mild multilevel degenerative spondylosis of the lumbar and to a lesser degree lower thoracic spine. OTHER FINDINGS: None. IMPRESSION: Small bilateral effusions and mild bibasilar atelectasis. Borderline/mild hepatomegaly with marked fatty hepatic infiltration. Wall thickening of the stomach with prominent rugal folds in part due to incomplete distention however residual and/or recurrent gastric carcinoma and gastritis to be considered. Findings consistent with enteritis and colitis as above. Probable hyperdense bilateral renal cysts. See above discussion for additional details.
--- NOTE | 2018-05-14 12:52 | CARD ---
APPROVED REPORT Date of service: 05/12/2018 EKG Measurement Heart [id number] <Conclusion> Sinus rhythm with occasional premature ventricular complexes ST & T wave abnormality, consider anterior ischemia Abnormal ECG
--- NOTE | 2018-05-14 13:04 | PCM.PYCHPN ---
Psychiatric Progress Note - Psychiatric Progress Note Patient seen today, length of contact: 15 min Patient Chief Complaint: "Better" Problems Identified/Issues Discussed: The pt is seen again, chart reviewed, and case is discussed with the team. The pt denies any side-effects from meds. Brief individual therapy provided After care discussed again. Medication Change: Yes Medical Record Reviewed: Yes Mental Status Examination - Cognitive Function Orientation: Person, Place, Situation, Time Memory: Impaired Attention: Poor Concentration: Poor Association: WNL Fund of Knowledge: Poor - Mood Mood: Depressed, Anxious - Affect Affect: Constricted - Speech Speech: Appropriate, Soft - Formal Thought Process Formal Thought Process: No Impairment - Suicidal Ideation Suicidal Ideation: No - Homicidal Ideation Homicidal Ideation: No Goal/Treatment Plan - Goal/Treatment Plan Need for Continued Stay: Other (medical) Progress Toward Problem(s) and Goals/Treatment Plan: Taper with prn Ativan Detox schedule if he shows more signs Lexapro and Remeron are already started. Gabapentin for augmentation if needed As needed medications All risks, benefits and alternatives of the meds discussed, and the pt agreed and understood. Supportive therapy and psychoeducation OR for abstinence CBT for relapse prevention Encourage MAT Refer to rehab or IOP, and self-help groups Teach healthy lifestyle methods, i.e. diet, exercise, meditation Smoking cessation with OR Nicotine patch if needed Psy h will sign off
[2018-05-14 18:00] LABS: % CD4 (T HELPER CELL) 24 Percent (30-61); % CD8 (SUPPRESSOR T CELL) 64 Percent (12-42); ABSOLUTE CD3 CELLS 865 Cells/mcL (840-3060); ABSOLUTE CD4 CELLS 236 Cells/mcL (490-1740); ABSOLUTE CD8 CELLS 637 Cells/mcL (180-1170); ABSOLUTE LYMPHOCYTES 1001 Cells/mcL (850-3900); HELPER/SUPPRESSOR RATIO 0.37 Ratio (0.86-5.00)
[2018-05-14 22:36] VITALS: RESP 20
[2018-05-15] MEDS: Cefepime IV 1 gm in Dextrose 1 GM/50 ML BAG IVPB SCH ×2 (00:10→13:10)
[2018-05-15] MEDS: Sulfamethoxazole/Trimethoprim 160 MG in Dextrose 5% In Water 250 ML IVPB SCH (06:27)
[2018-05-15 08:06] LABS: BASO # 0.1 K/uL (0.0-0.2); BASO % 2.2 % (0.0-2.0); EOS # 0.2 K/uL (0.0-0.7); EOS % 5.4 % (0.0-4.0); LYMPH # 1.2 K/uL (1.0-4.3); LYMPH % 28.7 % (20.0-40.0); MEAN CELL VOLUME 103.9 fL (80.0-94.0); MEAN CORPUSCULAR HEMOGLOBIN 34.3 pg (27.0-31.0); MEAN PLATELET VOLUME 8.1 fL (7.2-11.7); MONO # 0.2 K/uL (0.0-0.8); MONO % 5.1 % (0.0-10.0); NEUT # 2.4 K/uL (1.8-7.0); NEUT % 58.6 % (50.0-75.0); RBC 2.34 Mil/uL (4.40-5.90); RED CELL DISTRIBUTION WIDTH 17.2 % (11.5-14.5); WHITE BLOOD COUNT 4.1 K/uL (4.8-10.8)
[2018-05-15 08:08] LABS: ALB/GLOB RATIO 0.7 (1.0-2.1); ALBUMIN 1.6 g/dL (3.5-5.0); ALT/SGPT 23 U/L (21-72); AST/SGOT 25 U/L (17-59); BLOOD UREA NITROGEN 5 mg/dL (9-20); CALCIUM 7.4 mg/dl (8.6-10.4); GFR NON-AFRICAN AMERICAN > 60
--- NOTE | 2018-05-15 09:12 | CP.PCM.PN ---
<Avril Guerra - Last Filed: 05/15/18 14:07> Subjective - Date & Time of Evaluation Date of Evaluation: 05/15/18 Time of Evaluation: 09:12 - Subjective Subjective: PGY-1 Avril Guerra D.O. Medicine progress note for Dr. Valdez's service: Patient was seen and examined this morning. He says he feels better and is eat ing well. He denies further vomiting. He continues to have diarrhea. He says he still feels weak and has not been able to walk yet. He is adamant that he will continue taking his antiviral medications after discharge as he wants to be undetectable again. Objective - Vital Signs/Intake and Output Vital Signs (last 24 hours): Temp Pulse Resp BP Pulse Ox 98.2 F 77 20 101/66 95 05/15/18 07:00 05/15/18 07:51 05/15/18 07:00 05/15/18 07:00 05/15/18 07:00 Intake and Output: 05/15/18 05/15/18 06:59 18:59 Intake Total 1150 900 Output Total 0 Balance 1150 900 - Medications Medications: Current Medications Dolutegravir Sodium (Tivicay) 50 mg PO DAILY [facility]; Protocol Last Admin: 05/14/18 09:15 Dose: 50 mg Emtricitabine/Tenofovir (Truvada 200 Mg-300 Mg) 1 tab PO DAILY [facility]; Protocol Last Admin: 05/14/18 10:01 Dose: 1 tab Escitalopram Oxalate (Lexapro) 10 mg PO DAILY [facility] Last Admin: 05/14/18 09:16 Dose: 10 mg Folic Acid (Folic Acid) 1 mg PO DAILY [facility] Last Admin: 05/14/18 09:15 Dose: 1 mg Potassium Chloride 20 meq/ (Sodium Chloride) 1,010 mls @ 100 mls/hr IV .Q10H6M [facility] Last Admin: 05/14/18 22:51 Dose: 100 mls/hr Trimethoprim/Sulfamethoxazole (160 mg/ Dextrose) 250 mls @ 250 mls/hr IVPB Q12H [facility]; Protocol Last Admin: 05/15/18 06:27 Dose: 250 mls/hr Cefepime HCl (Maxipime Iv 1 Gm Premix) 1 gm in 50 mls @ 100 mls/hr IVPB Q12H [facility]; Protocol Last Admin: 05/15/18 00:10 Dose: 100 mls/hr Magnesium Sulfate/Dextrose (Magnesium Sulfate 1 Gm/100 Ml D5w) 1 gm in 100 mls @ 200 mls/hr IVPB ONCE ONE Stop: 05/15/18 09:39 Levetiracetam (Keppra) 500 mg PO BID [facility] Last Admin: 05/14/18 18:55 Dose: 500 mg Lorazepam (Ativan) 1 mg IVP Q4H PRN PRN Reason: Symptoms of alcohol withdrawl Last Admin: 05/15/18 00:14 Dose: 1 mg Mirtazapine (Remeron) 45 mg PO HS [facility] Last Admin: 05/14/18 22:29 Dose: 45 mg Multivitamins (Hexavitamin) 1 tab PO DAILY [facility] Last Admin: 05/14/18 09:18 Dose: 1 tab Nicotine (Nicoderm Cq) 1 patch TD DAILY [facility] Last Admin: 05/14/18 09:13 Dose: 1 patch Nystatin (Nystatin Oral Susp) 5 ml PO QID [facility] Last Admin: 05/14/18 22:23 Dose: Not Given Ondansetron HCl (Zofran Inj) 4 mg IVP Q6H PRN PRN Reason: Nausea/Vomiting Last Admin: 05/14/18 09:20 Dose: 4 mg Pantoprazole Sodium (Protonix Ec Tab) 40 mg PO DAILY [facility] Last Admin: 05/14/18 09:19 Dose: 40 mg Thiamine HCl (Vitamin B1 Tab) 100 mg PO DAILY [facility] Last Admin: 05/14/18 09:18 Dose: 100 mg - Labs Labs: 05/15/18 07:45 05/15/18 07:45 PT 11.9 SECONDS (9.7-12.2) 05/12/18 17:45 INR 1.1 05/12/18 17:45 APTT 31 SECONDS (21-34) 05/12/18 17:45 - Additional Findings Additional findings: - Constitutional Appears: No Acute Distress, Unkempt - Head Exam Head Exam: ATRAUMATIC, NORMAL INSPECTION - Eye Exam Eye Exam: EOMI, Normal appearance - ENT Exam ENT Exam: Mucous Membranes Moist - Respiratory Exam Respiratory Exam: Clear to Auscultation Bilateral, NORMAL BREATHING PATTERN. absent: Respiratory Distress - Cardiovascular Exam Cardiovascular Exam: RRR, +S1, +S2 - GI/Abdominal Exam GI & Abdominal Exam: Soft. absent: Distended, Tenderness - Extremities Exam Extremities Exam: Normal Inspection. absent: Pedal Edema, Tenderness - Neurological Exam Neurological Exam: Alert, Awake, CN II-XII Intact, Oriented x3 Neuro motor strength exam: Left Upper Extremity: 5, Right Upper Extremity: 5, Left Lower Extremity: 5, Right Lower Extremity: 5 - Psychiatric Exam Psychiatric exam: Depressed, Flat Affect but improved from admission - Skin Skin Exam: Dry, Normal Color, Warm Assessment and Plan - Assessment and Plan (Free Text) Assessment: Patient is a 58 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 Patient has not been compliant with any of his medications, and he continues to drink alcohol daily. Patient admitted for sepsis- likely GI source. Patient has self-reported history of gastric CA. GI is pursuing work-up for persistent diarrhea and vomiting. Patient is weak and deconditioned- needs to work with PT. Plan: Sepsis, acute- 2/2 GI source - Code sepsis - Afebrile - Lactate 6.6--> 1.4 - Procal 0.16 - CXR: no active disease - CT A/P: Findings consistent with enteritis and colitis. - Flu negative - UA negative - Blood Cx no growth >48 hrs - Urine Cx: GNR - Stool Cx pending - NS @ 100 cc/hr - Discontinue Vancomycin 1 g IV daily- started 05/12 - Discontinue Bactrim 160 mg IV Q12H- started 05/12 - Cefepime 1 g IV IV Q12H- started 05/12 - ID consulted (Antoine) AIDS, chronic - From 01/2018 admission Hepatitis panel negative CRISELDA virus negative Toxoplasma Ab positive - CD4 count 236 (24%)- 03/09 admission 239 (19%) - CD8 count wnl 637 (64%) - HIV-1 RNA PCR quantitative 1.36- improved from recent admissions 12/06-03/09 - Dolutegravir 50 mg PO daily - Truvada 200-300 mg PO daily - ID consulted (Antoine)- sensitivity studies as outpatient - PT/OT Vomiting, acute, improving - Upper GI with small bowel follow-through pending for 05/16 - NPO @ midnight - Zofran 4 mg IV Q6H PRN - GI consulted (Jorge Alberto) Diarrhea, chronic - CT A/P: Findings consistent with enteritis and colitis. - Stool leukocytes pending - Stool O&P pending, Cx pending - Stool studies- Cryptosporidum, Giardia pending - C. diff pending - FOBT pending - GI consulted (Jorge Alberto) Electrolyte abnormalities, acute, resolved - K 2.5 on admission--> 4.1 - Repeat pending - Mg 1.2 on admission--> 2.1 - EKG: prolonged ST segments, flattened T waves - Monitor on telemetry - Replete PRN Alcohol use disorder with withdrawal, chronic - CT A/P: Borderline/mild hepatomegaly with marked fatty hepatic infiltration. - BAL<10 - UDS negative - LFTs wnl - Seizure precautions - Aspiration precautions - Fall precautions - CIWA- 2 - Ativan 1 mg IV Q4H PRN - Folate 1 mg PO daily - Thiamine 50 mg PO daily - Multivitamin daily - Cessation counseling - AA referral - Psychiatry consulted (Miguelina) Oral thrush - Nystatin 5 mL PO QID Seizure disorder- 2/2 alcohol use - Seizure precautions - Fall precautions - Aspiration precautions - Neuro checks - Keppra 500 mg PO BID - Neurology consulted (Gus) Depression, chronic - Lexapro 10 mg PO daily - Remeron 15 mg PO QHS - Psychiatry consulted (Miguelina) Progressive multifocal leukoencephalopathy, chronic - Obtained records from [facility] during 01/2018 admission- 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 Rounded area of increased attenuation along the posteromedial margin of the area of encephalomalacia left inferior basal ganglia- residual hemorrhage or early dystrophic microcalcification-mineralization. - Palliative consulted- very poor prognosis Dementia- 2/2 AIDS, alcohol use - CT head: Redemonstrated localized area encephalomalacia left inferior frontal lobe within adjacent C-shaped calcification along the anterior inferior and medial border- dystrophic due to ischemia or underlying vasular lesion. Rounded area of increased attenuation along the posteromedial margin of the area of encephalomalacia left inferior basal ganglia- residual hemorrhage or early dystrophic microcalcification-mineralization. - MOCA when patient amenable - Neurology consulted (Gus) Tobacco use disorder, chronic - Nicoderm - Cessation counseling H/o gastric cancer - s/p chemotherapy 10 years ago- patient does not remember details/where he was treated - CT A/P: Wall thickening of the stomach with prominent rugal folds in part due to incomplete distention however residual and/or recurrent gastric carcinoma and gastritis to be considered. - Tumor markers negative (AFP, CEA, CA 19-9, CA-125) - GI consulted (Jorge Alberto) Ppx: VTE: SCDs, chemical anticoagulation contraindicated due to fall risk, anemia, and thrombocytopenia GI: Protonix 40 mg PO daily Diet: Regular diet Code status: full code- Palliative consulted Case was discussed with attending, Dr. Valdez. <Suzette Vladez - Last Filed: 05/18/18 17:22> Objective - Vital Signs/Intake and Output Vital Signs (last 24 hours): Temp Pulse Resp BP Pulse Ox 98.1 F 75 20 96/61 L 97 05/17/18 15:00 05/17/18 15:00 05/17/18 15:00 05/17/18 15:00 05/17/18 15:00 Intake and Output: 05/18/18 05/18/18 06:59 18:59 Intake Total 300 Balance 300 - Labs Labs: 05/17/18 07:40 05/17/18 07:40 PT 11.9 SECONDS (9.7-12.2) 05/12/18 17:45 INR 1.1 05/12/18 17:45 APTT 31 SECONDS (21-34) 05/12/18 17:45 Attending/Attestation - Attestation I have personally seen and examined this patient.: Yes I have fully participated in the care of the patient.: Yes I have reviewed all pertinent clinical information, including history, physical exam and plan: Yes Notes (Text): seen and examined,patient denies pain,no fever,no cough,c/o diarrhea discussed about antiviral meds compliance
--- NOTE | 2018-05-15 09:34 | PQF ---
PROVIDER RESPONSE TEXT: Patient does not have urosepsis Rule out sepsis,rule out Gastro intestinal infection Empiric antibiotic treatment REVIEWER QUERY TEXT: Clarification of Clinical Diagnostic Findings Please clarify documentation or clinical relevance for the clinical / diagnostic findings or whether those are insignificant or unable to be further specified. UTI in the setting of Sepsis w/ HIV treated with Cefepime IV and Bactrim IV . -Other Explanation. - Unable to Determine The patient's Clinical Indicators include: Clinical Findings: Admitted for Fever ,vomiting, Diarrhea. Positive urine CS for Gm Negative Rods. Treatment : Cefepime IV Risk Factor; Immunocompromised Query created by: Paige Cheatham on 05/14/2018 4:48 PM Electronically signed by: Suzette Valdez MD 05/15/2018 9:31 AM
[2018-05-15] MEDS ORDERED: Magnesium Sulfate 1 gm in D5W 1 GM/100 ML BAG IVPB ONE (10:00)
[2018-05-15] MEDS: Pantoprazole 40 mg EC Tab PO SCH (10:30)
[2018-05-15] MEDS: Multiple Vitamins Tab PO SCH (10:30)
[2018-05-15] MEDS: Nystatin 100,000 Units/ml Oral Susp 5 ml UD PO SCH ×4 (10:31→22:12)
[2018-05-15] MEDS: Emtricitabine-Tenofovir 200 mg-300 mg Tab PO SCH (10:31)
--- NOTE | 2018-05-15 14:58 | PN ---
DATE: 05/15/2018 LOCATION: 553, bed B. SUBJECTIVE: This 58-year-old male seen initially for GI consultation on 05/14/2018 as requested by the admitting MD, seen again in rounds today with a complaint of persistent abdominal pain, postprandial abdominal distention with less oral intake. The entire chart is reviewed including but not limited to most recent lab and radiology study results, current and the previous medication list, and the patient have subsequent drop of hemoglobin to 8, hematocrit 24.3 with normal platelet count, but white blood cells of 4.1 with low BUN and creatinine, calcium 7.4 and phosphorus 1.9 with albumin 1.6, total protein 4. PSA reported to be 8.5 with normal CEA and normal CA 19-9. Most recently abdominal and pelvic CAT scan done through this admission, report is seen, indicative of thickening of the gastric wall with incomplete distention. Evidence of enteritis and colitis also was reported. PHYSICAL EXAMINATION: GENERAL: A 58-year-old female. VITAL SIGNS: Afebrile with pulse of 80, respiratory rate 20 to 22, blood pressure of 110/70. HEENT: Showed pale dry oral mucous membrane. Nonicteric sclerae. LUNGS: Few scattered crepitation. Decreased air entry at bases. HEART: Positive S1 and S2. ABDOMEN: Soft with [id number] generalized tenderness. No mass or organomegaly. No rebound tenderness or guarding. RECTAL: The patient refused. EXTREMITIES: Without significant clubbing, cyanosis or edema. IMPRESSION: 1. Re-exacerbation of peptic ulcer disease. 2. Anemia, to rule out upper versus lower gastrointestinal blood loss. 3. To rule out occult gastrointestinal malignancy. 4. Abnormal CAT of the abdomen and pelvis. 5. Reported history of human immunodeficiency virus with depression. SUGGESTIONS: 1. Continue current management. 2. The patient may need upper GI with small bowel follow-through. 3. Further recommendation to follow. Radha Hernandez MD
[2018-05-15] MEDS: Sodium Chloride 0.9% 1,000 ML IV SCH (15:00)
--- NOTE | 2018-05-15 15:03 | CP.PCM.PN ---
Subjective - Date & Time of Evaluation Date of Evaluation: 05/15/18 Time of Evaluation: 15:00 - Subjective Subjective: Patient examined in bed, sleeping easily aroused. Patient reports feeling equally tired as of the day of admission.Patient complained of abdominal pain, described as discomfort. Regular diet, tolerates it well. CT abdomen significant for colitis. Denies diarrhea. Maxipime IV on board. Hb dropped to 8.0. Objective - Vital Signs/Intake and Output Vital Signs (last 24 hours): Temp Pulse Resp BP Pulse Ox 98.2 F 84 20 101/66 95 05/15/18 07:00 05/15/18 12:00 05/15/18 07:00 05/15/18 07:00 05/15/18 07:00 Intake and Output: 05/15/18 05/15/18 06:59 18:59 Intake Total 1150 900 Output Total 0 Balance 1150 900 - Medications Medications: Current Medications Dolutegravir Sodium (Tivicay) 50 mg PO DAILY [facility]; Protocol Last Admin: 05/15/18 10:31 Dose: 50 mg Emtricitabine/Tenofovir (Truvada 200 Mg-300 Mg) 1 tab PO DAILY [facility]; Protocol Last Admin: 05/15/18 10:31 Dose: 1 tab Escitalopram Oxalate (Lexapro) 10 mg PO DAILY [facility] Last Admin: 05/15/18 10:30 Dose: 10 mg Folic Acid (Folic Acid) 1 mg PO DAILY [facility] Last Admin: 05/15/18 10:31 Dose: 1 mg Cefepime HCl (Maxipime Iv 1 Gm Premix) 1 gm in 50 mls @ 100 mls/hr IVPB Q12H [facility]; Protocol Last Admin: 05/15/18 13:10 Dose: 100 mls/hr Sodium Chloride (Sodium Chloride 0.9%) 1,000 mls @ 100 mls/hr IV .Q10H [facility] Levetiracetam (Keppra) 500 mg PO BID [facility] Last Admin: 05/15/18 10:30 Dose: 500 mg Lorazepam (Ativan) 1 mg IVP Q4H PRN PRN Reason: Symptoms of alcohol withdrawl Last Admin: 05/15/18 00:14 Dose: 1 mg Mirtazapine (Remeron) 45 mg PO HS [facility] Last Admin: 05/14/18 22:29 Dose: 45 mg Multivitamins (Hexavitamin) 1 tab PO DAILY [facility] Last Admin: 05/15/18 10:30 Dose: 1 tab Nicotine (Nicoderm Cq) 1 patch TD DAILY [facility] Last Admin: 05/15/18 10:31 Dose: Not Given Nystatin (Nystatin Oral Susp) 5 ml PO QID [facility] Last Admin: 05/15/18 13:10 Dose: 5 ml Ondansetron HCl (Zofran Inj) 4 mg IVP Q6H PRN PRN Reason: Nausea/Vomiting Last Admin: 05/14/18 09:20 Dose: 4 mg Pantoprazole Sodium (Protonix Ec Tab) 40 mg PO DAILY [facility] Last Admin: 05/15/18 10:30 Dose: 40 mg Thiamine HCl (Vitamin B1 Tab) 100 mg PO DAILY [facility] Last Admin: 05/15/18 10:30 Dose: 100 mg - Labs Labs: 05/15/18 07:45 05/15/18 07:45 PT 11.9 SECONDS (9.7-12.2) 05/12/18 17:45 INR 1.1 05/12/18 17:45 APTT 31 SECONDS (21-34) 05/12/18 17:45 - Constitutional Appears: Chronically Ill - Head Exam Head Exam: ATRAUMATIC, NORMAL INSPECTION, NORMOCEPHALIC - Eye Exam Eye Exam: EOMI, Normal appearance, PERRL Pupil Exam: NORMAL ACCOMODATION, PERRL - ENT Exam ENT Exam: Mucous Membranes Moist, Normal Exam - Neck Exam Neck Exam: Full ROM, Normal Inspection - Respiratory Exam Respiratory Exam: Decreased Breath Sounds, Clear to Ausculation Bilateral, NORMAL BREATHING PATTERN - Cardiovascular Exam Cardiovascular Exam: Tachycardia, Irregular Rhythm - GI/Abdominal Exam GI & Abdominal Exam: Distended, Guarding - Rectal Exam Rectal Exam: Deferred - Exam Exam: NORMAL INSPECTION - Extremities Exam Extremities Exam: Full ROM, Normal Inspection - Back Exam Back Exam: NORMAL INSPECTION - Neurological Exam Neurological Exam: Alert, Oriented x3 Neuro motor strength exam: Left Upper Extremity: 2/1, Right Upper Extremity: 2/1, Left Lower Extremity: 2/1, Right Lower Extremity: 2/1 - Psychiatric Exam Psychiatric exam: Normal Affect, Normal Mood - Skin Skin Exam: Dry, Intact, Normal Color, Pallor, Warm Assessment and Plan - Assessment and Plan (Free Text) Assessment: Patient examined in bed. Reports abdominal discomfort, mostly to RUQ. Colitis as per CT abdomen. Denies diarrhea. Abdomen is mildly distended, guarded upon exam. Patient was sleeping again on this visit .patient reports still feeling tired. Patient denies withdrawal symptoms, states " I stopped drinking 4 days ago". Patient seen by psychiatrist. Goals of care discussed with patient. He stated, wished to feel less tired. need to take his meds regularly and remain sober reinforced. Code status discussed. POLST introduced. Patient is with multiple comorbidity and his Code status should be defined. Patient was very clear that he would want all aggressive interventions to be applied to save his life. If patient becomes unable to make decisions he would want his friend Quan Foster to be his surrogate decision maker. patient was not sure about phone number. Impression * Nausea * Colitis * lack of family support * Anemia * Daytime sleepiness * Poor personal hygiene * Requesting Full Code Suggestion * Zofran 4 mg Iv PRN nausea * Continue IV antibiotics * Monitor Hb, transfuse if hb > 8.0. Would consider Onco consult re Hx of gastric cancer * Reinforce OOB to chair * Please asisit patient with taking shower * Full Code * Consider [facility] for IV antib and PT. Patient may need central line before discharge Palliative care will remain on board until discharge Advance care planing 30 min
--- NOTE | 2018-05-15 15:49 | CP.PCM.CON ---
History of Present Illness - History of Present Illness History of Present Illness: POdiatry Consult Note- Dr. Christopher 58M with PMHx of AIDS, PML, alcohol use disorder, seizures, gastric CA s/p chemotherapy admitted for sepsis and consulted by podiatry for nail care and lower extremity evaluation. Patient is seen with attending Dr. Christopher. Patient seen resting at bedside, in NAD. Patient denies of pain to the lower extremity. Denies numbness and tingling to the lower extremity. Denies nausea or fever. PMH: AIDS, PML, alcohol use disorder, seizures, gastric CA s/p chemotherapy PSH: denies FH:: mother - breast CA SH: current smoker, reports drinking EtOH, denies illicit drug use. MEDS: see med list ALL: NKDA Past Patient History - Infectious Disease Hx of Infectious Diseases: None - Tetanus Immunizations Tetanus Immunization: Unknown - Past Medical History & Family History Past Medical History?: Yes Past Family History: Reviewed and not pertinent - Past Social History Smoking Status: Heavy Smoker > 10 Cigarettes Daily Chewing Tobacco Use: No Cigar Use: No Occupation: disability Alcohol: > 2 Drinks/Day Drugs: Denies Home Situation {Lives}: Alone - CARDIAC Hx Hypertension: No - PULMONARY Hx Respiratory Disorders: No - NEUROLOGICAL Hx Seizures: No - HEENT Hx HEENT Problems: No - RENAL Hx Chronic Kidney Disease: No - ENDOCRINE/METABOLIC Hx Endocrine Disorders: No - HEMATOLOGICAL/ONCOLOGICAL Hx Human Immunodeficiency Virus (HIV): Yes (As per patient "AIDS") - INTEGUMENTARY Hx Dermatological Problems: No - MUSCULOSKELETAL/RHEUMATOLOGICAL Hx Musculoskeletal Disorders: Yes Hx Falls: Yes - GASTROINTESTINAL Hx Gastrointestinal Disorders: Yes Hx Diarrhea: Yes Other/Comment: stomach/colon CA - GENITOURINARY/GYNECOLOGICAL Hx Sexually Transmitted Disorders: No - PSYCHIATRIC Hx Depression: Yes Hx Substance Use: No (HX OF METH USE "NOT IN MANY YEARS") - SURGICAL HISTORY Hx Surgeries: Yes Other/Comment: brain biopsy ? - ANESTHESIA Hx Anesthesia: Yes Meds Allergies/Adverse Reactions: Allergies Allergy/AdvReac Type Severity Reaction Status Date / Time No Known Allergies Allergy Verified 03/14/18 18:00 - Medications Medications: Current Medications Dolutegravir Sodium (Tivicay) 50 mg PO DAILY [facility]; Protocol Last Admin: 05/15/18 10:31 Dose: 50 mg Emtricitabine/Tenofovir (Truvada 200 Mg-300 Mg) 1 tab PO DAILY [facility]; Protocol Last Admin: 05/15/18 10:31 Dose: 1 tab Escitalopram Oxalate (Lexapro) 10 mg PO DAILY [facility] Last Admin: 05/15/18 10:30 Dose: 10 mg Folic Acid (Folic Acid) 1 mg PO DAILY [facility] Last Admin: 05/15/18 10:31 Dose: 1 mg Cefepime HCl (Maxipime Iv 1 Gm Premix) 1 gm in 50 mls @ 100 mls/hr IVPB Q12H [facility]; Protocol Last Admin: 05/15/18 13:10 Dose: 100 mls/hr Sodium Chloride (Sodium Chloride 0.9%) 1,000 mls @ 100 mls/hr IV .Q10H [facility] Last Admin: 05/15/18 15:00 Dose: 100 mls/hr Levetiracetam (Keppra) 500 mg PO BID [facility] Last Admin: 05/15/18 10:30 Dose: 500 mg Lorazepam (Ativan) 1 mg IVP Q4H PRN PRN Reason: Symptoms of alcohol withdrawl Last Admin: 05/15/18 00:14 Dose: 1 mg Mirtazapine (Remeron) 45 mg PO HS [facility] Last Admin: 05/14/18 22:29 Dose: 45 mg Multivitamins (Hexavitamin) 1 tab PO DAILY [facility] Last Admin: 05/15/18 10:30 Dose: 1 tab Nicotine (Nicoderm Cq) 1 patch TD DAILY [facility] Last Admin: 05/15/18 10:31 Dose: Not Given Nystatin (Nystatin Oral Susp) 5 ml PO QID [facility] Last Admin: 05/15/18 13:10 Dose: 5 ml Ondansetron HCl (Zofran Inj) 4 mg IVP Q6H PRN PRN Reason: Nausea/Vomiting Last Admin: 05/14/18 09:20 Dose: 4 mg Pantoprazole Sodium (Protonix Ec Tab) 40 mg PO DAILY [facility] Last Admin: 05/15/18 10:30 Dose: 40 mg Thiamine HCl (Vitamin B1 Tab) 100 mg PO DAILY [facility] Last Admin: 05/15/18 10:30 Dose: 100 mg Physical Exam - Constitutional Appears: Well, Non-toxic, No Acute Distress - Extremities Exam Extremities exam: Negative for: calf tenderness Additional comments: VASC: DP and PT 1/4 bilaterally, CFT <3 seconds, temperature gradient WNL ORTHO: no pain with palpation to calf or entire lower extremity and foot. MM is 4/5 in all four compartments: dorsiflexion, plantarflexion, inversion and eversion NEURO: gross and protective sensation intact DERM: no open lesions, brown discoloration noted on dorsum of toes, xerosis noted to lower extremity, no interdigital maceration noted, no clinical signs of infection, elongated toenails 1-5 bilaterally - Neurological Exam Neurological exam: Alert, Oriented x3 Results - Vital Signs Recent Vital Signs: Last Vital Signs Temp 98.2 F 05/15/18 07:00 Pulse 84 05/15/18 12:00 Resp 20 05/15/18 07:00 BP 101/66 05/15/18 07:00 Pulse Ox 95 05/15/18 07:00 - Labs Result Diagrams: 05/15/18 07:45 05/15/18 07:45 Labs: Laboratory Results - last 24 hr 05/13/18 05/13/18 05/13/18 05:17 05:17 12:47 WBC RBC Hgb Hct MCV MCH MCHC RDW Plt Count MPV Neut % (Auto) Lymph % (Auto) [place] % (Auto) Eos % (Auto) Baso % (Auto) Neut # (Auto) Lymph # (Auto) [place] # (Auto) Eos # (Auto) Baso # (Auto) Sodium Potassium Chloride Carbon Dioxide Anion Gap BUN Creatinine Est GFR ( Amer) Est GFR (Non-Af Amer) Random Glucose Calcium Phosphorus Magnesium Total Bilirubin AST ALT Alkaline Phosphatase Total Protein Albumin Globulin Albumin/Globulin Ratio Alpha Fetoprotein Carcinoembryonic Ag CA 19-9 Antigen CA 125 Antigen Prostate Specific Ag Absolute Lymphs (Flow) 1001 % CD3 Cells 86 H Absolute CD3 Count 865 % CD4 Cells 24 L Absolute CD4 Count 236 L T-Help/Suppress Ratio 0.37 L % CD8 Cells 64 H Absolute CD8 Count 637 Cryptococcus Ag Screen Not detected HIV-1 RNA Qnt (RT-PCR) 1.36 H 05/14/18 05/14/18 05/15/18 19:42 19:42 07:45 WBC 4.1 L RBC 2.34 L Hgb 8.0 L D Hct 24.3 L MCV 103.9 H MCH 34.3 H MCHC 33.0 RDW 17.2 H Plt Count 163 MPV 8.1 Neut % (Auto) 58.6 Lymph % (Auto) 28.7 [place] % (Auto) 5.1 Eos % (Auto) 5.4 H Baso % (Auto) 2.2 H Neut # (Auto) 2.4 Lymph # (Auto) 1.2 [place] # (Auto) 0.2 Eos # (Auto) 0.2 Baso # (Auto) 0.1 Sodium Potassium Chloride Carbon Dioxide Anion Gap BUN Creatinine Est GFR ( Amer) Est GFR (Non-Af Amer) Random Glucose Calcium Phosphorus Magnesium Total Bilirubin AST ALT Alkaline Phosphatase Total Protein Albumin Globulin Albumin/Globulin Ratio Alpha Fetoprotein 2.5 Carcinoembryonic Ag 2.5 CA 19-9 Antigen 23.1 CA 125 Antigen 10.9 Prostate Specific Ag 8.53 H Absolute Lymphs (Flow) % CD3 Cells Absolute CD3 Count % CD4 Cells Absolute CD4 Count T-Help/Suppress Ratio % CD8 Cells Absolute CD8 Count Cryptococcus Ag Screen HIV-1 RNA Qnt (RT-PCR) 05/15/18 07:45 WBC RBC Hgb Hct MCV MCH MCHC RDW Plt Count MPV Neut % (Auto) Lymph % (Auto) [place] % (Auto) Eos % (Auto) Baso % (Auto) Neut # (Auto) Lymph # (Auto) [place] # (Auto) Eos # (Auto) Baso # (Auto) Sodium 134 Potassium 4.1 Chloride 107 Carbon Dioxide 26 Anion Gap 6 L BUN 5 L Creatinine 0.7 L Est GFR ( Amer) > 60 Est GFR (Non-Af Amer) > 60 Random Glucose 104 D Calcium 7.4 L Phosphorus 1.9 L Magnesium 1.7 Total Bilirubin 0.4 AST 25 ALT 23 Alkaline Phosphatase 87 Total Protein 4.0 L Albumin 1.6 L D Globulin 2.4 Albumin/Globulin Ratio 0.7 L Alpha Fetoprotein Carcinoembryonic Ag CA 19-9 Antigen CA 125 Antigen Prostate Specific Ag Absolute Lymphs (Flow) % CD3 Cells Absolute CD3 Count % CD4 Cells Absolute CD4 Count T-Help/Suppress Ratio % CD8 Cells Absolute CD8 Count Cryptococcus Ag Screen HIV-1 RNA Qnt (RT-PCR) Assessment & Plan - Assessment and Plan (Free Text) Assessment: 58M with PMHx of AIDS, PML, alcohol use disorder, seizures, gastric CA s/p chemotherapy admitted for sepsis with 1) elongated nails x10 2) xerosis cutis Plan: Patient seen and examined with attending Dr. Christopher at bedside Patient refused toenails debrided, reports he will do them himself tomorrow Ordered Ammonium Lactate lotion, to be applied every other day. Avoid interspaces Explained to patient to continue applying lotion at home and avoid interspaces Patient is stable per podiatry standpoint Patient to follow up with Dr. Christopher for nail care and rountine foot examination Thank you for allowing us to participate in patient's care
[2018-05-15] MEDS ORDERED: Ammonium Lactate 12% Lotion (225 g) EXT ONE (16:00)
--- NOTE | 2018-05-15 22:26 | CP.PCM.PN ---
Subjective - Date & Time of Evaluation Date of Evaluation: 05/15/18 Time of Evaluation: 09:00 - Subjective Subjective: awake alert c/o diarrhea no fever Objective - Vital Signs/Intake and Output Vital Signs (last 24 hours): Temp Pulse Resp BP Pulse Ox 98.4 F 93 H 20 129/78 95 05/15/18 16:50 05/15/18 17:12 05/15/18 16:50 05/15/18 16:50 05/15/18 16:50 Intake and Output: 05/15/18 05/16/18 18:59 06:59 Intake Total 900 Output Total 0 Balance 900 - Medications Medications: Current Medications Dolutegravir Sodium (Tivicay) 50 mg PO DAILY [facility]; Protocol Last Admin: 05/15/18 10:31 Dose: 50 mg Emtricitabine/Tenofovir (Truvada 200 Mg-300 Mg) 1 tab PO DAILY [facility]; Protocol Last Admin: 05/15/18 10:31 Dose: 1 tab Escitalopram Oxalate (Lexapro) 10 mg PO DAILY [facility] Last Admin: 05/15/18 10:30 Dose: 10 mg Folic Acid (Folic Acid) 1 mg PO DAILY [facility] Last Admin: 05/15/18 10:31 Dose: 1 mg Cefepime HCl (Maxipime Iv 1 Gm Premix) 1 gm in 50 mls @ 100 mls/hr IVPB Q12H [facility]; Protocol Last Admin: 05/15/18 13:10 Dose: 100 mls/hr Sodium Chloride (Sodium Chloride 0.9%) 1,000 mls @ 100 mls/hr IV .Q10H [facility] Last Admin: 05/15/18 15:00 Dose: 100 mls/hr Levetiracetam (Keppra) 500 mg PO BID [facility] Last Admin: 05/15/18 17:57 Dose: 500 mg Lorazepam (Ativan) 1 mg IVP Q4H PRN PRN Reason: Symptoms of alcohol withdrawl Last Admin: 05/15/18 00:14 Dose: 1 mg Mirtazapine (Remeron) 45 mg PO HS [facility] Last Admin: 05/15/18 22:12 Dose: 45 mg Multivitamins (Hexavitamin) 1 tab PO DAILY [facility] Last Admin: 05/15/18 10:30 Dose: 1 tab Nicotine (Nicoderm Cq) 1 patch TD DAILY [facility] Last Admin: 05/15/18 10:31 Dose: Not Given Nystatin (Nystatin Oral Susp) 5 ml PO QID [facility] Last Admin: 05/15/18 22:12 Dose: 5 ml Ondansetron HCl (Zofran Inj) 4 mg IVP Q6H PRN PRN Reason: Nausea/Vomiting Last Admin: 05/14/18 09:20 Dose: 4 mg Pantoprazole Sodium (Protonix Ec Tab) 40 mg PO DAILY [facility] Last Admin: 05/15/18 10:30 Dose: 40 mg Thiamine HCl (Vitamin B1 Tab) 100 mg PO DAILY [facility] Last Admin: 05/15/18 10:30 Dose: 100 mg - Labs Labs: 05/15/18 07:45 05/15/18 07:45 PT 11.9 SECONDS (9.7-12.2) 05/12/18 17:45 INR 1.1 05/12/18 17:45 APTT 31 SECONDS (21-34) 05/12/18 17:45 - Constitutional Appears: Non-toxic, Chronically Ill - Head Exam Head Exam: NORMOCEPHALIC - Eye Exam Eye Exam: Scleral icterus Pupil Exam: NORMAL ACCOMODATION - ENT Exam ENT Exam: Mucous Membranes Dry - GI/Abdominal Exam GI & Abdominal Exam: Normal Bowel Sounds - Rectal Exam Rectal Exam: Deferred - Exam Exam: NORMAL INSPECTION - Extremities Exam Extremities Exam: Pedal Edema (x) - Back Exam Back Exam: CVA tenderness (L), NORMAL INSPECTION - Neurological Exam Neurological Exam: Alert, Awake, CN II-XII Intact, Oriented x3 - Psychiatric Exam Psychiatric exam: Depressed - Skin Skin Exam: Dry Assessment and Plan (1) History of HIV or AIDS Status: Acute - Assessment and Plan (Free Text) Assessment: d/c IV bactrim await urine c/s results cont [facility] rx
[2018-05-16] MEDS: Cefepime IV 1 gm in Dextrose 1 GM/50 ML BAG IVPB SCH (00:15)
[2018-05-16] MEDS: Sodium Chloride 0.9% 1,000 ML IV SCH (00:26)
--- NOTE | 2018-05-16 07:04 | CP.PCM.PN ---
<Avril Guerra - Last Filed: 05/16/18 13:57> Subjective - Date & Time of Evaluation Date of Evaluation: 05/16/18 Time of Evaluation: 07:04 - Subjective Subjective: PGY-1 Avril Guerra D.O. Medicine progress note for Dr. Shin's service: Patient was seen and examined this morning. he says he is still not feeling well but feels better than when he was first admitted. He denies further vomiting. Denies abdominal pain. He says he continues to have diarrhea. Nursing reports that patient is incontinent of urine and stool. He is tolerating PO diet well. he says that when he tried to walk, he felt weak. Denies fevers and chills. Objective - Vital Signs/Intake and Output Vital Signs (last 24 hours): Temp Pulse Resp BP Pulse Ox 98.1 F 94 H 20 121/79 98 05/15/18 23:51 05/16/18 00:56 05/15/18 23:51 05/15/18 23:51 05/15/18 23:51 - Medications Medications: Current Medications Dolutegravir Sodium (Tivicay) 50 mg PO DAILY [facility]; Protocol Last Admin: 05/15/18 10:31 Dose: 50 mg Emtricitabine/Tenofovir (Truvada 200 Mg-300 Mg) 1 tab PO DAILY [facility]; Protocol Last Admin: 05/15/18 10:31 Dose: 1 tab Escitalopram Oxalate (Lexapro) 10 mg PO DAILY [facility] Last Admin: 05/15/18 10:30 Dose: 10 mg Folic Acid (Folic Acid) 1 mg PO DAILY [facility] Last Admin: 05/15/18 10:31 Dose: 1 mg Cefepime HCl (Maxipime Iv 1 Gm Premix) 1 gm in 50 mls @ 100 mls/hr IVPB Q12H [facility]; Protocol Last Admin: 05/16/18 00:15 Dose: 100 mls/hr Sodium Chloride (Sodium Chloride 0.9%) 1,000 mls @ 100 mls/hr IV .Q10H [facility] Last Admin: 05/16/18 00:26 Dose: 100 mls/hr Levetiracetam (Keppra) 500 mg PO BID [facility] Last Admin: 05/15/18 17:57 Dose: 500 mg Lorazepam (Ativan) 1 mg IVP Q4H PRN PRN Reason: Symptoms of alcohol withdrawl Last Admin: 05/15/18 00:14 Dose: 1 mg Mirtazapine (Remeron) 45 mg PO HS [facility] Last Admin: 05/15/18 22:12 Dose: 45 mg Multivitamins (Hexavitamin) 1 tab PO DAILY [facility] Last Admin: 05/15/18 10:30 Dose: 1 tab Nicotine (Nicoderm Cq) 1 patch TD DAILY [facility] Last Admin: 05/15/18 10:31 Dose: Not Given Nystatin (Nystatin Oral Susp) 5 ml PO QID [facility] Last Admin: 05/15/18 22:12 Dose: 5 ml Ondansetron HCl (Zofran Inj) 4 mg IVP Q6H PRN PRN Reason: Nausea/Vomiting Last Admin: 05/16/18 00:17 Dose: 4 mg Pantoprazole Sodium (Protonix Ec Tab) 40 mg PO DAILY [facility] Last Admin: 05/15/18 10:30 Dose: 40 mg Thiamine HCl (Vitamin B1 Tab) 100 mg PO DAILY [facility] Last Admin: 05/15/18 10:30 Dose: 100 mg - Labs Labs: 05/15/18 07:45 05/15/18 07:45 PT 11.9 SECONDS (9.7-12.2) 05/12/18 17:45 INR 1.1 05/12/18 17:45 APTT 31 SECONDS (21-34) 05/12/18 17:45 - Additional Findings Additional findings: - Constitutional Appears: No Acute Distress, Unkempt - Head Exam Head Exam: ATRAUMATIC, NORMAL INSPECTION - Eye Exam Eye Exam: EOMI, Normal appearance - ENT Exam ENT Exam: Mucous Membranes Moist - Respiratory Exam Respiratory Exam: Clear to Auscultation Bilateral, NORMAL BREATHING PATTERN. absent: Respiratory Distress - Cardiovascular Exam Cardiovascular Exam: RRR, +S1, +S2 - GI/Abdominal Exam GI & Abdominal Exam: Soft. absent: Distended, Tenderness - Extremities Exam Extremities Exam: Normal Inspection, 1+ pedal edema bilaterally. absent: Tenderness - Neurological Exam Neurological Exam: Alert, Awake, CN II-XII Intact, Oriented x3 Neuro motor strength exam: Left Upper Extremity: 5, Right Upper Extremity: 5, Left Lower Extremity: 5, Right Lower Extremity: 5 - Psychiatric Exam Psychiatric exam: Depressed, Flat Affect but improved from admission - Skin Skin Exam: Dry, Normal Color, Warm Assessment and Plan - Assessment and Plan (Free Text) Assessment: Patient is a 58 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 Patient has not been compliant with any of his medications, and he continues to drink alcohol daily. Patient admitted for sepsis- likely GI source. Patient has self-reported history of gastric CA. GI is pursuing work-up for persistent diarrhea and vomiting.CT showed enteritis and colitis. He is being treated with antibiotics. ID on board, and patient restarted on antivirals. Psych on board, and patient restarted on antidepressants. Patient admits to not taking care of his ADLs. He is working with PT. Plan: Sepsis 2/2 intra-abdominal infection, acute, improving - Code sepsis - Afebrile - Lactate 6.6--> 1.4 - Procal 0.16 - CXR: no active disease - CT A/P: Findings consistent with enteritis and colitis. - Flu negative - UA negative - Blood Cx no growth >3 days - Urine Cx: GNR <10,000 cfu - Stool Cx no growth - Discontinue IVF - Discontinue Cefepime 1 g IV IV Q12H- started 05/12 - Start Flagyl 500 mg PO Q8H- started 05/16 - Start Cipro 500 mg PO BID- started 05/16 - ID consulted (Antoine) Lower extremity edema, acute - Echo pending AIDS, chronic - From 01/2018 admission Hepatitis panel negative CRISELDA virus negative Toxoplasma Ab positive - CD4 count 236 (24%)- 03/09 admission 239 (19%) - CD8 count wnl 637 (64%) - HIV-1 RNA PCR quantitative 1.36- improved from recent admissions 12/06-03/09 - Monitor CBC - Dolutegravir 50 mg PO daily - Truvada 200-300 mg PO daily - ID consulted (Antoine)- sensitivity studies as outpatient - PT/OT Vomiting, acute, resolved - Zofran 4 mg IV Q6H PRN - GI consulted (Jorge Alberto)- may need upper GI series with small bowel follow-through Diarrhea, chronic - CT A/P: Findings consistent with enteritis and colitis. - Stool leukocytes pending - Stool O&P pending - C. diff pending - FOBT pending - Stool Cx negtive - Stool Cryptosporidum, Giardia negative - GI consulted (Jorge Alberto) Electrolyte abnormalities, acute, improving - K 2.5 on admission--> 4.1 - Repeat pending - Mg 1.2 on admission--> 2.1 - EKG: prolonged ST segments, flattened T waves - Monitor on telemetry - Replete PRN Alcohol use disorder with withdrawal, chronic - CT A/P: Borderline/mild hepatomegaly with marked fatty hepatic infiltration. - BAL<10 - UDS negative - LFTs wnl - Seizure precautions - Aspiration precautions - Fall precautions - CIWA- 2 - Ativan 1 mg IV Q4H PRN - Folate 1 mg PO daily - Thiamine 50 mg PO daily - Multivitamin daily - Cessation counseling - AA referral - Psychiatry consulted (Miguelina) Oral thrush - Nystatin 5 mL PO QID Seizure disorder- 2/2 alcohol use - Seizure precautions - Fall precautions - Aspiration precautions - Neuro checks - Keppra 500 mg PO BID - Neurology consulted (Nilton) Depression, chronic - Lexapro 10 mg PO daily - Remeron 15 mg PO QHS - Psychiatry consulted (Miguelina) Progressive multifocal leukoencephalopathy, chronic - Obtained records from [facility] [place] during 01/2018 admission- 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 Rounded area of increased attenuation along the posteromedial margin of the area of encephalomalacia left inferior basal ganglia- residual hemorrhage or early dystrophic microcalcification-mineralization. - Palliative consulted- very poor prognosis Dementia- 2/2 AIDS, alcohol use - CT head: Redemonstrated localized area encephalomalacia left inferior frontal lobe within adjacent C-shaped calcification along the anterior inferior and medial border- dystrophic due to ischemia or underlying vasular lesion. Rounded area of increased attenuation along the posteromedial margin of the area of encephalomalacia left inferior basal ganglia- residual hemorrhage or early dystrophic microcalcification-mineralization. - MOCA when patient amenable - Neurology consulted (Nilton) - CM/SW Tobacco use disorder, chronic - Nicoderm - Cessation counseling H/o gastric cancer - s/p chemotherapy 10 years ago- patient does not remember details/where he was treated - CT A/P: Wall thickening of the stomach with prominent rugal folds in part due to incomplete distention however residual and/or recurrent gastric carcinoma and gastritis to be considered. - Tumor markers negative (AFP, CEA, CA 19-9, CA-125) - GI consulted (Jorge Alberto) Xerosis cutis and elongated nails - Ammonium Lactate lotion- apply every other day, avoid interspaces - Podiatry consulted (Candi) Ppx: VTE: SCDs, chemical anticoagulation contraindicated due to fall risk, anemia, and thrombocytopenia GI: Protonix 40 mg PO daily Diet: Regular diet Code status: full code- Palliative consulted Case was discussed with attending, Dr. Shin. <Lionel Shin - Last Filed: 05/16/18 15:16> Objective - Vital Signs/Intake and Output Vital Signs (last 24 hours): Temp Pulse Resp BP Pulse Ox 97.8 F 77 20 108/76 96 05/16/18 08:01 05/16/18 08:01 05/16/18 08:01 05/16/18 08:01 05/16/18 08:01 - Medications Medications: Current Medications Ciprofloxacin (Cipro) 500 mg PO BID [facility]; Protocol Last Admin: 05/16/18 13:45 Dose: 500 mg Dolutegravir Sodium (Tivicay) 50 mg PO DAILY [facility]; Protocol Last Admin: 05/16/18 13:44 Dose: 50 mg Emtricitabine/Tenofovir (Truvada 200 Mg-300 Mg) 1 tab PO DAILY [facility]; Protocol Last Admin: 05/16/18 13:45 Dose: 1 tab Escitalopram Oxalate (Lexapro) 10 mg PO DAILY [facility] Last Admin: 05/16/18 13:45 Dose: 10 mg Folic Acid (Folic Acid) 1 mg PO DAILY [facility] Last Admin: 05/16/18 13:44 Dose: 1 mg Levetiracetam (Keppra) 500 mg PO BID [facility] Last Admin: 05/16/18 13:44 Dose: 500 mg Lorazepam (Ativan) 1 mg IVP Q4H PRN PRN Reason: Symptoms of alcohol withdrawl Last Admin: 05/15/18 00:14 Dose: 1 mg Metronidazole (Flagyl) 500 mg PO Q8 [facility]; Protocol Last Admin: 05/16/18 13:45 Dose: 500 mg Mirtazapine (Remeron) 45 mg PO HS [facility] Last Admin: 05/15/18 22:12 Dose: 45 mg Multivitamins (Hexavitamin) 1 tab PO DAILY [facility] Last Admin: 05/16/18 13:45 Dose: 1 tab Nicotine (Nicoderm Cq) 1 patch TD DAILY [facility] Last Admin: 05/16/18 10:56 Dose: Not Given Nystatin (Nystatin Oral Susp) 5 ml PO QID [facility] Last Admin: 05/16/18 13:45 Dose: 5 ml Ondansetron HCl (Zofran Inj) 4 mg IVP Q6H PRN PRN Reason: Nausea/Vomiting Last Admin: 05/16/18 00:17 Dose: 4 mg Pantoprazole Sodium (Protonix Ec Tab) 40 mg PO DAILY [facility] Last Admin: 05/16/18 13:44 Dose: 40 mg Thiamine HCl (Vitamin B1 Tab) 100 mg PO DAILY [facility] Last Admin: 05/16/18 13:45 Dose: 100 mg - Labs Labs: 05/16/18 07:20 05/16/18 07:20 PT 11.9 SECONDS (9.7-12.2) 05/12/18 17:45 INR 1.1 05/12/18 17:45 APTT 31 SECONDS (21-34) 05/12/18 17:45 Attending/Attestation - Attestation I have personally seen and examined this patient.: Yes I have fully participated in the care of the patient.: Yes I have reviewed all pertinent clinical information, including history, physical exam and plan: Yes
[2018-05-16 07:35] LABS: BASO # 0.1 K/uL (0.0-0.2); EOS # 0.2 K/uL (0.0-0.7); LYMPH # 1.2 K/uL (1.0-4.3); MONO # 0.5 K/uL (0.0-0.8); NEUT # 2.8 K/uL (1.8-7.0); WHITE BLOOD COUNT 4.9 K/uL (4.8-10.8)
[2018-05-16 07:38] LABS: BASO % 2.1 % (0.0-2.0); EOS % 3.4 % (0.0-4.0); HEMOGLOBIN 8.8 g/dL (12.0-18.0); LYMPH % 24.8 % (20.0-40.0); MEAN CELL VOLUME 102.7 fL (80.0-94.0); MEAN CORPUSCULAR HEMOGLOBIN 35.9 pg (27.0-31.0); MEAN CORPUSCULAR HGB CONC 34.9 g/dL (33.0-37.0); MEAN PLATELET VOLUME 7.9 fL (7.2-11.7); MONO % 11.1 % (0.0-10.0); NEUT % 58.6 % (50.0-75.0); RBC 2.44 Mil/uL (4.40-5.90); RED CELL DISTRIBUTION WIDTH 16.6 % (11.5-14.5)
[2018-05-16 07:53] LABS: ALB/GLOB RATIO 0.8 (1.0-2.1); ALBUMIN 1.9 g/dL (3.5-5.0); ALT/SGPT 22 U/L (21-72); AST/SGOT 25 U/L (17-59); BLOOD UREA NITROGEN 5 mg/dL (9-20); CALCIUM 7.9 mg/dl (8.6-10.4); GFR NON-AFRICAN AMERICAN > 60
[2018-05-16] MEDS ORDERED: Barium Sulfate for Susp 98% w/w 340g Bottle ONE (10:08)
[2018-05-16] MEDS ORDERED: Barium Sulfate for Susp 96% w/w 176g Bottle PR ONE (10:08)
[2018-05-16] MEDS: Multiple Vitamins Tab PO SCH ×2 (10:55→13:45)
[2018-05-16] MEDS: Emtricitabine-Tenofovir 200 mg-300 mg Tab PO SCH ×2 (10:56→13:45)
[2018-05-16] MEDS: Nystatin 100,000 Units/ml Oral Susp 5 ml UD PO SCH ×4 (10:56→21:48)
[2018-05-16] MEDS: Pantoprazole 40 mg EC Tab PO SCH ×2 (10:56→13:44)
--- NOTE | 2018-05-16 14:41 | RAD ---
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 COMPARISON: None available. TECHNIQUE: Three view obtained. FINDINGS: The lungs are well inflated. There is interval development of discoid atelectasis in the right mid lung. There is mild pulmonary venous congestion. Mild cardiomegaly. There are atherosclerotic aortic calcifications. BOWEL: The bowel gas pattern is nonspecific. There is large amount of stool in the left hemicolon. There is contrast material in the sigmoid colon. BONES: Normal. OTHER FINDINGS: None. IMPRESSION: Nonspecific nonobstructive bowel gas pattern. Large amount of stool in the colon. Discoid atelectasis in the right mid lung, new since the prior examination.
--- NOTE | 2018-05-16 17:18 | PN ---
DATE: 05/16/2018 LOCATION: 569, bed B. SUBJECTIVE: This is a 58-year-old male seen and examined in rounds without significant clinical changes with less oral intake and mild episodes of diarrhea, which have been subsiding. No chest pain, palpitations or evidence of active GI bleeding. The entire chart is reviewed including but not limited to the most recent lab and radiology study results, current and the previous medication list, current and the previous medical events. In record, the patient mentioned today that he was informed he has gastric CA and was treated by chemotherapy only during his full episode of AIDS. LABORATORY DATA: Today's lab showed normal white blood cells, hemoglobin 8.8, hematocrit 25.1 with low BUN and creatinine. Calcium 7.9, albumin 1.9, total protein 4.5 with recently reported elevated PSA to 8.53. The patient had recently CAT scan of the abdomen and pelvis, official report is seen indicative of small bilateral pleural effusion with hepatomegaly and thickened abdominal wall with incomplete distention of the stomach but could be secondary to recurrent gastric carcinoma. It has to be mentioned clearly that I asked for upper GI with small bowel follow through, which was performed but no actual official report here. IMPRESSION: 1. Human immunodeficiency virus with acquired immunodeficiency syndrome by recent history as per the patient's statement. 2. Known history of gastric carcinoma treated with chemotherapy only. 3. Anemia secondary to above. There is no evidence of active gastrointestinal bleeding in the meantime. 4. 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 SUGGESTIONS: 1. Continue current management. 2. Followup with upper GI with small bowel follow through. 3. Surgical consultation. 4. Oncology/Hematology followup. No need for aggressive gastrointestinal workup, in the meantime, the patient has a well diagnosed gastric carcinoma by history. Radha Hernandez MD
--- NOTE | 2018-05-16 17:24 | CARD ---
APPROVED REPORT Date of service: 05/16/2018 EXAM: Two-dimensional and M-mode echocardiogram with Doppler and color Doppler. Other Information Quality : GoodRhythm : INDICATION Chest Pain Palpitations HIV, smoking, alcohol, lower extremity edema 2D DIMENSIONS IVSd1.4 (0.7-1.1cm)LVDd4.7 (3.9-5.9cm) PWd1.1 (0.7-1.1cm)LA [id number] (18-58mL) LVDs2.6 (2.5-4.0cm)FS (%) 44.0 % LVEF (%)75.2 (>50%)LVEF (Ceja's)70 % M-Mode DIMENSIONS Left Atrium (MM)3.37 (2.5-4.0cm)IVSd1.14 (0.7-1.1cm) Aortic Root4.03 (2.2-3.7cm)LVDd4.89 (4.0-5.6cm) Aortic Cusp Exc.2.59 (1.5-2.0cm)PWd0.90 (0.7-1.1cm) FS (%) 48 %LVDs2.56 (2.0-3.8cm) LVEF (%)79 (>50%) Mitral Valve MV E Kwqbthgs36.2cm/sMV A Hrjuxlwp27.0cm/sE/A ratio0.7 TDI Lateral E' Peak V7.19cm/sMedial E' Peak V7.51cm/sE/Lateral E'8.8 E/Medial E'8.4 Tricuspid Valve TR Peak Jcxhgbov455jw/sTR Peak Gr.[id number] LEFT VENTRICLE The left ventricle is normal size. There is normal left ventricular wall thickness. The left ventricular systolic function is normal. The left ventricular ejection fraction is within the normal range. There is normal LV segmental wall motion. Grade I diastolic - abnormal relaxation pattern. Normal left atrial pressure by Tissue Doppler. RIGHT VENTRICLE The right ventricle is normal size. The right ventricular systolic function is normal. ATRIA The left atrium size is normal. The right atrium size is normal. AORTIC VALVE The aortic valve is normal in structure. No aortic regurgitation is present. There is no aortic valvular stenosis. MITRAL VALVE The mitral valve is normal in structure. There is no mitral valve regurgitation noted. TRICUSPID VALVE The tricuspid valve is normal in structure. There is trace to mild tricuspid regurgitation. There is no pulmonary hypertension. PULMONIC VALVE The pulmonary valve is normal in structure. There is trace pulmonic valvular regurgitation. GREAT VESSELS The aortic root is borderline to mildly enlarged. The IVC is normal in size and collapses >50% with inspiration. PERICARDIAL EFFUSION There is no pericardial effusion. <Conclusion> The left ventricular systolic function is normal. There is normal LV segmental wall motion. Grade I diastolic - abnormal relaxation pattern. Normal left atrial pressure by Tissue Doppler. The right ventricular systolic function is normal. No significant valvular abnormality. The aortic root is borderline to mildly enlarged. There is no pericardial effusion.
--- NOTE | 2018-05-16 18:41 | CP.PCM.PN ---
Subjective - Date & Time of Evaluation Date of Evaluation: 05/16/18 Time of Evaluation: 09:00 - Subjective Subjective: events noted CD4 > 200 makes OI less likely Objective - Vital Signs/Intake and Output Vital Signs (last 24 hours): Temp Pulse Resp BP Pulse Ox 98.1 F 74 20 103/60 100 05/16/18 17:46 05/16/18 17:46 05/16/18 15:00 05/16/18 17:46 05/16/18 15:00 - Medications Medications: Current Medications Ciprofloxacin (Cipro) 500 mg PO BID [facility]; Protocol Last Admin: 05/16/18 17:36 Dose: 500 mg Dolutegravir Sodium (Tivicay) 50 mg PO DAILY [facility]; Protocol Last Admin: 05/16/18 13:44 Dose: 50 mg Emtricitabine/Tenofovir (Truvada 200 Mg-300 Mg) 1 tab PO DAILY [facility]; Protocol Last Admin: 05/16/18 13:45 Dose: 1 tab Escitalopram Oxalate (Lexapro) 10 mg PO DAILY [facility] Last Admin: 05/16/18 13:45 Dose: 10 mg Folic Acid (Folic Acid) 1 mg PO DAILY [facility] Last Admin: 05/16/18 13:44 Dose: 1 mg Levetiracetam (Keppra) 500 mg PO BID [facility] Last Admin: 05/16/18 17:35 Dose: 500 mg Lorazepam (Ativan) 1 mg IVP Q4H PRN PRN Reason: Symptoms of alcohol withdrawl Last Admin: 05/15/18 00:14 Dose: 1 mg Metronidazole (Flagyl) 500 mg PO Q8 [facility]; Protocol Last Admin: 05/16/18 13:45 Dose: 500 mg Mirtazapine (Remeron) 45 mg PO HS [facility] Last Admin: 05/15/18 22:12 Dose: 45 mg Multivitamins (Hexavitamin) 1 tab PO DAILY [facility] Last Admin: 05/16/18 13:45 Dose: 1 tab Nicotine (Nicoderm Cq) 1 patch TD DAILY [facility] Last Admin: 05/16/18 10:56 Dose: Not Given Nystatin (Nystatin Oral Susp) 5 ml PO QID [facility] Last Admin: 05/16/18 17:41 Dose: Not Given Ondansetron HCl (Zofran Inj) 4 mg IVP Q6H PRN PRN Reason: Nausea/Vomiting Last Admin: 05/16/18 00:17 Dose: 4 mg Pantoprazole Sodium (Protonix Ec Tab) 40 mg PO DAILY [facility] Last Admin: 05/16/18 13:44 Dose: 40 mg Thiamine HCl (Vitamin B1 Tab) 100 mg PO DAILY [facility] Last Admin: 05/16/18 13:45 Dose: 100 mg - Labs Labs: 05/16/18 07:20 05/16/18 07:20 PT 11.9 SECONDS (9.7-12.2) 05/12/18 17:45 INR 1.1 05/12/18 17:45 APTT 31 SECONDS (21-34) 05/12/18 17:45 - Constitutional Appears: Non-toxic, Chronically Ill - Head Exam Head Exam: NORMOCEPHALIC - Eye Exam Eye Exam: absent: Scleral icterus - ENT Exam ENT Exam: Mucous Membranes Dry - Neck Exam Neck Exam: absent: Lymphadenopathy - Respiratory Exam Respiratory Exam: Decreased Breath Sounds - Cardiovascular Exam Cardiovascular Exam: REGULAR RHYTHM - GI/Abdominal Exam GI & Abdominal Exam: Distended - Rectal Exam Rectal Exam: Deferred - Exam Exam: NORMAL INSPECTION - Extremities Exam Extremities Exam: absent: Pedal Edema - Back Exam Back Exam: absent: CVA tenderness (L), CVA tenderness (R) - Neurological Exam Neurological Exam: Altered Assessment and Plan (1) History of HIV or AIDS Status: Acute - Assessment and Plan (Free Text) Assessment: cont HAART rx agree with your plan needs psych eval ongoing
[2018-05-17 07:47] LABS: BASO # 0.1 K/uL (0.0-0.2); EOS # 0.3 K/uL (0.0-0.7); EOS % 5.6 % (0.0-4.0); HEMOGLOBIN 8.9 g/dL (12.0-18.0); LYMPH # 1.3 K/uL (1.0-4.3); LYMPH % 28.4 % (20.0-40.0); MEAN CELL VOLUME 104.5 fL (80.0-94.0); MEAN CORPUSCULAR HEMOGLOBIN 35.5 pg (27.0-31.0); MEAN PLATELET VOLUME 7.8 fL (7.2-11.7); MONO # 0.7 K/uL (0.0-0.8); MONO % 14.2 % (0.0-10.0); NEUT # 2.3 K/uL (1.8-7.0); NEUT % 48.8 % (50.0-75.0); NRBC % 0.3 % (0.0-2.0); RBC 2.52 Mil/uL (4.40-5.90); RED CELL DISTRIBUTION WIDTH 16.9 % (11.5-14.5); WHITE BLOOD COUNT 4.7 K/uL (4.8-10.8)
[2018-05-17 08:01] LABS: ALB/GLOB RATIO 0.8 (1.0-2.1); ALBUMIN 1.9 g/dL (3.5-5.0); ALT/SGPT 13 U/L (21-72); AST/SGOT 22 U/L (17-59); BLOOD UREA NITROGEN 6 mg/dL (9-20); CALCIUM 7.8 mg/dl (8.6-10.4); GFR NON-AFRICAN AMERICAN > 60
[2018-05-17] MEDS: Emtricitabine-Tenofovir 200 mg-300 mg Tab PO SCH (09:13)
[2018-05-17] MEDS: Multiple Vitamins Tab PO SCH (09:14)
[2018-05-17] MEDS: Pantoprazole 40 mg EC Tab PO SCH (09:14)
[2018-05-17] MEDS: Nystatin 100,000 Units/ml Oral Susp 5 ml UD PO SCH ×3 (09:15→17:18)
--- NOTE | 2018-05-17 12:55 | CP.PCM.DIS ---
Provider - Provider Date of Admission: 05/13/18 21:24 Attending physician: Suzette Valdez MD Primary care physician: none Consults: 05/12/18 18:19 Palliative Care Consult Stat Comment: Consulting Provider: Abena Moreno Physician Instructions: Reason For Exam: Patient has AID and PML biopys 05/12/18 18:38 Infectious Disease Consult Routine Comment: Consulting Provider: Tenzin Schultz Consulting Physician: Tenzin Schultz Reason for Consult: noncompliant AIDS Neurology Consult Routine Comment: Consulting Provider: Franck Weber Consulting Physician: Franck Weber Reason for Consult: seizures, alcohol 05/13/18 08:27 Psychiatry Consult Routine Comment: Consulting Provider: Elina Mcintyre Consulting Physician: Elina Mcintyre Reason for Consult: depression, alcohol 05/13/18 09:39 Gastroenterology Consult Routine Comment: Consulting Provider: Radha Azul Consulting Physician: Radha Azul Reason for Consult: vomiting, diarrhea, h/o of gastric CA 05/14/18 08:00 Wound Care [Nursing Referral for Wound Care] Routine Comment: Physician Instructions: Reason For Exam: Sacral Scoriation , MASD 05/14/18 14:53 Podiatry Consult Routine Comment: Consulting Provider: Benja Christopher Consulting Physician: Benja Christopher Reason for Consult: keratolytic nails 05/16/18 07:02 Case Management Referral Routine Comment: Physician Instructions: Reason For Exam: please eval for possible [facility] placement Reason for Referral: Discharge Planning Time Spent in preparation of Discharge (in minutes): 45 Diagnosis - Discharge Diagnosis (1) Hypomagnesemia Status: Resolved Priority: High (2) Sepsis Status: Resolved Priority: High (3) Hypokalemia Status: Resolved Priority: High (4) Colitis Status: Acute Priority: High (5) AIDS (acquired immune deficiency syndrome) Status: Chronic Priority: Medium (6) Lower extremity edema Status: Chronic Priority: Medium (7) Dementia Status: Chronic Priority: Medium (8) Alcohol use disorder Status: Chronic Priority: Medium (9) Seizure disorder Status: Chronic Priority: Medium (10) Depression Status: Chronic Priority: Medium (11) Tobacco use disorder Status: Chronic Priority: Low Hospital Course - Lab Results Lab Results: Micro Results 05/12/18 16:15 Blood Blood Culture - Preliminary NO GROWTH AFTER 4 DAYS 05/12/18 15:45 Blood Blood Culture - Preliminary NO GROWTH AFTER 4 DAYS 05/13/18 10:00 Stool Stool Culture - Final NO SALMONELLA, SHIGELLA OR CAMPYLOBACTER ISOLATED. 05/14/18 19:45 Naris MRSA Culture - Final MRSA NOT DETECTED 05/13/18 09:21 Naris MRSA Culture (Admit) - Final MRSA NOT DETECTED 05/12/18 22:16 Urine Random Urine Culture - Final Gram Negative Diomedes Most Recent Lab Values WBC 4.7 K/uL (4.8-10.8) L 05/17/18 07:40 RBC 2.52 Mil/uL (4.40-5.90) L 05/17/18 07:40 Hgb 8.9 g/dL (12.0-18.0) L 05/17/18 07:40 Hct 26.3 % (35.0-51.0) L 05/17/18 07:40 MCV 104.5 fL (80.0-94.0) H 05/17/18 07:40 MCH 35.5 pg (27.0-31.0) H 05/17/18 07:40 MCHC 34.0 g/dL (33.0-37.0) 05/17/18 07:40 RDW 16.9 % (11.5-14.5) H 05/17/18 07:40 Plt Count 282 K/uL (130-400) 05/17/18 07:40 MPV 7.8 fL (7.2-11.7) 05/17/18 07:40 Neut % (Auto) 48.8 % (50.0-75.0) L 05/17/18 07:40 Lymph % (Auto) 28.4 % (20.0-40.0) 05/17/18 07:40 Piute % (Auto) 14.2 % (0.0-10.0) H 05/17/18 07:40 Eos % (Auto) 5.6 % (0.0-4.0) H 05/17/18 07:40 Baso % (Auto) 3.0 % (0.0-2.0) H 05/17/18 07:40 Neut # (Auto) 2.3 K/uL (1.8-7.0) 05/17/18 07:40 Lymph # (Auto) 1.3 K/uL (1.0-4.3) 05/17/18 07:40 Piute # (Auto) 0.7 K/uL (0.0-0.8) 05/17/18 07:40 Eos # (Auto) 0.3 K/uL (0.0-0.7) 05/17/18 07:40 Baso # (Auto) 0.1 K/uL (0.0-0.2) 05/17/18 07:40 PT 11.9 SECONDS (9.7-12.2) 05/12/18 17:45 INR 1.1 05/12/18 17:45 APTT 31 SECONDS (21-34) 05/12/18 17:45 Puncture Site Rra 05/12/18 19:14 pCO2 30 mm/Hg (35-45) L 05/12/18 19:14 pO2 29 mm/Hg (30-55) L 05/13/18 01:15 HCO3 30.1 mmol/L (21-28) H 05/12/18 19:14 ABG pH 7.58 (7.35-7.45) H 05/12/18 19:14 ABG Total CO2 29.0 mmol/L (22-28) H 05/12/18 19:14 ABG O2 Saturation 98.3 % (95-98) H 05/12/18 19:14 ABG Base Excess 6.6 mmol/L (-2.0-3.0) H 05/12/18 19:14 Moiz Test Yes 05/12/18 19:14 ABG Potassium 1.9 mmol/L (3.6-5.2) L* 05/12/18 19:14 VBG pH 7.49 (7.32-7.43) H 05/13/18 01:15 VBG pCO2 39 mmHg (40-60) L 05/13/18 01:15 VBG HCO3 28.6 mmol/L 05/13/18 01:15 VBG Total CO2 30.9 mmol/L (22-28) H 05/13/18 01:15 VBG O2 Sat (Calc) 56.3 % (40-65) 05/13/18 01:15 VBG Base Excess 5.9 mmol/L (0.0-2.0) H 05/13/18 01:15 VBG Potassium 3.2 mmol/L (3.6-5.2) L 05/13/18 01:15 A-a O2 Difference 36.0 mm/Hg 05/12/18 19:14 Respiratory Index 0.5 05/12/18 19:14 Sodium 136.0 mmol/l (132-148) 05/13/18 01:15 Chloride 103.0 mmol/L (98-107) 05/13/18 01:15 Glucose 97 mg/dl (75-110) 05/13/18 01:15 Lactate 3.2 mmol/L (0.7-2.1) H 05/13/18 01:15 FiO2 21.0 % 05/12/18 19:14 Crit Value Called To Er 05/12/18 19:14 Crit Value Called By Rt 05/12/18 19:14 Crit Value Read Back Y 05/12/18 19:14 Blood Gas Notified Time 191605/12/18 19:14 Sodium 134 mmol/L (132-148) 05/17/18 07:40 Potassium 4.2 mmol/L (3.6-5.2) 05/17/18 07:40 Chloride 108 mmol/L (98-107) H 05/17/18 07:40 Carbon Dioxide 24 mmol/L (22-30) 05/17/18 07:40 Anion Gap 7 (10-20) L 05/17/18 07:40 BUN 6 mg/dL (9-20) L 05/17/18 07:40 Creatinine 0.7 mg/dL (0.8-1.5) L 05/17/18 07:40 Est GFR ( Amer) > 60 05/17/18 07:40 Est GFR (Non-Af Amer) > 60 05/17/18 07:40 Random Glucose 85 mg/dL (75-110) 05/17/18 07:40 Lactic Acid 1.4 mmol/L (0.7-2.1) 05/13/18 08:39 Calcium 7.8 mg/dl (8.6-10.4) L 05/17/18 07:40 Phosphorus 2.7 mg/dL (2.5-4.5) 05/17/18 07:40 Magnesium 1.9 mg/dL (1.6-2.3) 05/17/18 07:40 Total Bilirubin 0.3 mg/dL (0.2-1.3) 05/17/18 07:40 AST 22 U/L (17-59) 05/17/18 07:40 ALT 13 U/L (21-72) L D 05/17/18 07:40 Alkaline Phosphatase 112 U/L (38-126) 05/17/18 07:40 Total Protein 4.3 g/dL (6.3-8.3) L 05/17/18 07:40 Albumin 1.9 g/dL (3.5-5.0) L 05/17/18 07:40 Globulin 2.4 gm/dL (2.2-3.9) 05/17/18 07:40 Albumin/Globulin Ratio 0.8 (1.0-2.1) L 05/17/18 07:40 Lipase 38 U/L (23-300) 05/12/18 16:19 Alpha Fetoprotein 2.5 ng/mL (0.0-7.5) 05/14/18 19:42 Carcinoembryonic Ag 2.5 ng/mL (0-3.0) 05/14/18 19:42 CA 19-9 Antigen 23.1 U/mL (0-37) 05/14/18 19:42 CA 125 Antigen 10.9 U/mL (0-35) 05/14/18 19:42 Prostate Specific Ag 8.53 ng/mL (0.00-4.0) H 05/14/18 19:42 Procalcitonin 0.16 NG/ML (0.19-0.49) L 05/12/18 18:11 Arterial Blood Potassium 1.9 mmol/L (3.6-5.2) L* 05/12/18 19:14 Venous Blood Potassium 3.2 mmol/L (3.6-5.2) L 05/13/18 01:15 Urine Color Francesca (YELLOW) 05/12/18 22:16 Urine Clarity Hazy (Clear) 05/12/18 22:16 Urine pH 9.0 (5.0-8.0) 05/12/18 22:16 Ur Specific Chase 1.015 (1.003-1.030) 05/12/18 22:16 Urine Protein Negative mg/dL (NEGATIVE) 05/12/18 22:16 Urine Glucose (UA) Normal mg/dL (Normal) 05/12/18 22:16 Urine Ketones Negative mg/dL (NEGATIVE) 05/12/18 22:16 Urine Blood Negative (NEGATIVE) 05/12/18 22:16 Urine Nitrate Negative (NEGATIVE) 05/12/18 22:16 Urine Bilirubin Negative (NEGATIVE) 05/12/18 22:16 Urine Urobilinogen 4.0 mg/dL (0.2-1.0) 05/12/18 22:16 Ur Leukocyte Esterase Neg Manish/uL (Negative) 05/12/18 22:16 Urine WBC (Auto) 2 /hpf (0-5) 05/12/18 22:16 Urine RBC (Auto) 1 /hpf (0-3) 05/12/18 22:16 Ur Squamous Epith Cells < 1 /hpf (0-5) 05/12/18 22:16 Hyaline Casts 3-5 /lpf (0-2) H 05/12/18 22:16 Urine Opiates Screen Negative (NEGATIVE) 05/12/18 22:16 Urine Methadone Screen Negative (NEGATIVE) 05/12/18 22:16 Ur Barbiturates Screen Negative (NEGATIVE) 05/12/18 22:16 Ur Phencyclidine Scrn Negative (NEGATIVE) 05/12/18 22:16 Ur Amphetamines Screen Negative (NEGATIVE) 05/12/18 22:16 U Benzodiazepines Scrn Negative (NEGATIVE) 05/12/18 22:16 U Oth Cocaine Metabols Negative (NEGATIVE) 05/12/18 22:16 U Cannabinoids Screen Negative (NEGATIVE) 05/12/18 22:16 Alcohol, Quantitative < 10 mg/dl (0-10) 05/12/18 16:19 Absolute Lymphs (Flow) 1001 Cells/mcL (850-3900) 05/13/18 05:17 % CD3 Cells 86 Percent (57-85) H 05/13/18 05:17 Absolute CD3 Count 865 Cells/mcL (840-3060) 05/13/18 05:17 % CD4 Cells 24 Percent (30-61) L 05/13/18 05:17 Absolute CD4 Count 236 Cells/mcL (490-1740) L 05/13/18 05:17 T-Help/Suppress Ratio 0.37 Ratio (0.86-5.00) L 05/13/18 05:17 % CD8 Cells 64 Percent (12-42) H 05/13/18 05:17 Absolute CD8 Count 637 Cells/mcL (180-1170) 05/13/18 05:17 Cryptococcus Ag Screen Not detected (Not Detected) 05/13/18 12:47 Giardia Antigen Not detected (Not Detected) 05/14/18 05:42 HIV-1 RNA Qnt (RT-PCR) 1.36 (Not Detected) H 05/13/18 05:17 Influenza Typ A,B (EIA) Negative for flu a/b (NEGATIVE) 05/12/18 16:41 - Hospital Course Hospital Course: Patient is a 58 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 Patient says that he started feeling weak about 7 days ago. He started vomiting 3 days ago. He also admits to subjective fevers and chills. He says that he is continuing to drink daily. He has not eaten in 9 days. He has not had a drink in 2 days. He says even bringing food to his mouth makes him vomit. He says he vomited 150 times. He is unsure if there was blood in his stool. He says he has had diarrhea for awhile. He denies blood in his stool. Patient states that he has not been taking any of his medications. He cannot really provide a reason as to why not but admits to still being depressed. He failed to follow-up with any physicians after being discharged in January or February. He says that he thinks an inpatient rehab for alcohol would help him the most. Patient was admitted for sepsis. This was secondary to GI infection. Lactate was elevateed at 6.6 and resolved with IVF and abx. CXR and UA unremarkable. CT A/P showed enteritis and colitis. Patient has a history of gastric cancer. GI was consulted. Tumor markers negative (AFP, CEA, CA 19-9, CA-125) GI recommended outpatient follow-up with GI, hem/onc, and surgery. Additionally, patient's potassium and magnesium were significantly low. These were repleted and corrected. Patient was monitored for alcohol withdrawal and given Ativan PRN. Patient was counseled daily on alcohol and tobacco cessation. Neurology was consulted for history of seizures likely related to alcohol. Patient was restarted on Keppra. Patient was noted to have bilateral lower extremity edema. Echo was done showing normal EF and only grade 1 diastolic dysfunction. Patient was startedon Lasix. Patient was restarted on antivirals. ID was consulted. CD$ count 236. Patient was restarted on antidepressants. Psychiatry was consulted. Patient was noted to have poor short-term memory. He likely has a component of dementia due to AIDS, PML, and alcohol use. Specifically, his mental and functionally status were noted to be progressively worse than he prior recent admissions. Palliative care was consulted. Patient wished to remain full code. - CT head: Redemonstrated localized area encephalomalacia left inferior frontal lobe within adjacent C-shaped calcification along the anterior inferior and medial border- dystrophic due to ischemia or underlying vasular lesion. Rounded area of increased attenuation along the posteromedial margin of the area of encephalomalacia left inferior basal ganglia- residual hemorrhage or early dystrophic microcalcification-mineralization. Upon discharge, patient was no longer vomiting. He was tolerating PO diet. He says his diarrhea was still present but improved. His labs and vitals were stable. He was able to walk independently. He was provided with all follow-up information and prescriptions. Patient was counseled daily on importance of medication compliance. Discharge Exam - Head Exam Head Exam: ATRAUMATIC, NORMOCEPHALIC - Eye Exam Eye Exam: EOMI, Normal appearance - ENT Exam ENT Exam: Mucous Membranes Moist - Neck Exam Neck exam: Normal Inspection - Respiratory Exam Respiratory Exam: Clear to PA & Lateral, NORMAL BREATHING PATTERN, UNREMARKABLE - Cardiovascular Exam Cardiovascular Exam: RRR, +S1, +S2 - GI/Abdominal Exam GI & Abdominal Exam: Soft, Unremarkable. absent: Distended, Tenderness - Extremities Exam Extremities exam: pedal edema (2+ bilateral), pedal pulses present - Back Exam Back exam: NORMAL INSPECTION - Neurological Exam Neurological exam: Alert, CN II-XII Intact - Psychiatric Exam Psychiatric exam: Depressed, Flat Affect - Skin Skin Exam: Dry, Normal Color, Warm Discharge Plan - Discharge Medications Prescriptions: Ciprofloxacin [Cipro] 500 mg PO BID #20 tab Dolutegravir Sodium [Tivicay] 50 mg PO DAILY #30 tab Emtricitabine/Tenofovir Diso [Truvada 200 MG-300 MG] 1 tab PO DAILY #30 tab Escitalopram [Lexapro] 10 mg PO DAILY #30 tab Furosemide [Lasix] 20 mg PO DAILY #30 tab levETIRAcetam [Keppra] 500 mg PO BID #60 tab metroNIDAZOLE [Flagyl] 500 mg PO Q8 #30 tab Mirtazapine [Remeron] 45 mg PO HS #30 tab - Follow Up Plan Condition: STABLE Disposition: HOME/ ROUTINE Patient education suggested?: Yes Instructions: Ciprofloxacin (Systemic), Metronidazole (Systemic), Seizures, Adult (DC), Emtricitabine and Tenofovir Disoproxil Fumarate, Escitalopram, Furosemide, Levetiracetam, Mirtazapine, Dolutegravir Additional Instructions: Schedule appointment at [facility] for [place] care. Call [phone]. Schedule appointment with psychiatrist, Dr. Elina Mcintyre. Call [phone]. Schedule appointment with infectious disease specialist, Dr. Tenzin Schultz. Call [phone]. All follow up appointments should be made to take place in 7-10 days. Go to [facility] located at [address] [place] [address] in [place], [place] for assistance and resources for your history of HIV. Call [phone] or [phone] for help finding resources to help you quit drinking. Call [phone] to get help to stop smoking. You may use [id number] nicotine patches or gum. Take all medications as prescribed: Truvada 200/300 mg daily at 8 am Doletegravir (Tivicay) 50 mg daily at 8 am Furosemide (Lasix) 20 mg daily at 8 am Escitalopram (Lexapro) 10 mg daily at 8 am Keppra 500 mg twice daily at 8 am and 8 pm Mitrazapine (Remeron) 15 mg at bedtime nightly Ciprofloxacin 500 mg twice daily for 10 more days Metronidazole (Flagyl) 500 mg three times daily for 10 more days You were provided with prescriptions for only 30 days. Therefore, follow-up with your doctors for refills of prescriptions and for coordination of your care. Referrals: [facility] [Outside] [facility] [Outside] Elina Mcintyre MD [Staff Provider] - Radha Azul [Staff Provider] - Tenzin Schultz MD [Staff Provider] -
[2018-05-17 15:45] VITALS: BP 96/61; PULSE 75; TEMP 98.1; O2SAT 97
--- NOTE | 2018-05-17 16:26 | PN ---
DATE: 05/17/2018 LOCATION: 569, bed B. SUBJECTIVE: This is a 58-year-old male seen and examined early in rounds without significant clinical changes or reported active bleeding. No chest pain or palpitation with less bowel movement frequency. On record, I ordered the GI radiology study, upper GI with small bowel follow-through. It was canceled of unclear reason for me. The entire chart is reviewed including the most recent lab and radiology study results. Today's lab results showed white blood cells of 4.7, hemoglobin 8.9, hematocrit 26.3 with normal platelet count with BUN of 6, creatinine of 0.7, calcium 7.8, albumin 1.9 with total protein 4. PHYSICAL EXAMINATION: GENERAL: A 58-year-old male. VITAL SIGNS: Afebrile with pulse of 60, respiratory rate 20-22, blood pressure of 124/72. HEENT: Showed pale, dry oral mucoid membrane. Nonicteric sclerae. LUNGS: Few scattered crepitation. Decreased air entry at bases. HEART: Positive S1 and S2. ABDOMEN: Soft with mild generalized tenderness. No mass or organomegaly. No rebound tenderness or guarding. EXTREMITIES: Without significant clubbing, cyanosis or edema. NEUROLOGIC: No reported new neurological deficits, sensory or motor. On the record, this case was discussed with the patient earlier today. IMPRESSION: 1. Re-exacerbation of peptic ulcer disease. 2. 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 3. Anemia secondary to above. SUGGESTIONS: 1. Continue current management. 2. ID followup. 3. Again the patient will need upper GI with small bowel follow-through, keeping in mind the patient's known reported history of gastric CA. 4. Oncology/Hematology followup as well as Surgical followup as outpatient. Radha Hernandez MD
--- NOTE | 2018-05-17 19:46 | CP.PCM.PN ---
Subjective - Date & Time of Evaluation Date of Evaluation: 05/17/18 Time of Evaluation: 09:00 - Subjective Subjective: doing ok on po meds for possihble d/c Objective - Vital Signs/Intake and Output Vital Signs (last 24 hours): Temp Pulse Resp BP Pulse Ox 98.1 F 75 20 96/61 L 97 05/17/18 15:00 05/17/18 15:00 05/17/18 15:00 05/17/18 15:00 05/17/18 15:00 - Medications Medications: Current Medications Ciprofloxacin (Cipro) 500 mg PO BID [facility]; Protocol Last Admin: 05/17/18 17:18 Dose: 500 mg Dolutegravir Sodium (Tivicay) 50 mg PO DAILY [facility]; Protocol Last Admin: 05/17/18 09:13 Dose: 50 mg Emtricitabine/Tenofovir (Truvada 200 Mg-300 Mg) 1 tab PO DAILY [facility]; Protocol Last Admin: 05/17/18 09:13 Dose: 1 tab Escitalopram Oxalate (Lexapro) 10 mg PO DAILY [facility] Last Admin: 05/17/18 09:13 Dose: 10 mg Folic Acid (Folic Acid) 1 mg PO DAILY [facility] Last Admin: 05/17/18 09:14 Dose: 1 mg Furosemide (Lasix) 20 mg PO DAILY [facility] Last Admin: 05/17/18 14:02 Dose: 20 mg Levetiracetam (Keppra) 500 mg PO BID [facility] Last Admin: 05/17/18 17:18 Dose: 500 mg Lorazepam (Ativan) 1 mg IVP Q4H PRN PRN Reason: Symptoms of alcohol withdrawl Last Admin: 05/15/18 00:14 Dose: 1 mg Metronidazole (Flagyl) 500 mg PO Q8 [facility]; Protocol Last Admin: 05/17/18 13:28 Dose: 500 mg Mirtazapine (Remeron) 45 mg PO HS [facility] Last Admin: 05/16/18 21:04 Dose: 45 mg Multivitamins (Hexavitamin) 1 tab PO DAILY [facility] Last Admin: 05/17/18 09:14 Dose: 1 tab Nicotine (Nicoderm Cq) 1 patch TD DAILY [facility] Last Admin: 05/17/18 09:17 Dose: Not Given Nystatin (Nystatin Oral Susp) 5 ml PO QID [facility] Last Admin: 05/17/18 17:18 Dose: 5 ml Ondansetron HCl (Zofran Inj) 4 mg IVP Q6H PRN PRN Reason: Nausea/Vomiting Last Admin: 05/16/18 00:17 Dose: 4 mg Pantoprazole Sodium (Protonix Ec Tab) 40 mg PO DAILY [facility] Last Admin: 05/17/18 09:14 Dose: 40 mg Thiamine HCl (Vitamin B1 Tab) 100 mg PO DAILY [facility] Last Admin: 05/17/18 09:14 Dose: 100 mg - Labs Labs: 05/17/18 07:40 05/17/18 07:40 PT 11.9 SECONDS (9.7-12.2) 05/12/18 17:45 INR 1.1 05/12/18 17:45 APTT 31 SECONDS (21-34) 05/12/18 17:45 - Constitutional Appears: Non-toxic, Chronically Ill - Head Exam Head Exam: NORMOCEPHALIC - Eye Exam Eye Exam: absent: Scleral icterus - ENT Exam ENT Exam: Mucous Membranes Dry - Neck Exam Neck Exam: absent: Lymphadenopathy - Respiratory Exam Respiratory Exam: Decreased Breath Sounds - Cardiovascular Exam Cardiovascular Exam: REGULAR RHYTHM - GI/Abdominal Exam GI & Abdominal Exam: Distended - Rectal Exam Rectal Exam: Deferred - Exam Exam: NORMAL INSPECTION - Extremities Exam Extremities Exam: absent: Pedal Edema - Back Exam Back Exam: absent: CVA tenderness (L), CVA tenderness (R) - Neurological Exam Neurological Exam: Alert, Awake, CN II-XII Intact, Oriented x3 - Psychiatric Exam Psychiatric exam: Depressed - Skin Skin Exam: Dry Assessment and Plan (1) History of HIV or AIDS Status: Acute - Assessment and Plan (Free Text) Assessment: cont rx as out pt
== END 2018-05-17 21:13 | disposition home or self-care (01) | DRG 975 ==
LOC: C.ER 15:11 → C.9E 18:10 → C.5S 20:48 → C.9E 20:52 → C.9I 05-13 06:48 → OBSVTOIN 05-13 21:24 → C.5S 05-14 16:44
PROVIDERS: ADMIT Internal Medicine; ATTEND Internal Medicine
DX: A41.9 Sepsis, unspecified organism (principal); A09 Infectious gastroenteritis and colitis, unspecified; B20 Human immunodeficiency virus [HIV] disease; B37.0 Candidal stomatitis; G93.49 Other encephalopathy; F32.2 Major depressive disorder, single episode, severe without psychotic features; F10.239 Alcohol dependence with withdrawal, unspecified; Z68.22 Body mass index [BMI] 22.0-22.9, adult; E83.42 Hypomagnesemia; E87.6 Hypokalemia; F02.80 Dementia in other diseases classified elsewhere, unspecified severity, without behavioral disturbance, psychotic disturbance, mood disturbance, and anxiety; F17.210 Nicotine dependence, cigarettes, uncomplicated; G40.909 Epilepsy, unspecified, not intractable, without status epilepticus; Z85.028 Personal history of other malignant neoplasm of stomach; Z92.21 Personal history of antineoplastic chemotherapy; Z91.19 Patient's noncompliance with other medical treatment and regimen; R32 Unspecified urinary incontinence; K25.9 Gastric ulcer, unspecified as acute or chronic, without hemorrhage or perforation; G93.89 Other specified disorders of brain; D64.9 Anemia, unspecified